=== PATIENT | female | born 1965 | race Hispanic/Latino ===

== ENCOUNTER 2016-11-07 21:37 | Emergency (ER) | payer MEDICARE ==
[2016-11-07 22:12] VITALS: BP 110/85
[2016-11-07 23:28] LABS: Anion Gap 21 mmol/L; Blood Urea Nitrogen 12 mg/dL (7-17); Calcium 9.9 mg/dL (8.4-10.2); Carbon Dioxide 25 mmol/L (22-30); Chloride 97.2 mmol/L (98-107); Glucose 151 mg/dL (65-100); Potassium 3.9 mmol/L (3.6-5.0); Sodium 139 mmol/L (137-145)
[2016-11-08 00:08] LABS: Hematocrit 48.4 % (30.3-42.9); Hemoglobin 16.3 gm/dl (10.1-14.3); Mean Corpuscular HGB Conc 34 % (30-34); Mean Corpuscular Hemoglobin 30 pg (28-32); Mean Corpuscular Volume 89 fl (79-97); Red Blood Count 5.46 M/mm3 (3.65-5.03); Red Cell Distribution Width 14.4 % (13.2-15.2); White Blood Count 13.8 K/mm3 (4.5-11.0)
[2016-11-08 00:10] LABS: Platelet Count 206 K/mm3 (140-440)
[2016-11-08 00:17] LABS: Basophils % (Auto) 0.5 % (0.0-1.8); Diff Status Complete; Eosinophils % (Auto) 1.9 % (0.0-4.3)
--- NOTE | 2016-11-08 00:30 | XRay Report ---
FINAL REPORT PROCEDURE: XR KNEE 3V RT TECHNIQUE: RIGHT knee radiographs, AP, lateral and oblique views. CPT 76783 HISTORY: Right knee pain after trauma. Fall. COMPARISON: No prior studies are available for comparison. FINDINGS: Fracture (s) and/or Dislocation(s): None . Alignment: Normal . Joint space(s): Normal . Soft tissues: Normal . Bone mineralization: Mild degenerative change noted. Foreign bodies: None . IMPRESSION: There is no plain film evidence of fracture or dislocation in the right knee..
[2016-11-08] MEDS ORDERED: NORCO 5/325 PO ONE (01:00)
--- NOTE | 2016-11-08 01:11 | Emergency Department Report ---
HPI - General Chief Complaint: Extremity Injury, Lower Time Seen by Provider: 11/08/16 00:38 - HPI HPI: This is a 50-year-old female who presents to the emergency department , dropped off by her sister, with complaint of right knee and ankle pain. Past 2 days that she had a mechanical fall. Patient says that she tripped on something and fell onto that right lower extremity. She is able to ambulate but has pain with doing so. The patient may have said something during triage that made triage concern for symptoms of shortness of breath as the triage notes say "patient noted to be short of breath" and subsequent labs imaging were placed for this reason. However the patient says that she has a history of COPD and that she is at her normal baseline respiratory status, but she denies any chest pain, and she did not come in for any other reason beside her right lower extremity pain status post fall. She has a primary care doctor but cannot room as her name at this current time. She took some Tylenol for symptoms without much relief. She has a past medical history of asthma, COPD, hypertension, schizophrenia. ED Past Medical Hx - Past Medical History Previous Medical History?: Yes Hx Hypertension: Yes Hx Congestive Heart Failure: No Hx Diabetes: No Hx Psychiatric Treatment: Yes (paranoid schizophrenia) Hx Asthma: Yes Hx COPD: Yes - Surgical History Past Surgical History?: Yes Hx Cholecystectomy: Yes Additional Surgical History: right knee surgery, left carpal tunnel surg, hysterectomy - Social History Smoking Status: Current Every Day Smoker Substance Use Type: None - Medications Home Medications: Home Medications Medication Instructions Recorded Confirmed Last Taken Type Ziprasidone HCl [Geodon] 160 mg PO HS 02/04/14 09/20/15 09/15/15 History clonazePAM [KlonoPIN] 4 mg PO HS 02/04/14 09/20/15 2 Days Ago History ALBUTEROL Inhaler [ProAir HFA 2 puff IH QID PRN #1 inhalation 08/03/14 09/20/15 09/15/15 Rx Inhaler] methylPREDNISolone [Medrol Dose 4 mg PO QAM #1 tab.ds.pk 09/16/15 09/20/15 Unknown Rx Kana] traZODone [Desyrel] 50 mg PO QHS 09/16/15 09/20/15 09/15/15 History Aspirin EC [Aspirin Enteric Coated 325 mg PO QDAY #30 tablet 09/21/15 Unknown Rx TAB] Levofloxacin [Levaquin TAB] 750 mg PO Q24H #2 tablet 09/21/15 Unknown Rx Lisinopril [Zestril TAB] 2.5 mg PO QDAY #30 tab 09/21/15 Unknown Rx Metoprolol [Lopressor TAB] 12.5 mg PO BID #60 tablet 09/21/15 Unknown Rx Prasugrel [Effient] 10 mg PO QDAY #30 tablet 09/21/15 Unknown Rx ED Review of Systems ROS: Stated complaint: DIFFICULTY IN BREATHING/RIGHT KNEE PAIN Other details as noted in HPI Comment: All other systems reviewed and negative Constitutional: denies: chills, fever Eyes: denies: eye pain, eye discharge, vision change ENT: denies: ear pain, throat pain Respiratory: denies: cough, shortness of breath, wheezing Cardiovascular: denies: chest pain, palpitations Gastrointestinal: denies: abdominal pain, nausea, diarrhea Genitourinary: denies: urgency, dysuria, discharge Musculoskeletal: arthralgia. denies: back pain Skin: denies: rash, lesions Neurological: denies: headache, weakness, paresthesias Physical Exam - Physical Exam Vital Signs: Vital Signs 11/07/16 22:09 Temperature 99.3 F Pulse Rate 101 H Respiratory 22 Rate Blood Pressure 110/85 [Right] O2 Sat by Pulse 97 Oximetry Physical Exam: GENERAL: The patient is well-developed well-nourished. HEENT: Normocephalic. Atraumatic. Extraocular motions are intact. Patient has moist mucous membranes. Pupils equal reactive to light bilaterally. NECK: Supple. Trachea is midline. CHEST/LUNGS: Clear to auscultation. There is mild tachypnea but no accessory muscle use. There is no respiratory distress noted. HEART/CARDIOVASCULAR: Regular. There is no tachycardia. There is no gallop rub or murmur. ABDOMEN: Abdomen is soft, nontender. Patient has normal bowel sounds. There is no abdominal distention. Morbidly obese habitus. SKIN: Skin is warm and dry. NEURO: The patient is awake, alert, and oriented. The patient is cooperative. The patient has no focal neurologic deficits. The patient has normal speech. MUSCULOSKELETAL: There is tenderness to palpation to the right circumferential ankle and the right anterior knee no obvious deformities. Negative anterior and posterior drawer test. No laxity with valgus or varus stress of the affected right knee. Pedal pulses +2 over 4 bilaterally. Cap refill less than 2 seconds. ED Course Vital Signs 11/07/16 22:09 Temperature 99.3 F Pulse Rate 101 H Respiratory 22 Rate Blood Pressure 110/85 [Right] O2 Sat by Pulse 97 Oximetry ED Medical Decision Making - Lab Data Result diagrams: 11/07/16 22:53 11/07/16 22:53 - EKG Data -: EKG Interpreted by Me EKG shows normal: sinus rhythm, axis, intervals, QRS complexes (LVH), ST-T waves Rate: normal - EKG Data When compared to previous EKG there are: previous EKG unavailable Interpretation: LVH - Radiology Data Radiology results: image reviewed interpreted by me: Chest x-ray shows some hyperinflation of the lungs and flattening of the diaphragms consistent with COPD. X-ray of the right knee, tib-fib and ankle do not show any fracture, dislocation or any acute process. - Medical Decision Making This is a 50-year-old female presents to the emergency department with complaint of a fall 2 days ago and right knee, saeed and ankle pain. Apparently the patient appeared short of breath through triage so a larger workup was started that included chest x-ray, troponin, as well as other labs. Patient had an x-ray of her right ankle, tib-fib and knee. There was no obvious fracture, dislocation or any acute process. However the patient will be covered with a short posterior splint to the ankle and a right knee immobilizer as well as crutches. Patient had an EKG that shows some LVH but otherwise no signs of ST elevation [place] or cardiac ischemia. Patient had some abnormal labs however with a leukocytosis of 13,000 and her first troponin being elevated just above the normal range at 0.033. Patient about this finding and the patient says that she has no chest pain, does not feel short of breath, or at least is no more short of breath and she is at baseline and did not come in with complaints of chest pain or shortness of breath. I checked a second troponin seeing if it would be trending down but it came back further elevated at 0.045. I spoke with the patient again regarding this abnormal finding and she once again reiterates that she has no chest pain, shortness of breath or any concern. Since I do not know what the etiology of the elevated troponin is , the patient has a normal kidney function, I suggested the patient be admitted to the hospital for further evaluation, serial troponins. However the patient refused this. I discussed with her that elevated troponins could be a marker for coronary artery disease or at least physical stress on the heart and that ignoring these elevated labs could mean heart attack, disability or even . She understands and says that if she starts having any distress she will return to the emergency department immediately but otherwise she refuses to stay. Despite hearing all the risks, the patient has decided to sign out AGAINST MEDICAL ADVICE. - Differential Diagnosis fracture, dislocation, sprain, [place], COPD Critical Care Time: No Critical care attestation.: If time is entered above; I have spent that time in minutes in the direct care of this critically ill patient, excluding procedure time. ED Disposition Clinical Impression: Elevated troponin Fall Qualifiers: Encounter type: initial encounter Qualified Code(s): W19.XXXA - Unspecified fall, initial encounter Ankle pain, right Qualifiers: Chronicity: acute Qualified Code(s): M25.571 - Pain in right ankle and joints of right foot Knee pain Qualifiers: Laterality: right Chronicity: acute Qualified Code(s): M25.561 - Pain in right knee Disposition: LEFT AGAINST MEDICAL ADVICE Is pt being admited?: No Condition: Stable Instructions: Arthralgia (ED) Additional Instructions: Please follow-up with your primary care, pulmonology and cardiology physicians. Return to the emergency department if you change your mind about admission and further evaluation of the elevated troponin levels. I have also given you a referral for local orthopedists, Dr. Costa, to follow up regarding your knee and ankle pain. Referrals: PRIMARY MD CESAR [Primary Care Provider] - 3-5 Days MARIAMA COSTA MD [Staff Physician] - 3-5 Days Forms: AMA Form Time of Disposition: 03:04
[2016-11-08] MEDS ORDERED: ZOFRAN ODT PO ONE (02:29)
--- NOTE | 2016-11-08 02:47 | XRay Report ---
FINAL REPORT PROCEDURE: XR ANKLE 3 RT TECHNIQUE: RIGHT ankle radiographs, AP, lateral, and oblique views. CPT 74957 HISTORY: Right ankle pain COMPARISON: No prior studies are available for comparison. FINDINGS: Fracture (s) and/or Dislocation(s): None. Alignment: Normal. Joint space(s): Normal. Soft tissues: Normal. Bone mineralization: Normal. Foreign bodies: None. Calcaneal spurring: Moderate spurring at the Achilles tendon insertion in the posterior calcaneus. Mild degenerative change elsewhere. IMPRESSION: 1. There is no plain film evidence of fracture or dislocation in the right ankle. 2. Moderate calcaneal spurring. 3. Right tibia and fibula series dictated separately. .
--- NOTE | 2016-11-08 02:47 | XRay Report ---
FINAL REPORT PROCEDURE: XR TIBIA FIBULA 2V RT TECHNIQUE: RIGHT tibia and fibula radiographs, AP and lateral views. CPT 65715 Four films obtained which are 2 AP views and 2 lateral views of the right tibia and fibula HISTORY: Right saeed pain. Pain in tibia and fibula area COMPARISON: No prior studies are available for comparison. FINDINGS: Fracture (s) and/or Dislocation(s): None . Joint space(s): Normal . Soft tissues: Normal . Bone mineralization: Bone mineralization appears normal. There is moderate calcaneal spurring posteriorly. Foreign bodies: None . IMPRESSION: 1. There is no plain film evidence of fracture or dislocation or acute finding. 2. Right ankle series dictated separately.
[2016-11-08] MEDS ORDERED: NACL 0.9% 1000 ML 1,000 ML ONE (05:37)
[2016-11-08 07:51] LABS: Cholesterol 196 mg/dL (50-199); HDL Cholesterol 51 mg/dL (40-59); LDL Cholesterol,Direct 86 mg/dL (50-130); Triglycerides 295 mg/dL (2-149)
--- NOTE | 2016-11-08 09:47 | XRay Report ---
Single view chest: Compared to 02/16/16. History: Shortness of breath. Findings: Marked cardiomegaly. Trachea is midline. No consolidation, pneumothorax or pleural effusion. Impression: Cardiomegaly. No acute lung changes.
== END 2016-11-08 03:29 | disposition left against medical advice (07) ==
LOC: ED 21:37
DX: M25.561 Pain in right knee (principal); M25.571 Pain in right ankle and joints of right foot; J45.909 Unspecified asthma, uncomplicated; I10 Essential (primary) hypertension; F20.0 Paranoid schizophrenia; J44.9 Chronic obstructive pulmonary disease, unspecified; F17.200 Nicotine dependence, unspecified, uncomplicated; Z79.82 Long term (current) use of aspirin; W19.XXXA Unspecified fall, initial encounter; Y93.89 Activity, other specified; Y99.9 Unspecified external cause status; Y92.89 Other specified places as the place of occurrence of the external cause
CPT/HCPCS: 29505; 36415; 71010; 73562; 73590; 73610; 80048; 80061; 82805; 84484; 85025; 93005; 93010; 99284; J7030; Q0162

== ENCOUNTER 2016-11-10 14:39 | Emergency (ER) | payer MEDICARE ==
[2016-11-10 15:31] VITALS: BP 141/78
[2016-11-10 16:22] LABS: Eosinophils % (Auto) 1.7 % (0.0-4.3); Hematocrit 44.8 % (30.3-42.9); Hemoglobin 14.8 gm/dl (10.1-14.3); Mean Corpuscular HGB Conc 33 % (30-34); Mean Corpuscular Hemoglobin 30 pg (28-32); Mean Corpuscular Volume 89 fl (79-97); Platelet Count 248 K/mm3 (140-440); Red Blood Count 5.03 M/mm3 (3.65-5.03); Red Cell Distribution Width 13.9 % (13.2-15.2); White Blood Count 11.9 K/mm3 (4.5-11.0)
--- NOTE | 2016-11-10 16:31 | XRay Report ---
Chest 2 views: Compared to 11/07/16. History: Shortness of breath. Findings: Cardiomegaly. Trachea is midline. Mild pulmonary venous congestion. No consolidation. Left CP angle obscured than left. Right CP angle normal. Impression: Cardiomegaly with mild pulmonary venous congestion.
[2016-11-10 16:40] LABS: Anion Gap 19 mmol/L; BUN/Creatinine Ratio 13.33; Blood Urea Nitrogen 8 mg/dL (7-17); Calcium 9.4 mg/dL (8.4-10.2); Carbon Dioxide 27 mmol/L (22-30); Chloride 95.8 mmol/L (98-107); Glucose 124 mg/dL (65-100); Sodium 138 mmol/L (137-145)
== END 2016-11-11 | disposition left against medical advice (07) ==
LOC: ED 14:39
DX: R07.9 Chest pain, unspecified (principal); Z53.21 Procedure and treatment not carried out due to patient leaving prior to being seen by health care provider
CPT/HCPCS: 36415; 71020; 80048; 84484; 85025; 93005; 93010

== ENCOUNTER 2016-11-29 07:35 | Emergency (ER) | payer MEDICARE ==
--- NOTE | 2016-11-29 12:04 | Emergency Department Report ---
ED General Adult HPI - General Chief complaint: Anxiety Stated complaint: ANXIETY ATTACK Time Seen by Provider: 11/29/16 11:48 Source: patient Mode of arrival: Wheelchair Limitations: No Limitations - History of Present Illness Initial comments: 51 y/o M presents w/ cc of anxiety. Pt states she has a long standing hx of anxiety, and has PCP appt on Thursday. Pt state she has had trouble sleeping. Pt states symptoms are consistent with usual anxiety attack. Denies headache, chset pain, melena, hematochezia, lightheadedness, dizziness. Pt refuses objective tests and simply wants her klonopin and go to sleep at home. - Related Data Home Medications Medication Instructions Recorded Confirmed Last Taken Ziprasidone HCl [Geodon] 160 mg PO HS 02/04/14 11/29/16 1 Day Ago clonazePAM [KlonoPIN] 2 mg PO HS 02/04/14 11/29/16 1 Day Ago traZODone [Desyrel] 50 mg PO QHS 09/16/15 11/29/16 1 Day Ago Previous Rx's Medication Instructions Recorded Last Taken Type ALBUTEROL Inhaler [ProAir HFA 2 puff IH QID PRN #1 inhalation 08/03/14 1 Day Ago Rx Inhaler] Aspirin EC [Aspirin Enteric Coated 325 mg PO QDAY #30 tablet 09/21/15 1 Day Ago Rx TAB] Lisinopril [Zestril TAB] 2.5 mg PO QDAY #30 tab 09/21/15 1 Day Ago Rx Metoprolol [Lopressor TAB] 12.5 mg PO BID #60 tablet 09/21/15 1 Day Ago Rx Prasugrel [Effient] 10 mg PO QDAY #30 tablet 09/21/15 1 Day Ago Rx Allergies Allergy/AdvReac Type Severity Reaction Status Date / Time aspirin Allergy Nausea Verified 11/29/16 08:19 meperidine HCl [From Demerol] Allergy Rash Verified 11/29/16 08:19 NSAIDS (Non-Steroidal Allergy Unknown Verified 11/29/16 08:19 Anti-Inflamma ED Review of Systems ROS: Stated complaint: ANXIETY ATTACK Other details as noted in HPI Comment: All other systems reviewed and negative Constitutional: denies: chills, fever Eyes: denies: eye pain, eye discharge, vision change ENT: denies: ear pain, throat pain Respiratory: denies: cough, shortness of breath, wheezing Cardiovascular: denies: chest pain, palpitations Endocrine: no symptoms reported Gastrointestinal: denies: abdominal pain, nausea, diarrhea Genitourinary: denies: urgency, dysuria, discharge Musculoskeletal: denies: back pain, joint swelling, arthralgia Skin: denies: rash, lesions Neurological: denies: headache, weakness, paresthesias Psychiatric: denies: anxiety, depression Hematological/Lymphatic: denies: easy bleeding, easy bruising ED Past Medical Hx - Past Medical History Hx Hypertension: Yes Hx Heart Attack/AMI: Yes Hx Congestive Heart Failure: No Hx Diabetes: Yes Hx GERD: Yes Hx Kidney Stones: Yes Hx Psychiatric Treatment: Yes (paranoid schizophrenia /ANXIETY) Hx Asthma: Yes Hx COPD: Yes Additional medical history: CAD - Surgical History Hx Coronary Stent: Yes Hx Cholecystectomy: Yes Additional Surgical History: right knee surgery, left carpal tunnel surg, hysterectomy - Social History Smoking Status: Current Every Day Smoker Substance Use Type: Prescribed - Medications Home Medications: Home Medications Medication Instructions Recorded Confirmed Last Taken Type Ziprasidone HCl [Geodon] 160 mg PO HS 02/04/14 11/29/16 1 Day Ago History clonazePAM [KlonoPIN] 2 mg PO HS 02/04/14 11/29/16 1 Day Ago History ALBUTEROL Inhaler [ProAir HFA 2 puff IH QID PRN #1 inhalation 08/03/14 11/29/16 1 Day Ago Rx Inhaler] traZODone [Desyrel] 50 mg PO QHS 09/16/15 11/29/16 1 Day Ago History Aspirin EC [Aspirin Enteric Coated 325 mg PO QDAY #30 tablet 09/21/15 11/29/16 1 Day Ago Rx TAB] Lisinopril [Zestril TAB] 2.5 mg PO QDAY #30 tab 09/21/15 11/29/16 1 Day Ago Rx Metoprolol [Lopressor TAB] 12.5 mg PO BID #60 tablet 09/21/15 11/29/16 1 Day Ago Rx Prasugrel [Effient] 10 mg PO QDAY #30 tablet 09/21/15 11/29/16 1 Day Ago Rx ED Physical Exam - General Limitations: No Limitations General appearance: alert, in no apparent distress - Head Head exam: Present: atraumatic, normocephalic - Eye Eye exam: Present: normal appearance, PERRL, EOMI - ENT ENT exam: Present: normal exam, normal orophraynx, mucous membranes moist - Neck Neck exam: Present: normal inspection - Respiratory Respiratory exam: Present: normal lung sounds bilaterally. Absent: respiratory distress - Cardiovascular Cardiovascular Exam: Present: regular rate, normal rhythm. Absent: systolic murmur, diastolic murmur, rubs, gallop - GI/Abdominal GI/Abdominal exam: Present: soft, normal bowel sounds, other (Non tender) - Extremities Exam Extremities exam: Present: normal inspection - Back Exam Back exam: Present: normal inspection - Neurological Exam Neurological exam: Present: alert, oriented X3, CN II-XII intact, normal gait - Psychiatric Psychiatric exam: Present: normal affect, normal mood - Skin Skin exam: Present: warm, dry, intact, normal color. Absent: rash ED Course Vital Signs 11/29/16 08:10 Temperature 99.0 F Pulse Rate 81 Respiratory 26 H Rate Blood Pressure 136/90 O2 Sat by Pulse 96 Oximetry ED Medical Decision Making - Medical Decision Making I did recommend pt udnergo work up to rule out other possible explanations for anxiety such as anemia, but pt declined. Pt is awake, alert, oriented and understands that an emergency medical condition has not been ruled out. Pt understood, and signed out HOOD Critical care attestation.: If time is entered above; I have spent that time in minutes in the direct care of this critically ill patient, excluding procedure time. ED Disposition Clinical Impression: Anxiety attack, Left against medical advice Disposition: LEFT AGAINST MEDICAL ADVICE Is pt being admited?: No Condition: Good Instructions: Anxiety (ED) Additional Instructions: Please follow up with your primary care doctor on Thursday as scheduled, return if you have any new concerning symptoms Referrals: PRIMARY CARE, [Primary Care Provider] - 3-5 Days Forms: AMA Form Time of Disposition: 12:12
[2016-11-29 12:27] VITALS: BP 141/65
== END 2016-11-29 12:30 | disposition left against medical advice (07) ==
LOC: ED 07:35
DX: F41.9 Anxiety disorder, unspecified (principal)
CPT/HCPCS: 99283

== ENCOUNTER 2016-12-29 21:45 | Emergency (ER) | payer MEDICARE ==
[2016-12-29 22:18] LABS: Hematocrit 48.7 % (30.3-42.9); Hemoglobin 16.5 gm/dl (10.1-14.3); Mean Corpuscular HGB Conc 34 % (30-34); Mean Corpuscular Hemoglobin 30 pg (28-32); Mean Corpuscular Volume 89 fl (79-97); Platelet Count 275 K/mm3 (140-440); Red Blood Count 5.48 M/mm3 (3.65-5.03); Red Cell Distribution Width 14.4 % (13.2-15.2)
[2016-12-29 22:28] LABS: INR 0.9 (0.87-1.13); Partial Thromboplastin Time 27.5 Sec. (24.2-36.6)
[2016-12-29 22:33] LABS: Alanine Aminotransferase 67 units/L (7-56); Albumin 3.9 g/dL (3.9-5); Albumin/Globulin Ratio 1.3 %; Alkaline Phosphatase 104 units/L (35-129); Anion Gap 20 mmol/L; Blood Urea Nitrogen 15 mg/dL (7-17); Calcium 9.8 mg/dL (8.4-10.2); Carbon Dioxide 26 mmol/L (22-30); Chloride 97.9 mmol/L (98-107); Glucose 109 mg/dL (65-100); Sodium 140 mmol/L (137-145); Total Protein 6.8 g/dL (6.3-8.2)
[2016-12-30 00:50] LABS: Basophils % (Manual) 0 % (0.0-1.8); Blastocytes % (Manual) 0 %; Diff Status Complete; Platelet Estimate Consistent w Auto; RBC Morphology Normal
--- NOTE | 2016-12-30 06:31 | Emergency Department Report ---
ED Shortness of Breath HPI - General Chief Complaint: Dyspnea/Respdistress Stated Complaint: CHEST PAIN/SOB Time Seen by Provider: 12/30/16 06:26 Source: patient, family Mode of arrival: Wheelchair Limitations: No Limitations - History of Present Illness Initial Comments: Apparently the patient has a history of COPD and persistent tobacco dependency. She signed out of [facility] being admitted for these symptoms. She returned to smoking. She also has a history of a bipolar disorder/paranoid schizophrenia treated with trazodone and Geodon and Klonopin. She states she has not taken her medicines yet today and that she has been here for 9 hours. She is anxious. She states she has not been given any neb treatments. Apparently she is also complains of some facial swelling. She primarily complains of shortness of breath/wheezing. Said no fever or chills. She's been coughing without sputum production. MD Complaint: "asthma attack", anxiety -: days(s) Known History Of: COPD Context: smoke/fume exposure Associated Symptoms: denies other symptoms (except as above) - Related Data Home Medications Medication Instructions Recorded Confirmed Last Taken Ziprasidone HCl [Geodon] 160 mg PO HS 02/04/14 12/30/16 12/29/16 clonazePAM [KlonoPIN] 2 mg PO HS 02/04/14 12/30/16 12/29/16 traZODone [Desyrel] 50 mg PO QHS 09/16/15 12/30/16 12/29/16 Previous Rx's Medication Instructions Recorded Last Taken Type Aspirin EC [Aspirin Enteric Coated 325 mg PO QDAY #30 tablet 09/21/15 12/29/16 Rx TAB] Lisinopril [Zestril TAB] 2.5 mg PO QDAY #30 tab 09/21/15 12/29/16 Rx Metoprolol [Lopressor TAB] 12.5 mg PO BID #60 tablet 09/21/15 12/29/16 Rx Prasugrel [Effient] 10 mg PO QDAY #30 tablet 09/21/15 12/29/16 Rx ALBUTEROL Inhaler [ProAir HFA 2 puff IH QID PRN #1 inhalation 12/30/16 Unknown Rx Inhaler] Albuterol Sulfate [Albuterol 0.63% 0.63 mg IH TID PRN #60 ml 12/30/16 Unknown Rx NEBS] Azithromycin [Zithromax Z-TIKA] 250 mg PO DAILY #6 tablet 12/30/16 Unknown Rx predniSONE [Deltasone] 40 mg PO QDAY #14 tab 12/30/16 Unknown Rx Allergies Allergy/AdvReac Type Severity Reaction Status Date / Time aspirin Allergy Nausea Verified 11/29/16 08:19 meperidine HCl [From Demerol] Allergy Rash Verified 11/29/16 08:19 NSAIDS (Non-Steroidal Allergy Unknown Verified 11/29/16 08:19 Anti-Inflamma ED Review of Systems ROS: Stated complaint: CHEST PAIN/SOB Other details as noted in HPI Constitutional: denies: chills, fever Eyes: denies: eye pain, eye discharge, vision change ENT: as per HPI. denies: ear pain, throat pain Respiratory: cough, shortness of breath, wheezing Cardiovascular: denies: chest pain, palpitations Endocrine: no symptoms reported Gastrointestinal: denies: abdominal pain, nausea, diarrhea Genitourinary: denies: urgency, dysuria, discharge Musculoskeletal: denies: back pain, joint swelling, arthralgia Skin: denies: rash, lesions Neurological: denies: headache, weakness, paresthesias Psychiatric: anxiety. denies: depression Hematological/Lymphatic: denies: easy bleeding, easy bruising ED Past Medical Hx - Past Medical History Hx Hypertension: Yes Hx Heart Attack/AMI: Yes Hx Congestive Heart Failure: No Hx Diabetes: Yes Hx GERD: Yes Hx Kidney Stones: Yes Hx Psychiatric Treatment: Yes (paranoid schizophrenia /ANXIETY) Hx Asthma: Yes Hx COPD: Yes Additional medical history: CAD - Surgical History Past Surgical History?: Yes Hx Coronary Stent: Yes Hx Cholecystectomy: Yes Additional Surgical History: right knee surgery, left carpal tunnel surg, hysterectomy - Social History Smoking Status: Current Every Day Smoker - Medications Home Medications: Home Medications Medication Instructions Recorded Confirmed Last Taken Type Ziprasidone HCl [Geodon] 160 mg PO HS 02/04/14 12/30/16 12/29/16 History clonazePAM [KlonoPIN] 2 mg PO HS 02/04/14 12/30/16 12/29/16 History traZODone [Desyrel] 50 mg PO QHS 09/16/15 12/30/16 12/29/16 History Aspirin EC [Aspirin Enteric Coated 325 mg PO QDAY #30 tablet 09/21/15 12/30/16 12/29/16 Rx TAB] Lisinopril [Zestril TAB] 2.5 mg PO QDAY #30 tab 09/21/15 12/30/16 12/29/16 Rx Metoprolol [Lopressor TAB] 12.5 mg PO BID #60 tablet 09/21/15 12/30/16 12/29/16 Rx Prasugrel [Effient] 10 mg PO QDAY #30 tablet 09/21/15 12/30/16 12/29/16 Rx ALBUTEROL Inhaler [ProAir HFA 2 puff IH QID PRN #1 inhalation 12/30/16 Unknown Rx Inhaler] Albuterol Sulfate [Albuterol 0.63% 0.63 mg IH TID PRN #60 ml 12/30/16 Unknown Rx NEBS] Azithromycin [Zithromax Z-TIKA] 250 mg PO DAILY #6 tablet 12/30/16 Unknown Rx predniSONE [Deltasone] 40 mg PO QDAY #14 tab 12/30/16 Unknown Rx ED Physical Exam - General Limitations: Other (psychiatric disorder) General appearance: alert, in no apparent distress, anxious, obese - Head Head exam: Present: atraumatic, normocephalic - Eye Eye exam: Present: normal appearance. Absent: scleral icterus - ENT ENT exam: Present: mucous membranes moist - Neck Neck exam: Present: normal inspection. Absent: tenderness, meningismus - Respiratory Respiratory exam: Present: decreased breath sounds. Absent: respiratory distress - Cardiovascular Cardiovascular Exam: Present: regular rate, normal rhythm. Absent: systolic murmur, diastolic murmur, rubs, gallop - GI/Abdominal GI/Abdominal exam: Present: soft, normal bowel sounds. Absent: distended, tenderness, guarding, rebound, rigid - Extremities Exam Extremities exam: Present: normal inspection, normal capillary refill, joint swelling. Absent: tenderness, pedal edema, calf tenderness - Back Exam Back exam: Present: normal inspection - Neurological Exam Neurological exam: Present: alert, oriented X3, CN II-XII intact. Absent: motor sensory deficit - Psychiatric Psychiatric exam: Present: normal affect, normal mood - Skin Skin exam: Present: warm, dry, intact, normal color. Absent: rash ED Course Vital Signs 12/29/16 12/30/16 12/30/16 21:50 05:02 06:02 Temperature 98.3 F Pulse Rate 118 H 98 H 72 Pulse Rate [ Anterior Bilateral Throughout] Respiratory 22 20 27 H Rate Respiratory Rate [Anterior Bilateral Throughout] Blood Pressure 114/88 138/83 Blood Pressure 141/73 [Left] O2 Sat by Pulse 95 97 95 Oximetry 12/30/16 12/30/16 12/30/16 06:03 07:26 07:27 Temperature Pulse Rate 72 Pulse Rate [ 74 74 Anterior Bilateral Throughout] Respiratory Rate Respiratory 17 17 Rate [Anterior Bilateral Throughout] Blood Pressure Blood Pressure [Left] O2 Sat by Pulse Oximetry 12/30/16 07:42 Temperature 98.6 F Pulse Rate 76 Pulse Rate [ Anterior Bilateral Throughout] Respiratory 27 H Rate Respiratory Rate [Anterior Bilateral Throughout] Blood Pressure Blood Pressure 106/53 [Left] O2 Sat by Pulse 94 Oximetry - Reevaluation(s) Reevaluation #1: Patient states symptoms have resolved. She is on prednisone and her white blood cell count is bit elevated. He does not have any fever or chills. She denies chest pain. 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 Smoking cessation was discussed. 12/30/16 09:22 ED Medical Decision Making - Lab Data Result diagrams: 12/29/16 22:06 12/29/16 22:06 Laboratory Results - last 24 hr 12/29/16 12/29/16 12/29/16 22:06 22:06 22:06 WBC 18.0 H RBC 5.48 H Hgb 16.5 H Hct 48.7 H MCV 89 MCH 30 MCHC 34 RDW 14.4 Plt Count 275 Lymph # Navigation Teacher Add Manual Diff Complete Total Counted 100 Seg Neuts % (Manual) 62.0 Band Neutrophils % 0 Lymphocytes % (Manual) 29.0 Reactive Lymphs % (Man) 0 Monocytes % (Manual) 8.0 H Eosinophils % (Manual) 1.0 Basophils % (Manual) 0 Metamyelocytes % 0 Myelocytes % 0 Promyelocytes % 0 Blast Cells % 0 Nucleated RBC % Not Reportable Seg Neutrophils # Man 11.2 H Band Neutrophils # 0.0 Lymphocytes # (Manual) 5.2 Abs React Lymphs (Man) 0.0 Monocytes # (Manual) 1.4 H Eosinophils # (Manual) 0.2 Basophils # (Manual) 0.0 Metamyelocytes # 0.0 Myelocytes # 0.0 Promyelocytes # 0.0 Blast Cells # 0.0 WBC Morphology Not Reportable Hypersegmented Neuts Not Reportable Hyposegmented Neuts Not Reportable Hypogranular Neuts Not Reportable Smudge Cells Not Reportable Toxic Granulation Not Reportable Toxic Vacuolation Not Reportable Dohle Bodies Not Reportable Pelger-Huet Anomaly Not Reportable Jane Rods Not Reportable Platelet Estimate Consistent w auto Clumped Platelets Not Reportable Plt Clumps, EDTA Not Reportable Large Platelets Not Reportable Giant Platelets Not Reportable Platelet Satelliting Not Reportable Plt Morphology Comment Not Reportable RBC Morphology Normal Dimorphic RBCs Not Reportable Polychromasia Not Reportable Hypochromasia Not Reportable Poikilocytosis Not Reportable Anisocytosis Not Reportable Microcytosis Not Reportable Macrocytosis Not Reportable Spherocytes Not Reportable Pappenheimer Bodies Not Reportable Sickle Cells Not Reportable Target Cells Not Reportable Tear Drop Cells Not Reportable Ovalocytes Not Reportable Helmet Cells Not Reportable Patel-Lillie Bodies Not Reportable [place] Rings Not Reportable [place] Cells Not Reportable Bite Cells Not Reportable Crenated Cell Not Reportable Elliptocytes Not Reportable Acanthocytes (Spur) Not Reportable Rouleaux Not Reportable Hemoglobin C Crystals Not Reportable Schistocytes Not Reportable Malaria parasites Not Reportable Emerson Bodies Not Reportable Hem Pathologist Commnt No PT 12.1 L INR 0.90 APTT 27.5 Sodium 140 Potassium 4.0 Chloride 97.9 L Carbon Dioxide 26 Anion Gap 20 BUN 15 Creatinine 0.6 L Estimated GFR > 60 BUN/Creatinine Ratio 25.00 Glucose 109 H Calcium 9.8 Total Bilirubin 0.40 AST 51 H ALT 67 H Alkaline Phosphatase 104 Troponin T 0.012 Total Protein 6.8 Albumin 3.9 Albumin/Globulin Ratio 1.3 Laboratory Results - last 24 hr 12/29/16 12/29/16 12/29/16 22:06 22:06 22:06 WBC 18.0 H RBC 5.48 H Hgb 16.5 H Hct 48.7 H MCV 89 MCH 30 MCHC 34 RDW 14.4 Plt Count 275 Lymph # Navigation Teacher Add Manual Diff Complete Total Counted 100 Seg Neuts % (Manual) 62.0 Band Neutrophils % 0 Lymphocytes % (Manual) 29.0 Reactive Lymphs % (Man) 0 Monocytes % (Manual) 8.0 H Eosinophils % (Manual) 1.0 Basophils % (Manual) 0 Metamyelocytes % 0 Myelocytes % 0 Promyelocytes % 0 Blast Cells % 0 Nucleated RBC % Not Reportable Seg Neutrophils # Man 11.2 H Band Neutrophils # 0.0 Lymphocytes # (Manual) 5.2 Abs React Lymphs (Man) 0.0 Monocytes # (Manual) 1.4 H Eosinophils # (Manual) 0.2 Basophils # (Manual) 0.0 Metamyelocytes # 0.0 Myelocytes # 0.0 Promyelocytes # 0.0 Blast Cells # 0.0 WBC Morphology Not Reportable Hypersegmented Neuts Not Reportable Hyposegmented Neuts Not Reportable Hypogranular Neuts Not Reportable Smudge Cells Not Reportable Toxic Granulation Not Reportable Toxic Vacuolation Not Reportable Dohle Bodies Not Reportable Pelger-Huet Anomaly Not Reportable Jane Rods Not Reportable Platelet Estimate Consistent w auto Clumped Platelets Not Reportable Plt Clumps, EDTA Not Reportable Large Platelets Not Reportable Giant Platelets Not Reportable Platelet Satelliting Not Reportable Plt Morphology Comment Not Reportable RBC Morphology Normal Dimorphic RBCs Not Reportable Polychromasia Not Reportable Hypochromasia Not Reportable Poikilocytosis Not Reportable Anisocytosis Not Reportable Microcytosis Not Reportable Macrocytosis Not Reportable Spherocytes Not Reportable Pappenheimer Bodies Not Reportable Sickle Cells Not Reportable Target Cells Not Reportable Tear Drop Cells Not Reportable Ovalocytes Not Reportable Helmet Cells Not Reportable Patel-Lillie Bodies Not Reportable [place] Rings Not Reportable [place] Cells Not Reportable Bite Cells Not Reportable Crenated Cell Not Reportable Elliptocytes Not Reportable Acanthocytes (Spur) Not Reportable Rouleaux Not Reportable Hemoglobin C Crystals Not Reportable Schistocytes Not Reportable Malaria parasites Not Reportable Emerson Bodies Not Reportable Hem Pathologist Commnt No PT 12.1 L INR 0.90 APTT 27.5 Sodium 140 Potassium 4.0 Chloride 97.9 L Carbon Dioxide 26 Anion Gap 20 BUN 15 Creatinine 0.6 L Estimated GFR > 60 BUN/Creatinine Ratio 25.00 Glucose 109 H Calcium 9.8 Total Bilirubin 0.40 AST 51 H ALT 67 H Alkaline Phosphatase 104 Troponin T 0.012 Total Protein 6.8 Albumin 3.9 Albumin/Globulin Ratio 1.3 - EKG Data -: EKG Interpreted by Me EKG shows normal: sinus rhythm, axis, intervals Rate: normal - EKG Data When compared to previous EKG there are: no significant change Interpretation: LVH (LVH with associated repolarization abnormality essentially equivalent to prior tracing. Somewhat diffuse T-wave and ST abnormality) - Radiology Data interpreted by me: Chest x-ray shows cardiomegaly without decompensation Critical care attestation.: If time is entered above; I have spent that time in minutes in the direct care of this critically ill patient, excluding procedure time. ED Disposition Clinical Impression: COPD exacerbation, Tobacco dependency, Acute anxiety Acute bronchitis Qualifiers: Bronchitis organism: unspecified organism Qualified Code(s): J20.9 - Acute bronchitis, unspecified Leukocytosis Qualifiers: Leukocytosis type: unspecified Qualified Code(s): D72.829 - Elevated white blood cell count, unspecified Disposition: DISCHARGED TO HOME OR SELFCARE Is pt being admited?: No Does the pt Need Aspirin: No Condition: Stable Instructions: Chronic Obstructive Pulmonary Disease (ED), Acute Bronchitis (ED) Additional Instructions: Follow-up with your lung specialist. Smoking will probably cause you to an back in the emergency department. Rx as directed. Return as necessary. Return any acute change or problem. Prescriptions: ALBUTEROL Inhaler [ProAir HFA Inhaler] 2 puff IH QID PRN #1 inhalation PRN Reason: Shortness Of Breath Albuterol Sulfate [Albuterol 0.63% NEBS] 0.63 mg IH TID PRN #60 ml PRN Reason: Wheezing Azithromycin [Zithromax Z-TIKA] 250 mg PO DAILY #6 tablet predniSONE [Deltasone] 40 mg PO QDAY #14 tab Referrals: PRIMARY CARE, [Primary Care Provider] - 3-5 Days REESE MISTRY MD [Staff Physician] - 2-3 Days Time of Disposition: 09:28
[2016-12-30] MEDS ORDERED: MAGNESIUM SULFATE 2GM/50ML 2 GM/50 ML BAG IV ONE (06:52)
[2016-12-30] MEDS ORDERED: DUONEB 0.5 MG-3 MG/3 ML SOLN IH ONE (06:52)
[2016-12-30] MEDS ORDERED: ATIVAN IV ONE (06:52)
[2016-12-30] MEDS ORDERED: DECADRON ONE (07:05)
[2016-12-30] MEDS ORDERED: DECADRON IV ONE (07:07)
[2016-12-30 07:45] VITALS: BP 106/53
--- NOTE | 2016-12-30 07:58 | XRay Report ---
ROUTINE CHEST, TWO VIEWS: HISTORY: Dyspnea . Mild cardiomegaly is stable since 11/10/16. Normal pulmonary vascularity. The lungs are mildly hyperinflated but clear. No evidence for infiltrate, pleural effusion or pneumothorax. The thoracic cage is grossly intact. Mild thoracic spondylosis is noted. IMPRESSION: Mild cardiomegaly. Lungs clear.
== END 2016-12-30 10:00 | disposition home or self-care (01) ==
LOC: ED 21:45
DX: J44.1 Chronic obstructive pulmonary disease with (acute) exacerbation (principal); J20.9 Acute bronchitis, unspecified; F17.200 Nicotine dependence, unspecified, uncomplicated; F41.9 Anxiety disorder, unspecified; D72.829 Elevated white blood cell count, unspecified; I10 Essential (primary) hypertension; I25.2 Old myocardial infarction; E11.9 Type 2 diabetes mellitus without complications; K21.9 Gastro-esophageal reflux disease without esophagitis; F20.0 Paranoid schizophrenia; I25.10 Atherosclerotic heart disease of native coronary artery without angina pectoris; Z90.49 Acquired absence of other specified parts of digestive tract; Z90.710 Acquired absence of both cervix and uterus; Z88.6 Allergy status to analgesic agent
CPT/HCPCS: 36415; 71020; 80053; 84484; 85007; 85025; 85610; 85730; 93005; 93010; 94640; 96374; 96375; 99284; J1100; J2060

== ENCOUNTER 2017-01-21 13:31 | Emergency (ER) | payer MEDICARE ==
[2017-01-21 15:35] LABS: Basophils % (Auto) 0.7 % (0.0-1.8); Eosinophils % (Auto) 0.1 % (0.0-4.3); Hematocrit 52.7 % (30.3-42.9); Hemoglobin 17.7 gm/dl (10.1-14.3); Mean Corpuscular HGB Conc 34 % (30-34); Mean Corpuscular Hemoglobin 29 pg (28-32); Mean Corpuscular Volume 88 fl (79-97); Platelet Count 374 K/mm3 (140-440); Red Blood Count 6.01 M/mm3 (3.65-5.03); Red Cell Distribution Width 14.9 % (13.2-15.2)
[2017-01-21 15:45] LABS: Blood Urea Nitrogen 28 mg/dL (7-17); Calcium 10.7 mg/dL (8.4-10.2); Carbon Dioxide 27 mmol/L (22-30); Glucose 136 mg/dL (65-100)
[2017-01-21 15:51] LABS: Anion Gap 21 mmol/L; Potassium 4.6 mmol/L (3.6-5.0); Sodium 139 mmol/L (137-145)
[2017-01-21] MEDS ORDERED: HALDOL IM ONE (16:02)
--- NOTE | 2017-01-21 16:10 | XRay Report ---
Single view chest: History: Dyspnea. Findings: Cardiomegaly with mild pulmonary venous congestion being more pronounced in the lower lobes. No consolidation. Left CP angle obscured by the large heart. I see appears unremarkable. Impression: Cardiomegaly with mild pulmonary venous congestion.
[2017-01-21] MEDS ORDERED: ZOFRAN IV ONE (16:26)
[2017-01-21] MEDS ORDERED: TYLENOL PO ONE (16:27)
--- NOTE | 2017-01-21 17:52 | Emergency Department Report ---
ED Chest Pain HPI - General Chief Complaint: Dyspnea/Respdistress Stated Complaint: CHEST PAIN Time Seen by Provider: 01/21/17 14:49 Source: patient, family, EMS Mode of arrival: Stretcher Limitations: No Limitations - History of Present Illness MD Complaint: chest pain -: Gradual, hour(s) Onset: during rest Pain Location: substernal Pain Radiation: none Severity: mild Severity scale (0 -10): 2 Quality: aching Consistency: intermittent Improves With: nothing Worsens With: nothing Context: other (feeling anxious similar symptoms with anxiety attack) re: denies: nausea, vomting, diaphoresis, dyspnea, sense of impending doom Other Symptoms: denies: cough, fever, syncope, rash, acid taste in mouth, leg swelling, palpitations, burping - Related Data Home Medications Medication Instructions Recorded Confirmed Last Taken Ziprasidone HCl [Geodon] 120 mg PO HS 02/04/14 01/21/17 12/29/16 clonazePAM [KlonoPIN] 2 mg PO HS 02/04/14 01/21/17 12/29/16 traZODone [Desyrel] 50 mg PO QHS 09/16/15 01/21/17 12/29/16 Aspirin [Adult Low Dose Aspirin EC] 81 mg PO DAILY 01/21/17 01/21/17 Unknown Furosemide [Lasix TAB] 40 mg PO QDAY 01/21/17 01/21/17 Unknown ISOSORBIDE MONOnitrate [Imdur ER] 30 mg PO DAILY 01/21/17 01/21/17 Unknown Lisinopril [Zestril TAB] 5 mg PO QDAY 01/21/17 01/21/17 Unknown Metoprolol [Lopressor TAB] 25 mg PO DAILY 01/21/17 01/21/17 Unknown Rosuvastatin (Nf) [Crestor] 20 mg PO QHS 01/21/17 01/21/17 Unknown metFORMIN [Glucophage] 500 mg PO BID 01/21/17 01/21/17 Unknown Previous Rx's Medication Instructions Recorded Last Taken Type Prasugrel [Effient] 10 mg PO QDAY #30 tablet 09/21/15 12/29/16 Rx ALBUTEROL Inhaler [ProAir HFA 2 puff IH QID PRN #1 inhalation 12/30/16 Unknown Rx Inhaler] Allergies Allergy/AdvReac Type Severity Reaction Status Date / Time aspirin Allergy Nausea Verified 11/29/16 08:19 meperidine HCl [From Demerol] Allergy Rash Verified 11/29/16 08:19 NSAIDS (Non-Steroidal Allergy Unknown Verified 11/29/16 08:19 Anti-Inflamma Heart Score - HEART Score History: Slightly suspicious EKG: Non-specific Age: 45-65 Risk factors: > 3 risk factors or hx of atherosclerotic disease Troponin: < normal limit HEART Score: 4 ED Review of Systems ROS: Stated complaint: CHEST PAIN Other details as noted in HPI Other: GENERAL: No weight change, fatigue, weakness, fever, chills, or night sweats SKIN: No changes in skin or hair, no itching, no rashes, no jaundice HEAD: No trauma, headache, or visual changes EYES: No blurriness, tearing, itching, acute visual loss, conjunctival discoloration, or scleral icterus EARS: No hearing loss, tinnitus, vertigo, or earache NOSE: No rhinorrhea, stuffiness, sneezing, itching, or epistaxis MOUTH: No bleeding gums, hoarseness, sore throat, or swelling CARDIAC: No new murmur, chest pain, palpitations, dyspnea on exertion, orthopnea , PND, or edema RESPIRATORY: No shortness of breath, wheeze, cough, sputum production, hemoptysis, pneumonia, asthma, bronchitis, or emphysema GI: No change in appetite, nausea, vomiting, dysphagia, change in bowel frequency, diarrhea, constipation, bleeding, hematemesis, melena, hematochezia, or abdominal pain URINARY: No frequency, urgency, polyuria, dysuria, hematuria, or incontinence MUSCULOSKELETAL: No muscle weakness, joint stiffness, decrease in range of motion, redness, swelling, tenderness NEUROLOGIC: No loss of sensation, numbness, tingling, tremors, weakness, paralysis, seizures HEMATOLOGIC: No anemia, easy bruising, bleeding, petechiae, or purpura ENDOCRINE: No hot or cold intolerance, sweating, polyuria, polydipsia or, polyphagia no thyroid problems PSYCHIATRIC: Anxious, denies SI/HI, ED Past Medical Hx - Past Medical History Previous Medical History?: Yes Hx Hypertension: Yes Hx Heart Attack/AMI: Yes Hx Congestive Heart Failure: No Hx Diabetes: Yes Hx GERD: Yes Hx Kidney Stones: Yes Hx Psychiatric Treatment: Yes (paranoid schizophrenia /ANXIETY) Hx Asthma: Yes Hx COPD: Yes Additional medical history: CAD - Surgical History Past Surgical History?: Yes Hx Coronary Stent: Yes (1) Hx Cholecystectomy: Yes Additional Surgical History: right knee surgery, left carpal tunnel surg, hysterectomy - Social History Smoking Status: Current Every Day Smoker Substance Use Type: None - Medications Home Medications: Home Medications Medication Instructions Recorded Confirmed Last Taken Type Ziprasidone HCl [Geodon] 120 mg PO HS 02/04/14 01/21/17 12/29/16 History clonazePAM [KlonoPIN] 2 mg PO HS 02/04/14 01/21/17 12/29/16 History traZODone [Desyrel] 50 mg PO QHS 09/16/15 01/21/17 12/29/16 History Prasugrel [Effient] 10 mg PO QDAY #30 tablet 09/21/15 01/21/17 12/29/16 Rx ALBUTEROL Inhaler [ProAir HFA 2 puff IH QID PRN #1 inhalation 12/30/16 01/21/17 Unknown Rx Inhaler] Aspirin [Adult Low Dose Aspirin EC] 81 mg PO DAILY 01/21/17 01/21/17 Unknown History Furosemide [Lasix TAB] 40 mg PO QDAY 01/21/17 01/21/17 Unknown History ISOSORBIDE MONOnitrate [Imdur ER] 30 mg PO DAILY 01/21/17 01/21/17 Unknown History Lisinopril [Zestril TAB] 5 mg PO QDAY 01/21/17 01/21/17 Unknown History Metoprolol [Lopressor TAB] 25 mg PO DAILY 01/21/17 01/21/17 Unknown History Rosuvastatin (Nf) [Crestor] 20 mg PO QHS 01/21/17 01/21/17 Unknown History metFORMIN [Glucophage] 500 mg PO BID 01/21/17 01/21/17 Unknown History ED Physical Exam - General Limitations: No Limitations - Other Other exam information: GENERAL: Patient in no acute distress HEAD: Normocephalic, atraumatic EYES: PERRLA, EOM intact, no scleral icterus, no papilledema, no conjunctival hemorrhage, visual howard and acuity wnl, NOSE: No tenderness, discharge, sinus tenderness MOUTH: No erythema, bleeding, exudate HEART: Regular rate and rhythm, no murmur, S1-S2 are auscultated, pulses are symmetric LUNGS: No wheezing, rales, rhonchi, bilateral breath sounds ABDOMEN: Normal bowel sounds, no tenderness, no rebound, no guarding, no masses , no CVA tenderness MUSCULOSKELETAL: Normal joint range of motion, no redness, no swelling, no tenderness NEUROLOGIC: GCS 15, Alert and Oriented x3, Cranial nerves intact, normal sensation, normal strength, normal gait, no cerebellar deficit PSYCHIATRIC: Anxious, Not homicidal NO SI, no hallucinations, combative demanding Xanax, ativan or klonopin. SKIN: Skin is warm and dry, no wounds, no rashes ED Course Vital Signs 01/21/17 01/21/17 01/21/17 14:18 14:20 14:28 Temperature 98 F Pulse Rate 105 H Respiratory Rate Blood Pressure 102/62 Blood Pressure [Left] O2 Sat by Pulse 97 94 94 Oximetry 01/21/17 01/21/17 01/21/17 14:30 14:40 14:50 Temperature Pulse Rate 101 H 101 H 108 H Respiratory 31 H 32 H 29 H Rate Blood Pressure 102/62 102/62 143/81 Blood Pressure [Left] O2 Sat by Pulse 93 93 91 Oximetry 01/21/17 01/21/17 01/21/17 15:00 15:09 15:10 Temperature 98.1 F Pulse Rate 101 H 108 H 106 H Respiratory 23 32 H 33 H Rate Blood Pressure 143/81 126/101 Blood Pressure 143/81 [Left] O2 Sat by Pulse 91 91 86 Oximetry 01/21/17 01/21/17 01/21/17 15:20 15:30 15:40 Temperature Pulse Rate 105 H 102 H Respiratory Rate Blood Pressure 106/80 106/80 110/81 Blood Pressure [Left] O2 Sat by Pulse 93 91 90 Oximetry 01/21/17 01/21/17 01/21/17 15:50 16:00 16:10 Temperature Pulse Rate Respiratory Rate Blood Pressure 106/80 131/42 131/42 Blood Pressure [Left] O2 Sat by Pulse 84 79 L 86 Oximetry 01/21/17 01/21/17 01/21/17 16:20 16:30 16:40 Temperature Pulse Rate Respiratory Rate Blood Pressure 158/71 120/67 120/67 Blood Pressure [Left] O2 Sat by Pulse 100 77 L 65 L Oximetry 01/21/17 16:50 Temperature Pulse Rate Respiratory 26 H Rate Blood Pressure 130/69 Blood Pressure [Left] O2 Sat by Pulse 67 L Oximetry NATA score - Nata Score Age > 65: (0) No Aspirin use within the Past 7 Days: (1) Yes 3 or more CAD Risk Factors: (1) Yes 2 or more Angina events in past 24 hrs: (0) No Known CAD with more than 50% Stenosis: (1) Yes Elevated Cardiac Markers: (0) No ST Deviation Greater than 0.5mm: (0) No NATA Score: 3 ED Medical Decision Making - Lab Data Result diagrams: 01/21/17 15:13 01/21/17 15:13 - EKG Data When compared to previous EKG there are: no significant change - Radiology Data Radiology results: report reviewed - Medical Decision Making Patient offered admission and advised overnight evaluation of CHest Pain. Patient refuses admission and requests discharge. 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 Patient agrees to return if symptoms worsen. Family at bedside agrees with patient's decision. Critical care attestation.: If time is entered above; I have spent that time in minutes in the direct care of this critically ill patient, excluding procedure time. ED Disposition Clinical Impression: Anxiety Chest pain Qualifiers: Chest pain type: unspecified Qualified Code(s): R07.9 - Chest pain, unspecified Disposition: - TO HOME OR SELFCARE Is pt being admited?: No Condition: Stable Instructions: Chest Pain (ED), Anxiety (ED) Referrals: PRIMARY CAREMD [Primary Care Provider] - 2-3 Days HARRIS FIGUEROA MD [Staff Physician] - 2-3 Days Time of Disposition: 18:25
[2017-01-21 18:43] VITALS: BP 140/93
== END 2017-01-21 18:42 | disposition home or self-care (01) ==
LOC: ED 13:31
DX: F41.9 Anxiety disorder, unspecified (principal); R07.9 Chest pain, unspecified; I10 Essential (primary) hypertension; I50.9 Heart failure, unspecified; K21.9 Gastro-esophageal reflux disease without esophagitis; J45.909 Unspecified asthma, uncomplicated; J44.9 Chronic obstructive pulmonary disease, unspecified; F17.200 Nicotine dependence, unspecified, uncomplicated
CPT/HCPCS: 36415; 71010; 80048; 83735; 84484; 85025; 85379; 93005; 93010; 96374; 99285; J1630; J2405

== ENCOUNTER 2019-03-08 15:22 | Outpatient (CLI) | payer MEDICARE ==
[2019-03-08 15:53] LABS: Bilirubin,Urine NEG (Negative); Blood,Urine SM (Negative); Color,Urine Yellow (Yellow); Mucus,Urine FEW /HPF; Urobilinogen,Urine < 2.0 mg/dL (<2.0)
== END 2019-03-08 15:23 | disposition home or self-care (01) ==
LOC: LAB 15:22
PROVIDERS: ATTEND Internal Medicine
DX: N39.0 Urinary tract infection, site not specified (principal); I10 Essential (primary) hypertension; J44.9 Chronic obstructive pulmonary disease, unspecified; Z90.710 Acquired absence of both cervix and uterus
CPT/HCPCS: 81001; 87086

== ENCOUNTER 2019-08-03 18:27 | Emergency (ER) | payer MEDICARE | END 2019-08-04 01:22 | disposition home or self-care (01) | LOC: ED 18:27 | CPT/HCPCS: 29260 ==

== ENCOUNTER 2019-08-23 14:43 | Emergency (ER) | payer MEDICARE ==
[2019-08-23 16:35] VITALS: BP 152/76
--- NOTE | 2019-08-23 17:19 | Emergency Department Report ---
ED General Adult HPI - General Chief complaint: Chest Pain Stated complaint: ADELE Time Seen by Provider: 08/23/19 17:18 Source: patient Mode of arrival: Stretcher Limitations: No Limitations - History of Present Illness Initial comments: 53 y.o. female with history of coronary disease, schizophrenia, asthma and diabetes presents with complaint of chest pain for several days. Patient was recently admitted and discharged from the emergency department on 2019. Patient is a normal echocardiogram. Patient states that the chest pain is still similar and radiates to her neck. Patient complains of 10 out of 10. - Related Data Home Medications Medication Instructions Recorded Confirmed Last Taken Ziprasidone HCl [Geodon] 40 mg PO PRN PRN 02/04/14 08/20/19 12/29/16 clonazePAM [KlonoPIN] 2 mg PO HS 02/04/14 08/20/19 12/29/16 traZODone [Desyrel] 50 mg PO QHS 09/16/15 08/20/19 12/29/16 Aspirin [Adult Low Dose Aspirin EC] 81 mg PO DAILY 01/21/17 08/20/19 Unknown Furosemide [Lasix TAB] 40 mg PO QDAY 01/21/17 08/20/19 Unknown ISOSORBIDE MONOnitrate [Imdur ER] 30 mg PO DAILY 01/21/17 08/20/19 Unknown Lisinopril [Zestril TAB] 5 mg PO QDAY 01/21/17 08/20/19 Unknown Metoprolol [Lopressor TAB] 25 mg PO DAILY 01/21/17 08/20/19 Unknown Rosuvastatin (Nf) [Crestor] 20 mg PO QHS 01/21/17 08/20/19 Unknown metFORMIN [Glucophage] 500 mg PO BID 01/21/17 08/20/19 Unknown levETIRAcetam [Keppra TAB] 500 mg PO BID 08/11/19 08/20/19 Unknown Previous Rx's Medication Instructions Recorded Last Taken Type Prasugrel [Effient] 10 mg PO QDAY #30 tablet 09/21/15 12/29/16 Rx Albuterol INH(or & Nicu Only) 2 puff IH QID PRN #1 inhalation 12/30/16 Unknown Rx [ProAir HFA Inhaler] Pantoprazole [Protonix] 40 mg PO BID #60 tablet 08/21/19 Unknown Rx Sucralfate [Carafate] 1 gm PO ACHS #350 ml 08/21/19 Unknown Rx Allergies Allergy/AdvReac Type Severity Reaction Status Date / Time aspirin Allergy Nausea Verified 08/23/19 16:35 coconut Allergy Hives Verified 08/23/19 16:35 haloperidol [From Haldol] Allergy Hives Verified 08/23/19 16:35 meperidine HCl [From Demerol] Allergy Rash Verified 08/23/19 16:35 nitroglycerin Allergy Hives Verified 08/23/19 16:35 NSAIDS (Non-Steroidal Allergy Unknown Verified 08/23/19 16:35 Anti-Inflamma tramadol Allergy Hives Verified 08/23/19 16:35 ED Review of Systems ROS: Stated complaint: ADELE Other details as noted in HPI Constitutional: denies: chills, fever Eyes: denies: eye pain, eye discharge, vision change ENT: denies: ear pain, throat pain Respiratory: denies: cough, shortness of breath, wheezing Cardiovascular: chest pain Endocrine: no symptoms reported Gastrointestinal: denies: abdominal pain, nausea, diarrhea Genitourinary: denies: urgency, dysuria, discharge Musculoskeletal: denies: back pain, joint swelling, arthralgia Skin: denies: rash, lesions Neurological: denies: headache, weakness, paresthesias Psychiatric: denies: anxiety, depression Hematological/Lymphatic: denies: easy bleeding, easy bruising ED Past Medical Hx - Past Medical History Previous Medical History?: Yes Hx Hypertension: Yes Hx Heart Attack/AMI: Yes Hx Congestive Heart Failure: No Hx Diabetes: Yes Hx GERD: Yes Hx Kidney Stones: Yes Hx Psychiatric Treatment: Yes (paranoid schizophrenia /ANXIETY) Hx Asthma: Yes Hx COPD: Yes Additional medical history: CAD. AFib - Surgical History Past Surgical History?: Yes Hx Coronary Stent: Yes (1) Hx Cholecystectomy: Yes Additional Surgical History: right knee surgery, left carpal tunnel surg, hysterectomy - Social History Smoking Status: Former Smoker - Medications Home Medications: Home Medications Medication Instructions Recorded Confirmed Last Taken Type Ziprasidone HCl [Geodon] 40 mg PO PRN PRN 02/04/14 08/20/19 12/29/16 History clonazePAM [KlonoPIN] 2 mg PO HS 02/04/14 08/20/19 12/29/16 History traZODone [Desyrel] 50 mg PO QHS 09/16/15 08/20/19 12/29/16 History Prasugrel [Effient] 10 mg PO QDAY #30 tablet 09/21/15 08/20/19 12/29/16 Rx Albuterol INH(or & Nicu Only) 2 puff IH QID PRN #1 inhalation 12/30/16 08/20/19 Unknown Rx [ProAir HFA Inhaler] Aspirin [Adult Low Dose Aspirin EC] 81 mg PO DAILY 01/21/17 08/20/19 Unknown History Furosemide [Lasix TAB] 40 mg PO QDAY 01/21/17 08/20/19 Unknown History ISOSORBIDE MONOnitrate [Imdur ER] 30 mg PO DAILY 01/21/17 08/20/19 Unknown History Lisinopril [Zestril TAB] 5 mg PO QDAY 01/21/17 08/20/19 Unknown History Metoprolol [Lopressor TAB] 25 mg PO DAILY 01/21/17 08/20/19 Unknown History Rosuvastatin (Nf) [Crestor] 20 mg PO QHS 01/21/17 08/20/19 Unknown History metFORMIN [Glucophage] 500 mg PO BID 01/21/17 08/20/19 Unknown History levETIRAcetam [Keppra TAB] 500 mg PO BID 08/11/19 08/20/19 Unknown History Pantoprazole [Protonix] 40 mg PO BID #60 tablet 08/21/19 Unknown Rx Sucralfate [Carafate] 1 gm PO ACHS #350 ml 08/21/19 Unknown Rx ED Physical Exam - General Limitations: No Limitations General appearance: alert, other (mild distress) - Head Head exam: Present: atraumatic, normocephalic - Eye Eye exam: Present: normal appearance - ENT ENT exam: Present: mucous membranes moist - Neck Neck exam: Present: normal inspection - Respiratory Respiratory exam: Present: normal lung sounds bilaterally. Absent: respiratory distress - Cardiovascular Cardiovascular Exam: Present: normal rhythm, tachycardia. Absent: systolic murmur, diastolic murmur, rubs, gallop - GI/Abdominal GI/Abdominal exam: Present: soft, normal bowel sounds - Extremities Exam Extremities exam: Present: normal inspection - Back Exam Back exam: Present: normal inspection - Neurological Exam Neurological exam: Present: alert, oriented X3 - Psychiatric Psychiatric exam: Present: normal affect, normal mood - Skin Skin exam: Present: warm, dry, intact, normal color. Absent: rash ED Course Vital Signs 08/23/19 08/23/19 08/23/19 16:30 17:45 18:40 Temperature 98.0 F Pulse Rate 106 H Respiratory 20 20 20 Rate Blood Pressure 152/76 O2 Sat by Pulse 91 91 Oximetry ED Medical Decision Making - Lab Data Result diagrams: 08/23/19 18:39 08/23/19 18:38 - EKG Data EKG shows normal: sinus rhythm Rate: normal - EKG Data Interpretation: other (T wave flattening in leads V5 and V6) - Medical Decision Making Patient is laying comfortably in the bed. Low suspicion for acute cardiopulmonary pathology with a negative EKG and a negative troponin as well as a normal x-ray. Patient be discharged to follow-up as an outpatient. - Differential Diagnosis CAD; Pneumonia; Dehydration: electrolyte abnormality Critical care attestation.: If time is entered above; I have spent that time in minutes in the direct care of this critically ill patient, excluding procedure time. ED Disposition Clinical Impression: Chest pain Disposition: DC-01 TO HOME OR SELFCARE Is pt being admited?: No Condition: Stable Instructions: Chest Pain (ED) Time of Disposition: 22:24 Print Language: AFGHAN
[2019-08-23] MEDS ORDERED: ONDANSETRON 4 MG/2 ML INJ IV ONE (18:22)
[2019-08-23] MEDS ORDERED: MORPHINE 4 MG/1 ML INJ IV ONE (18:22)
[2019-08-23 18:50] LABS: Basophils % (Auto) 0.2 % (0.0-1.8); Hematocrit 29.8 % (30.3-42.9); Hemoglobin 9.1 gm/dl (10.1-14.3); Lymphocytes # (Auto) 0.7 K/mm3 (1.2-5.4); Lymphocytes % (Auto) 4.7 % (13.4-35.0); Mean Corpuscular HGB Conc 31 % (30-34); Mean Corpuscular Volume 73 fl (79-97); Monocytes # (Auto) 0.9 K/mm3 (0.0-0.8); Monocytes % (Auto) 6.2 % (0.0-7.3); Platelet Count 344 K/mm3 (140-440); Red Blood Count 4.06 M/mm3 (3.65-5.03); Red Cell Distribution Width 18.3 % (13.2-15.2)
--- NOTE | 2019-08-23 19:19 | XRay Report ---
CHEST 1 VIEW 08/23/2019 6:46 PM INDICATION / CLINICAL INFORMATION: Chest Pain. COMPARISON: Chest x-ray on 08/20/2019 FINDINGS: SUPPORT DEVICES: None. HEART / MEDIASTINUM: Stable moderate cardiomegaly. LUNGS / PLEURA: No significant pulmonary or pleural abnormality. No pneumothorax. ADDITIONAL FINDINGS: No significant additional findings. IMPRESSION: 1. No acute findings. Stable cardiomegaly. Signer Name: Colt Richmond MD Signed: 08/23/2019 7:14 PM Workstation Name: [facility]
[2019-08-23 19:38] LABS: Alanine Aminotransferase 25 units/L (7-56); Albumin 3.3 g/dL (3.9-5); BUN/Creatinine Ratio 26; Blood Urea Nitrogen 13 mg/dL (7-17); Calcium 9.7 mg/dL (8.4-10.2); Hemolysis Index 3
[2019-08-23] MEDS ORDERED: LORazepam 1 MG TAB PO ONE (21:14)
[2019-08-23] MEDS ORDERED: ONDANSETRON 4 MG ODT TAB PO ONE (22:47)
[2019-08-23] MEDS ORDERED: ONDANSETRON 4 MG ODT TAB ONE (22:47)
== END 2019-08-24 | disposition home or self-care (01) ==
LOC: ED 14:43
DX: R07.9 Chest pain, unspecified (principal); I10 Essential (primary) hypertension; E11.9 Type 2 diabetes mellitus without complications; K21.9 Gastro-esophageal reflux disease without esophagitis; J44.9 Chronic obstructive pulmonary disease, unspecified; I48.91 Unspecified atrial fibrillation; I25.10 Atherosclerotic heart disease of native coronary artery without angina pectoris; Z90.49 Acquired absence of other specified parts of digestive tract; Z87.442 Personal history of urinary calculi; Z90.710 Acquired absence of both cervix and uterus; Z98.890 Other specified postprocedural states; Z87.891 Personal history of nicotine dependence; Z79.899 Other long term (current) drug therapy; Z88.8 Allergy status to other drugs, medicaments and biological substances; Z91.018 Allergy to other foods; Z88.6 Allergy status to analgesic agent
CPT/HCPCS: 36415; 71045; 80053; 82550; 84484; 85025; 93005; 93010; 96374; 96375; 99284; J2270; J2405; Q0162

== ENCOUNTER 2019-08-29 04:35 | Inpatient (IN) | payer MEDICARE ==
[2019-08-29] MEDS ORDERED: IPRATROPIUM 0.02% NEBU 2.5 ML IH ONE ×2 (04:45→09:24)
[2019-08-29] MEDS ORDERED: ALBUTEROL 2.5 MG/3 ML NEBU IH ONE ×2 (04:45→09:24)
[2019-08-29] MEDS ORDERED: oxyCODONE /ACETAMINOPHEN 5-325MG TAB PO ONE (04:46)
--- NOTE | 2019-08-29 05:16 | XRay Report ---
CHEST 1 VIEW INDICATION: Dyspnea. COMPARISON: 08/23/2019 FINDINGS: Support devices: None. Heart: Normal. Lungs/Pleura: There is persistent pleural-parenchymal opacity in the left lower hemithorax related th is may be due to significant left lower lobe atelectasis given the apparent elevation of the left hem idiaphragm. Right lung is clear. IMPRESSION: 1. Opacity in the left lower hemithorax, see above. This has a similar appearance to multiple prior e xams. Signer Name: Stas Medina MD Signed: 08/29/2019 5:11 AM Workstation Name: [id number]
[2019-08-29 05:39] LABS: Basophils % (Auto) 0.2 % (0.0-1.8); Eosinophils % (Auto) 0.2 % (0.0-4.3); Lymphocytes # (Auto) 1.4 K/mm3 (1.2-5.4); Lymphocytes % (Auto) 16.2 % (13.4-35.0); Mean Corpuscular HGB Conc 30 % (30-34); Mean Corpuscular Volume 73 fl (79-97); Monocytes # (Auto) 0.6 K/mm3 (0.0-0.8); Monocytes % (Auto) 6.3 % (0.0-7.3); Platelet Count 321 K/mm3 (140-440); Red Blood Count 4.74 M/mm3 (3.65-5.03); Red Cell Distribution Width 18.3 % (13.2-15.2)
[2019-08-29 05:40] LABS: Hematocrit 34.6 % (30.3-42.9); Hemoglobin 10.3 gm/dl (10.1-14.3)
[2019-08-29 06:03] LABS: Alanine Aminotransferase 37 units/L (7-56); Albumin 3.7 g/dL (3.9-5); BUN/Creatinine Ratio 28; Blood Urea Nitrogen 14 mg/dL (7-17); Calcium 9.9 mg/dL (8.4-10.2); Hemolysis Index 2
--- NOTE | 2019-08-29 08:45 | Emergency Department Report ---
ED General Adult HPI - General Chief complaint: Dyspnea/Respdistress Stated complaint: DIFFICULTY IN BREATHING Time Seen by Provider: 08/29/19 06:08 Source: patient, RN notes reviewed Mode of arrival: Stretcher Limitations: Physical Limitation - History of Present Illness Initial comments: During the history and physical examination, I stone breaker by ER staff member Radha Rodríguez The patient is a 53-year-old female, with a history of morbid obesity, heart disease, prior and STEMI, status post mid LAD stents 2015, hypertension, high cholesterol, diabetes, COPD, chronic respiratory failure on 3 L of home oxygen, chronic steroid use, sleep apnea, former smoker, obesity, seizure disorder, paranoid schizophrenia Patient had an echo performed [place] 08/12/2019, and 2017, had ejection fraction of greater than 70%, LVH with no LV wall motion abnormalities. She was seen by cardiology earlier on this month for chest pain, as per cardiology documentation "recommended in view of negative troponin and atypical symptomatology may be discharged from a cardiovascular point of view patient be treated for GI as a cause of symptomatology continue home oxygen discussed this in detail with the patient and primary care team." Today, the patient presents to the ER with a complaint of chest pain, shortness of breath and malaise. Chest pain is central and left-sided. It is aching and throbbing and there is no radiation. The patient has difficulty describing how her shortness of breath today is new or different from her prior shortness of breath. The patient was recently admitted to this hospital, please see her recent discharge summary. Patient also complains of anxiety, and has a cough. She is not sure if the cough is old or new. There is no complaint of headache, neck pain, abdominal pain, there is chronic leg swelling, and chronic ecchymosis. The patient had a cardiac catheterization in 2016, which showed a 50% smooth LAD distal lesion. It was felt to not be a culprit lesion, circumflex and RCA were without significant disease. The patient had an uncomplicated drug-eluting stent placed in the mid LAD, as far as we can tell, she has not been catheterized since 2016. -: Gradual Location: chest Radiation: other Severity scale (0 -10): 0 Quality: other Consistency: other Improves with: other Worsens with: other - Related Data Home Medications Medication Instructions Recorded Confirmed Last Taken Ziprasidone HCl [Geodon] 40 mg PO PRN PRN 02/04/14 08/20/19 12/29/16 clonazePAM [KlonoPIN] 2 mg PO HS 02/04/14 08/20/19 12/29/16 traZODone [Desyrel] 50 mg PO QHS 09/16/15 08/20/19 12/29/16 Aspirin [Adult Low Dose Aspirin EC] 81 mg PO DAILY 01/21/17 08/20/19 Unknown Furosemide [Lasix TAB] 40 mg PO QDAY 01/21/17 08/20/19 Unknown ISOSORBIDE MONOnitrate [Imdur ER] 30 mg PO DAILY 01/21/17 08/20/19 Unknown Lisinopril [Zestril TAB] 5 mg PO QDAY 01/21/17 08/20/19 Unknown Metoprolol [Lopressor TAB] 25 mg PO DAILY 01/21/17 08/20/19 Unknown Rosuvastatin (Nf) [Crestor] 20 mg PO QHS 01/21/17 08/20/19 Unknown metFORMIN [Glucophage] 500 mg PO BID 01/21/17 08/20/19 Unknown levETIRAcetam [Keppra TAB] 500 mg PO BID 08/11/19 08/20/19 Unknown Previous Rx's Medication Instructions Recorded Last Taken Type Prasugrel [Effient] 10 mg PO QDAY #30 tablet 09/21/15 12/29/16 Rx Albuterol INH(or & Nicu Only) 2 puff IH QID PRN #1 inhalation 12/30/16 Unknown Rx [ProAir HFA Inhaler] Pantoprazole [Protonix] 40 mg PO BID #60 tablet 08/21/19 Unknown Rx Sucralfate [Carafate] 1 gm PO ACHS #350 ml 08/21/19 Unknown Rx Allergies Allergy/AdvReac Type Severity Reaction Status Date / Time aspirin Allergy Nausea Verified 08/23/19 16:35 coconut Allergy Hives Verified 08/23/19 16:35 haloperidol [From Haldol] Allergy Hives Verified 08/23/19 16:35 meperidine HCl [From Demerol] Allergy Rash Verified 08/23/19 16:35 nitroglycerin Allergy Hives Verified 08/23/19 16:35 NSAIDS (Non-Steroidal Allergy Unknown Verified 08/23/19 16:35 Anti-Inflamma tramadol Allergy Hives Verified 08/23/19 16:35 ED Review of Systems ROS: Stated complaint: DIFFICULTY IN BREATHING Other details as noted in HPI Constitutional: malaise Eyes: denies: eye discharge ENT: congestion Respiratory: cough, shortness of breath, wheezing Cardiovascular: chest pain Gastrointestinal: denies: nausea, vomiting Genitourinary: denies: dysuria Musculoskeletal: arthralgia, myalgia Skin: lesions Neurological: weakness Psychiatric: anxiety Hematological/Lymphatic: denies: easy bleeding ED Past Medical Hx - Past Medical History Previous Medical History?: Yes Hx Hypertension: Yes Hx Heart Attack/AMI: Yes Hx Congestive Heart Failure: No Hx Diabetes: Yes Hx GERD: Yes Hx Kidney Stones: Yes Hx Psychiatric Treatment: Yes (paranoid schizophrenia /ANXIETY) Hx Asthma: Yes Hx COPD: Yes Additional medical history: CAD. AFib - Surgical History Past Surgical History?: Yes Hx Coronary Stent: Yes (1) Hx Cholecystectomy: Yes Additional Surgical History: right knee surgery, left carpal tunnel surg, hysterectomy - Social History Smoking Status: Never Smoker Substance Use Type: None - Medications Home Medications: Home Medications Medication Instructions Recorded Confirmed Last Taken Type Ziprasidone HCl [Geodon] 40 mg PO PRN PRN 02/04/14 08/20/19 12/29/16 History clonazePAM [KlonoPIN] 2 mg PO HS 02/04/14 08/20/19 12/29/16 History traZODone [Desyrel] 50 mg PO QHS 09/16/15 08/20/19 12/29/16 History Prasugrel [Effient] 10 mg PO QDAY #30 tablet 09/21/15 08/20/19 12/29/16 Rx Albuterol INH(or & Nicu Only) 2 puff IH QID PRN #1 inhalation 12/30/16 08/20/19 Unknown Rx [ProAir HFA Inhaler] Aspirin [Adult Low Dose Aspirin EC] 81 mg PO DAILY 01/21/17 08/20/19 Unknown History Furosemide [Lasix TAB] 40 mg PO QDAY 01/21/17 08/20/19 Unknown History ISOSORBIDE MONOnitrate [Imdur ER] 30 mg PO DAILY 01/21/17 08/20/19 Unknown History Lisinopril [Zestril TAB] 5 mg PO QDAY 01/21/17 08/20/19 Unknown History Metoprolol [Lopressor TAB] 25 mg PO DAILY 01/21/17 08/20/19 Unknown History Rosuvastatin (Nf) [Crestor] 20 mg PO QHS 01/21/17 08/20/19 Unknown History metFORMIN [Glucophage] 500 mg PO BID 01/21/17 08/20/19 Unknown History levETIRAcetam [Keppra TAB] 500 mg PO BID 08/11/19 08/20/19 Unknown History Pantoprazole [Protonix] 40 mg PO BID #60 tablet 08/21/19 Unknown Rx Sucralfate [Carafate] 1 gm PO ACHS #350 ml 08/21/19 Unknown Rx ED Physical Exam - General Limitations: Physical Limitation General appearance: alert, anxious, obese - Head Head exam: Present: atraumatic, normocephalic - Eye Eye exam: Present: normal appearance, EOMI. Absent: nystagmus - ENT ENT exam: Present: normal exam, normal orophraynx, mucous membranes moist, normal external ear exam - Neck Neck exam: Present: normal inspection, full ROM. Absent: tenderness, meningismus - Respiratory Respiratory exam: Present: rhonchi (rhonchi noted in the left hemithorax.), chest wall tenderness, decreased breath sounds. Absent: respiratory distress - Cardiovascular Cardiovascular Exam: Present: regular rate, normal rhythm, normal heart sounds. Absent: bradycardia, tachycardia, irregular rhythm, systolic murmur, diastolic murmur, rubs, gallop - GI/Abdominal GI/Abdominal exam: Present: soft. Absent: distended, tenderness, guarding, rebound, rigid, pulsatile mass - Extremities Exam Extremities exam: Present: full ROM, pedal edema, other (2+ pulses noted in the bilateral upper and lower extremities. There is no long bony tenderness. The muscular compartments are soft. The pelvis is stable.). Absent: calf tender ness - Back Exam Back exam: Present: normal inspection. Absent: tenderness, CVA tenderness (R), CVA tenderness (L), paraspinal tenderness, vertebral tenderness - Neurological Exam Neurological exam: Present: alert, oriented X3, other (there is no facial droop. The tongue is midline. The extraocular movements are intact bilaterally. Moving 4 extremities spontaneously. Sensation is intact to light touch in 4 extremities spontaneously. Age-appropriate mental status.). Absent: motor sensory deficit - Psychiatric Psychiatric exam: Present: anxious - Skin Skin exam: Present: warm, ecchymosis ED Course Vital Signs 08/29/19 08/29/19 08/29/19 04:49 05:10 06:37 Temperature 98.8 F Pulse Rate 84 66 Pulse Rate [ 92 H Anterior Bilateral Throughout] Respiratory 16 16 Rate Respiratory 17 Rate [Anterior Bilateral Throughout] Blood Pressure 132/80 Blood Pressure 125/66 [Left] O2 Sat by Pulse 100 96 Oximetry 08/29/19 10:04 Temperature Pulse Rate Pulse Rate [ 86 Anterior Bilateral Throughout] Respiratory Rate Respiratory 20 Rate [Anterior Bilateral Throughout] Blood Pressure Blood Pressure [Left] O2 Sat by Pulse Oximetry - Reevaluation(s) Reevaluation #1: 08/29/19 10:56 Differential diagnosis, including but not limited to: GERD, gastritis, hiatal hernia, costochondritis, pneumonia, acute coronary syndrome, COPD, pulmonary embolism, anxiety Assessment and plan: 53-year-old female with multiple vascular risk factors, known history of CAD, obesity, poor mobility, coming in with recurrent chest pain, shortness of breath, left-sided chest wall reproducible tenderness, chronic respiratory failure. X-ray of the chest is reviewed and appreciated, appears to be unchanged from prior, does have some focal pulmonary findings her left hemithorax. Given recent hospitalizations admissions, poor baseline mobility, patient does have risk for pulmonary embolism, d-dimer elevated, therefore, CT scan of the chest was ordered. This will also help to delineate the patient's pulmonary anatomy, indeterminate alternative causes of pain, such as empyema, effusion, pneumothorax, or infiltrative process. EKG today is unchanged 2, however, it is somewhat abnormal at baseline. She does have an elevated troponin today which she has had intermittently in the past. I suspect that this is a type II troponin leak, likely secondary to her chronic medical issues. We will treat her pain, obtain CT scan of the chest, and have cardiology evaluate the patient, as they advised earlier on this month but given negative cardiac markers, unlikely to be cardiac in nature. Reevaluation #2: 08/29/19 11:01 Elevated pro BMP is reviewed and appreciated. This is most likely secondary to chronic COPD. Reevaluation #3: 08/29/19 12:02 Seen in consultation with cardiology, Dr. Abrams, who performed the patient's cardiac catheterization in 2016. He recommends admission for diagnostic and therapeutic catheterization, to be performed tomorrow morning. Does not recommend heparin drip at this time. CT scan chest is pending. Hospital physician, Dr. Hebert is paged to arrange admission Reevaluation #4: 08/29/19 12:[address] Abrams, who recommends no heparin, admittion, npo after midnight plan to catheterize in the morning Dr Hebert to admit he will follow up on cta of chest moderate risk for mace by heart score (4) Reevaluation #5: 08/29/19 12:54 The patient is now refusing CAT scan. She is alert and oriented and anxious decision-making capacity. Explained the need for CAT scan to exclude pneumonia/pulmonary embolism, which could be potentially life-threatening. The patient keeps vacillating back and forth about whether or not she'll accept the ct scan Discussed this with Hospital physician, Dr. Roxane Hebert, who indicates he will follow-up on this, and determine if he would like to initiate systemic anticoag ulation. At the moment, I suspect the patient is experiencing COPD, mild CHF, costochondritis, possible anxiety. ED Medical Decision Making - Lab Data Result diagrams: 08/29/19 05:05 08/29/19 05:05 Vital Signs 08/29/19 08/29/19 08/29/19 04:49 05:10 06:37 Temperature 98.8 F Pulse Rate 84 66 Pulse Rate [ 92 H Anterior Bilateral Throughout] Respiratory 16 16 Rate Respiratory 17 Rate [Anterior Bilateral Throughout] Blood Pressure 132/80 Blood Pressure 125/66 [Left] O2 Sat by Pulse 100 96 Oximetry Lab Results 08/29/19 08/29/19 Range/Units 05:05 05:05 WBC 8.9 (4.5-11.0) K/mm3 RBC 4.74 (3.65-5.03) M/mm3 Hgb 10.3 (10.1-14.3) gm/dl Hct 34.6 (30.3-42.9) % MCV 73 L (79-97) fl MCH 22 L (28-32) pg MCHC 30 (30-34) % RDW 18.3 H (13.2-15.2) % Plt Count 321 (140-440) K/mm3 Lymph % (Auto) 16.2 (13.4-35.0) % [place] % (Auto) 6.3 (0.0-7.3) % Eos % (Auto) 0.2 (0.0-4.3) % Baso % (Auto) 0.2 (0.0-1.8) % Lymph # 1.4 (1.2-5.4) K/mm3 [place] # 0.6 (0.0-0.8) K/mm3 Eos # 0.0 (0.0-0.4) K/mm3 Baso # 0.0 (0.0-0.1) K/mm3 Seg Neutrophils % 77.1 H (40.0-70.0) % Seg Neutrophils # 6.9 (1.8-7.7) K/mm3 Sodium 139 (137-145) mmol/L Potassium 3.5 L (3.6-5.0) mmol/L Chloride 86.5 L (98-107) mmol/L Carbon Dioxide 40 H (22-30) mmol/L Anion Gap 16 mmol/L BUN 14 (7-17) mg/dL Creatinine 0.5 L (0.7-1.2) mg/dL Estimated GFR > 60 ml/min BUN/Creatinine Ratio 28 % Glucose 226 H (65-100) mg/dL Calcium 9.9 (8.4-10.2) mg/dL Total Bilirubin 0.60 (0.1-1.2) mg/dL AST 36 (5-40) units/L ALT 37 (7-56) units/L Alkaline Phosphatase 92 (35-129) units/L Troponin T 0.025 (0.00-0.029) ng/mL NT-Pro-B Natriuret Pep 4587 H (0-900) pg/mL Total Protein 6.8 (6.3-8.2) g/dL Albumin 3.7 L (3.9-5) g/dL Albumin/Globulin Ratio 1.2 % - EKG Data -: EKG Interpreted by Ri EKG shows normal: sinus rhythm Rate: normal - EKG Data 08/29/19 10:59 Both EKGs today have motion artifact. The first EKG shows a sinus tachycardia, with a normal axis, there is low voltage, atrial enlargement, sinus arrhythmia, it is an abnormal EKG, the QTC is prolonged, it is not a STEMI EKG #2 shows a sinus rhythm, 94 bpm, normal axis, QTC prolonged, sinus arrhythmia, PVCs, QTC prolonged, atrial enlargement. not A STEMI. Both EKGs appear to be unchanged from prior EKG from 08/21/2019. - Radiology Data Radiology results: report reviewed, image reviewed Print Report Referring Physician: ALONSO NIX Patient Name: LICHA MARAVILLA Date of : 1965 Sex: Female Report Date: 2019-08-29 Report Status: Finalized Findings [facility] [address] [place] [address] XRay Report Signed Patient: LICHA MARAVILLA MR#: [id number] 76 : 1965 Acct:[id number] Age/Sex: 53 / F ADM Date: 08/29/19 Loc: ED Attending Dr: Ordering Physician: Alonso Acuna MD Date of Service: 08/29/19 Procedure(s): XR chest 1V ap Accession Number(s): [id number] cc: Alonso Acuna MD Fluoro Time In Minutes: CHEST 1 VIEW INDICATION: Dyspnea. COMPARISON: 08/23/2019 FINDINGS: Support devices: None. Heart: Normal. Lungs/Pleura: There is persistent pleural-parenchymal opacity in the left lower hemithorax related this may be due to significant left lower lobe atelectasis given the apparent elevation of the left hemidiaphragm. Right lung is clear. IMPRESSION: 1. Opacity in the left lower hemithorax, see above. This has a similar appearance to multiple prior exams. Signer Name: Stas Medina MD Signed: 08/29/2019 5:11 AM Workstation Name: [id number] Transcribed By: FEDE Dictated By: Stas Medina MD Electronically Authenticated By: Stas Medina MD Signed Date/Time: 08/29/19510 DD/ 9 Critical Care Time: Yes Critical care time in (mins) excluding proc time.: 35 Critical care attestation.: If time is entered above; I have spent that time in minutes in the direct care of this critically ill patient, excluding procedure time. ED Disposition Clinical Impression: Elevated troponin, COPD (chronic obstructive pulmonary disease), Hx of non-ST elevation myocardial infarction (NSTEMI), Chronic steroid use Disposition: DC-09 OP ADMIT IP TO THIS HOSP Is pt being admited?: Yes Does the pt Need Aspirin: Yes Condition: Stable Instructions: Chronic Obstructive Pulmonary Disease (ED) Referrals: PRIMARY CARE, [Primary Care Provider] - 3-5 Days
[2019-08-29] MEDS ORDERED: ONDANSETRON 4 MG/2 ML INJ IV ONE (09:24)
[2019-08-29] MEDS ORDERED: methylPREDNISolone Sod Succinate 125 MG/2 ML INJ IV ONE (09:24)
[2019-08-29] MEDS ORDERED: FAMOTIDINE 20 MG/2 ML INJ IV ONE (09:24)
[2019-08-29] MEDS ORDERED: SODIUM CHLORIDE 0.9% 250ML 250 ML IV ONE (09:24)
[2019-08-29] MEDS ORDERED: ACETAMINOPHEN 325 MG TAB PO ONE (09:25)
[2019-08-29 10:46] LABS: Chol/HDL Ratio 2.91 %
[2019-08-29] MEDS ORDERED: FUROSEMIDE 40 MG/4 ML INJ IV ONE (12:03)
[2019-08-29] MEDS ORDERED: CLOPIDOGREL 75 MG TAB PO ONE (12:04)
[2019-08-29] MEDS ORDERED: MIDAZOLAM 5 MG/5 ML INJ MDV IV ONE (12:35)
[2019-08-29] MEDS ORDERED: MIDAZOLAM 5 MG/5 ML INJ MDV IV NR (12:59)
[2019-08-29] MEDS ORDERED: oxyCODONE /ACETAMINOPHEN 5-325MG TAB PO PRN (14:42)
[2019-08-29] MEDS ORDERED: ACETAMINOPHEN 325 MG TAB PO PRN (14:42)
[2019-08-29] MEDS ORDERED: METOCLOPRAMIDE 10 MG/2 ML INJ IV PRN (14:42)
[2019-08-29] MEDS ORDERED: ZIPRASIDONE HCL 40 MG PO PRN (14:54)
[2019-08-29] MEDS ORDERED: ALBUTEROL 8.5 GM INHALATION IH PRN (14:54)
--- NOTE | 2019-08-29 14:55 | Consultation ---
History of Present Illness Consult date: 08/29/19 Consult reason: abnormal cardiac enzymes, chest pain, shortness of breath History of present illness: Patient presented to ER with left sided chest pain,sob ,more or less constant for last few days,not getting better,SOB most of time,activities are limited.Cardiac troponin levels are elevated when compared to last visit 10 days ago.EKG showed S.R,atrial arrhythmia with no acute changes. Past History Past Medical History: CAD, COPD, hypertension Medications and Allergies Allergies Allergy/AdvReac Type Severity Reaction Status Date / Time aspirin Allergy Nausea Verified 08/23/19 16:35 coconut Allergy Hives Verified 08/23/19 16:35 haloperidol [From Haldol] Allergy Hives Verified 08/23/19 16:35 meperidine HCl [From Demerol] Allergy Rash Verified 08/23/19 16:35 nitroglycerin Allergy Hives Verified 08/23/19 16:35 NSAIDS (Non-Steroidal Allergy Unknown Verified 08/23/19 16:35 Anti-Inflamma tramadol Allergy Hives Verified 08/23/19 16:35 Home Medications Medication Instructions Recorded Confirmed Last Taken Type Ziprasidone HCl [Geodon] 40 mg PO PRN PRN 02/04/14 08/29/19 08/27/19 History clonazePAM [KlonoPIN] 2 mg PO HS 02/04/14 08/29/19 08/28/19 History traZODone [Desyrel] 50 mg PO QHS 09/16/15 08/29/19 12/29/16 History Prasugrel [Effient] 10 mg PO QDAY #30 tablet 09/21/15 08/29/19 12/29/16 Rx Albuterol INH(or & Nicu Only) 2 puff IH QID PRN #1 inhalation 12/30/16 08/29/19 08/28/19 Rx [ProAir HFA Inhaler] Aspirin [Adult Low Dose Aspirin EC] 81 mg PO DAILY 01/21/17 08/29/19 08/28/19 History Furosemide [Lasix TAB] 40 mg PO QDAY 01/21/17 08/29/19 08/28/19 History ISOSORBIDE MONOnitrate [Imdur ER] 30 mg PO DAILY 01/21/17 08/29/19 08/28/19 History Lisinopril [Zestril TAB] 5 mg PO QDAY 01/21/17 08/29/19 Unknown History Metoprolol [Lopressor TAB] 25 mg PO DAILY 01/21/17 08/29/19 08/28/19 History Rosuvastatin (Nf) [Crestor] 20 mg PO QHS 01/21/17 08/29/19 08/28/19 History metFORMIN [Glucophage] 500 mg PO BID 01/21/17 08/29/19 08/28/19 History levETIRAcetam [Keppra TAB] 500 mg PO BID 08/11/19 08/29/19 08/28/19 History Pantoprazole [Protonix] 40 mg PO BID #60 tablet 08/21/19 08/29/19 Unknown Rx Sucralfate [Carafate] 1 gm PO ACHS #350 ml 08/21/19 08/29/19 08/28/19 Rx Active Meds: Active Medications Midazolam HCl (Versed) 1 mg IV ONCE NR Stop: 08/29/19 23:00 Last Admin: 08/29/19 12:37 Dose: 1 mg Documented by: Review of Systems Constitutional: no weight loss Ears, nose, mouth and throat: no ear discharge Breasts: deferred Cardiovascular: chest pain, orthopnea, palpitations, shortness of breath, dyspnea on exertion Respiratory: cough, shortness of breath, dyspnea on exertion Gastrointestinal: no abdominal pain Genitourinary Female: no hematuria Rectal: no bleeding Integumentary: no rash Neurological: no head injury Psychiatric: anxiety Allergic/Immunologic: urticaria, wheezing Physical Examination Vital Signs Temp Pulse Resp BP Pulse Ox 98.8 F 84 16 132/80 100 08/29/19 04:49 08/29/19 04:49 08/29/19 04:49 08/29/19 04:49 08/29/19 04:49 General appearance: mild distress HEENT: Positive: PERRL Neck: Positive: neck supple, trachea midline Cardiac: Positive: Reg Rate and Rhythm, S4. Negative: Audible Murmur Lungs: Positive: Decreased Breath Sounds, Wheezes Neuro: Positive: Grossly Intact Abdomen: Positive: Unremarkable, Soft Female genitourinary: deferred Skin: Negative: Rash Extremities: Absent: edema Results 08/29/19 05:05 08/29/19 05:05 Cardiac Enzymes 08/29/19 Range/Units 05:05 AST 36 (5-40) units/L Lipids 08/29/19 Range/Units 09:44 Triglycerides 267 H (2-149) mg/dL Cholesterol 134 (50-199) mg/dL HDL Cholesterol 46 (40-59) mg/dL Cholesterol/HDL Ratio 2.91 % CBC 08/29/19 Range/Units 05:05 WBC 8.9 (4.5-11.0) K/mm3 RBC 4.74 (3.65-5.03) M/mm3 Hgb 10.3 (10.1-14.3) gm/dl Hct 34.6 (30.3-42.9) % Plt Count 321 (140-440) K/mm3 Lymph # 1.4 (1.2-5.4) K/mm3 [place] # 0.6 (0.0-0.8) K/mm3 Eos # 0.0 (0.0-0.4) K/mm3 Baso # 0.0 (0.0-0.1) K/mm3 Comprehensive Metabolic Panel 08/29/19 Range/Units 05:05 Sodium 139 (137-145) mmol/L Potassium 3.5 L (3.6-5.0) mmol/L Chloride 86.5 L (98-107) mmol/L Carbon Dioxide 40 H (22-30) mmol/L BUN 14 (7-17) mg/dL Creatinine 0.5 L (0.7-1.2) mg/dL Glucose 226 H (65-100) mg/dL Calcium 9.9 (8.4-10.2) mg/dL AST 36 (5-40) units/L ALT 37 (7-56) units/L Alkaline Phosphatase 92 (35-129) units/L Total Protein 6.8 (6.3-8.2) g/dL Albumin 3.7 L (3.9-5) g/dL EKG interpretations - EKG Sinus rhythms and dysrhythmias: sinus rhythm Supraventricular dysrhythmia: atrial escape complexes (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 Cardiac catheterization done on 09/20/2015 showed LVEF 70%,RCA was normal,circumflex and its branches are normal.mid LAD showed 70% lesion along 50% distal LAD lesion,ZHENG was inserted in mid LAD with good result,50% distal LAD lesion was left alone. Echo done 08/12/2019 showed EF>70% ,RV difficult to visualise. The pt is a 53-year-old female with a past medical history of CAD, prior NSTEMI s/p mid LAD stent 02/2016, HF, HTN, HLP, DM, COPD, chronic respiratory failure requiring home O2 @ 3L, chronic steroid use, ANURAG, former smoker, obesity, seizure disorder (last seizure many years ago per pt report), paranoid schizophrenia. Was admitted to [facility] and [facility],3rd time with chest pain,left sided ,more or less constant with elevated troponins during this admission,were normal during last admission. Considering her multiple on going risk factors with documented previous CAD disease,s/p PCI of LAD,with multiple underlying medical illnesses noted, discussed with patient about further diagnostic testing.She is willing to proceed with coronary angiography for definitive diagnosis and rx. She is aware of alternative of medical therapy.Wll proceed with cardiac catheterization and coronary angiography.She is aware of procedure ,potential complications and alternatives of therapy available.
--- NOTE | 2019-08-29 14:59 | History and Physical Report ---
History of Present Illness Date of examination: 08/29/19 Date of admission: 08/29/19 12:32 Chief complaint: Chest pain 1 day History of present illness: 53 y/o patient presents to the ER with a complaint of chest pain, shortness of breath and malaise. Chest pain is central and left-sided. It is aching and throbbing and there is no radiation. The patient has difficulty describing how her shortness of breath today is new or different from her prior shortness of breath. The patient was recently admitted to this hospital, please see her recent discharge summary. Patient also complains of anxiety, and has a cough. She is not sure if the cough is old or new. There is no complaint of headache, neck pain, abdominal pain, there is chronic leg swelling, and chronic ecchymosis. The patient had a cardiac catheterization in 2015, which showed a 50% smooth LAD distal lesion. It was felt to not be a culprit lesion, circumflex and RCA were without significant disease. The patient had an uncomplicated drug-eluting stent placed in the mid LAD, as far as we can tell, she has not been catheterized since 2015. Patient had an echo performed [place] 08/12/2019, and 2017, had ejection fraction of greater than 70%, LVH with no LV wall motion abnormalities. She was s" een by cardiology earlier on this month for chest pain, as per cardiology documentation "recommended in view of negative troponin and atypical symptomatology may be discharged from a cardiovascular point of view patient be treated for GI as a cause of symptomatology continue home oxygen discussed this in detail with the patient and primary care team Past Medical History Previous Medical History?: Yes HHypertension: Yes Hx Heart Attack/AMI: Yes GERD: Yes Kidney Stones: Yes Psychiatric Treatment: Yes (paranoid schizophrenia /ANXIETY) Asthma: Yes COPD: Yes Additional medical history: CAD. AFib - Surgical History Past Surgical History?: Yes Hx Coronary Stent: Yes (1) Hx Cholecystectomy: Yes Additional Surgical History: right knee surgery, left carpal tunnel surg, hysterectomy - Social History Smoking Status: Never Smoker Substance Use Type: None - Medications Home Medications: Home Medications Medication Instructions Recorded Confirmed Last Taken Type Ziprasidone HCl [Geodon] 40 mg PO PRN PRN 02/04/14 08/20/19 12/29/16 History clonazePAM [KlonoPIN] 2 mg PO HS 02/04/14 08/20/19 12/29/16 History traZODone [Desyrel] 50 mg PO QHS 09/16/15 08/20/19 12/29/16 History Prasugrel [Effient] 10 mg PO QDAY #30 tablet 09/21/15 08/20/19 12/29/16 Rx Albuterol INH(or & Nicu Only) 2 puff IH QID PRN #1 inhalation 12/30/16 08/20/19 Unknown Rx [ProAir HFA Inhaler] Aspirin [Adult Low Dose Aspirin EC] 81 mg PO DAILY 01/21/17 08/20/19 Unknown History Furosemide [Lasix TAB] 40 mg PO QDAY 01/21/17 08/20/19 Unknown History ISOSORBIDE MONOnitrate [Imdur ER] 30 mg PO DAILY 01/21/17 08/20/19 Unknown History Lisinopril [Zestril TAB] 5 mg PO QDAY 01/21/17 08/20/19 Unknown History Metoprolol [Lopressor TAB] 25 mg PO DAILY 01/21/17 08/20/19 Unknown History Rosuvastatin (Nf) [Crestor] 20 mg PO QHS 01/21/17 08/20/19 Unknown History metFORMIN [Glucophage] 500 mg PO BID 01/21/17 08/20/19 Unknown History levETIRAcetam [Keppra TAB] 500 mg PO BID 08/11/19 08/20/19 Unknown History Pantoprazole [Protonix] 40 mg PO BID #60 tablet 08/21/19 Unknown Rx Sucralfate [Carafate] 1 gm PO ACHS #350 ml 08/21/19 Unknown Rx Review of Systems ROS: Stated complaint: DIFFICULTY IN BREATHING Other details as noted in HPI Constitutional: malaise Eyes: denies: eye discharge ENT: congestion Respiratory: cough, shortness of breath, wheezing Cardiovascular: chest pain Gastrointestinal: denies: nausea, vomiting Genitourinary: denies: dysuria Musculoskeletal: arthralgia, myalgia Skin: lesions Neurological: weakness Psychiatric: anxiety Hematological/Lymphatic: denies: easy bleeding Medications and Allergies Allergies Allergy/AdvReac Type Severity Reaction Status Date / Time aspirin Allergy Nausea Verified 08/23/19 16:35 coconut Allergy Hives Verified 08/23/19 16:35 haloperidol [From Haldol] Allergy Hives Verified 08/23/19 16:35 meperidine HCl [From Demerol] Allergy Rash Verified 08/23/19 16:35 nitroglycerin Allergy Hives Verified 08/23/19 16:35 NSAIDS (Non-Steroidal Allergy Unknown Verified 08/23/19 16:35 Anti-Inflamma tramadol Allergy Hives Verified 08/23/19 16:35 Home Medications Medication Instructions Recorded Confirmed Last Taken Type Ziprasidone HCl [Geodon] 40 mg PO PRN PRN 02/04/14 08/29/19 08/27/19 History clonazePAM [KlonoPIN] 2 mg PO HS 02/04/14 08/29/19 08/28/19 History traZODone [Desyrel] 50 mg PO QHS 09/16/15 08/29/19 12/29/16 History Prasugrel [Effient] 10 mg PO QDAY #30 tablet 09/21/15 08/29/19 12/29/16 Rx Albuterol INH(or & Nicu Only) 2 puff IH QID PRN #1 inhalation 12/30/16 08/29/19 08/28/19 Rx [ProAir HFA Inhaler] Aspirin [Adult Low Dose Aspirin EC] 81 mg PO DAILY 01/21/17 08/29/19 08/28/19 History Furosemide [Lasix TAB] 40 mg PO QDAY 01/21/17 08/29/19 08/28/19 History ISOSORBIDE MONOnitrate [Imdur ER] 30 mg PO DAILY 01/21/17 08/29/19 08/28/19 History Lisinopril [Zestril TAB] 5 mg PO QDAY 01/21/17 08/29/19 Unknown History Metoprolol [Lopressor TAB] 25 mg PO DAILY 01/21/17 08/29/19 08/28/19 History Rosuvastatin (Nf) [Crestor] 20 mg PO QHS 01/21/17 08/29/19 08/28/19 History metFORMIN [Glucophage] 500 mg PO BID 01/21/17 08/29/19 08/28/19 History levETIRAcetam [Keppra TAB] 500 mg PO BID 08/11/19 08/29/19 08/28/19 History Pantoprazole [Protonix] 40 mg PO BID #60 tablet 08/21/19 08/29/19 Unknown Rx Sucralfate [Carafate] 1 gm PO ACHS #350 ml 08/21/19 08/29/19 08/28/19 Rx Active Meds: Active Medications Midazolam HCl (Versed) 1 mg IV ONCE NR Stop: 08/29/19 23:00 Last Admin: 08/29/19 12:37 Dose: 1 mg Documented by: Exam - Constitutional Vitals: Temp Pulse Resp BP Pulse Ox 98.8 F 86 20 115/56 96 08/29/19 04:49 08/29/19 10:04 08/29/19 10:04 08/29/19 09:00 08/29/19 09:00 General appearance: Present: no acute distress, well-nourished - EENT Eyes: Present: PERRL ENT: hearing intact, clear oral mucosa - Neck Neck: Present: supple, normal ROM - Respiratory Respiratory effort: normal Respiratory: bilateral: CTA - Cardiovascular Heart rate: 66 Rhythm: regular Heart Sounds: Present: S1 & S2. Absent: rub, click - Extremities Extremities: no ischemia, pulses intact, pulses symmetrical, No edema Peripheral Pulses: within normal limits - Abdominal General gastrointestinal: Present: soft, non-tender, non-distended, normal bowel sounds Female genitourinary: Present: normal - Integumentary Integumentary: Present: clear, warm, dry - Musculoskeletal Musculoskeletal: gait normal, strength equal bilaterally - Psychiatric Psychiatric: appropriate mood/affect, intact judgment & insight - Neurologic Neurologic: CNII-XII intact, moves all extremities - Allied Health Allied health notes reviewed: nursing, case management NATA score - Nata Score Age > 65: (0) No Aspirin use within the Past 7 Days: (1) Yes 3 or more CAD Risk Factors: (1) Yes 2 or more Angina events in past 24 hrs: (0) No Known CAD with more than 50% Stenosis: (1) Yes Elevated Cardiac Markers: (0) No ST Deviation Greater than 0.5mm: (0) No NATA Score: 3 Results - Labs CBC & Chem 7: 08/31/19 06:27 08/31/19 06:27 Labs: Laboratory Last Values WBC 8.9 K/mm3 (4.5-11.0) 08/29/19 05:05 RBC 4.74 M/mm3 (3.65-5.03) 08/29/19 05:05 Hgb 10.3 gm/dl (10.1-14.3) 08/29/19 05:05 Hct 34.6 % (30.3-42.9) 08/29/19 05:05 MCV 73 fl (79-97) L 08/29/19 05:05 MCH 22 pg (28-32) L 08/29/19 05:05 MCHC 30 % (30-34) 08/29/19 05:05 RDW 18.3 % (13.2-15.2) H 08/29/19 05:05 Plt Count 321 K/mm3 (140-440) 08/29/19 05:05 Lymph % (Auto) 16.2 % (13.4-35.0) 08/29/19 05:05 [place] % (Auto) 6.3 % (0.0-7.3) 08/29/19 05:05 Eos % (Auto) 0.2 % (0.0-4.3) 08/29/19 05:05 Baso % (Auto) 0.2 % (0.0-1.8) 08/29/19 05:05 Lymph # 1.4 K/mm3 (1.2-5.4) 08/29/19 05:05 [place] # 0.6 K/mm3 (0.0-0.8) 08/29/19 05:05 Eos # 0.0 K/mm3 (0.0-0.4) 08/29/19 05:05 Baso # 0.0 K/mm3 (0.0-0.1) 08/29/19 05:05 Seg Neutrophils % 77.1 % (40.0-70.0) H 08/29/19 05:05 Seg Neutrophils # 6.9 K/mm3 (1.8-7.7) 08/29/19 05:05 D-Dimer 560.24 ng/mlDDU (0-234) H 08/29/19 09:44 Sodium 139 mmol/L (137-145) 08/29/19 05:05 Potassium 3.5 mmol/L (3.6-5.0) L 08/29/19 05:05 Chloride 86.5 mmol/L (98-107) L 08/29/19 05:05 Carbon Dioxide 40 mmol/L (22-30) H 08/29/19 05:05 Anion Gap 16 mmol/L 08/29/19 05:05 BUN 14 mg/dL (7-17) 08/29/19 05:05 Creatinine 0.5 mg/dL (0.7-1.2) L 08/29/19 05:05 Estimated GFR > 60 ml/min 08/29/19 05:05 BUN/Creatinine Ratio 28 % 08/29/19 05:05 Glucose 226 mg/dL (65-100) H 08/29/19 05:05 Calcium 9.9 mg/dL (8.4-10.2) 08/29/19 05:05 Magnesium 1.80 mg/dL (1.7-2.3) 08/29/19 09:44 Total Bilirubin 0.60 mg/dL (0.1-1.2) 08/29/19 05:05 AST 36 units/L (5-40) 08/29/19 05:05 ALT 37 units/L (7-56) 08/29/19 05:05 Alkaline Phosphatase 92 units/L (35-129) 08/29/19 05:05 Total Creatine Kinase 52 units/L (30-135) 08/29/19 09:44 Troponin T 0.040 ng/mL (0.00-0.029) H D 08/29/19 09:44 NT-Pro-B Natriuret Pep 4587 pg/mL (0-900) H 08/29/19 05:05 Total Protein 6.8 g/dL (6.3-8.2) 08/29/19 05:05 Albumin 3.7 g/dL (3.9-5) L 08/29/19 05:05 Albumin/Globulin Ratio 1.2 % 08/29/19 05:05 Triglycerides 267 mg/dL (2-149) H 08/29/19 09:44 Cholesterol 134 mg/dL (50-199) 08/29/19 09:44 LDL Cholesterol Direct 58 mg/dL (50-130) 08/29/19 09:44 HDL Cholesterol 46 mg/dL (40-59) 08/29/19 09:44 Cholesterol/HDL Ratio 2.91 % 08/29/19 09:44 Assessment and Plan Advance Directives: Yes (Full code) VTE prophylaxis?: Chemical Plan of care discussed with patient/family: Yes - Patient Problems (1) Unstable angina Current Visit: Yes Status: Acute Plan to address problem: For cath in AM (2) COPD exacerbation Current Visit: No Status: Acute Plan to address problem: Cont Neb tx and Solumedrol and Abx (3) CAD (coronary artery disease) Current Visit: Yes Status: Chronic Qualifiers: Coronary Disease-Associated Artery/Lesion type: [place] artery [place] vs. transplanted heart: [place] heart Plan to address problem: Cont palavix and Ismo (4) HLD (hyperlipidemia) Current Visit: Yes Status: Chronic Qualifiers: Hyperlipidemia type: unspecified Qualified Code(s): E78.5 - Hyperlipidemia, unspecified Plan to address problem: Cont sattins (5) Depression Current Visit: Yes Status: Chronic Qualifiers: Depression Type: unspecified Qualified Code(s): F32.9 - Major depressive disorder, single episode, unspecified Plan to address problem: Cont trazodone and Geodon (6) GERD (gastroesophageal reflux disease) Current Visit: Yes Status: Chronic Qualifiers: Esophagitis presence: without esophagitis Qualified Code(s): K21.9 - Gastro-esophageal reflux disease without esophagitis Plan to address problem: Cont protonix aned sucralfate (7) DVT prophylaxis Current Visit: No Status: Acute Plan to address problem: on SCD's Effiemt and Plavix
[2019-08-29] MEDS ORDERED: ASPIRIN 325 MG TAB PO SCH (15:00)
[2019-08-29] MEDS ORDERED: NON-FORMULARY EACH (Lisinopril [Zestril Tab] 5 MG) PO SCH (15:00)
[2019-08-29] MEDS ORDERED: METOPROLOL TARTRATE 25 MG TAB PO SCH (15:00)
[2019-08-29] MEDS ORDERED: ALBUTEROL 2.5 MG/3 ML NEBU IH PRN (15:18)
[2019-08-29] MEDS: SUCRALFATE 1 GM/10 ML ORAL LIQD PO SCH ×2 (15:34→22:00)
[2019-08-29] MEDS: HYDROmorphone 1 MG/1 ML INJ IV PRN ×2 (15:34→19:22)
[2019-08-29] MEDS: PRASUGREL 10 MG TAB PO SCH (15:35)
[2019-08-29] MEDS: FUROSEMIDE 40 MG TAB PO SCH (15:36)
[2019-08-29] MEDS: PANTOPRAZOLE 40 MG TAB PO SCH ×2 (15:36→22:00)
[2019-08-29] MEDS: SODIUM CHLORIDE 0.9% 1000 ML 1,000 ML IV SCH ×2 (15:38→15:55)
[2019-08-29] MEDS: FAMOTIDINE 20 MG/2 ML INJ IV SCH ×2 (15:56→22:00)
[2019-08-29] MEDS: LISINOPRIL 5 MG TAB PO SCH (15:56)
[2019-08-29] MEDS ORDERED: SODIUM CHLORIDE 0.9% 500 ML 500 ML IV SCH (16:00)
[2019-08-29] MEDS: metFORMIN 500 MG TAB PO SCH (17:48)
[2019-08-29] MEDS: levETIRAcetam 500 MG TAB PO SCH (22:00)
[2019-08-29] MEDS ORDERED: CLONAZEPAM 2 MG PO SCH (22:00)
[2019-08-29] MEDS ORDERED: NON-FORMULARY EACH (Rosuvastatin (Nf) 20 MG) PO SCH (22:00)
[2019-08-29] MEDS: traZODone 50 MG TAB PO SCH (22:00)
[2019-08-30] MEDS: INSULIN LISPRO 100 UNIT/ML SUB-Q SCH ×4 (00:01→18:56)
[2019-08-30] MEDS: FUROSEMIDE 40 MG TAB PO SCH (06:50)
[2019-08-30 06:54] LABS: Alanine Aminotransferase 34 units/L (7-56); Albumin 3.4 g/dL (3.9-5); BUN/Creatinine Ratio 34; Blood Urea Nitrogen 17 mg/dL (7-17); Calcium 9.6 mg/dL (8.4-10.2); Hemolysis Index 16
[2019-08-30 06:54] LABS: Basophils % (Auto) 0.3 % (0.0-1.8); Eosinophils % (Auto) 0.1 % (0.0-4.3); Hematocrit 32.3 % (30.3-42.9); Hemoglobin 10.1 gm/dl (10.1-14.3); Lymphocytes # (Auto) 0.9 K/mm3 (1.2-5.4); Lymphocytes % (Auto) 10.8 % (13.4-35.0); Mean Corpuscular HGB Conc 31 % (30-34); Mean Corpuscular Volume 72 fl (79-97); Monocytes # (Auto) 0.4 K/mm3 (0.0-0.8); Monocytes % (Auto) 4.9 % (0.0-7.3); Red Blood Count 4.49 M/mm3 (3.65-5.03)
[2019-08-30 06:54] LABS: INR 1.04 (0.87-1.13); Partial Thromboplastin Time 23.9 Sec. (24.2-36.6)
[2019-08-30 07:18] LABS: Platelet Count 292 K/mm3 (140-440)
[2019-08-30] MEDS ORDERED: ZIPRASIDONE 40 MG CAP PO PRN ×2 (08:30→14:00)
[2019-08-30] MEDS: ONDANSETRON 4 MG/2 ML INJ IV PRN ×2 (08:33→19:11)
[2019-08-30] MEDS ORDERED: LORazepam 2 MG/ML VIAL IV PRN (08:42)
[2019-08-30] MEDS: ASPIRIN EC 81 MG TAB PO SCH (09:29)
[2019-08-30] MEDS ORDERED: ASPIRIN EC 81 MG TAB PO ONE (09:30)
[2019-08-30] MEDS ORDERED: fentaNYL 100 MCG/2 ML INJ ONE (09:36)
[2019-08-30] MEDS ORDERED: HEPARIN/NS 5000 UNIT/500ML 1,000 ML IR ONE (09:36)
[2019-08-30] MEDS ORDERED: HEPARIN 10,000 UNITS/10 ML VIAL ONE (09:36)
[2019-08-30] MEDS ORDERED: MIDAZOLAM 2 MG/2 ML INJ ONE (09:36)
[2019-08-30] MEDS ORDERED: VERAPAMIL 5 MG/2 ML INJ ONE (09:37)
[2019-08-30] MEDS: SUCRALFATE 1 GM/10 ML ORAL LIQD PO SCH ×4 (09:40→21:51)
[2019-08-30] MEDS: metFORMIN 500 MG TAB PO SCH ×2 (09:45→18:49)
[2019-08-30] MEDS ORDERED: SODIUM CHLORIDE 0.9% 500 ML 500 ML ONE (09:52)
[2019-08-30] MEDS: LIDOCAINE (2%) 20 MG/1 ML VIAL 20 ML MDV INFILTRATI ONE ×2 (10:08→10:13)
[2019-08-30] MEDS ORDERED: dilTIAZem 25 MG/5 ML INJ ONE (10:11)
--- NOTE | 2019-08-30 10:35 | Progress Note ---
Assessment and Plan Patient cardiac cath revealed left main patent LAD mid stent patent circumflex. RCA. Patient had coronary cath for suspected coronary disease given recurrent chest pain patient also has acute on chronic respiratory failure recently quit smoking patient is tachycardic hyperdynamic LV will add Cardizem and hold beta emily for better rate control in view of COPD exacerbation and continue to monitor heart rate possible discharge in - Patient Problems (1) NSTEMI (non-ST elevated myocardial infarction) Current Visit: Yes Status: Acute Plan to address problem: type 2 (2) Acute hypoxemic respiratory failure Current Visit: No Status: Acute (3) Acute on chronic diastolic (congestive) heart failure Current Visit: No Status: Acute (4) Hypokalemia Current Visit: No Status: Acute (5) CAD (coronary artery disease) Current Visit: No Status: Chronic Qualifiers: Coronary Disease-Associated Artery/Lesion type: [place] artery [place] vs. transplanted heart: [place] heart Associated angina: without angina Qualified Code(s): I25.10 - Atherosclerotic heart disease of [place] coronary artery without angina pectoris (6) Chest pain Current Visit: No Status: Chronic Qualifiers: Chest pain type: unspecified Qualified Code(s): R07.9 - Chest pain, unspecified (7) HLD (hyperlipidemia) Current Visit: No Status: Chronic Qualifiers: Hyperlipidemia type: mixed hyperlipidemia Qualified Code(s): E78.2 - Mixed hyperlipidemia (8) Hypertension Current Visit: No Status: Chronic Qualifiers: Hypertension type: essential hypertension Qualified Code(s): I10 - Essential (primary) hypertension (9) ANURAG (obstructive sleep apnea) Current Visit: No Status: Chronic Subjective Date of service: 08/30/19 Principal diagnosis: cp and respiratory failure Interval history: cp is better but having sob Objective Vital Signs Temp Pulse Pulse Pulse Pulse Resp BP 08/30/19 08:10 98.0 F 86 18 132/75 08/30/19 03:12 98.4 F 80 18 139/81 08/29/19 23:25 98.6 F 91 H 18 137/78 08/29/19 22:00 91 H 92 H 92 H 92 H 20 08/29/19 19:36 98.5 F 92 H 19 135/78 08/29/19 17:08 99.1 F 85 22 168/88 08/29/19 15:56 76 115/76 08/29/19 15:36 76 115/86 08/29/19 13:58 98.1 F 102 H 22 174/107 08/29/19 13:30 44/27 08/29/19 13:25 106 H 16 44/08/29/19 13:15 104 H 14 Pulse Ox 08/30/19 08:10 94 08/30/19 03:12 95 08/29/19 23:25 95 08/29/19 22:00 97 08/29/19 19:36 91 08/29/19 17:08 96 08/29/19 15:56 08/29/19 15:36 08/29/19 13:58 94 08/29/19 13:30 08/29/19 13:25 08/29/19 13:15 - Physical Examination General: Other HEENT: Positive: PERRL Neck: Positive: neck supple, trachea midline Cardiac: Positive: Tachycardia Lungs: Positive: Decreased Breath Sounds Neuro: Positive: Grossly Intact Abdomen: Positive: Unremarkable, Soft Skin: Negative: Rash Extremities: Absent: edema - Labs and Meds Cardiac Enzymes 08/30/19 Range/Units 04:00 AST 29 (5-40) units/L Coagulation 08/30/19 Range/Units 07:32 PT 13.7 (12.2-14.9) Sec. INR 1.04 (0.87-1.13) APTT 23.9 L (24.2-36.6) Sec. Lipids 08/29/19 Range/Units 09:44 Triglycerides 267 H (2-149) mg/dL Cholesterol 134 (50-199) mg/dL HDL Cholesterol 46 (40-59) mg/dL Cholesterol/HDL Ratio 2.91 % CBC 08/30/19 Range/Units Unknown WBC 8.1 (4.5-11.0) K/mm3 RBC 4.49 (3.65-5.03) M/mm3 Hgb 10.1 (10.1-14.3) gm/dl Hct 32.3 (30.3-42.9) % Plt Count 292 (140-440) K/mm3 Lymph # 0.9 L (1.2-5.4) K/mm3 [place] # 0.4 (0.0-0.8) K/mm3 Eos # 0.0 (0.0-0.4) K/mm3 Baso # 0.0 (0.0-0.1) K/mm3 Comprehensive Metabolic Panel 08/30/19 Range/Units 04:00 Sodium 142 (137-145) mmol/L Potassium 3.4 L (3.6-5.0) mmol/L Chloride 92.1 L (98-107) mmol/L Carbon Dioxide 40 H (22-30) mmol/L BUN 17 (7-17) mg/dL Creatinine 0.5 L (0.7-1.2) mg/dL Glucose 199 H (65-100) mg/dL Calcium 9.6 (8.4-10.2) mg/dL AST 29 (5-40) units/L ALT 34 (7-56) units/L Alkaline Phosphatase 85 (35-129) units/L Total Protein 6.3 (6.3-8.2) g/dL Albumin 3.4 L (3.9-5) g/dL - Imaging and Cardiology Cardiac cath: report reviewed (lt main patent, lad mid stent patent, diagonal 1 and 2 patent, lcx patent om1 and om2 patent and rca patent normal lv function lvedp 25 mm hg) - Telemetry EKG Rhythm: Sinus Tachycardia (with apc) - EKG Sinus rhythms and dysrhythmias: sinus rhythm
--- NOTE | 2019-08-30 10:52 | Cardiac Catherization Report ---
LEFT HEART CATHETERIZATION CLINICAL INFORMATION: This is a 53-year-old female with morbid obesity, tobacco abuse, chronic respiratory failure, known coronary artery disease in 2016, had PCI of the LAD. She is here for recurrent chest pain, multiple admissions with abnormal troponin suggestive of non-STEMI type 2. She is here for cardiac catheterization for suspected coronary artery disease. Procedure was done with moderate sedation. Total sedation time was 15 minutes, started at 10:06 a.m., finished at 10:21 a.m. Procedure was done via the right radial artery, sterile technique, local anesthesia, 6-[place] radial sheath inserted. Left system engaged with JL3.5 catheter. Left main is large and patent, bifurcates into large LAD, mid stent is widely patent. Diagonal 1 and diagonal 2 are patent. Circumflex is a large caliber vessel, patent. OM1 and OM2 is medium caliber vessel, patent. RCA is a large caliber vessel that is patent. RV branch is patent. There is a high RV branch that is also patent. LV gram done in ADRI and LEIGH shows hyperdynamic LV. LVEDP at 25-30 mmHg, LV is 145, aortic is 148/73, no gradient across the aortic valve on pullback. A 5-[place] catheters all taken over guidewire, a 6-[place] radial sheath was discontinued. Radial band applied. No hematoma, no bleeding. SUMMARY: 1. Left main patent, LAD mid stent patent. Diagonal 1 and diagonal 2 patent. Circumflex patent. OM1, OM2 patent. RCA patent, hyperdynamic LV. 2. Continue risk factor modification. Continue aspirin. May stop Effient has been 3 years since her angioplasty and stat medication, Cardizem and low dose diuretics. JOB# [id number] LOBITO/NOEMI
[2019-08-30] MEDS: FAMOTIDINE 20 MG/2 ML INJ IV SCH (12:54)
[2019-08-30] MEDS: PRASUGREL 10 MG TAB PO SCH (12:58)
[2019-08-30] MEDS: levETIRAcetam 500 MG TAB PO SCH ×2 (12:58→21:50)
[2019-08-30] MEDS: NICOTINE 21 MG/24 HR PATCH TD SCH (12:59)
[2019-08-30] MEDS: dilTIAZem 60 MG TAB PO SCH ×2 (13:00→18:49)
[2019-08-30] MEDS: LISINOPRIL 5 MG TAB PO SCH (13:00)
[2019-08-30] MEDS: PANTOPRAZOLE 40 MG TAB PO SCH ×2 (13:25→21:50)
[2019-08-30] MEDS: SODIUM CHLORIDE 0.9% 1000 ML 1,000 ML IV SCH ×2 (13:25→18:50)
[2019-08-30] MEDS ORDERED: FAMOTIDINE 20 MG TAB PO SCH (14:00)
[2019-08-30] MEDS ORDERED: IPRATROPIUM/ALBUTEROL SULFATE 3 ML AMPUL.NEB IH PRN (16:28)
[2019-08-30] MEDS: methylPREDNISolone Sod Succinate 125 MG/2 ML INJ IV SCH ×2 (18:50→21:54)
[2019-08-30] MEDS: IPRATROPIUM/ALBUTEROL SULFATE 3 ML AMPUL.NEB IH SCH (20:19)
[2019-08-30] MEDS: traZODone 50 MG TAB PO SCH (21:50)
[2019-08-31] MEDS: dilTIAZem 60 MG TAB PO SCH ×4 (01:06→21:26)
[2019-08-31] MEDS: INSULIN LISPRO 100 UNIT/ML SUB-Q SCH ×4 (01:06→17:42)
[2019-08-31] MEDS: ONDANSETRON 4 MG/2 ML INJ IV PRN ×2 (01:08→21:27)
[2019-08-31 06:43] LABS: Hematocrit 30.1 % (30.3-42.9); Hemoglobin 9.6 gm/dl (10.1-14.3); Mean Corpuscular HGB Conc 32 % (30-34); Mean Corpuscular Volume 71 fl (79-97); Platelet Count 283 K/mm3 (140-440); Red Blood Count 4.21 M/mm3 (3.65-5.03); Red Cell Distribution Width 17.7 % (13.2-15.2)
[2019-08-31 06:58] LABS: BUN/Creatinine Ratio 33; Blood Urea Nitrogen 30 mg/dL (7-17); Hemolysis Index 9
[2019-08-31 07:53] LABS: Basophils % (Manual) 0 % (0.0-1.8); Eosinophils % (Manual) 0 % (0.0-4.3); Hypochromasia 1+; Large Platelets Rare; Ovalocytes Few; Platelet Estimate Consistent w Auto; Total Cells Counted 100
[2019-08-31] MEDS: FUROSEMIDE 40 MG TAB PO SCH (07:53)
[2019-08-31] MEDS: methylPREDNISolone Sod Succinate 125 MG/2 ML INJ IV SCH ×3 (08:03→21:27)
[2019-08-31] MEDS: IPRATROPIUM/ALBUTEROL SULFATE 3 ML AMPUL.NEB IH SCH ×3 (08:06→22:39)
[2019-08-31] MEDS ORDERED: ALBUTEROL 2.5 MG/3 ML NEBU IH PRN (08:12)
--- NOTE | 2019-08-31 09:19 | Progress Note ---
Assessment and Plan (1) Unstable angina Current Visit: Yes Status: Acute Plan to address problem: For cath today (2) COPD exacerbation Current Visit: No Status: Acute Plan to address problem: Cont Neb tx and Solumedrol and Abx (3) CAD (coronary artery disease) Current Visit: Yes Status: Chronic Qualifiers: Coronary Disease-Associated Artery/Lesion type: [place] artery [place] vs. transplanted heart: [place] heart Plan to address problem: Cont palavix and Ismo (4) HLD (hyperlipidemia) Current Visit: Yes Status: Chronic Qualifiers: Hyperlipidemia type: unspecified Qualified Code(s): E78.5 - Hyperlipidemia, unspecified Plan to address problem: Cont sattins (5) Depression Current Visit: Yes Status: Chronic Qualifiers: Depression Type: unspecified Qualified Code(s): F32.9 - Major depressive disorder, single episode, unspecified Plan to address problem: Cont trazodone and Geodon (6) GERD (gastroesophageal reflux disease) Current Visit: Yes Status: Chronic Qualifiers: Esophagitis presence: without esophagitis Qualified Code(s): K21.9 - Gastro-esophageal reflux disease without esophagitis Plan to address problem: Cont protonix aned sucralfate (7) DVT prophylaxis Current Visit: No Status: Acute Plan to address problem: on SCD's Effiemt and Plavix Subjective Date of service: 08/31/19 Principal diagnosis: cp and respiratory failure Interval history: Chest pain better Objective - Constitutional Vitals: Vital Signs - 12hr 08/30/19 08/30/19 08/31/19 22:00 23:26 00:00 Temperature 97.7 F Pulse Rate 128 H 88 Pulse Rate [ Apical] Pulse Rate [ Posterior Bilateral Throughout] Respiratory 18 Rate Respiratory Rate [Posterior Bilateral Throughout] Blood Pressure 86/46 Blood Pressure [Left] O2 Sat by Pulse 96 Oximetry 08/31/19 08/31/19 08/31/19 01:00 01:01 01:06 Temperature 98.6 F Pulse Rate 89 90 89 Pulse Rate [ Apical] Pulse Rate [ Posterior Bilateral Throughout] Respiratory 20 Rate Respiratory Rate [Posterior Bilateral Throughout] Blood Pressure 96/58 96/58 Blood Pressure [Left] O2 Sat by Pulse 92 93 Oximetry 08/31/19 08/31/19 08/31/19 01:19 03:45 06:00 Temperature 98.0 F Pulse Rate 91 H 80 Pulse Rate [ 96 H Apical] Pulse Rate [ Posterior Bilateral Throughout] Respiratory 20 19 Rate Respiratory Rate [Posterior Bilateral Throughout] Blood Pressure 78/49 Blood Pressure [Left] O2 Sat by Pulse 97 95 Oximetry 08/31/19 08/31/19 08/31/19 06:27 06:52 07:17 Temperature Pulse Rate 80 80 76 Pulse Rate [ Apical] Pulse Rate [ Posterior Bilateral Throughout] Respiratory Rate Respiratory Rate [Posterior Bilateral Throughout] Blood Pressure 117/64 Blood Pressure 117/64 [Left] O2 Sat by Pulse 94 Oximetry 08/31/19 08/31/19 08/31/19 08:05 08:06 08:10 Temperature Pulse Rate Pulse Rate [ Apical] Pulse Rate [ 75 Posterior Bilateral Throughout] Respiratory Rate Respiratory 20 Rate [Posterior Bilateral Throughout] Blood Pressure Blood Pressure [Left] O2 Sat by Pulse 94 94 Oximetry 08/31/19 08:32 Temperature 97.3 F L Pulse Rate Pulse Rate [ Apical] Pulse Rate [ Posterior Bilateral Throughout] Respiratory 18 Rate Respiratory Rate [Posterior Bilateral Throughout] Blood Pressure 115/65 Blood Pressure [Left] O2 Sat by Pulse Oximetry General appearance: Present: no acute distress, well-nourished - EENT Eyes: PERRL, EOM intact ENT: hearing intact, clear oral mucosa Ears: bilateral: normal - Neck Neck: supple, normal ROM - Respiratory Respiratory effort: normal Respiratory: bilateral: CTA - Breasts Breasts: normal - Cardiovascular Heart rate: 76 Rhythm: regular Heart Sounds: Present: S1 & S2. Absent: gallop, rub Extremities: pulses intact, No edema, normal color, Full ROM - Gastrointestinal General gastrointestinal: Present: soft, non-tender, non-distended, normal bowel sounds - Genitourinary Female genitourinary: normal - Integumentary Integumentary: clear, warm, dry - Musculoskeletal Musculoskeletal: 1, strength equal bilaterally - Neurologic Neurologic: moves all extremities - Psychiatric Psychiatric: memory intact, appropriate mood/affect, intact judgment & insight - Allied health notes Allied health notes reviewed: nursing, case management - Labs CBC & Chem 7: 08/31/19 06:27 08/31/19 06:27 Labs: Abnormal lab results 08/30/19 08/30/19 08/30/19 Range/Units 12:26 16:28 21:23 Hgb (10.1-14.3) gm/dl Hct (30.3-42.9) % MCV (79-97) fl MCH (28-32) pg RDW (13.2-15.2) % Seg Neuts % (Manual) (40.0-70.0) % Lymphocytes % (Manual) (13.4-35.0) % Seg Neutrophils # Man (1.8-7.7) K/mm3 Lymphocytes # (Manual) (1.2-5.4) K/mm3 Potassium (3.6-5.0) mmol/L Chloride (98-107) mmol/L Carbon Dioxide (22-30) mmol/L BUN (7-17) mg/dL Glucose (65-100) mg/dL POC Glucose 191 H 160 H 122 H (70-105) 08/31/19 08/31/19 08/31/19 Range/Units 06:27 06:27 08:14 Hgb 9.6 L (10.1-14.3) gm/dl Hct 30.1 L (30.3-42.9) % MCV 71 L (79-97) fl MCH 23 L (28-32) pg RDW 17.7 H (13.2-15.2) % Seg Neuts % (Manual) 92.0 H (40.0-70.0) % Lymphocytes % (Manual) 6.0 L (13.4-35.0) % Seg Neutrophils # Man 10.1 H (1.8-7.7) K/mm3 Lymphocytes # (Manual) 0.7 L (1.2-5.4) K/mm3 Potassium 3.4 L (3.6-5.0) mmol/L Chloride 86.6 L (98-107) mmol/L Carbon Dioxide 40 H (22-30) mmol/L BUN 30 H (7-17) mg/dL Glucose 254 H (65-100) mg/dL POC Glucose 216 H (70-105)
[2019-08-31] MEDS: SUCRALFATE 1 GM/10 ML ORAL LIQD PO SCH ×4 (09:44→21:27)
[2019-08-31] MEDS: ASPIRIN EC 81 MG TAB PO SCH (09:44)
[2019-08-31] MEDS: levETIRAcetam 500 MG TAB PO SCH ×2 (09:44→21:27)
[2019-08-31] MEDS: LISINOPRIL 5 MG TAB PO SCH (09:45)
[2019-08-31] MEDS: NICOTINE 21 MG/24 HR PATCH TD SCH (09:46)
[2019-08-31] MEDS: PANTOPRAZOLE 40 MG TAB PO SCH ×2 (09:46→21:27)
--- NOTE | 2019-08-31 09:50 | Progress Note ---
Assessment and Plan Cardiac cath revealed left main patent LAD mid stent patent circumflex patent RCA patent with normal LV function patient will decrease Lasix to 20 mg continue Cardizem make long-acting Cardizem CD 240. Stop dual antiplatelets been more than 3 years since stenting, continue with aspirin and statin medication not on beta emily secondary to COPD. Patient's echocardiograms prior from respiratory failure and chronic hypoxemia. Patient will ambulate and possible discharge this p.m. - Patient Problems (1) NSTEMI (non-ST elevated myocardial infarction) Current Visit: Yes Status: Acute (2) Acute hypoxemic respiratory failure Current Visit: No Status: Acute (3) Acute on chronic diastolic (congestive) heart failure Current Visit: No Status: Acute (4) Hypokalemia Current Visit: No Status: Acute (5) CAD (coronary artery disease) Current Visit: No Status: Chronic Qualifiers: Coronary Disease-Associated Artery/Lesion type: [place] artery [place] vs. transplanted heart: [place] heart Associated angina: without angina Qualified Code(s): I25.10 - Atherosclerotic heart disease of [place] coronary artery without angina pectoris (6) Chest pain Current Visit: No Status: Chronic Qualifiers: Chest pain type: unspecified Qualified Code(s): R07.9 - Chest pain, unspecified (7) HLD (hyperlipidemia) Current Visit: No Status: Chronic Qualifiers: Hyperlipidemia type: mixed hyperlipidemia Qualified Code(s): E78.2 - Mixed hyperlipidemia (8) Hypertension Current Visit: No Status: Chronic Qualifiers: Hypertension type: essential hypertension Qualified Code(s): I10 - Essential (primary) hypertension (9) ANURAG (obstructive sleep apnea) Current Visit: No Status: Chronic Subjective Date of service: 08/31/19 Principal diagnosis: cp and respiratory failure Interval history: sob is better and cp is better Objective Vital Signs Temp Pulse Pulse Pulse Resp Resp BP 08/31/19 09:45 122 H 115/65 08/31/19 09:44 122 H 115/65 08/31/19 08:32 97.3 F L 18 115/65 08/31/19 08:10 08/31/19 08:06 75 20 08/31/19 08:05 08/31/19 07:17 76 08/31/19 06:52 80 117/64 08/31/19 06:27 80 08/31/19 06:00 80 08/31/19 03:45 98.0 F 91 H 19 78/49 08/31/19 01:19 96 H 20 08/31/19 01:06 89 96/58 08/31/19 01:01 90 08/31/19 01:00 98.6 F 89 20 96/58 08/31/19 00:00 88 08/30/19 23:26 97.7 F 18 86/46 08/30/19 22:00 128 H 08/30/19 20:25 08/30/19 20:21 88 18 08/30/19 20:00 08/30/19 19:45 98.2 F 75 18 93/51 08/30/19 18:49 69 08/30/19 16:21 98.1 F 18 115/66 08/30/19 14:00 97.3 F L 127 H 98 H 18 08/30/19 13:00 130 H 08/30/19 12:58 78 08/30/19 12:36 98.1 F 18 155/87 08/30/19 11:15 115 H 18 122/60 08/30/19 11:00 109 H 20 133/88 08/30/19 10:40 123 H 18 115/82 BP Pulse Ox 08/31/19 09:45 08/31/19 09:44 08/31/19 08:32 08/31/19 08:10 94 08/31/19 08:06 08/31/19 08:05 94 08/31/19 07:17 94 08/31/19 06:52 08/31/19 06:27 117/64 08/31/19 06:00 08/31/19 03:45 95 08/31/19 01:19 97 08/31/19 01:06 08/31/19 01:01 93 08/31/19 01:00 92 08/31/19 00:00 96 08/30/19 23:26 08/30/19 22:00 08/30/19 20:25 97 08/30/19 20:21 08/30/19 20:00 112/46 08/30/19 19:45 91 08/30/19 18:49 08/30/19 16:21 08/30/19 14:00 127/67 97 08/30/19 13:00 08/30/19 12:58 08/30/19 12:36 08/30/19 11:15 93 08/30/19 11:00 95 08/30/19 10:40 93 - Physical Examination General: Other HEENT: Positive: PERRL Neck: Positive: neck supple, trachea midline Cardiac: Positive: Tachycardia Lungs: Positive: Decreased Breath Sounds Neuro: Positive: Grossly Intact Abdomen: Positive: Unremarkable, Soft Skin: Negative: Rash Extremities: Absent: edema - Labs and Meds CBC 08/31/19 Range/Units 06:27 WBC 11.0 (4.5-11.0) K/mm3 RBC 4.21 (3.65-5.03) M/mm3 Hgb 9.6 L (10.1-14.3) gm/dl Hct 30.1 L (30.3-42.9) % Plt Count 283 (140-440) K/mm3 Comprehensive Metabolic Panel 08/31/19 Range/Units 06:27 Sodium 140 (137-145) mmol/L Potassium 3.4 L (3.6-5.0) mmol/L Chloride 86.6 L (98-107) mmol/L Carbon Dioxide 40 H (22-30) mmol/L BUN 30 H (7-17) mg/dL Creatinine 0.9 D (0.7-1.2) mg/dL Glucose 254 H (65-100) mg/dL Calcium 9.0 (8.4-10.2) mg/dL - Imaging and Cardiology Cardiac cath: report reviewed (lt main patent, lad mid stent patent, diagonal 1 and 2 patent, lcx patent om1 and om2 patent and rca patent normal lv function lvedp 25 mm hg) - Telemetry EKG Rhythm: Sinus Tachycardia (110) - EKG Sinus rhythms and dysrhythmias: sinus rhythm
[2019-08-31] MEDS: ARFORMOTEROL 15 MCG/2 ML NEBU IH SCH ×2 (10:14→19:38)
[2019-08-31] MEDS: BUDESONIDE 0.5 MG/2 ML NEBU IH SCH ×2 (10:15→19:38)
[2019-08-31] MEDS ORDERED: dilTIAZem CD 240 MG CAP PO SCH (11:00)
[2019-08-31] MEDS: traZODone 50 MG TAB PO SCH ×2 (21:27→22:05)
[2019-09-01] MEDS: INSULIN LISPRO 100 UNIT/ML SUB-Q SCH ×3 (00:33→12:00)
[2019-09-01] MEDS: methylPREDNISolone Sod Succinate 125 MG/2 ML INJ IV SCH ×2 (06:11→13:48)
[2019-09-01] MEDS: ONDANSETRON 4 MG/2 ML INJ IV PRN (06:12)
[2019-09-01] MEDS: IPRATROPIUM/ALBUTEROL SULFATE 3 ML AMPUL.NEB IH SCH ×2 (07:23→13:56)
[2019-09-01] MEDS: ARFORMOTEROL 15 MCG/2 ML NEBU IH SCH (07:23)
[2019-09-01] MEDS: BUDESONIDE 0.5 MG/2 ML NEBU IH SCH (07:23)
[2019-09-01] MEDS: SUCRALFATE 1 GM/10 ML ORAL LIQD PO SCH ×2 (07:30→11:13)
[2019-09-01] MEDS: dilTIAZem 60 MG TAB PO SCH ×2 (08:38→13:48)
[2019-09-01] MEDS: PANTOPRAZOLE 40 MG TAB PO SCH (09:42)
[2019-09-01] MEDS: LISINOPRIL 5 MG TAB PO SCH (09:42)
[2019-09-01] MEDS: levETIRAcetam 500 MG TAB PO SCH (09:42)
[2019-09-01] MEDS: NICOTINE 21 MG/24 HR PATCH TD SCH (09:43)
[2019-09-01] MEDS: ASPIRIN EC 81 MG TAB PO SCH (09:43)
[2019-09-01] MEDS ORDERED: traZODone 50 MG TAB PO ONE (12:00)
--- NOTE | 2019-09-01 12:05 | Progress Note ---
Assessment and Plan Cardiac cath revealed left main patent LAD mid stent patent circumflex patent RCA patent with normal LV function patient will decrease Lasix to 20 mg continue Cardizem. Stop dual antiplatelets been more than 3 years since stenting, continue with aspirin and statin medication not on beta emily secondary to COPD. currently stable cardiac status. pt may discharge from cardiology standpoint. recommend follow up in our office with Dr. Abrams within 1-2 weeks of discharge ([phone]). The patient has been seen in conjunction with Dr. Ramey who agrees with the assessment and plan of care. - Patient Problems (1) NSTEMI (non-ST elevated myocardial infarction) Current Visit: Yes Status: Acute (2) Acute hypoxemic respiratory failure Current Visit: No Status: Acute (3) Acute on chronic diastolic (congestive) heart failure Current Visit: No Status: Acute (4) Hypokalemia Current Visit: No Status: Acute (5) CAD (coronary artery disease) Current Visit: No Status: Chronic Qualifiers: Coronary Disease-Associated Artery/Lesion type: [place] artery [place] vs. transplanted heart: [place] heart Associated angina: without angina Qualified Code(s): I25.10 - Atherosclerotic heart disease of [place] coronary artery without angina pectoris (6) Chest pain Current Visit: No Status: Chronic Qualifiers: Chest pain type: unspecified Qualified Code(s): R07.9 - Chest pain, unspecified (7) HLD (hyperlipidemia) Current Visit: No Status: Chronic Qualifiers: Hyperlipidemia type: mixed hyperlipidemia Qualified Code(s): E78.2 - Mixed hyperlipidemia (8) Hypertension Current Visit: No Status: Chronic Qualifiers: Hypertension type: essential hypertension Qualified Code(s): I10 - Essential (primary) hypertension (9) ANURAG (obstructive sleep apnea) Current Visit: No Status: Chronic Subjective Date of service: 09/01/19 Principal diagnosis: cp and respiratory failure Interval history: pt resting in bed, no current cardiac complaints. in SR/ST with freq PACs on tele with HR 100s, infrequent bouts of HR to 120s noted overnight. Objective Last Vital Signs Temp 98.2 F 09/01/19 08:59 Pulse 87 09/01/19 09:43 Resp 20 09/01/19 08:59 BP 115/63 09/01/19 09:43 Pulse Ox 96 09/01/19 08:59 - Physical Examination General: No Apparent Distress HEENT: Positive: PERRL Neck: Positive: neck supple, trachea midline Cardiac: Positive: Regular Rhythm, S1/S2 Lungs: Positive: Decreased Breath Sounds Neuro: Positive: Grossly Intact Abdomen: Positive: Unremarkable, Soft Skin: Negative: Rash Extremities: Absent: edema - Imaging and Cardiology Cardiac cath: report reviewed (lt main patent, lad mid stent patent, diagonal 1 and 2 patent, lcx patent om1 and om2 patent and rca patent normal lv function lvedp 25 mm hg) - EKG Sinus rhythms and dysrhythmias: sinus rhythm
[2019-09-01 13:47] VITALS: BP 122/62
--- NOTE | 2019-09-01 15:07 | Progress Note ---
Assessment and Plan (7) DVT prophylaxis Current Visit: No Status: Acute Plan to address problem: on SCD's Effiemt and Plavix Subjective Date of service: 08/31/19 Principal diagnosis: cp and respiratory failure Interval history: Chest pain better Objective - Constitutional Vitals: Vital Signs - 12hr 09/01/19 09/01/19 09/01/19 04:00 06:00 07:23 Temperature 97.5 F L Pulse Rate 67 117 H Pulse Rate [ 64 Anterior Bilateral Throughout] Pulse Rate [ Apical] Pulse Rate [ Left Radial] Pulse Rate [ 82 Posterior Bilateral Throughout] Pulse Rate [ Right Radial] Respiratory 16 Rate Respiratory 20 Rate [Anterior Bilateral Throughout] Respiratory 20 Rate [Posterior Bilateral Throughout] Blood Pressure 122/69 O2 Sat by Pulse 95 97 Oximetry 09/01/19 09/01/19 09/01/19 08:15 08:38 08:59 Temperature 98.2 F Pulse Rate 111 H 79 Pulse Rate [ Anterior Bilateral Throughout] Pulse Rate [ 67 Apical] Pulse Rate [ 67 Left Radial] Pulse Rate [ Posterior Bilateral Throughout] Pulse Rate [ 67 Right Radial] Respiratory 23 20 Rate Respiratory Rate [Anterior Bilateral Throughout] Respiratory Rate [Posterior Bilateral Throughout] Blood Pressure 129/69 108/70 O2 Sat by Pulse 98 96 Oximetry 09/01/19 09/01/19 09/01/19 09:00 09:42 09:43 Temperature Pulse Rate 87 87 87 Pulse Rate [ Anterior Bilateral Throughout] Pulse Rate [ Apical] Pulse Rate [ Left Radial] Pulse Rate [ Posterior Bilateral Throughout] Pulse Rate [ Right Radial] Respiratory Rate Respiratory Rate [Anterior Bilateral Throughout] Respiratory Rate [Posterior Bilateral Throughout] Blood Pressure 115/63 115/63 O2 Sat by Pulse Oximetry 09/01/19 09/01/19 09/01/19 10:38 13:47 13:48 Temperature 98.2 F Pulse Rate 63 87 Pulse Rate [ Anterior Bilateral Throughout] Pulse Rate [ Apical] Pulse Rate [ Left Radial] Pulse Rate [ Posterior Bilateral Throughout] Pulse Rate [ Right Radial] Respiratory 20 Rate Respiratory Rate [Anterior Bilateral Throughout] Respiratory Rate [Posterior Bilateral Throughout] Blood Pressure 115/63 122/62 122/62 O2 Sat by Pulse 96 Oximetry General appearance: Present: no acute distress, well-nourished - EENT Eyes: PERRL, EOM intact ENT: hearing intact, clear oral mucosa Ears: bilateral: normal - Neck Neck: supple, normal ROM - Respiratory Respiratory effort: normal Respiratory: bilateral: CTA - Breasts Breasts: normal - Cardiovascular Heart rate: 78 Rhythm: regular Heart Sounds: Present: S1 & S2. Absent: gallop, rub Extremities: pulses intact, No edema, normal color, Full ROM - Gastrointestinal General gastrointestinal: Present: soft, non-tender, non-distended, normal bowel sounds - Genitourinary Female genitourinary: normal - Integumentary Integumentary: clear, warm, dry - Musculoskeletal Musculoskeletal: 1, strength equal bilaterally - Neurologic Neurologic: moves all extremities - Psychiatric Psychiatric: memory intact, appropriate mood/affect, intact judgment & insight - Allied health notes Allied health notes reviewed: nursing, case management - Labs CBC & Chem 7: 08/31/19 06:27 08/31/19 06:27 Labs: Abnormal lab results 08/31/19 09/01/19 09/01/19 Range/Units 15:35 00:08 05:32 POC Glucose 219 H 273 H 247 H (70-105) 09/01/19 Range/Units 11:46 POC Glucose 257 H (70-105)
--- NOTE | 2019-09-01 15:10 | Discharge Summary ---
Providers - Providers Date of Admission: 08/30/19 10:57 Date of discharge: 09/01/19 Attending physician: LALO MACARIO 08/29/19 10:58 Consult to Physician [CONS] Urgent Comment: Consulting Provider: TORREY BUENROSTRO Physician Instructions: Reason For Exam: cp + cad+ trop, known to your service 08/30/19 10:27 Consult to Cardiac Rehabilitation [CONS] Routine Reason For Exam: Cardiac Rehab Evaluation Primary care physician: REQUIREMENTS ENGINEER Hospitalization Condition: Stable Hospital course: (1) Unstable angina Current Visit: Yes Status: Acute Plan to address problem: Cath negative (2) COPD exacerbation Current Visit: No Status: Acute Plan to address problem: Improved (3) CAD (coronary artery disease) Current Visit: Yes Status: Chronic Qualifiers: Coronary Disease-Associated Artery/Lesion type: [place] artery [place] vs. t ransplanted heart: [place] heart Plan to address problem: Cont palavix and Ismo (4) HLD (hyperlipidemia) Current Visit: Yes Status: Chronic Qualifiers: Hyperlipidemia type: unspecified Qualified Code(s): E78.5 - Hyperlipidemia, unspecified Plan to address problem: Cont sattins (5) Depression Current Visit: Yes Status: Chronic Qualifiers: Depression Type: unspecified Qualified Code(s): F32.9 - Major depressive disorder, single episode, unspecified Plan to address problem: Cont trazodone and Geodon (6) GERD (gastroesophageal reflux disease) Current Visit: Yes Status: Chronic Qualifiers: Esophagitis presence: without esophagitis Qualified Code(s): K21.9 - Gastro-esophageal reflux disease without esophagitis Plan to address problem: Cont protonix aned sucralfate Disposition: - TO HOME OR SELFCARE Core Measure Documentation - Palliative Care Palliative Care/ Comfort Measures: Not Applicable - Core Measures Any of the following diagnoses?: none Exam - Constitutional Vitals: Temp Pulse Resp BP Pulse Ox 98.2 F 87 20 122/62 96 09/01/19 13:47 09/01/19 13:48 09/01/19 13:47 09/01/19 13:48 09/01/19 13:47 General appearance: Present: no acute distress, well-nourished, other (Cushingoid faccies) - EENT Eyes: Present: PERRL ENT: hearing intact, clear oral mucosa - Neck Neck: Present: supple, normal ROM - Respiratory Respiratory effort: normal Respiratory: bilateral: CTA - Cardiovascular Heart rate: 78 Rhythm: regular Heart Sounds: Present: S1 & S2. Absent: rub, click - Extremities Extremities: pulses symmetrical, No edema Peripheral Pulses: within normal limits - Abdominal General gastrointestinal: Present: soft, non-tender, non-distended, normal bowel sounds Female genitourinary: Present: normal - Integumentary Integumentary: Present: clear, warm, dry - Musculoskeletal Musculoskeletal: gait normal, strength equal bilaterally - Psychiatric Psychiatric: appropriate mood/affect, intact judgment & insight - Neurologic Neurologic: CNII-XII intact, moves all extremities Plan Activity: no restrictions Diet: low fat, low cholesterol, low salt Follow up with: PRIMARY CAREMD [Primary Care Provider] - 3-5 Days RAVI VALDEZ MD [Staff Physician] - 7 Days
[2019-09-01] MEDS ORDERED: LORazepam 2 MG/ML VIAL IV ONE (15:19)
[2019-09-02] MEDS ORDERED: traZODone 50 MG TAB PO SCH (22:00)
== END 2019-09-01 16:08 | disposition home or self-care (01) | DRG 280 ==
LOC: ED 04:35 → 4A 12:32 → OBSVTOIN 08-30 10:57
PROVIDERS: ADMIT Internal Medicine; ATTEND Internal Medicine
PROC: 4A023N7 Measurement of Cardiac Sampling and Pressure, Left Heart, Percutaneous Approach (ICD-10-PCS; principal; 2019-08-30)
PROC: B2111ZZ Fluoroscopy of Multiple Coronary Arteries using Low Osmolar Contrast (ICD-10-PCS; 2019-08-30)
PROC: B2151ZZ Fluoroscopy of Left Heart using Low Osmolar Contrast (ICD-10-PCS; 2019-08-30)
DX: I25.110 Atherosclerotic heart disease of native coronary artery with unstable angina pectoris (principal); I21.A1 Myocardial infarction type 2; I50.33 Acute on chronic diastolic (congestive) heart failure; J96.21 Acute and chronic respiratory failure with hypoxia; Z68.42 Body mass index [BMI] 45.0-49.9, adult; J44.1 Chronic obstructive pulmonary disease with (acute) exacerbation; E87.6 Hypokalemia; E78.5 Hyperlipidemia, unspecified; F32.9 Major depressive disorder, single episode, unspecified; I11.0 Hypertensive heart disease with heart failure; E66.01 Morbid (severe) obesity due to excess calories; G47.33 Obstructive sleep apnea (adult) (pediatric); F41.9 Anxiety disorder, unspecified; E11.9 Type 2 diabetes mellitus without complications; K21.9 Gastro-esophageal reflux disease without esophagitis; Z87.442 Personal history of urinary calculi; I25.2 Old myocardial infarction; Z88.6 Allergy status to analgesic agent; Z88.5 Allergy status to narcotic agent; Z95.5 Presence of coronary angioplasty implant and graft; Z88.8 Allergy status to other drugs, medicaments and biological substances; Z91.018 Allergy to other foods; Z90.710 Acquired absence of both cervix and uterus; Z90.49 Acquired absence of other specified parts of digestive tract
CPT/HCPCS: 36415; 71045; 80048; 80053; 80061; 82550; 82962; 83036; 83735; 83880; 84484; 85007; 85025; 85379; 85610; 85730; 87040; 93005; 93010; 93458; 94640; 94644; 94760; G0378; A9270-GY; C1894; J1170; J1644; J1815; J1940; J1956; J2060; J2250; J2405; J2930; J3010; J7030; J7040; J7050; Q9967

== ENCOUNTER 2020-04-04 16:51 | Emergency (ER) | payer MEDICARE ==
[2020-04-04] MEDS ORDERED: MORPHINE 4 MG/1 ML INJ IV ONE ×2 (17:14→20:10)
[2020-04-04] MEDS ORDERED: ONDANSETRON 4 MG/2 ML INJ IV ONE (17:14)
--- NOTE | 2020-04-04 17:14 | Emergency Department Report ---
ED Abdominal Pain HPI - General Stated Complaint: DIARRHEA PUI?: No Time Seen by Provider: 04/04/20 17:07 Source: patient, old records reviewed Mode of arrival: Stretcher Limitations: No Limitations - History of Present Illness Initial Comments: Chief complaint:"My stomach is hurting because I am [defecating] too much. HPI: This is a 54-year-old female with history of asthma, CHF, COPD, paranoid schizophrenia, diabetes mellitus, hyperlipidemia, coronary artery disease, obstructive sleep apnea, obesity, depression, GERD, pulmonary embolism who prese nts with diffuse abdominal pain for the past 3 weeks. At outside hospital she was diagnosed with C. difficile colitis. She finished all medications for C. difficile colitis. She continues to have diarrhea. Moderate diffuse crampy abdominal pain which is been present for several weeks. MD Complaint: abdominal pain -: Gradual, week(s) (3 weeks) Location: diffuse Radiation: none Migration to: no migration Severity: moderate Quality: cramping, aching, dull Consistency: constant Improves With: nothing Worsens With: other (Defecation) Context: recent antibiotic use, other (Recently diagnosed with C. difficile colitis) Associated Symptoms: denies other symptoms - Related Data Home Medications Medication Instructions Recorded Confirmed Last Taken clonazePAM [KlonoPIN] 0.5 mg PO BID PRN 02/04/14 09/16/19 08/28/19 traZODone [Desyrel] 50 mg PO QHS 09/16/15 09/16/19 12/29/16 Rosuvastatin (Nf) [Crestor] 20 mg PO QHS 01/21/17 09/16/19 08/28/19 levETIRAcetam [Keppra TAB] 500 mg PO BID 08/11/19 09/16/19 08/28/19 Furosemide 20 mg PO DAILY 09/17/19 09/17/19 Unknown Gabapentin 300 mg PO TID 09/17/19 09/17/19 Unknown Insulin Detemir [Levemir VIAL] 10 unit SQ QHS 09/17/19 09/17/19 Unknown LORazepam [Lorazepam] 0.5 mg PO BID PRN 09/17/19 09/17/19 Unknown Pantoprazole 40 mg PO DAILY 09/17/19 09/17/19 Unknown Previous Rx's Medication Instructions Recorded Last Taken Type Albuterol Mdi (or & Nicu Only) 2 puff IH QID PRN #1 inhalation 12/30/16 08/28/19 Rx [ProAir HFA Inhaler] Aspirin EC [Halfprin EC] 81 mg PO DAILY tablet 09/01/19 Unknown Rx ISOSORBIDE MONOnitrate [Imdur ER] 30 mg PO DAILY tablet 09/01/19 Unknown Rx metroNIDAZOLE [Flagyl] 500 mg PO TID 14 Days #42 tablet 04/04/20 Unknown Rx Allergies Allergy/AdvReac Type Severity Reaction Status Date / Time aspirin Allergy Nausea Verified 08/23/19 16:35 coconut Allergy Hives Verified 08/23/19 16:35 haloperidol [From Haldol] Allergy Hives Verified 08/23/19 16:35 meperidine HCl [From Demerol] Allergy Rash Verified 08/23/19 16:35 nitroglycerin Allergy Hives Verified 08/23/19 16:35 NSAIDS (Non-Steroidal Allergy Unknown Verified 08/23/19 16:35 Anti-Inflamma tramadol Allergy Hives Verified 08/23/19 16:35 ED Review of Systems ROS: Stated complaint: DIARRHEA Other details as noted in HPI Comment: All other systems reviewed and negative Constitutional: malaise. denies: fever Respiratory: denies: cough, shortness of breath Cardiovascular: denies: chest pain Gastrointestinal: abdominal pain. denies: nausea, vomiting Psychiatric: anxiety. denies: auditory hallucinations, visual hallucinations, homicidal thoughts, suicidal thoughts ED Past Medical Hx - Past Medical History Previous Medical History?: Yes Hx Hypertension: Yes Hx CVA: No Hx Heart Attack/AMI: Yes Hx Congestive Heart Failure: No Hx Diabetes: Yes Hx Deep Vein Thrombosis: No Hx Pulmonary Embolism: No Hx GERD: Yes Hx Liver Disease: No Hx Renal Disease: No Hx Sickle Cell Disease: No Hx Arthritis: No Hx Headaches / Migraines: No Hx Seizures: Yes Hx Kidney Stones: Yes Hx Psychiatric Treatment: Yes (paranoid schizophrenia /ANXIETY) Hx Asthma: Yes Hx COPD: Yes Hx Tuberculosis: No Hx Dementia: No Hx HIV: No Additional medical history: CAD. AFib - Surgical History Past Surgical History?: Yes Hx Coronary Stent: Yes (1) Hx Open Heart Surgery: No Hx Pacemaker: No Hx Internal Defibrillator: No Hx Cholecystectomy: Yes Hx Appendectomy: No Hx Breast Surgery: No Additional Surgical History: right knee surgery, left carpal tunnel surg, hysterectomy - Social History Smoking Status: Heavy Tobacco Smoker - Medications Home Medications: Home Medications Medication Instructions Recorded Confirmed Last Taken Type clonazePAM [KlonoPIN] 0.5 mg PO BID PRN 02/04/14 09/16/19 08/28/19 History traZODone [Desyrel] 50 mg PO QHS 09/16/15 09/16/19 12/29/16 History Albuterol Mdi (or & Nicu Only) 2 puff IH QID PRN #1 inhalation 12/30/16 09/16/19 08/28/19 Rx [ProAir HFA Inhaler] Rosuvastatin (Nf) [Crestor] 20 mg PO QHS 01/21/17 09/16/19 08/28/19 History levETIRAcetam [Keppra TAB] 500 mg PO BID 08/11/19 09/16/19 08/28/19 History Aspirin EC [Halfprin EC] 81 mg PO DAILY tablet 09/01/19 09/16/19 Unknown Rx ISOSORBIDE MONOnitrate [Imdur ER] 30 mg PO DAILY tablet 09/01/19 09/16/19 Unknown Rx Furosemide 20 mg PO DAILY 09/17/19 09/17/19 Unknown History Gabapentin 300 mg PO TID 09/17/19 09/17/19 Unknown History Insulin Detemir [Levemir VIAL] 10 unit SQ QHS 09/17/19 09/17/19 Unknown History LORazepam [Lorazepam] 0.5 mg PO BID PRN 09/17/19 09/17/19 Unknown History Pantoprazole 40 mg PO DAILY 09/17/19 09/17/19 Unknown History metroNIDAZOLE [Flagyl] 500 mg PO TID 14 Days #42 tablet 04/04/20 Unknown Rx ED Physical Exam - General General appearance: alert, in no apparent distress, anxious - Head Head exam: Present: atraumatic, normocephalic - Eye Eye exam: Present: normal appearance - ENT ENT exam: Present: mucous membranes moist - Neck Neck exam: Present: normal inspection, full ROM - Respiratory Respiratory exam: Present: normal lung sounds bilaterally. Absent: respiratory distress, wheezes, rales, rhonchi - Cardiovascular Cardiovascular Exam: Present: regular rate, normal rhythm, normal heart sounds. Absent: systolic murmur, diastolic murmur, rubs, gallop - GI/Abdominal GI/Abdominal exam: Present: soft, normal bowel sounds. Absent: distended, tenderness, guarding, rebound - Extremities Exam Extremities exam: Present: normal inspection - Neurological Exam Neurological exam: Present: alert, oriented X3 - Psychiatric Psychiatric exam: Present: normal affect, anxious - Skin Skin exam: Present: warm, dry, intact, normal color. Absent: rash ED Course Vital Signs 04/04/20 04/04/20 04/04/20 17:59 19:30 20:49 Temperature 98.3 F 98.4 F Pulse Rate 99 H 75 Respiratory 20 16 18 Rate Blood Pressure 124/71 154/80 [Left] O2 Sat by Pulse 99 99 Oximetry 04/04/20 21:19 Temperature Pulse Rate Respiratory 18 Rate Blood Pressure [Left] O2 Sat by Pulse Oximetry ED Medical Decision Making - Lab Data Result diagrams: 04/04/20 17:54 04/04/20 17:54 - Radiology Data Radiology results: report reviewed CT abdomen pelvis wo con INDICATION / CLINICAL INFORMATION: Abdominal Pain history of C. difficile colitis. TECHNIQUE: Axial CT imaging of abdomen and pelvis was obtained without contrast. Coronal and sagittal reformatted imaging obtained and reviewed. All CT scans at this location are performed using CT dose reduction for ALARA by means of automated exposure control. COMPARISON: None available. FINDINGS: CT abdomen without contrast demonstrates normal appearance of the spleen, pancreas, kidneys, and adrenal glands. Prior cholecystectomy. The left lobe of the liver is mildly enlarged. The overall configuration could indicate early cirrhosis and clinical correlation is recommended. CT pelvis without contrast demonstrates significant inflammatory process involving the descending colon and proximal sigmoid colon. This appears to represent a long segment of acute diverticulitis. I do not see evidence of abscess at this time. No free fluid or free air. Diverticulosis is seen throughout the remainder of the sigmoid colon. The remainder of the GI tract is unremarkable. No pelvic mass is noted. No acute process is seen within either lung base. No significant acute osseous abnormality noted. IMPRESSION: 1. Significant inflammatory process throughout the majority of the descending colon and proximal sigmoid colon consistent with long segment of acute diverticulitis. There is severe diverticulosis throughout the colon in this location. 2. Enlarged left lobe of the liver. Please correlate with liver enzymes as cysts can sometimes indicate developing cirrhosis. 3. Tiny bilateral intrarenal calcifications are felt to be vascular in etiology rather than calculi. - Medical Decision Making Clinical impression: C. difficile colitis, I do not suspect diverticulitis without fever, abdominal tenderness. I offered hospital admission. She politely declined. Prescribed flagyl. dc'd home Critical care attestation.: If time is entered above; I have spent that time in minutes in the direct care of this critically ill patient, excluding procedure time. ED Disposition Clinical Impression: C. difficile colitis Disposition: DC-01 TO HOME OR SELFCARE Is pt being admited?: No Does the pt Need Aspirin: No Condition: Stable Instructions: Clostridium Difficile Infection (ED) Prescriptions: metroNIDAZOLE [Flagyl] 500 mg PO TID 14 Days #42 tablet Referrals: PRIMARY CARE, [Primary Care Provider] - 3-5 Days
[2020-04-04] MEDS ORDERED: SODIUM CHLORIDE 0.9% 500 ML 500 ML IV ONE (17:15)
[2020-04-04] MEDS ORDERED: LORazepam 2 MG/ML VIAL IV ONE (18:00)
[2020-04-04] MEDS ORDERED: LORazepam 2 MG/ML VIAL ONE (18:02)
[2020-04-04 18:26] LABS: Basophils # (Auto) 0.1 K/mm3 (0.0-0.1); Basophils % (Auto) 1.3 % (0.0-1.8); Eosinophils # (Auto) 0.3 K/mm3 (0.0-0.4); Eosinophils % (Auto) 3.8 % (0.0-4.3); Hematocrit 31.2 % (30.3-42.9); Hemoglobin 10.2 gm/dl (10.1-14.3); Lymphocytes # (Auto) 2.6 K/mm3 (1.2-5.4); Lymphocytes % (Auto) 30.5 % (13.4-35.0); Mean Corpuscular HGB Conc 33 % (30-34); Mean Corpuscular Volume 81 fl (79-97); Monocytes # (Auto) 0.6 K/mm3 (0.0-0.8); Monocytes % (Auto) 6.8 % (0.0-7.3); Platelet Count 449 K/mm3 (140-440); Red Blood Count 3.87 M/mm3 (3.65-5.03); Red Cell Distribution Width 15.6 % (13.2-15.2)
[2020-04-04 18:46] LABS: Alanine Aminotransferase 8 units/L (7-56); Albumin 2.9 g/dL (3.9-5); Blood Urea Nitrogen 7 mg/dL (7-17); Calcium 9.9 mg/dL (8.4-10.2); Hemolysis Index 41
[2020-04-04 18:50] LABS: BUN/Creatinine Ratio 14; Bilirubin,Direct < 0.2 mg/dL (0-0.2)
--- NOTE | 2020-04-04 18:59 | Cat Scan Report ---
CT abdomen pelvis wo con INDICATION / CLINICAL INFORMATION: Abdominal Pain history of C. difficile colitis. TECHNIQUE: Axial CT imaging of abdomen and pelvis was obtained without contrast. Coronal and sagittal reformatte d imaging obtained and reviewed. All CT scans at this location are performed using CT dose reductio n for ALARA by means of automated exposure control. COMPARISON: None available. FINDINGS: CT abdomen without contrast demonstrates normal appearance of the spleen, pancreas, kidneys, and adre nal glands. Prior cholecystectomy. The left lobe of the liver is mildly enlarged. The overall configu ration could indicate early cirrhosis and clinical correlation is recommended. CT pelvis without contrast demonstrates significant inflammatory process involving the descending col on and proximal sigmoid colon. This appears to represent a long segment of acute diverticulitis. I do not see evidence of abscess at this time. No free fluid or free air. Diverticulosis is seen througho ut the remainder of the sigmoid colon. The remainder of the GI tract is unremarkable. No pelvic mass is noted. No acute process is seen within either lung base. No significant acute osseous abnormality noted. IMPRESSION: 1. Significant inflammatory process throughout the majority of the descending colon and proximal sigm oid colon consistent with long segment of acute diverticulitis. There is severe diverticulosis throug hout the colon in this location. 2. Enlarged left lobe of the liver. Please correlate with liver enzymes as cysts can sometimes indica te developing cirrhosis. 3. Tiny bilateral intrarenal calcifications are felt to be vascular in etiology rather than calculi. Signer Name: Patsy Dunbar MD Signed: 04/04/2020 6:55 PM Workstation Name: [id number]
[2020-04-05 02:34] VITALS: BP 135/76
== END 2020-04-05 02:15 | disposition home or self-care (01) ==
LOC: ED 16:51
DX: K52.89 Other specified noninfective gastroenteritis and colitis (principal); I10 Essential (primary) hypertension; E11.9 Type 2 diabetes mellitus without complications; Z86.69 Personal history of other diseases of the nervous system and sense organs; J44.9 Chronic obstructive pulmonary disease, unspecified; F17.200 Nicotine dependence, unspecified, uncomplicated; Z98.890 Other specified postprocedural states; Z79.82 Long term (current) use of aspirin; Z79.4 Long term (current) use of insulin; Z79.899 Other long term (current) drug therapy; Z88.6 Allergy status to analgesic agent; Z88.8 Allergy status to other drugs, medicaments and biological substances
CPT/HCPCS: 36415; 74176; 80048; 80076; 83690; 85025; 96361; 96374; 96375; 96376; 99284; J2060; J2270; J2405; J7040

== ENCOUNTER 2020-04-16 19:32 | Emergency (ER) | payer MEDICARE ==
[2020-04-16] MEDS ORDERED: ONDANSETRON 4 MG/2 ML INJ IV ONE (19:58)
[2020-04-16] MEDS ORDERED: HYDROmorphone 1 MG/1 ML INJ IV ONE (19:58)
[2020-04-16 20:34] LABS: Basophils # (Auto) 0.1 K/mm3 (0.0-0.1); Eosinophils # (Auto) 0.3 K/mm3 (0.0-0.4); Eosinophils % (Auto) 3.1 % (0.0-4.3); Hemoglobin 10.8 gm/dl (10.1-14.3); Mean Corpuscular HGB Conc 34 % (30-34); Mean Corpuscular Volume 82 fl (79-97); Monocytes # (Auto) 0.6 K/mm3 (0.0-0.8); Monocytes % (Auto) 5.6 % (0.0-7.3); Platelet Count 270 K/mm3 (140-440); Red Blood Count 3.91 M/mm3 (3.65-5.03); Red Cell Distribution Width 16.8 % (13.2-15.2)
--- NOTE | 2020-04-16 20:51 | Emergency Department Report ---
ED Chest Pain HPI - General Chief Complaint: Chest Pain Stated Complaint: CHEST PAIN PUI?: No Time Seen by Provider: 04/16/20 19:57 Source: patient Mode of arrival: Wheelchair Limitations: Physical Limitation - History of Present Illness Initial Comments: This is a 54-year-old female with history of hypertension, asthma, CHF, de pression, pneumonia, COPD, schizophrenia, seizure disorder, coronary artery disease, obstructive sleep apnea, C. difficile colitis, atrial fibrillation, pulmonary embolism who presents with chest pain. Chest pain is sharp. Chest pain started 2 to 3 hours prior to arrival. She denies shortness of breath. She denies fever. She denies headache. She denies abdominal pain. She is recently started physical therapy. She has been bedbound after prolonged hospitalization earlier this year. She has pain in both legs due to increased Physical activity and exercise. I obtained additional history from patient's daughter Joann phone #[phone]. Patient has been compliant with Eliquis since discharge from [facility] on after almost 4 months long total hospitalization. MD Complaint: chest pain -: Sudden, hour(s) (2 to 3 hours) Onset: during rest Pain Location: substernal Pain Radiation: none Severity scale (0 -10): 10 Quality: sharp Consistency: constant Improves With: nothing Worsens With: nothing - Related Data Home Medications Medication Instructions Recorded Confirmed Last Taken clonazePAM [KlonoPIN] 0.5 mg PO BID PRN 02/04/14 09/16/19 08/28/19 traZODone [Desyrel] 50 mg PO QHS 09/16/15 09/16/19 12/29/16 Rosuvastatin (Nf) [Crestor] 20 mg PO QHS 01/21/17 09/16/19 08/28/19 levETIRAcetam [Keppra TAB] 500 mg PO BID 08/11/19 09/16/19 08/28/19 Furosemide 20 mg PO DAILY 09/17/19 09/17/19 Unknown Gabapentin 300 mg PO TID 09/17/19 09/17/19 Unknown Insulin Detemir [Levemir VIAL] 10 unit SQ QHS 09/17/19 09/17/19 Unknown LORazepam [Lorazepam] 0.5 mg PO BID PRN 09/17/19 09/17/19 Unknown Pantoprazole 40 mg PO DAILY 09/17/19 09/17/19 Unknown Previous Rx's Medication Instructions Recorded Last Taken Type Albuterol Mdi (or & Nicu Only) 2 puff IH QID PRN #1 inhalation 12/30/16 08/28/19 Rx [ProAir HFA Inhaler] Aspirin EC [Halfprin EC] 81 mg PO DAILY tablet 09/01/19 Unknown Rx ISOSORBIDE MONOnitrate [Imdur ER] 30 mg PO DAILY tablet 09/01/19 Unknown Rx metroNIDAZOLE [Flagyl] 500 mg PO TID 14 Days #42 tablet 04/04/20 Unknown Rx oxyCODONE /ACETAMINOPHEN [Percocet 1 tab PO Q6HR PRN #10 tablet 04/17/20 Unknown Rx 5/325] Allergies Allergy/AdvReac Type Severity Reaction Status Date / Time aspirin Allergy Nausea Verified 08/23/19 16:35 coconut Allergy Hives Verified 08/23/19 16:35 haloperidol [From Haldol] Allergy Hives Verified 08/23/19 16:35 meperidine HCl [From Demerol] Allergy Rash Verified 08/23/19 16:35 nitroglycerin Allergy Hives Verified 08/23/19 16:35 NSAIDS (Non-Steroidal Allergy Unknown Verified 08/23/19 16:35 Anti-Inflamma tramadol Allergy Hives Verified 08/23/19 16:35 Heart Score - HEART Score History: Slightly suspicious EKG: Non-specific Age: 45-65 Risk factors: > 3 risk factors or hx of atherosclerotic disease Troponin: < normal limit HEART Score: 4 ED Review of Systems ROS: Stated complaint: CHEST PAIN Other details as noted in HPI Comment: All other systems reviewed and negative Constitutional: denies: fever, malaise Respiratory: denies: orthopnea, shortness of breath Cardiovascular: chest pain Gastrointestinal: denies: abdominal pain, nausea, vomiting ED Past Medical Hx - Past Medical History Previous Medical History?: Yes Hx Hypertension: Yes Hx CVA: No Hx Heart Attack/AMI: Yes Hx Congestive Heart Failure: No Hx Diabetes: Yes Hx Deep Vein Thrombosis: No Hx Pulmonary Embolism: No Hx GERD: Yes Hx Liver Disease: No Hx Renal Disease: No Hx Sickle Cell Disease: No Hx Arthritis: No Hx Headaches / Migraines: No Hx Seizures: Yes Hx Kidney Stones: Yes Hx Psychiatric Treatment: Yes (paranoid schizophrenia /ANXIETY) Hx Asthma: Yes Hx COPD: Yes Hx Tuberculosis: No Hx Dementia: No Hx HIV: No Additional medical history: CAD. AFib - Surgical History Hx Coronary Stent: Yes (1) Hx Open Heart Surgery: No Hx Pacemaker: No Hx Internal Defibrillator: No Hx Cholecystectomy: Yes Hx Appendectomy: No Hx Breast Surgery: No Additional Surgical History: right knee surgery, left carpal tunnel surg, hysterectomy - Social History Smoking Status: Former Smoker Substance Use Type: None - Medications Home Medications: Home Medications Medication Instructions Recorded Confirmed Last Taken Type clonazePAM [KlonoPIN] 0.5 mg PO BID PRN 02/04/14 09/16/19 08/28/19 History traZODone [Desyrel] 50 mg PO QHS 09/16/15 09/16/19 12/29/16 History Albuterol Mdi (or & Nicu Only) 2 puff IH QID PRN #1 inhalation 12/30/16 09/16/19 08/28/19 Rx [ProAir HFA Inhaler] Rosuvastatin (Nf) [Crestor] 20 mg PO QHS 01/21/17 09/16/19 08/28/19 History levETIRAcetam [Keppra TAB] 500 mg PO BID 08/11/19 09/16/19 08/28/19 History Aspirin EC [Halfprin EC] 81 mg PO DAILY tablet 09/01/19 09/16/19 Unknown Rx ISOSORBIDE MONOnitrate [Imdur ER] 30 mg PO DAILY tablet 09/01/19 09/16/19 Unknown Rx Furosemide 20 mg PO DAILY 09/17/19 09/17/19 Unknown History Gabapentin 300 mg PO TID 09/17/19 09/17/19 Unknown History Insulin Detemir [Levemir VIAL] 10 unit SQ QHS 09/17/19 09/17/19 Unknown History LORazepam [Lorazepam] 0.5 mg PO BID PRN 09/17/19 09/17/19 Unknown History Pantoprazole 40 mg PO DAILY 09/17/19 09/17/19 Unknown History metroNIDAZOLE [Flagyl] 500 mg PO TID 14 Days #42 tablet 04/04/20 Unknown Rx oxyCODONE /ACETAMINOPHEN [Percocet 1 tab PO Q6HR PRN #10 tablet 04/17/20 Unknown Rx 5/325] ED Physical Exam - General Limitations: Physical Limitation General appearance: alert, in no apparent distress - Head Head exam: Present: atraumatic, normocephalic - Eye Eye exam: Present: normal appearance. Absent: scleral icterus, conjunctival injection - ENT ENT exam: Present: mucous membranes moist - Neck Neck exam: Present: normal inspection, full ROM - Respiratory Respiratory exam: Present: normal lung sounds bilaterally. Absent: respiratory distress, wheezes, rales, rhonchi, stridor - Cardiovascular Cardiovascular Exam: Present: regular rate, normal rhythm, normal heart sounds. Absent: systolic murmur, diastolic murmur, rubs, gallop - GI/Abdominal GI/Abdominal exam: Present: soft, normal bowel sounds. Absent: distended, ten derness, guarding, rebound - Extremities Exam Extremities exam: Present: normal inspection - Back Exam Back exam: Present: normal inspection - Neurological Exam Neurological exam: Present: alert, oriented X3 - Psychiatric Psychiatric exam: Present: normal affect, normal mood - Skin Skin exam: Present: warm, dry, intact, normal color. Absent: rash ED Course Vital Signs 04/16/20 04/16/20 04/16/20 19:54 19:58 20:01 Temperature 99.6 F 99.6 F Pulse Rate 97 H 87 Respiratory 19 18 Rate Blood Pressure 137/54 Blood Pressure 137/54 [Right] O2 Sat by Pulse 100 100 100 Oximetry 04/16/20 23:05 Temperature Pulse Rate 83 Respiratory 18 Rate Blood Pressure Blood Pressure 118/56 [Right] O2 Sat by Pulse 99 Oximetry NIKO score - Niko Score Age > 65: (0) No Aspirin use within the Past 7 Days: (1) Yes 3 or more CAD Risk Factors: (1) Yes 2 or more Angina events in past 24 hrs: (0) No Known CAD with more than 50% Stenosis: (1) Yes Elevated Cardiac Markers: (0) No ST Deviation Greater than 0.5mm: (0) No NIKO Score: 3 ED Medical Decision Making - Lab Data Result diagrams: 04/16/20 20:19 04/16/20 20:19 - EKG Data -: EKG Interpreted by Me EKG shows normal: sinus rhythm, axis Rate: normal - EKG Data Interpretation: unchanged when compared t, nonspecific ST-T wave tara 04/16/20 21:05 EKG obtained 2057 EKG interpreted by me Normal sinus rhythm rate 80 bpm normal axis prolonged QTC no ST elevation diffuse T wave flattening EKG is unchanged from EKG obtained on September 14, 2019 - Radiology Data Radiology results: report reviewed Chest radiograph: Small left pleural effusion versus pleural thickening, right lung clear, no pneumothorax - Medical Decision Making Mrs. Khan is a 54-year-old female with history of pulmonary embolism, coronary disease, SC, multiple cardiac stents, pneumonia, COPD, respiratory failure who presents with chest pain at rest. Pain is sharp. Pain is not associated with inspiration exertion. Chest pain is atypical for unstable angina. After 1 dose of IV hydromorphone her pain was completely relieved. She has been talking with family members on cellular phone throughout her ED observation. She appeared comfortable without distress. I spoke with daughter Joann by phone who confirmed that she has been compliant with Eliquis. According to previous cardiology consultation September 2019, patient had left heart catheterization on August 30, 2019 revealed patent coronary arteries normal LV function. Patient has history of CAD status post PCI with multiple stents prior SC Patient has history of elevated troponin as trended throughout this year since August. I do not suspect acute coronary syndrome or NSTEMI. It appears that her medical regimen has been optimized. A she has been compliant with her medications regimen with assistance of her family members. I personally reviewed chest radiograph images. I do not see signs of infection. I suspect that pleural findings postoperative changes Prior to discharge, patient states that she has left leg pain not associated with chest pain. She is currently chest pain-free. I do not detect signs of cellulitis, DVT or fracture. Patient politely requested prescription for pain medicine to address her leg pain. I have prescribed 10 tablets of Percocet. Patient will be discharged home. Troponin x2 obtained. Troponin value downtrending. Critical care attestation.: If time is entered above; I have spent that time in minutes in the direct care of this critically ill patient, excluding procedure time. ED Disposition Clinical Impression: Chest pain, Leg pain, History of coronary artery disease, History of pulmonary embolism Disposition: -01 TO HOME OR SELFCARE Is pt being admited?: No Does the pt Need Aspirin: No Condition: Stable Instructions: Chest Pain (ED) Prescriptions: oxyCODONE /ACETAMINOPHEN [Percocet 5/325] 1 tab PO Q6HR PRN #10 tablet PRN Reason: Pain Referrals: LENCHO RIZO MD [Primary Care Provider] - 3-5 Days
[2020-04-16 20:54] LABS: Blood Urea Nitrogen 11 mg/dL (7-17); Calcium 9.4 mg/dL (8.4-10.2); Hemolysis Index 290
[2020-04-16 20:57] LABS: BUN/Creatinine Ratio 18
[2020-04-16 21:10] LABS: INR 0.91 (0.87-1.13)
[2020-04-16 21:11] LABS: Chol/HDL Ratio 7.73 %; HDL Cholesterol 30 mg/dL (40-59); LDL Cholesterol,Direct TNR mg/dL (50-130)
[2020-04-16 21:44] LABS: Basophils % (Manual) 0 % (0.0-1.8); Total Cells Counted 100
[2020-04-16 21:45] LABS: RBC Morphology Normal
[2020-04-16 21:46] LABS: Platelet Estimate Consistent w Auto
--- NOTE | 2020-04-16 22:10 | XRay Report ---
CHEST 1 VIEW 04/16/2020 8:54 PM INDICATION / CLINICAL INFORMATION: chest pain. COMPARISON: 09/18/19 FINDINGS: SUPPORT DEVICES: None. HEART / MEDIASTINUM: Heart is enlarged but stable. LUNGS / PLEURA: Small left pleural effusion versus pleural thickening. Right lung is clear. No pneumo thorax. ADDITIONAL FINDINGS: No significant additional findings. IMPRESSION: 1. Small left pleural effusion versus pleural thickening. Signer Name: Vincent Nichole MD Signed: 04/16/2020 10:06 PM Workstation Name: [id number]
[2020-04-16] MEDS ORDERED: oxyCODONE /ACETAMINOPHEN 5-325MG TAB PO ONE (23:52)
[2020-04-17 02:07] VITALS: BP 125/51
== END 2020-04-17 02:09 | disposition home or self-care (01) ==
LOC: ED 19:32
DX: R07.89 Other chest pain (principal); M79.605 Pain in left leg; I10 Essential (primary) hypertension; I25.2 Old myocardial infarction; E11.9 Type 2 diabetes mellitus without complications; K21.9 Gastro-esophageal reflux disease without esophagitis; J44.9 Chronic obstructive pulmonary disease, unspecified; F20.0 Paranoid schizophrenia; F41.9 Anxiety disorder, unspecified; Z90.49 Acquired absence of other specified parts of digestive tract; Z95.818 Presence of other cardiac implants and grafts; Z90.710 Acquired absence of both cervix and uterus; Z87.891 Personal history of nicotine dependence; Z79.899 Other long term (current) drug therapy; Z88.6 Allergy status to analgesic agent; Z88.1 Allergy status to other antibiotic agents; Z91.018 Allergy to other foods
CPT/HCPCS: 36415; 71045; 80048; 80061; 84484; 85007; 85025; 85610; 93005; 96374; 96375; 99285; J1170; J2405

== ENCOUNTER 2020-04-21 17:54 | Observation (INO) | payer MEDICARE ==
[2020-04-21] MEDS ORDERED: MORPHINE 4 MG/1 ML INJ IV ONE (18:58)
--- NOTE | 2020-04-21 19:01 | Emergency Department Report ---
ED Chest Pain HPI - General Chief Complaint: Chest Pain Stated Complaint: CHEST PAIN, ABD PAIN Time Seen by Provider: 04/21/20 18:35 Source: patient, EMS Mode of arrival: Stretcher Limitations: No Limitations, Physical Limitation - History of Present Illness Initial Comments: This is a 54-year-old female presents to the emergency department via EMS from home with complaint of midsternal chest pain and middle to lower abdominal pain that started about 30 minutes prior to arrival. She has a past medical history that includes asthma, COPD, diabetes, GERD, coronary artery disease with previous CO and cardiac stents, hypertension, kidney stones, paranoid schizophrenia, atrial fibrillation on Eliquis. The patient had a heart catheterization done in August of this year, here, that showed normal/patent coronary arteries. She has not taken anything for symptoms prior to presentation today. No recent travel or sick contacts at home. Her primary care physician is a Dr. 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 Severity scale (0 -10): 10 - Related Data Home Medications Medication Instructions Recorded Confirmed Last Taken clonazePAM [KlonoPIN] 0.5 mg PO BID PRN 02/04/14 09/16/19 08/28/19 traZODone [Desyrel] 50 mg PO QHS 09/16/15 09/16/19 12/29/16 Rosuvastatin (Nf) [Crestor] 20 mg PO QHS 01/21/17 09/16/19 08/28/19 levETIRAcetam [Keppra TAB] 500 mg PO BID 08/11/19 09/16/19 08/28/19 Furosemide 20 mg PO DAILY 09/17/19 09/17/19 Unknown Gabapentin 300 mg PO TID 09/17/19 09/17/19 Unknown Insulin Detemir [Levemir VIAL] 10 unit SQ QHS 09/17/19 09/17/19 Unknown LORazepam [Lorazepam] 0.5 mg PO BID PRN 09/17/19 09/17/19 Unknown Pantoprazole 40 mg PO DAILY 09/17/19 09/17/19 Unknown Previous Rx's Medication Instructions Recorded Last Taken Type Albuterol Mdi (or & Nicu Only) 2 puff IH QID PRN #1 inhalation 12/30/16 08/28/19 Rx [ProAir HFA Inhaler] Aspirin EC [Halfprin EC] 81 mg PO DAILY tablet 09/01/19 Unknown Rx ISOSORBIDE MONOnitrate [Imdur ER] 30 mg PO DAILY tablet 09/01/19 Unknown Rx metroNIDAZOLE [Flagyl] 500 mg PO TID 14 Days #42 tablet 04/04/20 Unknown Rx oxyCODONE /ACETAMINOPHEN [Percocet 1 tab PO Q6HR PRN #10 tablet 04/17/20 Unknown Rx 5/325] Allergies Allergy/AdvReac Type Severity Reaction Status Date / Time aspirin Allergy Nausea Verified 08/23/19 16:35 coconut Allergy Hives Verified 08/23/19 16:35 haloperidol [From Haldol] Allergy Hives Verified 08/23/19 16:35 meperidine HCl [From Demerol] Allergy Rash Verified 08/23/19 16:35 nitroglycerin Allergy Hives Verified 08/23/19 16:35 NSAIDS (Non-Steroidal Allergy Unknown Verified 08/23/19 16:35 Anti-Inflamma tramadol Allergy Hives Verified 08/23/19 16:35 Heart Score - HEART Score History: Slightly suspicious EKG: Non-specific Age: 45-65 Risk factors: > 3 risk factors or hx of atherosclerotic disease Troponin: 1-3x normal limit HEART Score: 5 - Critical Actions Critical Actions: 4-6 pts:12-16.6% risk of adverse cardiac event. Should be admitted ED Review of Systems ROS: Stated complaint: CHEST PAIN, ABD PAIN Other details as noted in HPI Comment: All other systems reviewed and negative Constitutional: denies: chills, fever Eyes: denies: eye pain, vision change ENT: denies: ear pain, throat pain Respiratory: denies: cough, shortness of breath Cardiovascular: chest pain. denies: palpitations Gastrointestinal: abdominal pain. denies: vomiting Genitourinary: denies: dysuria, discharge Musculoskeletal: denies: back pain, arthralgia Skin: denies: rash, lesions Neurological: denies: headache, weakness ED Past Medical Hx - Past Medical History Hx Hypertension: Yes Hx CVA: No Hx Heart Attack/AMI: Yes Hx Congestive Heart Failure: No Hx Diabetes: Yes Hx Deep Vein Thrombosis: No Hx Pulmonary Embolism: No Hx GERD: Yes Hx Liver Disease: No Hx Renal Disease: No Hx Sickle Cell Disease: No Hx Arthritis: No Hx Headaches / Migraines: No Hx Seizures: Yes Hx Kidney Stones: Yes Hx Psychiatric Treatment: Yes (paranoid schizophrenia /ANXIETY) Hx Asthma: Yes Hx COPD: Yes Hx Tuberculosis: No Hx Dementia: No Hx HIV: No Additional medical history: CAD. AFib - Surgical History Hx Coronary Stent: Yes (1) Hx Open Heart Surgery: No Hx Pacemaker: No Hx Internal Defibrillator: No Hx Cholecystectomy: Yes Hx Appendectomy: No Hx Breast Surgery: No Additional Surgical History: right knee surgery, left carpal tunnel surg, hysterectomy - Social History Smoking Status: Former Smoker Substance Use Type: None - Medications Home Medications: Home Medications Medication Instructions Recorded Confirmed Last Taken Type clonazePAM [KlonoPIN] 0.5 mg PO BID PRN 02/04/14 09/16/19 08/28/19 History traZODone [Desyrel] 50 mg PO QHS 09/16/15 09/16/19 12/29/16 History Albuterol Mdi (or & Nicu Only) 2 puff IH QID PRN #1 inhalation 12/30/16 09/16/19 08/28/19 Rx [ProAir HFA Inhaler] Rosuvastatin (Nf) [Crestor] 20 mg PO QHS 01/21/17 09/16/19 08/28/19 History levETIRAcetam [Keppra TAB] 500 mg PO BID 08/11/19 09/16/19 08/28/19 History Aspirin EC [Halfprin EC] 81 mg PO DAILY tablet 09/01/19 09/16/19 Unknown Rx ISOSORBIDE MONOnitrate [Imdur ER] 30 mg PO DAILY tablet 09/01/19 09/16/19 Unknown Rx Furosemide 20 mg PO DAILY 09/17/19 09/17/19 Unknown History Gabapentin 300 mg PO TID 09/17/19 09/17/19 Unknown History Insulin Detemir [Levemir VIAL] 10 unit SQ QHS 09/17/19 09/17/19 Unknown History LORazepam [Lorazepam] 0.5 mg PO BID PRN 09/17/19 09/17/19 Unknown History Pantoprazole 40 mg PO DAILY 09/17/19 09/17/19 Unknown History metroNIDAZOLE [Flagyl] 500 mg PO TID 14 Days #42 tablet 04/04/20 Unknown Rx oxyCODONE /ACETAMINOPHEN [Percocet 1 tab PO Q6HR PRN #10 tablet 04/17/20 Unknown Rx 5/325] ED Physical Exam - General Limitations: No Limitations, Physical Limitation - Other Other exam information: GENERAL: The patient is well-developed well-nourished. HENT: Normocephalic. Atraumatic. Patient has moist mucous membranes. EYES: Extraocular motions are intact. NECK: Supple. Trachea is midline. CHEST/LUNGS: Clear to auscultation. There is no respiratory distress noted. HEART/CARDIOVASCULAR: Regular. There is no tachycardia. There is no murmur. ABDOMEN: Abdomen is soft, nontender. Patient has normal bowel sounds. SKIN: Skin is warm and dry. NEURO: The patient is awake, alert, and cooperative. Normal speech. MUSCULOSKELETAL: There is no tenderness or deformity. There is no evidence of acute injury. ED Course Vital Signs 04/21/20 04/21/20 04/21/20 18:30 18:39 18:46 Temperature 98.4 F Pulse Rate 93 H 87 88 Respiratory 17 19 16 Rate Blood Pressure 118/77 Blood Pressure 118/77 [Right] O2 Sat by Pulse 100 100 Oximetry 04/21/20 04/21/20 04/21/20 19:00 19:16 19:30 Temperature Pulse Rate 90 94 H 85 Respiratory 15 22 21 Rate Blood Pressure 129/74 129/74 129/74 Blood Pressure [Right] O2 Sat by Pulse 99 99 100 Oximetry 04/21/20 04/21/20 04/21/20 19:46 19:56 20:00 Temperature Pulse Rate 87 80 Respiratory 24 16 23 Rate Blood Pressure 129/74 129/74 Blood Pressure [Right] O2 Sat by Pulse 100 100 Oximetry 04/21/20 04/21/20 04/21/20 20:16 20:30 20:46 Temperature Pulse Rate 79 80 80 Respiratory 17 14 21 Rate Blood Pressure 116/45 117/63 117/63 Blood Pressure [Right] O2 Sat by Pulse 100 100 100 Oximetry 04/21/20 04/21/20 04/21/20 21:00 21:16 21:30 Temperature Pulse Rate 79 77 76 Respiratory 21 16 16 Rate Blood Pressure 120/73 120/73 115/60 Blood Pressure [Right] O2 Sat by Pulse 100 100 100 Oximetry 04/21/20 04/21/20 04/21/20 21:46 22:00 22:16 Temperature Pulse Rate 79 77 80 Respiratory 17 16 11 L Rate Blood Pressure 115/60 107/67 107/67 Blood Pressure [Right] O2 Sat by Pulse 100 100 100 Oximetry 04/21/20 04/21/20 04/21/20 22:30 22:46 23:00 Temperature Pulse Rate 83 80 83 Respiratory 17 16 18 Rate Blood Pressure 121/79 121/79 121/79 Blood Pressure [Right] O2 Sat by Pulse 98 99 97 Oximetry 04/21/20 04/21/20 04/21/20 23:10 23:20 23:30 Temperature Pulse Rate 80 80 80 Respiratory 18 19 15 Rate Blood Pressure 106/73 106/73 120/66 Blood Pressure [Right] O2 Sat by Pulse 100 94 90 Oximetry 04/21/20 04/22/20 23:51 00:01 Temperature 98.6 F Pulse Rate 79 92 H Respiratory 22 16 Rate Blood Pressure 141/76 Blood Pressure 141/76 [Right] O2 Sat by Pulse 97 98 Oximetry NATA score - Nata Score Age > 65: (0) No Aspirin use within the Past 7 Days: (1) Yes 3 or more CAD Risk Factors: (1) Yes 2 or more Angina events in past 24 hrs: (0) No Known CAD with more than 50% Stenosis: (1) Yes Elevated Cardiac Markers: (1) Yes ST Deviation Greater than 0.5mm: (0) No NATA Score: 4 ED Medical Decision Making - Lab Data Result diagrams: 04/21/20 19:06 04/21/20 19:06 - EKG Data -: EKG Interpreted by Me EKG shows normal: sinus rhythm, axis, intervals, QRS complexes, ST-T waves (Nonspecific T waves) Rate: normal - EKG Data When compared to previous EKG there are: no significant change Interpretation: unchanged when compared t (04/16/20) - Radiology Data Radiology results: image reviewed interpreted by me: Chest x-ray does not show any acute process. There are no pleural effusions, obvious pneumonia and there is no pneumothorax. No significant cardiomegaly. - Medical Decision Making This patient presents to the emergency department with some acute midsternal chest pain and mid to lower abdominal pain. EKG did not have any morphology consistent with ST elevation CO and was unchanged from previous. Chest and abdominal x-rays were done that does not show any acute processes. Patient has 2 elevated troponin levels, although mildly elevated and trending downwards. However, the patient does have a history of coronary artery disease with cardiac stents in place. She will be admitted to the hospital for further evaluation and treatment and was accepted for admission by the hospitalist, Dr. Shoemaker. Critical Care Time: Yes Critical care time in (mins) excluding proc time.: 35 Critical care attestation.: If time is entered above; I have spent that time in minutes in the direct care of this critically ill patient, excluding procedure time. Critical care time is spent on this patient in doing her initial evaluation, multiple re-evaluations, ordering interpretation of labs and imaging, IV analgesia for her chest pain, admission for elevated troponins, multiple discussions with the patient. Critical Care Time: 35 minutes ED Disposition Clinical Impression: Acute chest pain, Hypokalemia, Elevated troponin Disposition: OP ADMIT IP TO THIS HOSP Is pt being admited?: Yes Condition: Stable Time of Disposition: 22:44
--- NOTE | 2020-04-21 19:40 | XRay Report ---
ACUTE ABDOMINAL SERIES INDICATION / CLINICAL INFORMATION: Chest and abdominal pain. COMPARISON: 09/17/19. FINDINGS: Upright and supine views of the abdomen demonstrate a normal bowel gas pattern without evidence of ob struction or free air. No mass effect is seen. There is mild spondylosis. The accompanying chest radiograph reveals scarring in the left lower lateral hemithorax and no acute abnormality. IMPRESSION: No acute intra-abdominal disease. Signer Name: Phi Lerma MD Signed: 04/21/2020 7:35 PM Workstation Name: [id number]
[2020-04-21 19:46] LABS: Basophils # (Auto) 0.1 K/mm3 (0.0-0.1); Basophils % (Auto) 0.6 % (0.0-1.8); Eosinophils # (Auto) 0.2 K/mm3 (0.0-0.4); Eosinophils % (Auto) 1.3 % (0.0-4.3); Hemoglobin 10.6 gm/dl (10.1-14.3); Lymphocytes # (Auto) 2.5 K/mm3 (1.2-5.4); Mean Corpuscular HGB Conc 32 % (30-34); Mean Corpuscular Volume 83 fl (79-97); Monocytes # (Auto) 0.5 K/mm3 (0.0-0.8); Monocytes % (Auto) 4.6 % (0.0-7.3); Platelet Count 263 K/mm3 (140-440); Red Blood Count 3.99 M/mm3 (3.65-5.03); Red Cell Distribution Width 17.1 % (13.2-15.2)
[2020-04-21 19:53] LABS: Alanine Aminotransferase 15 units/L (7-56); Albumin 3.9 g/dL (3.9-5); Blood Urea Nitrogen 8 mg/dL (7-17); Calcium 9.8 mg/dL (8.4-10.2); Hemolysis Index 4
[2020-04-21 19:58] LABS: BUN/Creatinine Ratio 11
[2020-04-21] MEDS ORDERED: POTASSIUM CHLORIDE ER 20 MEQ TAB PO ONE (22:30)
[2020-04-21 23:40] LABS: Bacteria,Urine 1+ /HPF (Negative); Bilirubin,Urine NEG (Negative); Blood,Urine LG (Negative); Color,Urine Yellow (Yellow); Mucus,Urine FEW /HPF
[2020-04-21] MEDS ORDERED: HEPARIN 5,000 UNIT/1 ML VIAL SUB-Q SCH (23:45)
[2020-04-21 23:52] LABS: RBC,Urine > 182.0 /HPF (0.0-6.0)
[2020-04-21] MEDS ORDERED: ACETAMINOPHEN 325 MG TAB PO PRN (23:52)
[2020-04-22] MEDS: MORPHINE 2 MG/1 ML INJ IV PRN ×2 (01:16→23:20)
[2020-04-22] MEDS: POTASSIUM CHLORIDE 10 MEQ 10 MEQ/100 ML BAG IV SCH ×2 (01:17→02:19)
[2020-04-22 01:49] LABS: Creatine Kinase MB 2.6 ng/mL (0.0-4.0)
[2020-04-22] MEDS ORDERED: ALBUTEROL 8.5 GM MDI INHALATION IH PRN (02:01)
[2020-04-22] MEDS ORDERED: CLONAZEPAM 0.5 MG PO PRN (02:01)
[2020-04-22] MEDS ORDERED: clonazePAM 0.5 MG TAB PO PRN (02:20)
[2020-04-22] MEDS ORDERED: ALBUTEROL 2.5 MG/3 ML NEBU IH PRN (02:22)
[2020-04-22] MEDS ORDERED: HEPARIN/ 0.45% NACL DRIP 25,000 UNIT/500 ML BAG IV SCH (03:00)
--- NOTE | 2020-04-22 03:21 | History and Physical Report ---
History of Present Illness Date of examination: 04/21/20 Date of admission: 04/21/20 22:44 Chief complaint: Chest Pain History of present illness: 54 year old female presenting with non radiating sharp precordial chest pain that is associated with nausea and shortness of breath. pain started about 30 minutes prior to presentation and there is no history of fever, chills, cough, bodyache or vomiting. Patient had negative heart catheterization as part of chest pain work up in August of 2019 here in this hospital Past History Past Medical History: atrial fib, CAD, COPD, diabetes, seizures, other (ASTHMA, SCHIZOPHRE) Past Surgical History: Other (CARDIAC CATHETERIZATION) Social history: no significant social history Family history: no significant family history Medications and Allergies Allergies Allergy/AdvReac Type Severity Reaction Status Date / Time aspirin Allergy Nausea Verified 08/23/19 16:35 coconut Allergy Hives Verified 08/23/19 16:35 haloperidol [From Haldol] Allergy Hives Verified 08/23/19 16:35 meperidine HCl [From Demerol] Allergy Rash Verified 08/23/19 16:35 nitroglycerin Allergy Hives Verified 08/23/19 16:35 NSAIDS (Non-Steroidal Allergy Unknown Verified 08/23/19 16:35 Anti-Inflamma tramadol Allergy Hives Verified 08/23/19 16:35 Home Medications Medication Instructions Recorded Confirmed Last Taken Type clonazePAM [KlonoPIN] 0.5 mg PO BID PRN 02/04/14 04/22/20 2 Days Ago History ~04/20/20 traZODone [Desyrel] 50 mg PO QHS 09/16/15 04/22/20 2 Days Ago History ~04/20/20 Albuterol Mdi (or & Nicu Only) 2 puff IH QID PRN #1 inhalation 12/30/16 04/22/20 2 Days Ago Rx [ProAir HFA Inhaler] ~04/20/20 Rosuvastatin (Nf) [Crestor] 20 mg PO QHS 01/21/17 04/22/20 2 Days Ago History ~04/20/20 levETIRAcetam [Keppra TAB] 500 mg PO BID 08/11/19 04/22/20 2 Days Ago History ~04/20/20 Aspirin EC [Halfprin EC] 81 mg PO DAILY tablet 09/01/19 04/22/20 2 Days Ago Rx ~04/20/20 ISOSORBIDE MONOnitrate [Imdur ER] 30 mg PO DAILY tablet 09/01/19 04/22/20 2 Days Ago Rx ~04/20/20 Furosemide 20 mg PO DAILY 09/17/19 04/22/20 2 Days Ago History ~04/20/20 Gabapentin 300 mg PO TID 09/17/19 04/22/20 2 Days Ago History ~04/20/20 Insulin Detemir [Levemir VIAL] 10 unit SQ QHS 09/17/19 04/22/20 2 Days Ago History ~04/20/20 LORazepam [Lorazepam] 0.5 mg PO BID PRN 09/17/19 04/22/20 2 Days Ago History ~04/20/20 Pantoprazole 40 mg PO DAILY 09/17/19 04/22/20 2 Days Ago History ~04/20/20 metroNIDAZOLE [Flagyl] 500 mg PO TID 14 Days #42 tablet 04/04/20 04/22/20 2 Days Ago Rx ~04/20/20 oxyCODONE /ACETAMINOPHEN [Percocet 1 tab PO Q6HR PRN #10 tablet 04/17/20 04/22/20 2 Days Ago Rx 5/325] ~04/20/20 Active Meds: Active Medications Acetaminophen (Tylenol) 650 mg PO Q4H PRN PRN Reason: Headache Albuterol (Proventil) 2.5 mg IH Q4HRT PRN PRN Reason: Shortness Of Breath Aspirin (Halfprin Ec) 81 mg PO DAILY MARTHA Atorvastatin Calcium (Lipitor) 40 mg PO QHS MARTHA Clonazepam (Klonopin) 0.5 mg PO BID PRN PRN Reason: Anxiety Furosemide (Lasix) 20 mg PO DAILY MARTHA Gabapentin (Gabapentin) 300 mg PO TID MARTHA Heparin Sodium/Sodium Chloride (Heparin/ 0.45% Nacl-25,000 Unit/500 Ml) 25,000 unit in 500 mls @ 20 mls/hr IV TITRATE MARTHA; Protocol Last Admin: 04/22/20 03:00 Dose: 1,000 units/hr, 20 mls/hr Documented by: Isosorbide Mononitrate (Imdur) 30 mg PO DAILY MARTHA Levetiracetam (Keppra) 500 mg PO BID MARTHA Lorazepam (Ativan) 0.5 mg PO BID PRN PRN Reason: Anxiety Morphine Sulfate (Morphine) 2 mg IV Q3H PRN PRN Reason: Pain, Moderate (4-6) Last Admin: 04/22/20 01:16 Dose: 2 mg Documented by: Ondansetron HCl (Zofran) 4 mg IV Q8H PRN PRN Reason: Nausea And Vomiting Pantoprazole Sodium (Protonix) 40 mg PO DAILY MARTHA Trazodone HCl (Desyrel) 50 mg PO QHS [facility] Review of Systems Constitutional: weakness, no fever, no chills, no sweats, no night sweats, no lethargy Eyes: bilateral: other (NO BILATERAL EYE SYMPTOM) Ears, nose, mouth and throat: no ear pain, no ear discharge, no nasal congestion, no mouth pain, no sore throat Breasts: deferred Cardiovascular: chest pain, shortness of breath, no orthopnea, no palpitations, no rapid/irregular heart beat, no edema, no syncope Respiratory: shortness of breath, no cough, no cough with sputum, no congestion, no wheezing Gastrointestinal: nausea, no abdominal pain, no vomiting, no diarrhea, no constipation, no change in bowel habits, no hematemesis Rectal: no pain Musculoskeletal: no neck stiffness, no neck pain, no low back pain, no muscle weakness Integumentary: no rash, no pruritis, no redness, no sores, no wounds, no jaundice, no bullae, no acne Neurological: weakness, no paralysis, no numbness, no seizures, no syncope, no t remors, no vertigo, no headaches Psychiatric: anxiety, no confusion Endocrine: no cold intolerance, no heat intolerance, no polydipsia, no polyuria, no nocturia Hematologic/Lymphatic: no easy bruising Exam - Constitutional Vitals: Temp Pulse Resp BP Pulse Ox 98.6 F 92 H 16 141/76 98 04/21/20 23:51 04/22/20 00:01 04/22/20 00:01 04/22/20 00:01 04/22/20 00:01 General appearance: Present: no acute distress - EENT Eyes: Present: PERRL, EOM intact ENT: hearing intact, clear oral mucosa, dentition normal - Neck Neck: Present: supple, normal ROM - Respiratory Respiratory effort: normal - Cardiovascular Rhythm: regular Heart Sounds: Present: S1 & S2. Absent: systolic murmur, diastolic murmur, click - Extremities Extremities: no ischemia, No edema Peripheral Pulses: within normal limits - Abdominal General gastrointestinal: Present: soft, non-tender, non-distended. Absent: tender, distended, rigid Female genitourinary: Present: deferred - Rectal Rectal Exam: deferred - Integumentary Integumentary: Present: clear, warm, dry. Absent: jaundice - Musculoskeletal Musculoskeletal: strength equal bilaterally - Psychiatric Psychiatric: appropriate mood/affect HEART Score - HEART Score EKG: Non-specific Age: 45-65 Risk factors: > 3 risk factors or hx of atherosclerotic disease Troponin: Troponin T 0.067 ng/mL (0.00-0.029) H D 04/22/20 01:17 Troponin: 1-3x normal limit - Critical Actions Critical Actions: 4-6 pts:12-16.6% risk of adverse cardiac event. Should be admitted Results - Labs CBC & Chem 7: 04/21/20 19:06 04/21/20 19:06 Labs: Laboratory Last Values WBC 11.8 K/mm3 (4.5-11.0) H 04/21/20 19:06 RBC 3.99 M/mm3 (3.65-5.03) 04/21/20 19:06 Hgb 10.6 gm/dl (10.1-14.3) 04/21/20 19:06 Hct 33.0 % (30.3-42.9) 04/21/20 19:06 MCV 83 fl (79-97) 04/21/20 19:06 MCH 27 pg (28-32) L 04/21/20 19:06 MCHC 32 % (30-34) 04/21/20 19:06 RDW 17.1 % (13.2-15.2) H 04/21/20 19:06 Plt Count 263 K/mm3 (140-440) 04/21/20 19:06 Lymph % (Auto) 21.0 % (13.4-35.0) 04/21/20 19:06 [place] % (Auto) 4.6 % (0.0-7.3) 04/21/20 19:06 Eos % (Auto) 1.3 % (0.0-4.3) 04/21/20 19:06 Baso % (Auto) 0.6 % (0.0-1.8) 04/21/20 19:06 Lymph # 2.5 K/mm3 (1.2-5.4) 04/21/20 19:06 [place] # 0.5 K/mm3 (0.0-0.8) 04/21/20 19:06 Eos # 0.2 K/mm3 (0.0-0.4) 04/21/20 19:06 Baso # 0.1 K/mm3 (0.0-0.1) 04/21/20 19:06 Seg Neutrophils % 72.5 % (40.0-70.0) H 04/21/20 19:06 Seg Neutrophils # 8.6 K/mm3 (1.8-7.7) H 04/21/20 19:06 Sodium 141 mmol/L (137-145) 04/21/20 19:06 Potassium 3.0 mmol/L (3.6-5.0) L D 04/21/20 19:06 Chloride 98.0 mmol/L (98-107) 04/21/20 19:06 Carbon Dioxide 28 mmol/L (22-30) 04/21/20 19:06 Anion Gap 18 mmol/L 04/21/20 19:06 BUN 8 mg/dL (7-17) 04/21/20 19:06 Creatinine 0.7 mg/dL (0.6-1.2) 04/21/20 19:06 Estimated GFR > 60 ml/min 04/21/20 19:06 BUN/Creatinine Ratio 11 % 04/21/20 19:06 Glucose 143 mg/dL (65-100) H 04/21/20 19:06 Calcium 9.8 mg/dL (8.4-10.2) 04/21/20 19:06 Total Bilirubin 0.40 mg/dL (0.1-1.2) 04/21/20 19:06 AST 18 units/L (5-40) 04/21/20 19:06 ALT 15 units/L (7-56) 04/21/20 19:06 Alkaline Phosphatase 170 units/L (35-129) H 04/21/20 19:06 Total Creatine Kinase 30 units/L (30-135) 04/22/20 01:17 CK-MB (CK-2) 2.6 ng/mL (0.0-4.0) 04/22/20 01:17 CK-MB (CK-2) Rel Index 8.6 (0-4) H 04/22/20 01:17 Troponin T 0.067 ng/mL (0.00-0.029) H D 04/22/20 01:17 Total Protein 7.3 g/dL (6.3-8.2) 04/21/20 19:06 Albumin 3.9 g/dL (3.9-5) 04/21/20 19:06 Albumin/Globulin Ratio 1.1 % 04/21/20 19:06 Lipase 14 units/L (13-60) 04/21/20 19:06 Urine Color Yellow (Yellow) 04/21/20 Unknown Urine Turbidity Clear (Clear) 04/21/20 Unknown Urine pH 6.0 (5.0-7.0) 04/21/20 Unknown Ur Specific [place] 1.015 (1.003-1.030) 04/21/20 Unknown Urine Protein 100 mg/dl mg/dL (Negative) 04/21/20 Unknown Urine Glucose (UA) Neg mg/dL (Negative) 04/21/20 Unknown Urine Ketones Neg mg/dL (Negative) 04/21/20 Unknown Urine Blood Lg (Negative) 04/21/20 Unknown Urine Nitrite Neg (Negative) 04/21/20 Unknown Urine Bilirubin Neg (Negative) 04/21/20 Unknown Urine Urobilinogen 2.0 mg/dL (<2.0) 04/21/20 Unknown Ur Leukocyte Esterase Tr (Negative) 04/21/20 Unknown Urine WBC (Auto) 21.0 /HPF (0.0-6.0) H 04/21/20 Unknown Urine RBC (Auto) > 182.0 /HPF (0.0-6.0) 04/21/20 Unknown U Epithel Cells (Auto) < 1.0 /HPF (0-13.0) 04/21/20 Unknown Urine Bacteria (Auto) 1+ /HPF (Negative) 04/21/20 Unknown Urine Mucus Few /HPF 04/21/20 Unknown Conner/IV: Voiding Method Incontinent IV Catheter Type [Right INT / Saline Lock Forearm] Assessment and Plan - Patient Problems (1) Elevated troponin Current Visit: Yes Status: Acute Plan to address problem: 1. SERIAL TROPONIN LEVEL 2. CARDIOLOGY CONSULT 3. I.V HEPARIN (2) Hypokalemia Current Visit: Yes Status: Acute Plan to address problem: KCL REPLACEMENT. PO AND I.V ROUTES (3) Chest pain Current Visit: No Status: Chronic Qualifiers: Plan to address problem: 1. TELEMETRY OBSERVATION 2. SERIAL CARDIAC ENZYMES 3. CARDIOLOGY CONSULT 4. I.V HEPARIN DRIP 5. I.V MORPHINE FOR PAIN 6. I.V ZOFRAN FOR NAUSEA AND VOMITING 7. OXYGEN BY NASAL CANNULA
[2020-04-22] MEDS: ONDANSETRON 4 MG/2 ML INJ IV PRN ×2 (03:26→23:20)
[2020-04-22 03:28] LABS: Hematocrit 31.4 % (30.3-42.9); Hemoglobin 10.4 gm/dl (10.1-14.3)
[2020-04-22 03:42] LABS: INR 1.37 (0.87-1.13)
[2020-04-22 03:43] LABS: Partial Thromboplastin Time 31.6 Sec. (24.2-36.6)
[2020-04-22] MEDS ORDERED: NON-FORMULARY EACH (Gabapentin 300 MG) PO SCH (08:00)
[2020-04-22 09:59] LABS: Blood Urea Nitrogen 8 mg/dL (7-17); Calcium 10.2 mg/dL (8.4-10.2); Hemolysis Index 25
[2020-04-22] MEDS ORDERED: NON-FORMULARY EACH (Pantoprazole 40 MG) PO SCH (10:00)
[2020-04-22] MEDS ORDERED: NON-FORMULARY EACH (Furosemide 20 MG) PO SCH (10:00)
[2020-04-22 10:01] LABS: BUN/Creatinine Ratio 13
[2020-04-22] MEDS: PANTOPRAZOLE 40 MG TAB PO SCH (10:44)
[2020-04-22] MEDS: ASPIRIN EC 81 MG TAB PO SCH (10:44)
[2020-04-22] MEDS: GABAPENTIN 300 MG CAP PO SCH ×3 (10:44→20:55)
[2020-04-22] MEDS: levETIRAcetam 500 MG TAB PO SCH ×2 (10:44→21:25)
[2020-04-22] MEDS: FUROSEMIDE 20 MG TAB PO SCH (10:44)
--- NOTE | 2020-04-22 10:47 | Consultation ---
Past History Past Medical History: atrial fib, CAD, COPD, diabetes, seizures, other (ASTHMA, SCHIZOPHRE) Past Surgical History: Other (CARDIAC CATHETERIZATION) Social history: no significant social history Family history: no significant family history Medications and Allergies Allergies Allergy/AdvReac Type Severity Reaction Status Date / Time aspirin Allergy Nausea Verified 08/23/19 16:35 coconut Allergy Hives Verified 08/23/19 16:35 haloperidol [From Haldol] Allergy Hives Verified 08/23/19 16:35 meperidine HCl [From Demerol] Allergy Rash Verified 08/23/19 16:35 nitroglycerin Allergy Hives Verified 08/23/19 16:35 NSAIDS (Non-Steroidal Allergy Unknown Verified 08/23/19 16:35 Anti-Inflamma tramadol Allergy Hives Verified 08/23/19 16:35 Home Medications Medication Instructions Recorded Confirmed Last Taken Type clonazePAM [KlonoPIN] 0.5 mg PO BID PRN 02/04/14 04/22/20 2 Days Ago History ~04/20/20 traZODone [Desyrel] 50 mg PO QHS 09/16/15 04/22/20 2 Days Ago History ~04/20/20 Albuterol Mdi (or & Nicu Only) 2 puff IH QID PRN #1 inhalation 12/30/16 04/22/20 2 Days Ago Rx [ProAir HFA Inhaler] ~04/20/20 Rosuvastatin (Nf) [Crestor] 20 mg PO QHS 01/21/17 04/22/20 2 Days Ago History ~04/20/20 levETIRAcetam [Keppra TAB] 500 mg PO BID 08/11/19 04/22/20 2 Days Ago History ~04/20/20 Aspirin EC [Halfprin EC] 81 mg PO DAILY tablet 09/01/19 04/22/20 2 Days Ago Rx ~04/20/20 ISOSORBIDE MONOnitrate [Imdur ER] 30 mg PO DAILY tablet 09/01/19 04/22/20 2 Days Ago Rx ~04/20/20 Furosemide 20 mg PO DAILY 09/17/19 04/22/20 2 Days Ago History ~04/20/20 Gabapentin 300 mg PO TID 09/17/19 04/22/20 2 Days Ago History ~04/20/20 Insulin Detemir [Levemir VIAL] 10 unit SQ QHS 09/17/19 04/22/20 2 Days Ago History ~04/20/20 LORazepam [Lorazepam] 0.5 mg PO BID PRN 09/17/19 04/22/20 2 Days Ago History ~04/20/20 Pantoprazole 40 mg PO DAILY 09/17/19 04/22/20 2 Days Ago History ~04/20/20 metroNIDAZOLE [Flagyl] 500 mg PO TID 14 Days #42 tablet 04/04/20 04/22/20 2 Days Ago Rx ~04/20/20 oxyCODONE /ACETAMINOPHEN [Percocet 1 tab PO Q6HR PRN #10 tablet 04/17/20 04/22/20 2 Days Ago Rx 5/325] ~04/20/20 Active Meds: Active Medications Acetaminophen (Tylenol) 650 mg PO Q4H PRN PRN Reason: Headache Albuterol (Proventil) 2.5 mg IH Q4HRT PRN PRN Reason: Shortness Of Breath Aspirin (Halfprin Ec) 81 mg PO DAILY [facility] Last Admin: 04/22/20 10:44 Dose: 81 mg Documented by: Atorvastatin Calcium (Lipitor) 40 mg PO QHS [facility] Clonazepam (Klonopin) 0.5 mg PO BID PRN PRN Reason: Anxiety Last Admin: 04/22/20 06:50 Dose: 0.5 mg Documented by: Furosemide (Lasix) 20 mg PO DAILY [facility] Last Admin: 04/22/20 10:44 Dose: 20 mg Documented by: Gabapentin (Gabapentin) 300 mg PO TID [facility] Last Admin: 04/22/20 10:44 Dose: 300 mg Documented by: Heparin Sodium/Sodium Chloride (Heparin/ 0.45% Nacl-25,000 Unit/500 Ml) 25,000 unit in 500 mls @ 20 mls/hr IV TITRATE [facility]; Protocol Last Admin: 04/22/20 03:00 Dose: 1,000 units/hr, 20 mls/hr Documented by: Isosorbide Mononitrate (Imdur) 30 mg PO DAILY [facility] Last Admin: 04/22/20 10:44 Dose: 30 mg Documented by: Levetiracetam (Keppra) 500 mg PO BID [facility] Last Admin: 04/22/20 10:44 Dose: 500 mg Documented by: Lorazepam (Ativan) 0.5 mg PO BID PRN PRN Reason: Anxiety Morphine Sulfate (Morphine) 2 mg IV Q3H PRN PRN Reason: Pain, Moderate (4-6) Last Admin: 04/22/20 01:16 Dose: 2 mg Documented by: Ondansetron HCl (Zofran) 4 mg IV Q8H PRN PRN Reason: Nausea And Vomiting Last Admin: 04/22/20 03:26 Dose: 4 mg Documented by: Pantoprazole Sodium (Protonix) 40 mg PO DAILY [facility] Last Admin: 04/22/20 10:44 Dose: 40 mg Documented by: Trazodone HCl (Desyrel) 50 mg PO QHS [facility] Physical Examination Vital Signs Pulse Resp 93 H 17 04/21/20 18:30 04/21/20 18:30 Results 04/22/20 02:46 04/22/20 08:44 Cardiac Enzymes 04/21/20 04/22/20 04/22/20 Range/Units 19:06 01:17 08:44 AST 18 (5-40) units/L CK-MB (CK-2) 2.6 3.0 (0.0-4.0) ng/mL Coagulation 04/22/20 Range/Units 02:46 PT 17.0 H (12.2-14.9) Sec. INR 1.37 H (0.87-1.13) APTT 31.6 (24.2-36.6) Sec. CBC 04/21/20 04/22/20 Range/Units 19:06 02:46 WBC 11.8 H (4.5-11.0) K/mm3 RBC 3.99 (3.65-5.03) M/mm3 Hgb 10.6 10.4 (10.1-14.3) gm/dl Hct 33.0 31.4 (30.3-42.9) % Plt Count 263 256 (140-440) K/mm3 Lymph # 2.5 (1.2-5.4) K/mm3 Larue # 0.5 (0.0-0.8) K/mm3 Eos # 0.2 (0.0-0.4) K/mm3 Baso # 0.1 (0.0-0.1) K/mm3 Comprehensive Metabolic Panel 09/12/20 09/13/20 Range/Units 19:06 08:44 Sodium 141 139 (137-145) mmol/L Potassium 3.0 L D 3.5 L (3.6-5.0) mmol/L Chloride 98.0 97.4 L (98-107) mmol/L Carbon Dioxide 28 27 (22-30) mmol/L BUN 8 8 (7-17) mg/dL Creatinine 0.7 0.6 (0.6-1.2) mg/dL Glucose 143 H 131 H (65-100) mg/dL Calcium 9.8 10.2 (8.4-10.2) mg/dL AST 18 (5-40) units/L ALT 15 (7-56) units/L Alkaline Phosphatase 170 H (35-129) units/L Total Protein 7.3 (6.3-8.2) g/dL Albumin 3.9 (3.9-5) g/dL Assessment and Plan full consult dictated thanks
--- NOTE | 2020-04-22 11:20 | Consultation ---
ROOM: 462. REFERRING PHYSICIAN: Hospitalist service. REASON FOR CONSULTATION: Advice and opinion regarding elevated troponin. HISTORY OF PRESENT ILLNESS: The patient is a pleasant 54-year-old female who presents to the hospital with abdominal pain, nausea, vomiting, sharp chest pain. She has a history of AFib, coronary artery disease, COPD, diabetes, seizures, asthma, schizophrenia. Apparently, nonsmoker, nondrinker. She has multiple allergies listed. Of note, she states that she does not have an allergy to aspirin, but she has allergy listed and she has been taking aspirin while in the hospital without issue. Home medications reviewed. Inpatient medications reviewed. She states that she has been having some sharp chest pain, fleeting, more nausea, vomiting, occasional shortness of breath. MEDICAL HISTORY: As aforementioned. She is feeling much better now, seen on telemetry. No fevers or chills, no bleeding diathesis. No rashes, blurred vision, headache. PHYSICAL EXAMINATION: VITAL SIGNS: Blood pressure is 120/70. She is afebrile. Tele reveals sinus rhythm in the 70s, O2 sat is 99% on room air. HEENT: Sclerae are anicteric. PERRLA. NECK: Supple. No mass or JVD. CHEST: Clear to auscultation bilaterally. Good air movement. CARDIOVASCULAR: Regular S1, S2. ABDOMEN: Soft, nontender, nondistended. Normoactive bowel sounds in 4 quadrants. No mass or bruits. EXTREMITIES: No cyanosis, clubbing, edema. Good peripheral pulses. SKIN: Intact. No rashes. DATA: She had an abdominal series x-ray, which was unremarkable. Chest x-ray from 04/16/2020, small left pleural effusion versus pleural thickening. EKG reveals normal sinus rhythm, nonspecific repolarization abnormalities laterally. LABORATORY DATA: Troponin 0.07, 0.05, 0.1, although total CK is only 38, triglycerides 633, total cholesterol 232, LDL unable to calculate due to high triglycerides. Lipase is normal. Potassium is 3.5. CBC was unremarkable on 04/21/2020. At this point, the patient is chest pain free, clinically stable, feels better. ASSESSMENT AND PLAN: In summary, the patient is a 54-year-old female with chest pain with mostly atypical features. Cardiac catheterization from August was unremarkable. The patient does have a history of prior percutaneous coronary intervention with mid left anterior descending stent being patent in August. Echocardiogram at that time revealed normal LV function, diastolic dysfunction. At this point, we would recommend cycling cardiac enzymes. She is on IV heparin. Her chest pain is mostly atypical. EKG nonacute. Blood pressure in good control. Continue aspirin. Stress test in a.m. We will continue to follow along. Thank you for this consultation. JOB# [id number] SBIza/NTS
[2020-04-22] MEDS: LORazepam 0.5 MG TAB PO PRN (12:04)
--- NOTE | 2020-04-22 12:10 | Event Note ---
Date: 04/22/[address] Shoemaker. 54-year-old female admitted with chest pain. Cardiology has been consulted for evaluation Plan for stress test in a.m. Continue trending cardiac enzymes
[2020-04-22] MEDS ORDERED: NON-FORMULARY EACH (Rosuvastatin (Nf) 20 MG) PO SCH (22:00)
[2020-04-22] MEDS ORDERED: traZODone 50 MG TAB PO SCH (22:00)
[2020-04-23] MEDS: LORazepam 0.5 MG TAB PO PRN (07:54)
[2020-04-23] MEDS ORDERED: REGADENOSON 0.4 MG/5 ML INJ IV ONE ×2 (08:38→08:41)
--- NOTE | 2020-04-23 11:21 | Progress Note ---
Assessment and Plan S/p lexiscan MPI stress test today which was TDS due to pt's inability to lie still, no significant ischemia noted, normal LVEF. Chest pain currently resolved. Currently stable cardiac status. Continue with medical management. Pt may discharge from cardiology standpoint. Recommend pt follow up in our office with Dr. Abrams within 2 weeks of discharge ([phone]). The patient has been seen in conjunction with Dr. Abrams who agrees with the assessment and plan of care. - Patient Problems (1) Chest pain Current Visit: Yes Status: Resolved Qualifiers: (2) NSTEMI (non-ST elevated myocardial infarction) Current Visit: Yes Status: Acute Plan to address problem: suspect type II (3) CAD (coronary artery disease) Current Visit: Yes Status: Chronic Qualifiers: Coronary Disease-Associated Artery/Lesion type: [place] artery [place] vs. transplanted heart: [place] heart (4) Stented coronary artery Current Visit: Yes Status: Chronic (5) Abdominal pain Current Visit: Yes Status: Acute (6) Nausea and vomiting Current Visit: Yes Status: Acute (7) History of atrial fibrillation Current Visit: Yes Status: Chronic (8) COPD (chronic obstructive pulmonary disease) Current Visit: Yes Status: Chronic Qualifiers: (9) Chronic respiratory failure Current Visit: Yes Status: Chronic Qualifiers: (10) History of pulmonary embolism Current Visit: Yes Status: Chronic (11) Hypertension Current Visit: Yes Status: Chronic Qualifiers: Hypertension type: essential hypertension Qualified Code(s): I10 - Essential (primary) hypertension (12) Diabetes Current Visit: Yes Status: Chronic (13) Paranoid schizophrenia Current Visit: Yes Status: Chronic Subjective Date of service: 04/23/20 Principal diagnosis: cp; elevated trop Interval history: pt for stress test today, no current complaints. in SR on tele. Objective Last Vital Signs Temp 98.0 F 04/23/20 07:57 Pulse 67 04/23/20 07:57 Resp 20 04/23/20 07:57 BP 143/61 04/23/20 07:57 Pulse Ox 100 04/23/20 07:57 - Physical Examination General: No Apparent Distress HEENT: Positive: PERRL, Normocephaly, Mucus Membranes Moist Neck: Positive: neck supple, trachea midline Cardiac: Positive: Reg Rate and Rhythm, S1/S2 Lungs: Positive: Decreased Breath Sounds Neuro: Positive: Grossly Intact Abdomen: Negative: Tender Skin: Negative: Rash Musculoskeletal: No Pain Extremities: Absent: edema - Imaging and Cardiology EKG: report reviewed, image reviewed Echo: report reviewed (EF 65-70%, mod LVH, impaired relaxation, echodensity present at LV apex unlikely thrombus) - Telemetry EKG Rhythm: Sinus Rhythm
[2020-04-23] MEDS: levETIRAcetam 500 MG TAB PO SCH (11:33)
[2020-04-23] MEDS: ASPIRIN EC 81 MG TAB PO SCH (11:33)
[2020-04-23] MEDS: GABAPENTIN 300 MG CAP PO SCH ×2 (11:33→13:16)
[2020-04-23] MEDS: FUROSEMIDE 20 MG TAB PO SCH (11:33)
[2020-04-23] MEDS: PANTOPRAZOLE 40 MG TAB PO SCH (11:33)
--- NOTE | 2020-04-23 12:43 | Discharge Summary ---
Providers - Providers Date of Admission: 04/21/20 22:44 Date of discharge: 04/23/20 Attending physician: TONNY NUNEZ 04/22/20 06:00 Consult to Physician [CONS] Routine Comment: Consulting Provider: TORREY ABRAMS Physician Instructions: Reason For Exam: CHEST PAIN WITH ELEVATED TROPONIN LEVEL Primary care physician: AUDIT ASSOCIATE Hospitalization Condition: Stable Hospital course: 54 year old female presented with non radiating sharp precordial chest pain that is associated with nausea and shortness of breath. pain started about 30 minutes prior to presentation and there is no history of fever, chills, cough, bodyache or vomiting. Patient had negative heart catheterization as part of chest pain work up in August of 2019 here in this hospital. She was scheduled for a stress test which came out negative. She will follow up in our office with Dr. Abrams within 2 weeks of discharge ([phone]). Etiology of chest pain likely from costochondritis as she had tenderness on palpation. She will continue pain medications Disposition: TO HOME OR SELFCARE - Discharge Diagnoses (1) Chest pain Status: Resolved Qualifiers: Core Measure Documentation - Palliative Care Palliative Care/ Comfort Measures: Not Applicable - Core Measures Any of the following diagnoses?: none Exam - Constitutional Vitals: Temp Pulse Resp BP Pulse Ox 98.0 F 82 20 125/60 99 04/23/20 07:57 04/23/20 11:33 04/23/20 07:57 04/23/20 11:33 04/23/20 11:31 General appearance: Present: no acute distress, well-nourished - EENT Eyes: Present: PERRL ENT: hearing intact, clear oral mucosa - Neck Neck: Present: supple, normal ROM - Respiratory Respiratory effort: normal Respiratory: bilateral: CTA - Cardiovascular Heart Sounds: Present: S1 & S2. Absent: rub, click - Extremities Extremities: pulses symmetrical, No edema Peripheral Pulses: within normal limits - Abdominal General gastrointestinal: Present: soft, non-tender, non-distended, normal bowel sounds Female genitourinary: Present: normal - Integumentary Integumentary: Present: clear, warm, dry - Musculoskeletal Musculoskeletal: gait normal, strength equal bilaterally - Psychiatric Psychiatric: appropriate mood/affect, intact judgment & insight - Neurologic Neurologic: CNII-XII intact, moves all extremities Plan Additional Instructions: Follow up in [place]- Dr. Abrams within 2 weeks of discharge ([phone]). Continue rest of home medications Follow up with: PRIMARY CARE, [Primary Care Provider] - 7 Days TORREY ABRAMS MD [Staff Physician] - 7 Days
[2020-04-23] MEDS: MORPHINE 2 MG/1 ML INJ IV PRN (13:10)
[2020-04-23] MEDS: ONDANSETRON 4 MG/2 ML INJ IV PRN (14:06)
--- NOTE | 2020-04-23 14:43 | Treadmill Report ---
PHARMACOLOGICAL MYOCARDIAL PERFUSION IMAGING REPORT The patient is a 54-year-old female with atypical chest pains and underlying psychiatric issues including schizophrenia. The patient was not able to stay still on the table. Underwent pharmacological stress testing using IV regadenoson as the vasodilator. EKG showed sinus rhythm with minor nonspecific ST-T changes. No significant EKG changes were noted during the IV infusion. The patient did not have any chest pain. Myocardial perfusion imaging was performed using technetium-99m sestamibi at rest, followed by using the same agent post-vasodilation. Perfusion images were obtained during rest and post-infusion. Gating was performed on the post-stress images. However, there is significant motion artifacts noted. Only short axis views were interpretable. Horizontal and vertical axis images showed a lot of motion artifact making them uninterpretable. No significant reversible defects were noted in this short axis images. Gated images showed ejection fraction to be 64%. Normal wall motion noted. Normal left ventricular volumes noted. Transient ischemic dilation was found to be 1.19. FINAL IMPRESSION: 1. The patient tolerated IV regadenoson well. 2. No ischemic changes noted on the EKG. 3. No chest pain during the procedure. 4. Myocardial perfusion imagings are difficult to interpret because of motion artifact. However, no significant reversible defects noted in the short axis views. 5. Normal left ventricular systolic function with calculated ejection fraction of 64% noted. 6. Correlate clinically. JOB# [id number] LEE ANN/NOEMI
[2020-04-23 19:47] VITALS: BP 114/53
== END 2020-04-23 21:12 | disposition home or self-care (01) ==
LOC: ED 17:54 → 4A 22:44
PROVIDERS: ADMIT Internal Medicine; ATTEND Internal Medicine
DX: R07.89 Other chest pain (principal); E87.6 Hypokalemia; R11.2 Nausea with vomiting, unspecified; R79.89 Other specified abnormal findings of blood chemistry; I21.4 Non-ST elevation (NSTEMI) myocardial infarction; I48.91 Unspecified atrial fibrillation; F20.0 Paranoid schizophrenia; J96.10 Chronic respiratory failure, unspecified whether with hypoxia or hypercapnia; I25.10 Atherosclerotic heart disease of native coronary artery without angina pectoris; J44.9 Chronic obstructive pulmonary disease, unspecified; E11.9 Type 2 diabetes mellitus without complications; K21.9 Gastro-esophageal reflux disease without esophagitis; R10.9 Unspecified abdominal pain; Z90.49 Acquired absence of other specified parts of digestive tract; Z87.891 Personal history of nicotine dependence; Z86.711 Personal history of pulmonary embolism; Z79.4 Long term (current) use of insulin; Z79.82 Long term (current) use of aspirin; Z79.899 Other long term (current) drug therapy; Z95.5 Presence of coronary angioplasty implant and graft; Z88.6 Allergy status to analgesic agent; Z88.8 Allergy status to other drugs, medicaments and biological substances; Z91.018 Allergy to other foods
CPT/HCPCS: 36415; 74022; 78452; 80048; 80053; 81001; 82550; 82553; 83690; 84484; 85014; 85018; 85025; 85049; 85520; 85610; 85730; 87086; 93005; 93017; 94760; 96365; 96366; 96367; 96372; 96375; 96376; 99291; A9270; A9502; G0378; J1644; J2270; J2405; J2785; J3480

== ENCOUNTER 2020-04-25 01:39 | Emergency (ER) | payer MEDICARE ==
[2020-04-25] MEDS ORDERED: MORPHINE 4 MG/1 ML INJ IM ONE (02:21)
--- NOTE | 2020-04-25 02:28 | Emergency Department Report ---
<NAVNEET BUTTERFIELD - Last Filed: 04/25/20 11:28> ED Chest Pain HPI - General Chief Complaint: Chest Pain Stated Complaint: ABDOMINAL PAIN Time Seen by Provider: 04/25/20 02:09 - Related Data Home Medications Medication Instructions Recorded Confirmed Last Taken clonazePAM [KlonoPIN] 0.5 mg PO BID PRN 02/04/14 04/22/20 2 Days Ago ~04/20/20 traZODone [Desyrel] 50 mg PO QHS 09/16/15 04/22/20 2 Days Ago ~04/20/20 Rosuvastatin (Nf) [Crestor] 20 mg PO QHS 01/21/17 04/22/20 2 Days Ago ~04/20/20 levETIRAcetam [Keppra TAB] 500 mg PO BID 08/11/19 04/22/20 2 Days Ago ~04/20/20 Furosemide 20 mg PO DAILY 09/17/19 04/22/20 2 Days Ago ~04/20/20 Gabapentin 300 mg PO TID 09/17/19 04/22/20 2 Days Ago ~04/20/20 Insulin Detemir [Levemir VIAL] 10 unit SQ QHS 09/17/19 04/22/20 2 Days Ago ~04/20/20 LORazepam [Lorazepam] 0.5 mg PO BID PRN 09/17/19 04/22/20 2 Days Ago ~04/20/20 Pantoprazole 40 mg PO DAILY 09/17/19 04/22/20 2 Days Ago ~04/20/20 Previous Rx's Medication Instructions Recorded Last Taken Type Albuterol Mdi (or & Nicu Only) 2 puff IH QID PRN #1 inhalation 12/30/16 2 Days Ago Rx [ProAir HFA Inhaler] ~04/20/20 Aspirin EC [Halfprin EC] 81 mg PO DAILY tablet 09/01/19 2 Days Ago Rx ~04/20/20 ISOSORBIDE MONOnitrate [Imdur ER] 30 mg PO DAILY tablet 09/01/19 2 Days Ago Rx ~04/20/20 metroNIDAZOLE [Flagyl] 500 mg PO TID 14 Days #42 tablet 04/04/20 2 Days Ago Rx ~04/20/20 oxyCODONE /ACETAMINOPHEN [Percocet 1 tab PO Q6HR PRN #10 tablet 04/17/20 2 Days Ago Rx 5/325] ~04/20/20 Potassium Chloride 20 meq PO BID #60 packet 04/25/20 Unknown Rx Allergies Allergy/AdvReac Type Severity Reaction Status Date / Time coconut Allergy Hives Verified 08/23/19 16:35 haloperidol [From Haldol] Allergy Hives Verified 08/23/19 16:35 meperidine HCl [From Demerol] Allergy Rash Verified 08/23/19 16:35 nitroglycerin Allergy Hives Verified 08/23/19 16:35 NSAIDS (Non-Steroidal Allergy Unknown Verified 08/23/19 16:35 Anti-Inflamma tramadol Allergy Hives Verified 08/23/19 16:35 ED Past Medical Hx - Medications Home Medications: Home Medications Medication Instructions Recorded Confirmed Last Taken Type clonazePAM [KlonoPIN] 0.5 mg PO BID PRN 02/04/14 04/22/20 2 Days Ago History ~04/20/20 traZODone [Desyrel] 50 mg PO QHS 09/16/15 04/22/20 2 Days Ago History ~04/20/20 Albuterol Mdi (or & Nicu Only) 2 puff IH QID PRN #1 inhalation 12/30/16 04/22/20 2 Days Ago Rx [ProAir HFA Inhaler] ~04/20/20 Rosuvastatin (Nf) [Crestor] 20 mg PO QHS 01/21/17 04/22/20 2 Days Ago History ~04/20/20 levETIRAcetam [Keppra TAB] 500 mg PO BID 08/11/19 04/22/20 2 Days Ago History ~04/20/20 Aspirin EC [Halfprin EC] 81 mg PO DAILY tablet 09/01/19 04/22/20 2 Days Ago Rx ~04/20/20 ISOSORBIDE MONOnitrate [Imdur ER] 30 mg PO DAILY tablet 09/01/19 04/22/20 2 Days Ago Rx ~04/20/20 Furosemide 20 mg PO DAILY 09/17/19 04/22/20 2 Days Ago History ~04/20/20 Gabapentin 300 mg PO TID 09/17/19 04/22/20 2 Days Ago History ~04/20/20 Insulin Detemir [Levemir VIAL] 10 unit SQ QHS 09/17/19 04/22/20 2 Days Ago Hi story ~04/20/20 LORazepam [Lorazepam] 0.5 mg PO BID PRN 09/17/19 04/22/20 2 Days Ago History ~04/20/20 Pantoprazole 40 mg PO DAILY 09/17/19 04/22/20 2 Days Ago History ~04/20/20 metroNIDAZOLE [Flagyl] 500 mg PO TID 14 Days #42 tablet 04/04/20 04/22/20 2 Days Ago Rx ~04/20/20 oxyCODONE /ACETAMINOPHEN [Percocet 1 tab PO Q6HR PRN #10 tablet 04/17/20 04/22/20 2 Days Ago Rx 5/325] ~04/20/20 Potassium Chloride 20 meq PO BID #60 packet 04/25/20 Unknown Rx ED Course - Reevaluation(s) Reevaluation #1: 04/25/20 11:28 Patient is reassessed multiple times by myself. She had 40 of K CL x2, and she got about 1-1/2 prior dose of potassium chloride. She is refusing/declining additional K riders. Patient observed in this department for hours without clinical decompensation. She will be discharged with potassium supplementation, and she can follow-up with her outpatient primary care doctor for potassium recheck. The patient does exhibit decision-making capacity at this time. She does not meet criteria for 1013, and she does not meet criteria for hospitalization. 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 She is also systemically anticoagulated. ED Medical Decision Making - Lab Data Result diagrams: 04/25/20 02:05 04/25/20 07:24 ED Disposition Clinical Impression: Hypokalemia, Atypical chest pain Abdominal pain Qualifiers: Abdominal location: unspecified location Qualified Code(s): R10.9 - Unspecified abdominal pain Obesity Qualifiers: Obesity type: unspecified obesity type Chest pain Qualifiers: Chest pain type: unspecified Qualified Code(s): R07.9 - Chest pain, unspecified Disposition: DC-01 TO HOME OR SELFCARE Is pt being admited?: No Does the pt Need Aspirin: No Condition: Good Instructions: Chest Pain (ED), Hypokalemia (ED), Abdominal Pain (ED) Additional Instructions: Please follow-up with your primary care physician in the next few days. I am giving you a referral for [facility] cardiology to follow-up regarding your chest pains. This is the cardiology group who did your stress test and recent cardiology consultation. I am also giving you a referral for [facility] to follow-up regarding your abdominal pains. Return to the emergency department with any worsening of your symptoms or with any acute distress. Take the potassium supplementation as directed, and follow-up with an outpatient primary care doctor within the next 3 to 5 days for potassium level rechecked Prescriptions: Potassium Chloride 20 meq PO BID #60 packet Referrals: PRIMARY CARE, [Primary Care Provider] - 2-3 Days [facility] [Provider Group] - 2-3 Days [facility] [Provider Group] - 2-3 Days <WILIAM BECERRIL S - Last Filed: 04/26/20 10:35> ED Chest Pain HPI - General Source: patient, EMS Mode of arrival: Stretcher Limitations: Physical Limitation - History of Present Illness Initial Comments: This is a 54-year-old female presents to the emergency department via EMS with a complaint of midsternal chest pain and mid abdominal burning pain that woke her up from sleep tonight. The patient has a past medical history of asthma, COPD, diabetes, coronary artery disease with previous PR and cardiac stents, hypertension, schizophrenia, and atrial fibrillation on anticoagulation with Eliquis. I saw this patient here 4 days ago for similar symptoms and the patie nt was admitted at that time. She had a negative Lexiscan stress test. She has not taken anything for symptoms prior to presentation this evening. No recent travel. She denies any fever, nausea, vomiting, dysuria, vaginal bleeding or discharge, shortness of breath, edema. Heart Score - HEART Score History: Slightly suspicious EKG: Normal Age: 45-65 Risk factors: > 3 risk factors or hx of atherosclerotic disease Troponin: 1-3x normal limit HEART Score: 4 - Critical Actions Critical Actions: 4-6 pts:12-16.6% risk of adverse cardiac event. Should be admitted ED Review of Systems ROS: Stated complaint: ABDOMINAL PAIN Other details as noted in HPI Comment: All other systems reviewed and negative Constitutional: denies: chills, fever Eyes: denies: eye pain, vision change ENT: denies: ear pain, throat pain Respiratory: denies: cough, shortness of breath Cardiovascular: chest pain. denies: palpitations Gastrointestinal: abdominal pain. denies: vomiting Genitourinary: denies: dysuria, discharge Musculoskeletal: denies: back pain, arthralgia Skin: denies: rash, lesions Neurological: denies: headache, weakness ED Past Medical Hx - Past Medical History Hx Hypertension: Yes Hx CVA: No Hx Heart Attack/AMI: Yes Hx Congestive Heart Failure: No Hx Diabetes: Yes Hx Deep Vein Thrombosis: No Hx Pulmonary Embolism: No Hx GERD: Yes Hx Liver Disease: No Hx Renal Disease: No Hx Sickle Cell Disease: No Hx Arthritis: No Hx Headaches / Migraines: No Hx Seizures: Yes Hx Kidney Stones: Yes Hx Psychiatric Treatment: Yes (paranoid schizophrenia /ANXIETY) Hx Asthma: Yes Hx COPD: Yes Hx Tuberculosis: No Hx Dementia: No Hx HIV: No Additional medical history: CAD. AFib - Surgical History Hx Coronary Stent: Yes (1) Hx Open Heart Surgery: No Hx Pacemaker: No Hx Internal Defibrillator: No Hx Cholecystectomy: Yes Hx Appendectomy: No Hx Breast Surgery: No Additional Surgical History: right knee surgery, left carpal tunnel surg, hysterectomy - Social History Smoking Status: Former Smoker Substance Use Type: None ED Physical Exam - General Limitations: Physical Limitation - Other Other exam information: GENERAL: The patient is well-developed well-nourished. HENT: Normocephalic. Atraumatic. Patient has moist mucous membranes. EYES: Extraocular motions are intact. NECK: Supple. Trachea is midline. CHEST/LUNGS: Clear to auscultation. There is no respiratory distress noted. There is some reproducible chest pain to palpation of the midsternal chest wall. No crepitus or deformity. HEART/CARDIOVASCULAR: Regular. There is no tachycardia. There is no murmur. ABDOMEN: Abdomen is soft. Mild middle abdominal tenderness to palpation. No guarding. Patient has normal bowel sounds. There is no abdominal distention. SKIN: Skin is warm and dry. NEURO: The patient is awake, alert, and cooperative. The patient has no focal neurologic deficits. Normal speech. MUSCULOSKELETAL: There is no tenderness or deformity. ED Course Vital Signs 04/25/20 04/25/20 04/25/20 01:48 01:56 02:02 Temperature Pulse Rate 80 80 Respiratory 18 14 Rate Blood Pressure Blood Pressure [Right] O2 Sat by Pulse 100 99 Oximetry 04/25/20 04/25/20 04/25/20 02:06 02:20 03:00 Temperature 99.6 F Pulse Rate 79 81 Respiratory 14 22 Rate Blood Pressure 128/61 Blood Pressure 130/55 [Right] O2 Sat by Pulse 98 97 Oximetry 04/25/20 04/25/20 04/25/20 04:00 05:00 06:00 Temperature Pulse Rate 79 75 75 Respiratory 23 11 L 16 Rate Blood Pressure 128/69 146/78 146/78 Blood Pressure [Right] O2 Sat by Pulse 97 96 98 Oximetry 04/25/20 10:30 Temperature Pulse Rate 86 Respiratory Rate Blood Pressure 142/82 Blood Pressure [Right] O2 Sat by Pulse Oximetry - Consultations Consultation #1: 04/25/20 06:12 I spoke with the foundry laborer coreroom on-call for [facility], Dr. Katie Weinberg. I made Dr. Weinberg aware of the patient's presentation, her recent admission, her recent negative stress test, and her lab results. She agrees that the patient appears safe for discharge home with outpatient follow-up as the patient just had the negative stress test and has decreased troponins from her past admission. NIKO score - Niko Score Age > 65: (0) No Aspirin use within the Past 7 Days: (1) Yes 3 or more CAD Risk Factors: (1) Yes 2 or more Angina events in past 24 hrs: (0) No Known CAD with more than 50% Stenosis: (1) Yes Elevated Cardiac Markers: (1) Yes ST Deviation Greater than 0.5mm: (0) No NIKO Score: 4 ED Medical Decision Making - Lab Data Result diagrams: 04/25/20 02:05 04/25/20 07:24 - EKG Data -: EKG Interpreted by Tn EKG shows normal: sinus rhythm, axis, intervals (Prolonged QTC), QRS complexes, ST-T waves Rate: normal - EKG Data When compared to previous EKG there are: no significant change Interpretation: unchanged when compared t (04/16/20) - Medical Decision Making This patient presents to the emergency department with complaint of some midsternal chest pain and some mid abdominal burning sensation. EKG does not show any morphology consistent with ST elevation PR. Chest and abdominal x-rays do not show any acute processes. Patient's labs show hypokalemia with a potassium of 2.7. The patient is receiving both oral and IV potassium supplementation. We will repeat the potassium level at about 730. Patient has slightly elevated troponins at 0.048 and 0.052. This is decreased from the patient's troponin level 3 days ago. Patient had a negative stress test 4 days ago. She had a cardiology consultation at that time and the patient appears to have a type II troponin leak chronically. I spoke with cardiology and they agree that the patient appears safe for discharge home at this time from a cardiology standpoint and she can follow-up outpatient. Patient has been signed out to my colleague, Dr. Butterfield, to check the repeat potassium level and discharge home if it has appropriately increased with the potassium supplementation. 04/26/20: It appears the potassium did not increase on the recheck. However, the patient had refused to complete the IV K+ as it was burning, despite very slow infusion. The oral potassium given would not have metabolized yet. She was given a prescription for oral potassium supplementation and has been instructed to follow up with her PCP for recheck. Critical Care Time: No Critical care attestation.: If time is entered above; I have spent that time in minutes in the direct care of this critically ill patient, excluding procedure time. ED Disposition Is pt being admited?: No Time of Disposition: 06:18
[2020-04-25 02:34] LABS: Basophils # (Auto) 0.1 K/mm3 (0.0-0.1); Basophils % (Auto) 0.5 % (0.0-1.8); Eosinophils # (Auto) 0.2 K/mm3 (0.0-0.4); Hemoglobin 10.2 gm/dl (10.1-14.3); Lymphocytes # (Auto) 2.1 K/mm3 (1.2-5.4); Lymphocytes % (Auto) 22.5 % (13.4-35.0); Mean Corpuscular HGB Conc 33 % (30-34); Mean Corpuscular Volume 83 fl (79-97); Monocytes # (Auto) 0.6 K/mm3 (0.0-0.8); Monocytes % (Auto) 6.3 % (0.0-7.3); Platelet Count 278 K/mm3 (140-440); Red Blood Count 3.72 M/mm3 (3.65-5.03); Red Cell Distribution Width 16.9 % (13.2-15.2)
[2020-04-25 02:43] LABS: INR 1.07 (0.87-1.13)
[2020-04-25] MEDS ORDERED: ONDANSETRON 4 MG/2 ML INJ ONE (02:56)
[2020-04-25] MEDS ORDERED: ONDANSETRON 4 MG/2 ML INJ IM ONE (02:57)
--- NOTE | 2020-04-25 03:20 | XRay Report ---
Chest and abdominal series. HISTORY: Abdominal pain. COMPARISON: Chest x-ray 04/16/2020. Chest one view: Persistent cardiomegaly. No new mass or infiltrate. Two-view abdomen: Negative for bowel distention, significant constipation or free air. Signer Name: Xavier Lawler MD Signed: 04/25/2020 3:15 AM Workstation Name: [id number]
[2020-04-25 03:23] LABS: Blood Urea Nitrogen 10 mg/dL (7-17); Calcium 9.2 mg/dL (8.4-10.2); Hemolysis Index 7
[2020-04-25 03:39] LABS: BUN/Creatinine Ratio 14
[2020-04-25] MEDS ORDERED: POTASSIUM CHLORIDE ER 20 MEQ TAB PO ONE ×2 (03:57→08:06)
[2020-04-25] MEDS ORDERED: POTASSIUM CHLORIDE 10 MEQ 10 MEQ/100 ML BAG IV SCH (04:00)
[2020-04-25 04:27] LABS: Chol/HDL Ratio 5.83 %; HDL Cholesterol 36 mg/dL (40-59); LDL Cholesterol,Direct 138 mg/dL (50-130)
[2020-04-25] MEDS ORDERED: FAMOTIDINE 20 MG/2 ML INJ IV ONE (05:01)
[2020-04-25] MEDS ORDERED: SODIUM CHLORIDE 0.9% 100 ML ONE (05:08)
[2020-04-25] MEDS ORDERED: LIDOCAINE VISCOUS 2% 15 ML ORAL LIQD PO ONE (06:12)
[2020-04-25] MEDS ORDERED: ALUM-MAG HYDROXIDE-SIMETHICONE 200-200-20MG/5ML ORAL LIQD 30 ML PO ONE (06:12)
[2020-04-25] MEDS ORDERED: DICYCLOMINE 20 MG TAB PO ONE (06:18)
[2020-04-25] MEDS ORDERED: CLONAZEPAM 0.5 MG PO PRN (08:16)
[2020-04-25] MEDS ORDERED: LORazepam 0.5 MG TAB PO PRN (08:16)
[2020-04-25] MEDS ORDERED: ALBUTEROL 8.5 GM MDI INHALATION IH PRN (08:16)
[2020-04-25] MEDS ORDERED: clonazePAM 0.5 MG TAB PO PRN (08:23)
[2020-04-25] MEDS ORDERED: GABAPENTIN 300 MG CAP PO SCH (08:30)
[2020-04-25] MEDS ORDERED: POTASSIUM CHLORIDE 10 MEQ/100 ML IV ONE (09:00)
[2020-04-25] MEDS ORDERED: FAMOTIDINE 20 MG TAB PO ONE (09:24)
[2020-04-25] MEDS ORDERED: SUCRALFATE 1 GM/10 ML ORAL LIQD PO ONE (09:24)
[2020-04-25] MEDS ORDERED: SODIUM CHLORIDE 0.9% 1000 ML 1,000 ML IV ONE (09:24)
[2020-04-25] MEDS: POTASSIUM CHLORIDE 10 MEQ 10 MEQ/100 ML BAG IV SCH ×2 (09:45→11:03)
[2020-04-25] MEDS ORDERED: DICYCLOMINE 10 MG CAP ONE (09:50)
[2020-04-25] MEDS ORDERED: ASPIRIN EC 81 MG TAB PO SCH (10:00)
[2020-04-25] MEDS ORDERED: NON-FORMULARY EACH (Pantoprazole 40 MG) PO SCH (10:00)
[2020-04-25] MEDS ORDERED: levETIRAcetam 500 MG TAB PO SCH (10:00)
[2020-04-25] MEDS ORDERED: PANTOPRAZOLE 40 MG TAB PO SCH (10:00)
[2020-04-25 10:30] VITALS: BP 142/82
[2020-04-25] MEDS ORDERED: NON-FORMULARY EACH (Gabapentin 300 MG) PO SCH (14:00)
[2020-04-25] MEDS ORDERED: INSULIN GLARGINE 100 UNITS/ML SUB-Q SCH (22:00)
[2020-04-25] MEDS ORDERED: traZODone 50 MG TAB PO SCH (22:00)
[2020-04-25] MEDS ORDERED: NON-FORMULARY EACH (Rosuvastatin (Nf) 20 MG) PO SCH (22:00)
[2020-04-25] MEDS ORDERED: INSULIN DETEMIR 10 UNIT SQ SCH (22:00)
== END 2020-04-25 17:27 | disposition home or self-care (01) ==
LOC: ED 01:39
DX: R07.89 Other chest pain (principal); R10.9 Unspecified abdominal pain; E87.6 Hypokalemia; E66.9 Obesity, unspecified; I25.2 Old myocardial infarction; I10 Essential (primary) hypertension; E11.9 Type 2 diabetes mellitus without complications; K21.9 Gastro-esophageal reflux disease without esophagitis; R56.9 Unspecified convulsions; J44.9 Chronic obstructive pulmonary disease, unspecified; F41.9 Anxiety disorder, unspecified; Z68.31 Body mass index [BMI] 31.0-31.9, adult; Z90.49 Acquired absence of other specified parts of digestive tract; Z90.710 Acquired absence of both cervix and uterus; Z87.891 Personal history of nicotine dependence; Z79.4 Long term (current) use of insulin; Z79.899 Other long term (current) drug therapy; Z88.6 Allergy status to analgesic agent; Z88.8 Allergy status to other drugs, medicaments and biological substances; Z91.018 Allergy to other foods
CPT/HCPCS: 36415; 74022; 80048; 80061; 83735; 84132; 84484; 85025; 85610; 93005; 96361; 96365; 96366; 96372; 96375; 99285; J2270; J2405; J3246; J3480; J7030

== ENCOUNTER 2020-05-09 15:31 | Observation (INO) | payer MEDICARE ==
[2020-05-09] MEDS ORDERED: NITROGLYCERIN 0.4 MG TAB SUBL SL ONE (16:56)
[2020-05-09] MEDS ORDERED: ASPIRIN 81 MG TAB CHEW PO ONE (16:56)
[2020-05-09] MEDS ORDERED: ONDANSETRON 4 MG/2 ML INJ IV ONE (16:58)
[2020-05-09] MEDS ORDERED: MORPHINE 4 MG/1 ML INJ IV ONE (16:58)
--- NOTE | 2020-05-09 17:01 | Emergency Department Report ---
ED General Adult HPI - General Chief complaint: Chest Pain Stated complaint: CHEST PAIN Time Seen by Provider: 05/09/20 16:20 Source: EMS Mode of arrival: Stretcher Limitations: Physical Limitation - History of Present Illness Initial comments: Patient presents to the emergency department with a chief complaint of chest pain that started yesterday. Patient states the chest pain is located throughout her left chest without radiation. Patient denies any nausea vomiting. Patient also complains of left hip pain that started this morning. Patient denies falling. Patient states she is bedridden because she can no longer walk. Her inability to walk is chronic and not due to the left hip pain that occurred today. Patient states the chest pain has been continuous in nature. -: Sudden Location: chest Radiation: non-radiation Severity scale (0 -10): 9 Quality: aching Consistency: constant Improves with: none Worsens with: none Associated Symptoms: denies other symptoms Treatments Prior to Arrival: none - Related Data Home Medications Medication Instructions Recorded Confirmed Last Taken clonazePAM [KlonoPIN] 0.5 mg PO BID PRN 02/04/14 04/22/20 2 Days Ago ~04/20/20 traZODone [Desyrel] 50 mg PO QHS 09/16/15 04/22/20 2 Days Ago ~04/20/20 Rosuvastatin (Nf) [Crestor] 20 mg PO QHS 01/21/17 04/22/20 2 Days Ago ~04/20/20 levETIRAcetam [Keppra TAB] 500 mg PO BID 08/11/19 04/22/20 2 Days Ago ~04/20/20 Furosemide 20 mg PO DAILY 09/17/19 04/22/20 2 Days Ago ~04/20/20 Gabapentin 300 mg PO TID 09/17/19 04/22/20 2 Days Ago ~04/20/20 Insulin Detemir [Levemir VIAL] 10 unit SQ QHS 09/17/19 04/22/20 2 Days Ago ~04/20/20 LORazepam [Lorazepam] 0.5 mg PO BID PRN 09/17/19 04/22/20 2 Days Ago ~04/20/20 Pantoprazole 40 mg PO DAILY 09/17/19 04/22/20 2 Days Ago ~04/20/20 Previous Rx's Medication Instructions Recorded Last Taken Type Albuterol Mdi (or & Nicu Only) 2 puff IH QID PRN #1 inhalation 12/30/16 2 Days Ago Rx [ProAir HFA Inhaler] ~04/20/20 Aspirin EC [Halfprin EC] 81 mg PO DAILY tablet 09/01/19 2 Days Ago Rx ~04/20/20 ISOSORBIDE MONOnitrate [Imdur ER] 30 mg PO DAILY tablet 09/01/19 2 Days Ago Rx ~04/20/20 metroNIDAZOLE [Flagyl] 500 mg PO TID 14 Days #42 tablet 04/04/20 2 Days Ago Rx ~04/20/20 oxyCODONE /ACETAMINOPHEN [Percocet 1 tab PO Q6HR PRN #10 tablet 04/17/20 2 Days Ago Rx 5/325] ~04/20/20 Potassium Chloride 20 meq PO BID #60 packet 04/25/20 Unknown Rx Allergies Allergy/AdvReac Type Severity Reaction Status Date / Time coconut Allergy Hives Verified 08/23/19 16:35 haloperidol [From Haldol] Allergy Hives Verified 08/23/19 16:35 meperidine HCl [From Demerol] Allergy Rash Verified 08/23/19 16:35 nitroglycerin Allergy Hives Verified 08/23/19 16:35 NSAIDS (Non-Steroidal Allergy Unknown Verified 08/23/19 16:35 Anti-Inflamma tramadol Allergy Hives Verified 08/23/19 16:35 ED Review of Systems ROS: Stated complaint: CHEST PAIN Other details as noted in HPI Constitutional: denies: chills, fever Eyes: denies: eye pain, eye discharge, vision change ENT: denies: ear pain, throat pain Respiratory: denies: cough, shortness of breath, wheezing Cardiovascular: chest pain. denies: palpitations Endocrine: no symptoms reported Gastrointestinal: denies: abdominal pain, nausea, diarrhea Genitourinary: denies: urgency, dysuria, discharge Musculoskeletal: other (left hip pain). denies: back pain, joint swelling, arthralgia Skin: denies: rash, lesions Neurological: denies: headache, weakness, paresthesias Psychiatric: denies: anxiety, depression Hematological/Lymphatic: denies: easy bleeding, easy bruising ED Past Medical Hx - Past Medical History Hx Hypertension: Yes Hx CVA: No Hx Heart Attack/AMI: Yes Hx Congestive Heart Failure: No Hx Diabetes: Yes Hx Deep Vein Thrombosis: No Hx Pulmonary Embolism: No Hx GERD: Yes Hx Liver Disease: No Hx Renal Disease: No Hx Sickle Cell Disease: No Hx Arthritis: No Hx Headaches / Migraines: No Hx Seizures: Yes Hx Kidney Stones: Yes Hx Psychiatric Treatment: Yes (paranoid schizophrenia /ANXIETY) Hx Asthma: Yes Hx COPD: Yes Hx Tuberculosis: No Hx Dementia: No Hx HIV: No Additional medical history: CAD. AFib - Surgical History Hx Coronary Stent: Yes (1) Hx Open Heart Surgery: No Hx Pacemaker: No Hx Internal Defibrillator: No Hx Cholecystectomy: Yes Hx Appendectomy: No Hx Breast Surgery: No Additional Surgical History: right knee surgery, left carpal tunnel surg, hysterectomy - Social History Smoking Status: Never Smoker Substance Use Type: None - Medications Home Medications: Home Medications Medication Instructions Recorded Confirmed Last Taken Type clonazePAM [KlonoPIN] 0.5 mg PO BID PRN 02/04/14 04/22/20 2 Days Ago History ~04/20/20 traZODone [Desyrel] 50 mg PO QHS 09/16/15 04/22/20 2 Days Ago History ~04/20/20 Albuterol Mdi (or & Nicu Only) 2 puff IH QID PRN #1 inhalation 12/30/16 04/22/20 2 Days Ago Rx [ProAir HFA Inhaler] ~04/20/20 Rosuvastatin (Nf) [Crestor] 20 mg PO QHS 01/21/17 04/22/20 2 Days Ago History ~04/20/20 levETIRAcetam [Keppra TAB] 500 mg PO BID 08/11/19 04/22/20 2 Days Ago History ~04/20/20 Aspirin EC [Halfprin EC] 81 mg PO DAILY tablet 09/01/19 04/22/20 2 Days Ago Rx ~04/20/20 ISOSORBIDE MONOnitrate [Imdur ER] 30 mg PO DAILY tablet 09/01/19 04/22/20 2 Days Ago Rx ~04/20/20 Furosemide 20 mg PO DAILY 09/17/19 04/22/20 2 Days Ago History ~04/20/20 Gabapentin 300 mg PO TID 09/17/19 04/22/20 2 Days Ago History ~04/20/20 Insulin Detemir [Levemir VIAL] 10 unit SQ QHS 09/17/19 04/22/20 2 Days Ago History ~04/20/20 LORazepam [Lorazepam] 0.5 mg PO BID PRN 09/17/19 04/22/20 2 Days Ago History ~04/20/20 Pantoprazole 40 mg PO DAILY 09/17/19 04/22/20 2 Days Ago History ~04/20/20 metroNIDAZOLE [Flagyl] 500 mg PO TID 14 Days #42 tablet 04/04/20 04/22/20 2 Days Ago Rx ~04/20/20 oxyCODONE /ACETAMINOPHEN [Percocet 1 tab PO Q6HR PRN #10 tablet 04/17/20 04/22/20 2 Days Ago Rx 5/325] ~04/20/20 Potassium Chloride 20 meq PO BID #60 packet 04/25/20 Unknown Rx ED Physical Exam - General Limitations: Physical Limitation General appearance: alert, in no apparent distress - Head Head exam: Present: atraumatic, normocephalic - Eye Eye exam: Present: normal appearance, PERRL, EOMI - ENT ENT exam: Present: mucous membranes moist - Neck Neck exam: Present: normal inspection - Respiratory Respiratory exam: Present: normal lung sounds bilaterally. Absent: respiratory distress - Cardiovascular Cardiovascular Exam: Present: regular rate, normal rhythm. Absent: systolic murmur, diastolic murmur, rubs, gallop - GI/Abdominal GI/Abdominal exam: Present: soft, normal bowel sounds. Absent: distended, tenderness - Extremities Exam Extremities exam: Present: other (ttp left hip) - Back Exam Back exam: Present: normal inspection - Neurological Exam Neurological exam: Present: alert, oriented X3, CN II-XII intact. Absent: motor sensory deficit - Psychiatric Psychiatric exam: Present: normal affect, normal mood - Skin Skin exam: Present: warm, dry, intact, normal color. Absent: rash ED Course Vital Signs 05/09/20 05/09/20 05/09/20 16:02 17:40 19:20 Temperature 98.6 F 98.4 F Pulse Rate 86 82 Respiratory 20 17 Rate Blood Pressure 127/74 Blood Pressure 129/79 111/73 [Left] O2 Sat by Pulse 99 99 Oximetry 05/09/20 05/09/20 05/09/20 19:30 20:30 21:12 Temperature Pulse Rate 79 88 Respiratory 18 22 18 Rate Blood Pressure 123/70 129/77 Blood Pressure [Left] O2 Sat by Pulse 99 97 Oximetry 05/09/20 05/09/20 05/09/20 21:30 22:00 22:30 Temperature Pulse Rate 82 81 82 Respiratory 22 14 14 Rate Blood Pressure 128/66 128/69 138/66 Blood Pressure [Left] O2 Sat by Pulse 97 97 98 Oximetry 05/09/20 05/09/20 05/10/20 22:47 23:30 00:00 Temperature Pulse Rate 84 83 81 Respiratory 16 24 20 Rate Blood Pressure 138/66 120/71 119/69 Blood Pressure [Left] O2 Sat by Pulse 98 97 98 Oximetry ED Medical Decision Making - Lab Data Result diagrams: 05/09/20 21:06 05/09/20 21:06 Lab Results 05/09/20 05/09/20 05/09/20 Range/Units 21:06 21:06 21:06 WBC 12.0 H (4.5-11.0) K/mm3 RBC 4.00 (3.65-5.03) M/mm3 Hgb 10.7 (10.1-14.3) gm/dl Hct 32.3 (30.3-42.9) % MCV 81 (79-97) fl MCH 27 L (28-32) pg MCHC 33 (30-34) % RDW 15.6 H (13.2-15.2) % Plt Count 476 H (140-440) K/mm3 Lymph % (Auto) 22.6 (13.4-35.0) % [place] % (Auto) 5.0 (0.0-7.3) % Eos % (Auto) 1.0 (0.0-4.3) % Baso % (Auto) 0.6 (0.0-1.8) % Lymph # (Auto) 2.7 (1.2-5.4) K/mm3 [place] # (Auto) 0.6 (0.0-0.8) K/mm3 Eos # (Auto) 0.1 (0.0-0.4) K/mm3 Baso # (Auto) 0.1 (0.0-0.1) K/mm3 Add Manual Diff Complete Seg Neutrophils % 70.8 H (40.0-70.0) % Seg Neutrophils # 8.5 H (1.8-7.7) K/mm3 PT 18.8 H (12.2-14.9) Sec. INR 1.55 H (0.87-1.13) APTT 43.0 H (24.2-36.6) Sec. Sodium 135 L (137-145) mmol/L Potassium 2.5 L* (3.6-5.0) mmol/L Chloride 90.6 L (98-107) mmol/L Carbon Dioxide 28 (22-30) mmol/L Anion Gap 19 mmol/L BUN 9 (7-17) mg/dL Creatinine 0.6 (0.6-1.2) mg/dL Estimated GFR > 60 ml/min BUN/Creatinine Ratio 15 % Glucose 95 (65-100) mg/dL Calcium 10.4 H (8.4-10.2) mg/dL Magnesium (1.7-2.3) mg/dL Total Bilirubin 0.50 (0.1-1.2) mg/dL AST 19 (5-40) units/L ALT 8 (7-56) units/L Alkaline Phosphatase 178 H (35-129) units/L Troponin T 0.070 H (0.00-0.029) ng/mL NT-Pro-B Natriuret Pep (0-900) pg/mL Total Protein 8.7 H (6.3-8.2) g/dL Albumin 3.3 L (3.9-5) g/dL Albumin/Globulin Ratio 0.6 % Triglycerides 195 H (2-149) mg/dL Cholesterol 167 (50-199) mg/dL LDL Cholesterol Direct 112 (50-130) mg/dL HDL Cholesterol 30 L (40-59) mg/dL Cholesterol/HDL Ratio 5.56 % 05/09/20 05/09/20 Range/Units 22:43 22:43 WBC (4.5-11.0) K/mm3 RBC (3.65-5.03) M/mm3 Hgb (10.1-14.3) gm/dl Hct (30.3-42.9) % MCV (79-97) fl MCH (28-32) pg MCHC (30-34) % RDW (13.2-15.2) % Plt Count (140-440) K/mm3 Lymph % (Auto) (13.4-35.0) % [place] % (Auto) (0.0-7.3) % Eos % (Auto) (0.0-4.3) % Baso % (Auto) (0.0-1.8) % Lymph # (Auto) (1.2-5.4) K/mm3 [place] # (Auto) (0.0-0.8) K/mm3 Eos # (Auto) (0.0-0.4) K/mm3 Baso # (Auto) (0.0-0.1) K/mm3 Add Manual Diff Seg Neutrophils % (40.0-70.0) % Seg Neutrophils # (1.8-7.7) K/mm3 PT (12.2-14.9) Sec. INR (0.87-1.13) APTT (24.2-36.6) Sec. Sodium (137-145) mmol/L Potassium (3.6-5.0) mmol/L Chloride (98-107) mmol/L Carbon Dioxide (22-30) mmol/L Anion Gap mmol/L BUN (7-17) mg/dL Creatinine (0.6-1.2) mg/dL Estimated GFR ml/min BUN/Creatinine Ratio % Glucose (65-100) mg/dL Calcium (8.4-10.2) mg/dL Magnesium 2.10 (1.7-2.3) mg/dL Total Bilirubin (0.1-1.2) mg/dL AST (5-40) units/L ALT (7-56) units/L Alkaline Phosphatase (35-129) units/L Troponin T 0.083 H (0.00-0.029) ng/mL NT-Pro-B Natriuret Pep 3237 H (0-900) pg/mL Total Protein (6.3-8.2) g/dL Albumin (3.9-5) g/dL Albumin/Globulin Ratio % Triglycerides (2-149) mg/dL Cholesterol (50-199) mg/dL LDL Cholesterol Direct (50-130) mg/dL HDL Cholesterol (40-59) mg/dL Cholesterol/HDL Ratio % - EKG Data -: EKG Interpreted by Md EKG shows normal: sinus rhythm Rate: normal - Radiology Data Radiology results: report reviewed - Medical Decision Making Patient's troponin was paired to previous troponins and this with in the range of the ones that were reviewed Patient given 40 mg IV Lasix Patient given IV potassium and p.o. potassium Critical Care Time: Yes Critical care time in (mins) excluding proc time.: 35 Critical care attestation.: If time is entered above; I have spent that time in minutes in the direct care of this critically ill patient, excluding procedure time. ED Disposition Clinical Impression: CHF (congestive heart failure), Hypokalemia, Elevated troponin Disposition: 09 OP ADMIT IP TO THIS HOSP Is pt being admited?: Yes Condition: Fair
--- NOTE | 2020-05-09 17:38 | XRay Report ---
. LEFT HIP 2 VIEW(S) INDICATION / CLINICAL INFORMATION: pain COMPARISON: None available. FINDINGS: BONES / JOINT(S): No acute fracture or subluxation. Moderate degenerative arthrosis both hips. SOFT TISSUES: No significant abnormality. ADDITIONAL FINDINGS: None. Signer Name: Bashir Crowell MD Signed: 05/09/2020 5:34 PM Workstation Name: [id number]
--- NOTE | 2020-05-09 17:39 | XRay Report ---
CHEST 1 VIEW 05/09/2020 4:28 PM INDICATION / CLINICAL INFORMATION: Chest Pain. COMPARISON: 04/16/2020 FINDINGS: SUPPORT DEVICES: None. HEART / MEDIASTINUM: Markedly enlarged LUNGS / PLEURA: Moderate pleural parenchymal disease left lower lung field again noted. Right lung re ceasar clear. No pneumothorax. ADDITIONAL FINDINGS: No significant additional findings. IMPRESSION: 1. Stable chest Signer Name: Bashir Crowell MD Signed: 05/09/2020 5:35 PM Workstation Name: [id number]
[2020-05-09] MEDS ORDERED: HYDROcodone/ACETAMINOPHEN 5-325 MG TAB PO ONE (21:06)
[2020-05-09 21:35] LABS: Alanine Aminotransferase 8 units/L (7-56); Albumin 3.3 g/dL (3.9-5); Blood Urea Nitrogen 9 mg/dL (7-17); Calcium 10.4 mg/dL (8.4-10.2); Hemolysis Index 4
[2020-05-09 21:36] LABS: BUN/Creatinine Ratio 15
[2020-05-09] MEDS ORDERED: POTASSIUM CHLORIDE ER 20 MEQ TAB PO ONE (21:57)
[2020-05-09 22:12] LABS: Chol/HDL Ratio 5.56 %; HDL Cholesterol 30 mg/dL (40-59); LDL Cholesterol,Direct 112 mg/dL (50-130)
[2020-05-09 23:43] LABS: Hematocrit 32.3 % (30.3-42.9); Hemoglobin 10.7 gm/dl (10.1-14.3); INR 1.55 (0.87-1.13); Mean Corpuscular HGB Conc 33 % (30-34); Mean Corpuscular Volume 81 fl (79-97); Red Cell Distribution Width 15.6 % (13.2-15.2)
[2020-05-09 23:44] LABS: Basophils # (Auto) 0.1 K/mm3 (0.0-0.1); Basophils % (Auto) 0.6 % (0.0-1.8); Eosinophils # (Auto) 0.1 K/mm3 (0.0-0.4); Lymphocytes # (Auto) 2.7 K/mm3 (1.2-5.4); Lymphocytes % (Auto) 22.6 % (13.4-35.0); Monocytes # (Auto) 0.6 K/mm3 (0.0-0.8); Platelet Count 476 K/mm3 (140-440)
[2020-05-10] MEDS ORDERED: POTASSIUM CHLORIDE 10 MEQ 10 MEQ/100 ML BAG IV ONE (00:33)
[2020-05-10] MEDS ORDERED: FUROSEMIDE 20 MG/2 ML INJ IV ONE (00:34)
[2020-05-10] MEDS ORDERED: HEPARIN 10,000 UNITS/10 ML VIAL IV ONE (01:02)
[2020-05-10] MEDS ORDERED: HEPARIN/ 0.45% NACL DRIP 25,000 UNIT/500 ML BAG ONE (01:40)
[2020-05-10] MEDS ORDERED: ACETAMINOPHEN 325 MG TAB PO PRN ×2 (02:00)
[2020-05-10] MEDS ORDERED: MAGNESIUM HYDROXIDE (MOM) ORAL LIQD UDC PO PRN (02:00)
[2020-05-10] MEDS ORDERED: ONDANSETRON 4 MG/2 ML INJ IV PRN (02:00)
[2020-05-10] MEDS ORDERED: DEXTROSE 50% IN WATER (25GM) 50 ML SYRINGE IV PRN (02:00)
[2020-05-10] MEDS ORDERED: HEPARIN/ 0.45% NACL DRIP 25,000 UNIT/500 ML BAG IV SCH (02:00)
--- NOTE | 2020-05-10 02:31 | History and Physical Report ---
History of Present Illness Date of examination: 05/10/20 Date of admission: 05/10/20 00:54 Chief complaint: Chest Pain History of present illness: Patient is a 54-year-old female with known history of hypertension, diabetes mellitus, coronary artery disease, atrial fibrillation, history of paranoid schizophrenia presenting to the emergency room today complaining of left-sided chest pain. Pain is said to be continuous with no radiation. There is no no relieving or exacerbating factor. She denies any fever or chills, no nausea vomiting, no headache or dizziness. She has had some shortness of breath. Patient is also complaining of for left hip pain started earlier today. She denies any fall. Patient has been bedridden for some time prior to current illness. Work-up in the emergency room today reveals elevated BNP, hypokalemia, slightly elevated troponin levels. Review of patient's record includes indicates that patient has been having elevated troponin. However troponin level seems to be trending up today. She was started on heparin drip in the emergency room. Past History Past Medical History: CAD, diabetes, GERD, hypertension, other (Asthma,Schizophrenia,kidney stones) Past Surgical History: hysterectomy, PTCA, Other (Carpal tunnel surgery,right knee surgery,) Social history: no significant social history Family history: no significant family history Medications and Allergies Allergies Allergy/AdvReac Type Severity Reaction Status Date / Time coconut Allergy Hives Verified 08/23/19 16:35 haloperidol [From Haldol] Allergy Hives Verified 08/23/19 16:35 meperidine HCl [From Demerol] Allergy Rash Verified 08/23/19 16:35 nitroglycerin Allergy Hives Verified 08/23/19 16:35 NSAIDS (Non-Steroidal Allergy Unknown Verified 08/23/19 16:35 Anti-Inflamma tramadol Allergy Hives Verified 08/23/19 16:35 Home Medications Medication Instructions Recorded Confirmed Last Taken Type clonazePAM [KlonoPIN] 0.5 mg PO BID PRN 02/04/14 04/22/20 2 Days Ago History ~04/20/20 traZODone [Desyrel] 50 mg PO QHS 09/16/15 04/22/20 2 Days Ago History ~04/20/20 Albuterol Mdi (or & Nicu Only) 2 puff IH QID PRN #1 inhalation 12/30/16 04/22/20 2 Days Ago Rx [ProAir HFA Inhaler] ~04/20/20 Rosuvastatin (Nf) [Crestor] 20 mg PO QHS 01/21/17 04/22/20 2 Days Ago History ~04/20/20 levETIRAcetam [Keppra TAB] 500 mg PO BID 08/11/19 04/22/20 2 Days Ago History ~04/20/20 Aspirin EC [Halfprin EC] 81 mg PO DAILY tablet 09/01/19 04/22/20 2 Days Ago Rx ~04/20/20 ISOSORBIDE MONOnitrate [Imdur ER] 30 mg PO DAILY tablet 09/01/19 04/22/20 2 Days Ago Rx ~04/20/20 Furosemide 20 mg PO DAILY 09/17/19 04/22/20 2 Days Ago History ~04/20/20 Gabapentin 300 mg PO TID 09/17/19 04/22/20 2 Days Ago History ~04/20/20 Insulin Detemir [Levemir VIAL] 10 unit SQ QHS 09/17/19 04/22/20 2 Days Ago History ~04/20/20 LORazepam [Lorazepam] 0.5 mg PO BID PRN 09/17/19 04/22/20 2 Days Ago History ~04/20/20 Pantoprazole 40 mg PO DAILY 09/17/19 04/22/20 2 Days Ago History ~04/20/20 metroNIDAZOLE [Flagyl] 500 mg PO TID 14 Days #42 tablet 04/04/20 04/22/20 2 Days Ago Rx ~04/20/20 oxyCODONE /ACETAMINOPHEN [Percocet 1 tab PO Q6HR PRN #10 tablet 04/17/20 2 Days Ago Rx 5/325] ~04/20/20 Potassium Chloride 20 meq PO BID #60 packet 04/25/20 Unknown Rx Active Meds: Active Medications Acetaminophen (Tylenol) 650 mg PO Q4H PRN PRN Reason: Pain MILD(1-3)/Fever >100.5/[place]SON Aspirin (Ecotrin) 325 mg PO QDAY MARTHA Dextrose (D50w (25gm) Syringe) 50 ml IV Q30MIN PRN; Protocol PRN Reason: Hypoglycemia Furosemide (Lasix) 40 mg IV BID@0600,1800 MARTHA Heparin Sodium/Sodium Chloride (Heparin/ 0.45% Nacl-25,000 Unit/500 Ml) 25,000 unit in 500 mls @ 20 mls/hr IV TITRATE PENDING SALE TO [facility]; Protocol Last Admin: 05/10/20 01:46 Dose: 1,000 units/hr, 20 mls/hr Documented by: Insulin Human Lispro (Humalog) 0 unit SUB-Q ACHS PENDING SALE TO [facility]; Protocol Magnesium Hydroxide (Milk Of Magnesia) 30 ml PO Q4H PRN PRN Reason: Constipation Ondansetron HCl (Zofran) 4 mg IV Q8H PRN PRN Reason: Nausea And Vomiting Sodium Chloride (Sodium Chloride Flush Syringe 10 Ml) 10 ml IV BID MARTHA Sodium Chloride (Sodium Chloride Flush Syringe 10 Ml) 10 ml IV PRN PRN PRN Reason: LINE FLUSH Review of Systems Constitutional: no fever, no chills Ears, nose, mouth and throat: no nasal congestion, no sore throat Cardiovascular: chest pain, no palpitations Respiratory: no cough, no shortness of breath Gastrointestinal: no abdominal pain, no nausea, no vomiting Genitourinary Female: no pelvic pain, no dysuria, no hematuria Musculoskeletal: no neck pain, no low back pain Integumentary: no rash, no pruritis Neurological: no headaches, no confusion Psychiatric: no anxiety, no depression Exam - Constitutional Vitals: Temp Pulse Resp BP Pulse Ox 98.4 F 81 17 128/76 100 05/09/20 19:20 05/10/20 01:30 05/10/20 01:30 05/10/20 01:30 05/10/20 01:30 General appearance: Present: no acute distress, well-nourished - EENT Eyes: Present: PERRL, EOM intact. Absent: scleral icterus ENT: hearing intact, clear oral mucosa, dentition normal - Neck Neck: Present: supple, normal ROM - Respiratory Respiratory effort: normal Respiratory: bilateral: CTA - Cardiovascular Rhythm: regular Heart Sounds: Present: S1 & S2, systolic murmur. Absent: diastolic murmur, rub - Extremities Extremities: no ischemia, No edema, Full ROM Peripheral Pulses: within normal limits - Abdominal General gastrointestinal: Present: soft, non-tender, non-distended, normal bowel sounds. Absent: mass - Integumentary Integumentary: Present: warm, dry. Absent: rash - Musculoskeletal Musculoskeletal: strength equal bilaterally - Psychiatric Psychiatric: appropriate mood/affect, intact judgment & insight, memory intact, cooperative - Neurologic Neurologic: CNII-XII intact, no focal deficits, moves all extremities HEART Score - HEART Score Troponin: Troponin T 0.083 ng/mL (0.00-0.029) H 05/09/20 22:43 Results - Labs CBC & Chem 7: 05/10/20 02:55 05/10/20 02:55 Labs: Abnormal lab results 05/09/20 05/09/20 05/09/20 Range/Units 21:06 21:06 21:06 WBC 12.0 H (4.5-11.0) K/mm3 MCH 27 L (28-32) pg RDW 15.6 H (13.2-15.2) % Plt Count 476 H (140-440) K/mm3 Seg Neutrophils % 70.8 H (40.0-70.0) % Seg Neutrophils # 8.5 H (1.8-7.7) K/mm3 PT 18.8 H (12.2-14.9) Sec. INR 1.55 H (0.87-1.13) APTT 43.0 H (24.2-36.6) Sec. Sodium 135 L (137-145) mmol/L Potassium 2.5 L* (3.6-5.0) mmol/L Chloride 90.6 L (98-107) mmol/L Calcium 10.4 H (8.4-10.2) mg/dL Alkaline Phosphatase 178 H (35-129) units/L Troponin T 0.070 H (0.00-0.029) ng/mL NT-Pro-B Natriuret Pep (0-900) pg/mL Total Protein 8.7 H (6.3-8.2) g/dL Albumin 3.3 L (3.9-5) g/dL Triglycerides 195 H (2-149) mg/dL HDL Cholesterol 30 L (40-59) mg/dL 05/09/20 05/09/20 Range/Units 22:43 22:43 WBC (4.5-11.0) K/mm3 MCH (28-32) pg RDW (13.2-15.2) % Plt Count (140-440) K/mm3 Seg Neutrophils % (40.0-70.0) % Seg Neutrophils # (1.8-7.7) K/mm3 PT (12.2-14.9) Sec. INR (0.87-1.13) APTT (24.2-36.6) Sec. Sodium (137-145) mmol/L Potassium (3.6-5.0) mmol/L Chloride (98-107) mmol/L Calcium (8.4-10.2) mg/dL Alkaline Phosphatase (35-129) units/L Troponin T 0.083 H (0.00-0.029) ng/mL NT-Pro-B Natriuret Pep 3237 H (0-900) pg/mL Total Protein (6.3-8.2) g/dL Albumin (3.9-5) g/dL Triglycerides (2-149) mg/dL HDL Cholesterol (40-59) mg/dL Assessment and Plan - Patient Problems (1) NSTEMI (non-ST elevated myocardial infarction) Current Visit: No Status: Acute Plan to address problem: Patient admitted and placed on telemetry. Will check serial cardiac enzymes. We will continue on daily aspirin. Patient had stress test sometime in April 2020 which was within normal limit. She also had a cardiac cath in August 2019 with patent LAD mid stent. We will request cardiology evaluation and recommendation. (2) CHF (congestive heart failure) Current Visit: Yes Status: Acute Plan to address problem: Patient will be placed on diuretics and will monitor inputs and outputs. We will schedule patient for echocardiogram. (3) Hypokalemia Current Visit: Yes Status: Acute Plan to address problem: Potassium will be repleted and will monitor chemistry. (4) HLD (hyperlipidemia) Current Visit: No Status: Chronic Qualifiers: Hyperlipidemia type: mixed hyperlipidemia Qualified Code(s): E78.2 - Mixed hyperlipidemia Plan to address problem: We will continue routine home medications and monitor lipid profile. (5) Paranoid schizophrenia Current Visit: No Status: Chronic Plan to address problem: We will continue routine medications. (6) DVT prophylaxis Current Visit: No Status: Acute Plan to address problem: Patient on anticoagulation. (7) Full code status Current Visit: No Status: Acute
[2020-05-10 03:24] LABS: Basophils # (Auto) 0.1 K/mm3 (0.0-0.1); Basophils % (Auto) 0.6 % (0.0-1.8); Eosinophils # (Auto) 0.2 K/mm3 (0.0-0.4); Eosinophils % (Auto) 1.8 % (0.0-4.3); Hemoglobin 10.3 gm/dl (10.1-14.3); Lymphocytes # (Auto) 2.4 K/mm3 (1.2-5.4); Lymphocytes % (Auto) 18.5 % (13.4-35.0); Mean Corpuscular HGB Conc 37 % (30-34); Mean Corpuscular Volume 78 fl (79-97); Monocytes # (Auto) 0.7 K/mm3 (0.0-0.8); Monocytes % (Auto) 5.7 % (0.0-7.3); Platelet Count 522 K/mm3 (140-440); Red Blood Count 3.58 M/mm3 (3.65-5.03); Red Cell Distribution Width 15.9 % (13.2-15.2)
[2020-05-10 03:29] LABS: BUN/Creatinine Ratio 13; Blood Urea Nitrogen 10 mg/dL (7-17); Calcium 10.5 mg/dL (8.4-10.2); Hemolysis Index 51
[2020-05-10 03:37] LABS: INR 1.81 (0.87-1.13)
[2020-05-10 04:41] VITALS: BP 116/68
[2020-05-10] MEDS ORDERED: FUROSEMIDE 40 MG/4 ML INJ IV SCH (06:00)
[2020-05-10] MEDS ORDERED: ALBUTEROL 2.5 MG/3 ML NEBU IH PRN (07:54)
[2020-05-10] MEDS ORDERED: MORPHINE 4 MG/1 ML INJ IV PRN (08:49)
[2020-05-10] MEDS ORDERED: MORPHINE 2 MG/1 ML INJ IV PRN (09:00)
[2020-05-10] MEDS: INSULIN LISPRO 100 UNIT/ML VIAL 3 mL SUB-Q SCH ×3 (09:48→16:58)
[2020-05-10] MEDS ORDERED: PANTOPRAZOLE 40 MG TAB PO SCH (10:00)
[2020-05-10] MEDS ORDERED: levETIRAcetam 500 MG TAB PO SCH (10:00)
[2020-05-10] MEDS ORDERED: clonazePAM 0.5 MG TAB PO PRN (10:00)
[2020-05-10] MEDS ORDERED: oxyCODONE /ACETAMINOPHEN 5-325MG TAB PO PRN (10:17)
--- NOTE | 2020-05-10 10:33 | Consultation ---
History of Present Illness Consult date: 05/10/20 Requesting physician: RANJITH REYNOLDS Consult reason: chest pain, congestive heart failure History of present illness: The pt is a 53-year-old female with a past medical history of CAD s/p multiple PCIs, HFpEF, HTN, HLP, DM, COPD, chronic respiratory failure requiring home O2, chronic steroid use, ANURAG, former smoker, obesity, seizure disorder (last seizure many years ago per pt report), paranoid schizophrenia. She has been seen by our practice on multiple prior admissions and was last seen in our office by Dr. Lowery in October 2018. She presented with c/o chest pain for several hours prior to arrival. She describes her chest pain as a continuous left-sided dull pain, no radiation, no relieving or exacerbating factors. She has chronic SOB, denies palpitations, n/v, diaphoresis, dizziness or syncope. Patient is also c/o left hip pain started earlier yesterday. She denies any fall. Patient has been bedridden for some time prior to current illness. LHC done 08/30/2019 showed L main patent, LAD mid patent, circumflex patent, RCA patent, normal LV function. Lexiscan MPI stress test done 04/23/2020 was TDS due to pt's inability to lie still, no significant ischemia noted, normal LVEF. tte done 08/11/2019 showed EF 65-70%; mod concentric LVH; impaired relaxation. Past History Past Medical History: CAD, diabetes, GERD, hypertension, other (Asthma, Schizophrenia,kidney stones) Past Surgical History: hysterectomy, PTCA, Other (Carpal tunnel surgery,right knee surgery,) Social history: no significant social history Family history: no significant family history Medications and Allergies Allergies Allergy/AdvReac Type Severity Reaction Status Date / Time coconut Allergy Hives Verified 08/23/19 16:35 haloperidol [From Haldol] Allergy Hives Verified 08/23/19 16:35 meperidine HCl [From Demerol] Allergy Rash Verified 08/23/19 16:35 nitroglycerin Allergy Hives Verified 08/23/19 16:35 NSAIDS (Non-Steroidal Allergy Unknown Verified 08/23/19 16:35 Anti-Inflamma tramadol Allergy Hives Verified 08/23/19 16:35 Home Medications Medication Instructions Recorded Confirmed Last Taken Type clonazePAM [KlonoPIN] 0.5 mg PO BID PRN 02/04/14 04/22/20 2 Days Ago History ~04/20/20 traZODone [Desyrel] 50 mg PO QHS 09/16/15 04/22/20 2 Days Ago History ~04/20/20 Albuterol Mdi (or & Nicu Only) 2 puff IH QID PRN #1 inhalation 12/30/16 04/22/20 2 Days Ago Rx [ProAir HFA Inhaler] ~04/20/20 Rosuvastatin (Nf) [Crestor] 20 mg PO QHS 01/21/17 04/22/20 2 Days Ago History ~04/20/20 levETIRAcetam [Keppra TAB] 500 mg PO BID 08/11/19 04/22/20 2 Days Ago History ~04/20/20 Aspirin EC [Halfprin EC] 81 mg PO DAILY tablet 09/01/19 04/22/20 2 Days Ago Rx ~04/20/20 ISOSORBIDE MONOnitrate [Imdur ER] 30 mg PO DAILY tablet 09/01/19 04/22/20 2 Days Ago Rx ~04/20/20 Furosemide 20 mg PO DAILY 09/17/19 04/22/20 2 Days Ago History ~04/20/20 Gabapentin 300 mg PO TID 09/17/19 04/22/20 2 Days Ago History ~04/20/20 Insulin Detemir [Levemir VIAL] 10 unit SQ QHS 09/17/19 04/22/20 2 Days Ago History ~04/20/20 LORazepam [Lorazepam] 0.5 mg PO BID PRN 09/17/19 04/22/20 2 Days Ago History ~04/20/20 Pantoprazole 40 mg PO DAILY 09/17/19 04/22/20 2 Days Ago History ~04/20/20 metroNIDAZOLE [Flagyl] 500 mg PO TID 14 Days #42 tablet 04/04/20 04/22/20 2 Days Ago Rx ~04/20/20 oxyCODONE /ACETAMINOPHEN [Percocet 1 tab PO Q6HR PRN #10 tablet 04/17/20 04/22/20 2 Days Ago Rx 5/325] ~04/20/20 Potassium Chloride 20 meq PO BID #60 packet 04/25/20 Unknown Rx Active Meds: Active Medications Acetaminophen (Tylenol) 650 mg PO Q4H PRN PRN Reason: Pain MILD(1-3)/Fever >100.5/DENSON Last Admin: 05/10/20 05:07 Dose: 650 mg Documented by: Albuterol (Proventil) 2.5 mg IH Q4HRT PRN PRN Reason: Shortness Of Breath Aspirin (Ecotrin) 325 mg PO QDAY [facility] Atorvastatin Calcium (Lipitor) 40 mg PO QHS [facility] Clonazepam (Klonopin) 0.5 mg PO BID PRN PRN Reason: Anxiety Last Admin: 05/10/20 10:00 Dose: 0.5 mg Documented by: Dextrose (D50w (25gm) Syringe) 50 ml IV Q30MIN PRN; Protocol PRN Reason: Hypoglycemia Furosemide (Lasix) 40 mg IV BID@0600,1800 [facility] Last Admin: 05/10/20 05:07 Dose: 40 mg Documented by: Insulin Human Lispro (Humalog) 0 unit SUB-Q ACHS [facility]; Protocol Last Admin: 05/10/20 09:48 Dose: Not Given Documented by: Levetiracetam (Keppra) 500 mg PO BID [facility] Last Admin: 05/10/20 09:57 Dose: 500 mg Documented by: Magnesium Hydroxide (Milk Of Magnesia) 30 ml PO Q4H PRN PRN Reason: Constipation Morphine Sulfate (Morphine) 2 mg IV Q6H PRN PRN Reason: Pain, Moderate (4-6) Ondansetron HCl (Zofran) 4 mg IV Q8H PRN PRN Reason: Nausea And Vomiting Oxycodone/Acetaminophen (Percocet 5/325) 1 tab PO Q6H PRN PRN Reason: Pain, Moderate (4-6) Pantoprazole Sodium (Protonix) 40 mg PO DAILY [facility] Last Admin: 05/10/20 09:57 Dose: 40 mg Documented by: Sodium Chloride (Sodium Chloride Flush Syringe 10 Ml) 10 ml IV BID [facility] Sodium Chloride (Sodium Chloride Flush Syringe 10 Ml) 10 ml IV PRN PRN PRN Reason: LINE FLUSH Trazodone HCl (Desyrel) 50 mg PO QHS [facility] Review of Systems Constitutional: no weight loss, no weight gain, no fever, no chills, no sweats Ears, nose, mouth and throat: no ear pain, no nose pain, no sinus pressure, no sinus pain Cardiovascular: chest pain, shortness of breath (chronic), dyspnea on exertion (chronic), no orthopnea, no palpitations, no rapid/irregular heart beat, no edema, no syncope, no lightheadedness, no leg edema Respiratory: shortness of breath (chronic), dyspnea on exertion (chronic), no cough, no congestion, no wheezing, no pain on inspiration Gastrointestinal: no abdominal pain, no nausea, no vomiting, no diarrhea, no constipation, no change in bowel habits Genitourinary Female: no pelvic pain, no flank pain, no dysuria, no urinary frequency, no urgency Musculoskeletal: no neck stiffness, no neck pain, no shooting arm pain, no arm numbness/tingling, no low back pain, no shooting leg pain Integumentary: no rash, no pruritis, no redness, no sores, no wounds Neurological: no head injury, no paralysis, no weakness, no parathesias, no numbness, no tingling, no seizures, no syncope Psychiatric: paranoia (schizophrenia) Endocrine: no cold intolerance, no heat intolerance Hematologic/Lymphatic: no easy bruising, no easy bleeding Allergic/Immunologic: no urticaria Physical Examination Vital Signs Temp Pulse Resp BP Pulse Ox 98.6 F 86 20 129/79 99 05/09/20 16:02 05/09/20 16:02 05/09/20 16:02 05/09/20 16:02 05/09/20 16:02 General appearance: no acute distress HEENT: Positive: PERRL, Normocephaly, Mucus Membranes Moist Neck: Positive: neck supple, trachea midline Cardiac: Positive: Reg Rate and Rhythm, S1/S2 Lungs: Positive: Decreased Breath Sounds Neuro: Positive: Grossly Intact Abdomen: Negative: Tender Skin: Negative: Rash Musculoskeletal: No Pain Extremities: Absent: edema Results 05/10/20 02:55 05/10/20 02:55 Cardiac Enzymes 05/09/20 Range/Units 21:06 AST 19 (5-40) units/L Coagulation 05/09/20 05/10/20 Range/Units 21:06 02:55 PT 18.8 H 21.2 H (12.2-14.9) Sec. INR 1.55 H 1.81 H (0.87-1.13) APTT 43.0 H 118.0 H* (24.2-36.6) Sec. Lipids 05/09/20 Range/Units 21:06 Triglycerides 195 H (2-149) mg/dL Cholesterol 167 (50-199) mg/dL HDL Cholesterol 30 L (40-59) mg/dL Cholesterol/HDL Ratio 5.56 % CBC 05/09/20 05/10/20 Range/Units 21:06 02:55 WBC 12.0 H 12.9 H (4.5-11.0) K/mm3 RBC 4.00 3.58 L (3.65-5.03) M/mm3 Hgb 10.7 10.3 (10.1-14.3) gm/dl Hct 32.3 28.0 L (30.3-42.9) % Plt Count 476 H 522 H (140-440) K/mm3 Lymph # (Auto) 2.7 2.4 (1.2-5.4) K/mm3 Giles # (Auto) 0.6 0.7 (0.0-0.8) K/mm3 Eos # (Auto) 0.1 0.2 (0.0-0.4) K/mm3 Baso # (Auto) 0.1 0.1 (0.0-0.1) K/mm3 Comprehensive Metabolic Panel 05/09/20 05/10/20 Range/Units 21:06 02:55 Sodium 135 L 137 (137-145) mmol/L Potassium 2.5 L* 3.0 L (3.6-5.0) mmol/L Chloride 90.6 L 91.2 L (98-107) mmol/L Carbon Dioxide 28 27 (22-30) mmol/L BUN 9 10 (7-17) mg/dL Creatinine 0.6 0.8 (0.6-1.2) mg/dL Glucose 95 128 H (65-100) mg/dL Calcium 10.4 H 10.5 H (8.4-10.2) mg/dL AST 19 (5-40) units/L ALT 8 (7-56) units/L Alkaline Phosphatase 178 H (35-129) units/L Total Protein 8.7 H (6.3-8.2) g/dL Albumin 3.3 L (3.9-5) g/dL - Imaging and Cardiology Echo: report reviewed (08/11/2019 showed EF 65-70%; mod concentric LVH; impaired relaxation.) Cardiac cath: report reviewed ( 08/30/2019 showed L main patent, LAD mid patent, circumflex patent, RCA patent, normal LV function.) EKG: report reviewed, image reviewed EKG interpretations - Telemetry EKG Rhythm: Sinus Rhythm - EKG Sinus rhythms and dysrhythmias: sinus rhythm Assessment and Plan LHC done 08/30/2019 showed L main patent, LAD mid patent, circumflex patent, RCA patent, normal LV function. Lexiscan MPI stress test done 04/23/2020 was TDS due to pt's inability to lie still, no significant ischemia noted, normal LVEF. tte done 08/11/2019 showed EF 65-70%; mod concentric LVH; impaired relaxation. Currently stable cardiac status. ECG with NSR, NAF. Chest pain appears atypical. Minimal CE elevation appears chronic and currently nonspecific. Resume home cardiac regimen. No plans for additional cardiac w/u at this time. The patient has been seen in conjunction with Dr. Ramey who agrees with the assessment and plan of care. - Patient Problems (1) Chest pain Current Visit: Yes Status: Acute (2) Elevated troponin Current Visit: Yes Status: Chronic (3) CAD (coronary artery disease) Current Visit: Yes Status: Chronic Qualifiers: Coronary Disease-Associated Artery/Lesion type: [place] artery [place] vs. transplanted heart: [place] heart (4) Stented coronary artery Current Visit: Yes Status: Chronic (5) Hypokalemia Current Visit: Yes Status: Acute (6) COPD (chronic obstructive pulmonary disease) Current Visit: Yes Status: Chronic Qualifiers: (7) Chronic respiratory failure Current Visit: Yes Status: Chronic Qualifiers: (8) History of pulmonary embolism Current Visit: Yes Status: Chronic (9) Hypertension Current Visit: Yes Status: Chronic Qualifiers: Hypertension type: essential hypertension Qualified Code(s): I10 - Essential (primary) hypertension (10) Diabetes Current Visit: Yes Status: Chronic (11) Paranoid schizophrenia Current Visit: Yes Status: Chronic
[2020-05-10] MEDS ORDERED: POTASSIUM CHLORIDE ER 20 MEQ TAB PO ONE ×2 (13:00→16:00)
--- NOTE | 2020-05-10 13:34 | Discharge Summary ---
<BIALUPIS RyanHemanth - Last Filed: 05/10/20 15:15> Providers - Providers Date of Admission: 05/10/20 00:54 Date of discharge: 05/10/20 Attending physician: JOYCE WEBER 05/10/20 02:02 Consult to Cardiology [CONS] Routine Consulting Provider: PAM RIOJAS Reason For Exam: CHF EXACERBATION, CHEST PAIN Consult to Dietitian/Nutrition [CONS] Routine Physician Instructions: Reason For Exam: Reason for Consult: Diet education Primary care physician: CHEF Hospitalization Condition: Stable Hospital course: Patient is a 54-year-old female hypertension, diabetes mellitus, coronary artery disease s/p multiple PCI's, heart failure with a preserved EF, hyperlipidemia, chronic obstructive pulmonary disease with chronic respiratory failure requiring home O2, obstructive sleep apnea, former smoker, obesity, seizure disorder, atrial fibrillation, paranoid schizophrenia presenting to the emergency room on 05/09 complaining of left-sided continuous chest pain with no radiation and no relieving or exacerbating factors. Pain is said to be continuous with no radiation. She has chronic shortness of breath, denies palpitations, nausea/vomiting, diaphoresis or syncope. She also complained of left hip pain which started earlier on 05/09 however she denies any falls and states that she has been bedridden for some time prior to current illness. Work-up in the emergency room today revealed elevated BNP, hypokalemia, and slightly elevated troponin levels. Her potassium has been repleted and her potassium on 05/10 was 3. This was also repleted with 80 mEq of potassium. Review of patient's record includes indicates that patient has been having elevated troponin. However her troponin level seemed to be trending up and she was started on heparin drip in the emergency room. Cardiology has seen the patient and said no further work-up is necessary at this time. She had a LHC done 08/30/2019 showed L main patent, LAD mid patent, circumflex patent, RCA patent, normal LV function, Lexiscan MPI stress test done 04/23/2020 was TDS due to pt's inability to lie still, no significant ischemia noted, normal LVEF and TTE done 08/11/2019 showed EF 65-70%; mod concentric LVH with impaired relaxation. Per the recommendations continue aspirin, statin therapy, Imdur, Lopressor and anti-inflammatories for pain m anagement. Patient is to follow-up with her primary care physician, cardiology and pulmonology within 1 to 2 weeks of discharge. She will be discharged home to continue using her equipment to aid her in her daily ADLs. (1) Atypical chest pain Current Visit: No Status: chronic Plan to address problem: Continue aspirin, statin, Imdur, Lopressor therapy LHC done 08/30/2019 showed L main patent, LAD mid patent, circumflex patent, RCA patent, normal LV function, Lexiscan MPI stress test done 04/23/2020 was TDS due to pt's inability to lie still, no significant ischemia noted, normal LVEF TTE done 08/11/2019 showed EF 65-70%; mod concentric LVH with impaired relaxation. Follow-up with primary care physician and cardiology after discharge (2) CHF (congestive heart failure) Current Visit: Yes Status: Acute Plan to address problem: TTE done 08/11/2019 showed EF 65-70%; mod concentric LVH with impaired relaxation Follow-up with cardiology in 1 to 2 weeks of discharge (3) Hypokalemia Current Visit: Yes Status: Acute Plan to address problem: Admit potassium 2.5 which was repleted and potassium was 3 on 05/10 05/10 repleted with 80 mEq of potassium p.o. Continue your home daily potassium (4) HLD (hyperlipidemia) Current Visit: No Status: Chronic Qualifiers: Hyperlipidemia type: mixed hyperlipidemia Qualified Code(s): E78.2 - Mixed hyperlipidemia Plan to address problem: Continue statin therapy (5) Paranoid schizophrenia Current Visit: No Status: Chronic Plan to address problem: Continue antipsychotic therapy (6) Debility Current Visit: No Status: Chronic Plan to address problem: Continue using current home aids to aid with ADLs Follow up with your primary care physician after discharge Disposition: DC-01 TO HOME OR SELFCARE Time spent for discharge: 45 Core Measure Documentation - Palliative Care Palliative Care/ Comfort Measures: Not Applicable - Core Measures Any of the following diagnoses?: history only Exam - Constitutional Vitals: Temp Pulse Resp BP Pulse Ox 99.3 F 79 16 116/68 97 05/10/20 04:29 05/10/20 12:30 05/10/20 12:58 05/10/20 04:29 05/10/20 12:30 General appearance: Present: no acute distress - EENT Eyes: Present: PERRL, EOM intact ENT: hearing intact, poor dentition - Neck Neck: Present: normal ROM - Respiratory Respiratory effort: normal Respiratory: bilateral: diminished (2/2 girth) - Cardiovascular Rhythm: regular Heart Sounds: Present: S1 & S2. Absent: systolic murmur, diastolic murmur - Extremities Extremities: no ischemia, pulses intact, pulses symmetrical, No edema, normal temperature, normal color Peripheral Pulses: within normal limits - Abdominal General gastrointestinal: Present: soft, non-tender, normal bowel sounds - Integumentary Integumentary: Present: clear, warm, dry - Musculoskeletal Musculoskeletal: generalized weakness - Psychiatric Psychiatric: appropriate mood/affect, cooperative - Neurologic Neurologic: CNII-XII intact, moves all extremities - Allied Health Allied health notes reviewed: nursing, case management Plan Activity: advance as tolerated Diet: low fat, low cholesterol, low salt, diabetic Special Instructions: record daily weights, record daily BP diary, record blood sugar diary Additional Instructions: Contact your primary care physician or present to nearest emergency department if experience worsening symptoms. You will be discharged with home health equipment that you have at home to aid you with ADLs. Follow-up with a primary care physician and cardiology and pulmonology within 1 to 2 weeks of discharge. Follow up with: PRIMARY CARE, [Primary Care Provider] - 3-5 Days Prescriptions: traZODone [Desyrel] 50 mg PO QHS #30 tab carvediloL [Coreg] 3.125 mg PO BID #60 tablet Gabapentin 300 mg PO TID #90 tab Aspirin EC [Halfprin EC] 81 mg PO DAILY #30 tablet ISOSORBIDE MONOnitrate [Imdur ER] 30 mg PO DAILY #30 tablet levETIRAcetam [Keppra TAB] 500 mg PO BID #60 tab clonazePAM [KlonoPIN] 0.5 mg PO BID PRN #60 tablet PRN Reason: Anxiety Potassium Chloride 20 meq PO BID #14 packet <JOYCE WEBER - Last Filed: 05/10/20 18:46> Providers - Providers Date of Admission: 05/10/20 00:54 Attending physician: JOYCE WEBER 05/10/20 02:02 Consult to Cardiology [CONS] Routine Consulting Provider: PAM RIOJAS Reason For Exam: CHF EXACERBATION, CHEST PAIN Consult to Dietitian/Nutrition [CONS] Routine Physician Instructions: Reason For Exam: Reason for Consult: Diet education Primary care physician: CHEF Exam - Constitutional Vitals: Temp Pulse Resp BP Pulse Ox 99.3 F 79 16 116/68 97 05/10/20 04:29 05/10/20 12:30 05/10/20 12:58 05/10/20 04:29 05/10/20 12:30
[2020-05-10] MEDS ORDERED: traZODone 50 MG TAB PO SCH (22:00)
[2020-05-11] MEDS ORDERED: ASPIRIN EC 325 MG TAB PO SCH (10:00)
== END 2020-05-10 18:56 | disposition home or self-care (01) ==
LOC: ED 15:31 → INTOOBSV 05-10 00:54 → 4A 05-10 00:54
PROVIDERS: ADMIT Internal Medicine Geriatric Medicine; ATTEND Internal Medicine
DX: J96.10 Chronic respiratory failure, unspecified whether with hypoxia or hypercapnia (principal); I21.4 Non-ST elevation (NSTEMI) myocardial infarction; I11.0 Hypertensive heart disease with heart failure; I50.9 Heart failure, unspecified; E87.6 Hypokalemia; F20.0 Paranoid schizophrenia; E78.5 Hyperlipidemia, unspecified; E11.9 Type 2 diabetes mellitus without complications; J44.9 Chronic obstructive pulmonary disease, unspecified; K21.9 Gastro-esophageal reflux disease without esophagitis; F20.9 Schizophrenia, unspecified; R74.8 Abnormal levels of other serum enzymes; R53.81 Other malaise; Z90.710 Acquired absence of both cervix and uterus; Z79.82 Long term (current) use of aspirin; Z79.4 Long term (current) use of insulin; Z87.442 Personal history of urinary calculi; Z95.1 Presence of aortocoronary bypass graft; Z86.711 Personal history of pulmonary embolism
CPT/HCPCS: 36415; 71045; 73502; 80048; 80053; 80061; 82962; 83735; 83880; 84484; 85014; 85018; 85025; 85520; 85610; 85730; 93005; 94760; 96365; 96366; 96375; 96376; 99291; G0378; J1644; J1940; J2270; J2405; J3480

== ENCOUNTER 2020-06-26 19:20 | Observation (INO) | payer MEDICARE ==
[2020-06-26] MEDS ORDERED: ASPIRIN 325 MG TAB PO ONE (20:52)
--- NOTE | 2020-06-26 21:04 | Emergency Department Report ---
ED Chest Pain HPI - General Chief Complaint: Chest Pain Stated Complaint: CHEST PAIN Time Seen by Provider: 06/26/20 20:51 Source: EMS Mode of arrival: Stretcher Limitations: No Limitations - History of Present Illness Initial Comments: This is a 54-year-old female who presents to the ED with chest pain, mid chest. Symptoms started today, about 3 hours prior to arrival, she took a baby aspirin and presented to the ED. She describes her pain as dull, no radiation, no relieving or exacerbating factors. She has chronic shortness of breath, is bedbound. Rates the pain as 9 out of 10, unaccompanied by diaphoresis, dizziness or syncope. Patient was admitted at [facility] the last week, had a diverticular abscess drained per daughter. Has complicated medical history, had an admission for chest pain on 09/11/2019 in this hospital, did not have any advanced procedures medical history include CAD status post multiple PCI's, hypertension, hyperlipidemia, diabetes, COPD, chronic respiratory failure with home O2, chronic steroid use, ANURAG, former smoker, obesity, seizure disorder, paranoid schizophrenia. 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 Appears comfortable laying in bed upon evaluation, answers question appropriately, for her medical history she does states to refer to her daughter. MD Complaint: chest pain -: Gradual, hour(s) (3) Onset: during rest Pain Location: left chest, right chest Severity scale (0 -10): 9 Quality: dull Consistency: constant Improves With: nothing Worsens With: nothing Context: recent illness re: denies: nausea, vomting, dyspnea, sense of impending doom Other Symptoms: denies: cough, fever - Related Data On Oral Contraceptives: No Home Medications Medication Instructions Recorded Confirmed Last Taken clonazePAM [KlonoPIN] 0.5 mg PO BID PRN 02/04/14 04/22/20 2 Days Ago ~04/20/20 Rosuvastatin (Nf) [Crestor] 20 mg PO QHS 01/21/17 04/22/20 2 Days Ago ~04/20/20 Furosemide 20 mg PO DAILY 09/17/19 04/22/20 2 Days Ago ~04/20/20 Insulin Detemir [Levemir VIAL] 10 unit SQ QHS 09/17/19 04/22/20 2 Days Ago ~04/20/20 LORazepam [Lorazepam] 0.5 mg PO BID PRN 09/17/19 04/22/20 2 Days Ago ~04/20/20 Pantoprazole 40 mg PO DAILY 09/17/19 04/22/20 2 Days Ago ~04/20/20 Previous Rx's Medication Instructions Recorded Last Taken Type Albuterol Mdi (or & Nicu Only) 2 puff IH QID PRN #1 inhalation 12/30/16 2 Days Ago Rx [ProAir HFA Inhaler] ~04/20/20 oxyCODONE /ACETAMINOPHEN [Percocet 1 tab PO Q6HR PRN #10 tablet 04/17/20 2 Days Ago Rx 5/325 mg] ~04/20/20 Acetaminophen [Acetaminophen TAB] 650 mg PO Q4H PRN tablet 05/10/20 Unknown Rx Aspirin EC [Halfprin EC] 81 mg PO DAILY #30 tablet 05/10/20 Unknown Rx Gabapentin 300 mg PO TID #90 tab 05/10/20 Unknown Rx ISOSORBIDE MONOnitrate [Imdur ER] 30 mg PO DAILY #30 tablet 05/10/20 Unknown Rx Potassium Chloride 20 meq PO BID #14 packet 05/10/20 Unknown Rx carvediloL [Coreg] 3.125 mg PO BID #60 tablet 05/10/20 Unknown Rx clonazePAM [KlonoPIN] 0.5 mg PO BID PRN #60 tablet 05/10/20 Unknown Rx levETIRAcetam [Keppra TAB] 500 mg PO BID #60 tab 05/10/20 Unknown Rx oxyCODONE /ACETAMINOPHEN [Percocet 1 tab PO Q6H PRN tablet 05/10/20 Unknown Rx 5/325 mg] traZODone [Desyrel] 50 mg PO QHS #30 tab 05/10/20 Unknown Rx Allergies Allergy/AdvReac Type Severity Reaction Status Date / Time coconut Allergy Hives Verified 08/23/19 16:35 haloperidol [From Haldol] Allergy Hives Verified 08/23/19 16:35 meperidine HCl [From Demerol] Allergy Rash Verified 08/23/19 16:35 nitroglycerin Allergy Hives Verified 08/23/19 16:35 NSAIDS (Non-Steroidal Allergy Unknown Verified 08/23/19 16:35 Anti-Inflamma tramadol Allergy Hives Verified 08/23/19 16:35 Heart Score - HEART Score History: Moderately suspicious EKG: Non-specific Age: 45-65 Risk factors: > 3 risk factors or hx of atherosclerotic disease ED Review of Systems ROS: Stated complaint: CHEST PAIN Other details as noted in HPI Constitutional: denies: chills, fever Eyes: denies: eye pain, eye discharge, vision change ENT: denies: ear pain, throat pain Respiratory: denies: cough, shortness of breath, wheezing Cardiovascular: chest pain. denies: palpitations Endocrine: no symptoms reported Gastrointestinal: denies: abdominal pain, nausea, diarrhea Genitourinary: denies: urgency, dysuria, discharge Musculoskeletal: denies: back pain, joint swelling, arthralgia Skin: denies: rash, lesions Neurological: denies: headache, weakness, paresthesias Psychiatric: denies: anxiety, depression Hematological/Lymphatic: denies: easy bleeding, easy bruising ED Past Medical Hx - Past Medical History Previous Medical History?: Yes Hx Hypertension: Yes Hx CVA: No Hx Heart Attack/AMI: Yes Hx Congestive Heart Failure: Yes Hx Diabetes: Yes Hx Deep Vein Thrombosis: No Hx Pulmonary Embolism: No Hx GERD: Yes Hx Liver Disease: No Hx Renal Disease: No Hx Sickle Cell Disease: No Hx Arthritis: Yes Hx Headaches / Migraines: No Hx Seizures: Yes Hx Kidney Stones: Yes Hx Psychiatric Treatment: Yes (paranoid schizophrenia /ANXIETY) Hx Asthma: Yes Hx COPD: Yes Hx Tuberculosis: No Hx Dementia: No Hx HIV: No Additional medical history: CAD. AFib - Surgical History Past Surgical History?: Yes Hx Coronary Stent: Yes (1) Hx Open Heart Surgery: No Hx Pacemaker: No Hx Internal Defibrillator: No Hx Cholecystectomy: Yes Hx Appendectomy: No Hx Breast Surgery: No Additional Surgical History: right knee surgery, left carpal tunnel surg, hysterectomy - Social History Smoking Status: Former Smoker Substance Use Type: None - Medications Home Medications: Home Medications Medication Instructions Recorded Confirmed Last Taken Type clonazePAM [KlonoPIN] 0.5 mg PO BID PRN 02/04/14 04/22/20 2 Days Ago History ~04/20/20 Albuterol Mdi (or & Nicu Only) 2 puff IH QID PRN #1 inhalation 12/30/16 04/22/20 2 Days Ago Rx [ProAir HFA Inhaler] ~04/20/20 Rosuvastatin (Nf) [Crestor] 20 mg PO QHS 01/21/17 04/22/20 2 Days Ago History ~04/20/20 Furosemide 20 mg PO DAILY 09/17/19 04/22/20 2 Days Ago History ~04/20/20 Insulin Detemir [Levemir VIAL] 10 unit SQ QHS 09/17/19 04/22/20 2 Days Ago History ~04/20/20 LORazepam [Lorazepam] 0.5 mg PO BID PRN 09/17/19 04/22/20 2 Days Ago History ~04/20/20 Pantoprazole 40 mg PO DAILY 09/17/19 04/22/20 2 Days Ago History ~04/20/20 oxyCODONE /ACETAMINOPHEN [Percocet 1 tab PO Q6HR PRN #10 tablet 04/17/20 04/22/20 2 Days Ago Rx 5/325 mg] ~04/20/20 Acetaminophen [Acetaminophen TAB] 650 mg PO Q4H PRN tablet 05/10/20 Unknown Rx Aspirin EC [Halfprin EC] 81 mg PO DAILY #30 tablet 05/10/20 Unknown Rx Gabapentin 300 mg PO TID #90 tab 05/10/20 Unknown Rx ISOSORBIDE MONOnitrate [Imdur ER] 30 mg PO DAILY #30 tablet 05/10/20 Unknown Rx Potassium Chloride 20 meq PO BID #14 packet 05/10/20 Unknown Rx carvediloL [Coreg] 3.125 mg PO BID #60 tablet 05/10/20 Unknown Rx clonazePAM [KlonoPIN] 0.5 mg PO BID PRN #60 tablet 05/10/20 Unknown Rx levETIRAcetam [Keppra TAB] 500 mg PO BID #60 tab 05/10/20 Unknown Rx oxyCODONE /ACETAMINOPHEN [Percocet 1 tab PO Q6H PRN tablet 05/10/20 Unknown Rx 5/325 mg] traZODone [Desyrel] 50 mg PO QHS #30 tab 05/10/20 Unknown Rx ED Physical Exam - General Limitations: No Limitations General appearance: alert, in no apparent distress - Head Head exam: Present: atraumatic, normocephalic - Eye Eye exam: Present: normal appearance - ENT ENT exam: Present: mucous membranes moist - Neck Neck exam: Present: normal inspection - Respiratory Respiratory exam: Present: normal lung sounds bilaterally. Absent: respiratory distress - Cardiovascular Cardiovascular Exam: Present: regular rate, normal rhythm. Absent: systolic murmur, diastolic murmur, rubs, gallop - GI/Abdominal GI/Abdominal exam: Present: soft, normal bowel sounds - Extremities Exam Extremities exam: Present: normal inspection - Back Exam Back exam: Present: normal inspection - Neurological Exam Neurological exam: Present: alert, oriented X3 - Psychiatric Psychiatric exam: Present: normal affect, normal mood - Skin Skin exam: Present: warm, dry, intact, normal color. Absent: rash ED Course Vital Signs 06/26/20 06/26/20 06/26/20 21:00 21:30 22:00 Temperature 98.4 F Pulse Rate 90 98 H Respiratory 20 25 H Rate Blood Pressure 105/58 118/76 O2 Sat by Pulse 99 99 99 Oximetry 06/26/20 06/26/20 06/27/20 22:09 23:00 00:00 Temperature Pulse Rate 97 H 89 92 H Respiratory 20 13 19 Rate Blood Pressure 118/76 111/69 111/69 O2 Sat by Pulse 100 99 100 Oximetry 06/27/20 06/27/20 06/27/20 01:00 02:00 03:00 Temperature Pulse Rate 90 79 81 Respiratory 16 10 L 9 L Rate Blood Pressure 107/65 106/53 102/62 O2 Sat by Pulse 100 100 100 Oximetry 06/27/20 04:00 Temperature Pulse Rate 90 Respiratory 11 L Rate Blood Pressure 109/62 O2 Sat by Pulse 100 Oximetry NATA score - Nata Score Age > 65: (0) No Aspirin use within the Past 7 Days: (1) Yes 3 or more CAD Risk Factors: (1) Yes 2 or more Angina events in past 24 hrs: (0) No Known CAD with more than 50% Stenosis: (1) Yes Elevated Cardiac Markers: (1) Yes ST Deviation Greater than 0.5mm: (0) No NATA Score: 4 ED Medical Decision Making - Lab Data Result diagrams: 06/26/20 21:48 06/26/20 21:48 - EKG Data -: EKG Interpreted by Nd EKG shows normal: sinus rhythm - EKG Data When compared to previous EKG there are: no significant change Interpretation: no acute changes, other 06/26/20 21:04 Ectopic atrial rhythm, rate 98. Prolonged QT interval, - Radiology Data Radiology results: report reviewed, image reviewed - Medical Decision Making 54-year-old female with multiple comorbidities, presented to ED with chest pain, Chest pain work-up including CBC, CMP, troponin, BNP, chest x-ray, Critical care attestation.: If time is entered above; I have spent that time in minutes in the direct care of this critically ill patient, excluding procedure time. ED Disposition Clinical Impression: Acute exacerbation of congestive heart failure Qualifiers: Heart failure type: systolic Qualified Code(s): I50.23 - Acute on chronic systolic (congestive) heart failure Disposition: OP ADMIT IP TO THIS HOSP Is pt being admited?: Yes Does the pt Need Aspirin: No Condition: Stable
--- NOTE | 2020-06-26 21:55 | XRay Report ---
CHEST 1 VIEW 06/26/2020 8:47 PM INDICATION / CLINICAL INFORMATION: Chest Pain. COMPARISON: 05/09/2020. FINDINGS: SUPPORT DEVICES: None. HEART / MEDIASTINUM: Stable cardiomegaly. LUNGS / PLEURA: There is increased retrocardiac density which is stable from prior examinations. No p neumothorax. ADDITIONAL FINDINGS: No significant additional findings. IMPRESSION: 1. Stable left lower lung density could reflect small pleural effusion or pleural thickening. Signer Name: Oliverio Seymour MD Signed: 06/26/2020 9:54 PM Workstation Name: [id number]
[2020-06-26] MEDS ORDERED: ONDANSETRON 4 MG/2 ML INJ IM ONE (22:12)
[2020-06-26] MEDS ORDERED: HYDROmorphone 1 MG/1 ML INJ IM ONE (22:12)
[2020-06-26 22:26] LABS: Basophils # (Auto) 0.1 K/mm3 (0.0-0.1); Eosinophils # (Auto) 0.1 K/mm3 (0.0-0.4); Eosinophils % (Auto) 0.9 % (0.0-4.3); Hematocrit 34.1 % (30.3-42.9); Hemoglobin 11.2 gm/dl (10.1-14.3); Lymphocytes # (Auto) 3.3 K/mm3 (1.2-5.4); Lymphocytes % (Auto) 24.4 % (13.4-35.0); Mean Corpuscular HGB Conc 33 % (30-34); Mean Corpuscular Volume 81 fl (79-97); Monocytes # (Auto) 0.7 K/mm3 (0.0-0.8); Monocytes % (Auto) 5.4 % (0.0-7.3); Platelet Count 448 K/mm3 (140-440); Red Blood Count 4.21 M/mm3 (3.65-5.03); Red Cell Distribution Width 15.4 % (13.2-15.2)
[2020-06-26 22:34] LABS: INR 1.71 (0.87-1.13)
[2020-06-26 22:35] LABS: Partial Thromboplastin Time 50.6 Sec. (24.2-36.6)
[2020-06-26 22:38] LABS: Alanine Aminotransferase 8 units/L (7-56); Albumin 3.3 g/dL (3.9-5); Blood Urea Nitrogen 6 mg/dL (7-17); Calcium 9.4 mg/dL (8.4-10.2); Hemolysis Index 1
[2020-06-26 22:43] LABS: BUN/Creatinine Ratio 9
[2020-06-26] MEDS ORDERED: POTASSIUM CHLORIDE 10 MEQ 10 MEQ/100 ML BAG IV SCH (23:00)
[2020-06-26 23:02] LABS: Chol/HDL Ratio 4.76 %; HDL Cholesterol 34 mg/dL (40-59); LDL Cholesterol,Direct 98 mg/dL (50-130)
[2020-06-26] MEDS ORDERED: POTASSIUM CHLORIDE 10 MEQ 10 MEQ/100 ML BAG IV ONE (23:39)
[2020-06-26] MEDS ORDERED: SODIUM CHLORIDE 0.9% 250ML 250 ML ONE (23:39)
[2020-06-27] MEDS ORDERED: SODIUM CHLORIDE 0.9% 250ML 250 ML ONE (01:03)
[2020-06-27] MEDS ORDERED: POTASSIUM CHLORIDE ER 20 MEQ TAB PO ONE (01:04)
[2020-06-27] MEDS ORDERED: ONDANSETRON 4 MG/2 ML INJ ONE (01:38)
[2020-06-27] MEDS ORDERED: HYDROmorphone 1 MG/1 ML INJ ONE (01:38)
[2020-06-27] MEDS ORDERED: HEPARIN 10,000 UNITS/10 ML VIAL IV ONE ×2 (04:30→07:30)
[2020-06-27] MEDS ORDERED: HYDROmorphone 1 MG/1 ML INJ IV PRN (04:35)
[2020-06-27] MEDS ORDERED: ONDANSETRON 4 MG/2 ML INJ IV PRN (04:39)
[2020-06-27] MEDS ORDERED: HEPARIN/ 0.45% NACL DRIP 25,000 UNIT/500 ML BAG IV SCH (05:00)
[2020-06-27 06:31] LABS: Hematocrit 31.3 % (30.3-42.9); Hemoglobin 10.6 gm/dl (10.1-14.3)
[2020-06-27 06:43] LABS: INR 1.72 (0.87-1.13)
[2020-06-27 06:44] LABS: Creatine Kinase MB 2.1 ng/mL (0.0-4.0); Partial Thromboplastin Time 47.7 Sec. (24.2-36.6)
[2020-06-27] MEDS: MORPHINE 2 MG/1 ML INJ IV PRN ×2 (07:00→11:54)
--- NOTE | 2020-06-27 07:17 | History and Physical Report ---
History of Present Illness Date of examination: 06/26/20 Date of admission: 06/26/20 23:03 Chief complaint: CHEST PAIN History of present illness: History of presenting illness, patient is a 54-year-old female who presented with retrosternal and precordial dull pain that started few hours prior to presentation, pain is nonradiating and is associated with shortness of breath but no diaphoresis and no nausea or vomiting. Patient took aspirin prior to coming to the hospital without relief of the pain patient states she was recently admitted at [facility] for a condition different from chest pain. Past History Past Medical History: arthritis, CAD, COPD, diabetes, GERD, heart failure, hypertension, other (ASTHMA, SCHIZOPHRENIA) Past Surgical History: cholecystectomy, Other (RIGHT KNEE PAIN , CARDIAC STENT, LEFT CARPAL ) Social history: no significant social history Family history: no significant family history Medications and Allergies Allergies Allergy/AdvReac Type Severity Reaction Status Date / Time coconut Allergy Hives Verified 08/23/19 16:35 haloperidol [From Haldol] Allergy Hives Verified 08/23/19 16:35 meperidine HCl [From Demerol] Allergy Rash Verified 08/23/19 16:35 nitroglycerin Allergy Hives Verified 08/23/19 16:35 NSAIDS (Non-Steroidal Allergy Unknown Verified 08/23/19 16:35 Anti-Inflamma tramadol Allergy Hives Verified 08/23/19 16:35 Home Medications Medication Instructions Recorded Confirmed Last Taken Type clonazePAM [KlonoPIN] 0.5 mg PO BID PRN 02/04/14 04/22/20 2 Days Ago History ~04/20/20 Albuterol Mdi (or & Nicu Only) 2 puff IH QID PRN #1 inhalation 12/30/16 04/22/20 2 Days Ago Rx [ProAir HFA Inhaler] ~04/20/20 Rosuvastatin (Nf) [Crestor] 20 mg PO QHS 01/21/17 04/22/20 2 Days Ago History ~04/20/20 Furosemide 20 mg PO DAILY 09/17/19 04/22/20 2 Days Ago History ~04/20/20 Insulin Detemir [Levemir VIAL] 10 unit SQ QHS 09/17/19 04/22/20 2 Days Ago History ~04/20/20 LORazepam [Lorazepam] 0.5 mg PO BID PRN 09/17/19 04/22/20 2 Days Ago History ~04/20/20 Pantoprazole 40 mg PO DAILY 09/17/19 04/22/20 2 Days Ago History ~04/20/20 oxyCODONE /ACETAMINOPHEN [Percocet 1 tab PO Q6HR PRN #10 tablet 04/17/20 04/22/20 2 Days Ago Rx 5/325 mg] ~04/20/20 Acetaminophen [Acetaminophen TAB] 650 mg PO Q4H PRN tablet 05/10/20 Unknown Rx Aspirin EC [Halfprin EC] 81 mg PO DAILY #30 tablet 05/10/20 Unknown Rx Gabapentin 300 mg PO TID #90 tab 05/10/20 Unknown Rx ISOSORBIDE MONOnitrate [Imdur ER] 30 mg PO DAILY #30 tablet 05/10/20 Unknown Rx Potassium Chloride 20 meq PO BID #14 packet 05/10/20 Unknown Rx carvediloL [Coreg] 3.125 mg PO BID #60 tablet 05/10/20 Unknown Rx clonazePAM [KlonoPIN] 0.5 mg PO BID PRN #60 tablet 05/10/20 Unknown Rx levETIRAcetam [Keppra TAB] 500 mg PO BID #60 tab 05/10/20 Unknown Rx oxyCODONE /ACETAMINOPHEN [Percocet 1 tab PO Q6H PRN tablet 05/10/20 Unknown Rx 5/325 mg] traZODone [Desyrel] 50 mg PO QHS #30 tab 05/10/20 Unknown Rx Active Meds: Active Medications Aspirin (Aspirin) 325 mg PO QDAY [facility] Heparin Sodium (Porcine) (Heparin 10,000 Units/10 Ml) 4,000 unit IV ONCE ONE Stop: 06/27/20 07:31 Last Admin: 06/27/20 06:50 Dose: 4,000 unit Documented by: Hydromorphone HCl (Dilaudid) 0.5 mg IV Q3H PRN PRN Reason: Pain , Severe (7-10) Heparin Sodium/Sodium Chloride (Heparin/ 0.45% Nacl-25,000 Unit/500 Ml) 25,000 unit in 500 mls @ 20 mls/hr IV TITRATE MARTHA; Protocol Last Admin: 06/27/20 06:50 Dose: 1,000 units/hr, 20 mls/hr Documented by: Morphine Sulfate (Morphine) 2 mg IV Q3H PRN PRN Reason: Pain, Moderate (4-6) Last Admin: 06/27/20 07:00 Dose: 2 mg Documented by: Ondansetron HCl (Zofran) 4 mg IV Q8H PRN PRN Reason: Nausea And Vomiting Review of Systems Constitutional: weakness, no fever, no chills, no sweats, no night sweats, no fatigue Eyes: bilateral: other (NO BILATERAL EYE SYMPTOMS) Ears, nose, mouth and throat: no ear pain Breasts: deferred Cardiovascular: chest pain, shortness of breath, no orthopnea, no palpitations, no rapid/irregular heart beat, no edema, no syncope, no lightheadedness Respiratory: shortness of breath, dyspnea on exertion, no cough, no cough with sputum, no excessive sputum, no congestion, no wheezing Gastrointestinal: no abdominal pain, no nausea, no vomiting, no diarrhea, no constipation, no change in bowel habits, no hematemesis, no melena, no hematochezia, no loss of appetite Integumentary: no rash, no pruritis, no redness, no sores, no wounds, no jaundice Neurological: no paralysis, no weakness, no parathesias, no numbness, no vertigo, no headaches, no migraines, no convulsions, no change in speech, no confusion Endocrine: no polydipsia, no polyuria, no nocturia, no excessive sweating, no palpatations Hematologic/Lymphatic: no easy bruising, no easy bleeding Exam - Constitutional Vitals: Temp Pulse Resp BP Pulse Ox 98.4 F 90 11 L 109/62 100 06/26/20 21:00 06/27/20 04:00 06/27/20 04:00 06/27/20 04:00 06/27/20 04:00 General appearance: Present: no acute distress - EENT Eyes: Present: PERRL, EOM intact ENT: hearing intact, clear oral mucosa - Neck Neck: Present: supple, normal ROM - Cardiovascular Rhythm: regular Heart Sounds: Present: S1 & S2. Absent: gallop, systolic murmur, diastolic murmur, click - Extremities Extremities: no ischemia, No edema Peripheral Pulses: within normal limits - Abdominal General gastrointestinal: Present: soft, non-tender, non-distended. Absent: tender, distended, rigid, hepatomegaly, splenomegaly Female genitourinary: Present: deferred - Rectal Rectal Exam: deferred - Integumentary Integumentary: Present: clear, warm, dry. Absent: erythema - Musculoskeletal Musculoskeletal: strength equal bilaterally - Psychiatric Psychiatric: appropriate mood/affect HEART Score - HEART Score EKG: Non-specific Age: 45-65 Risk factors: > 3 risk factors or hx of atherosclerotic disease Troponin: Troponin T 0.063 ng/mL (0.00-0.029) H 06/27/20 05:33 - Critical Actions Critical Actions: 4-6 pts:12-16.6% risk of adverse cardiac event. Should be admitted (PATIENT UNDERGOING WORK UP FOR CHEST PAIN) Results - Labs CBC & Chem 7: 06/27/20 05:33 06/26/20 21:48 Labs: Laboratory Last Values WBC 13.7 K/mm3 (4.5-11.0) H 06/26/20 21:48 RBC 4.21 M/mm3 (3.65-5.03) 06/26/20 21:48 Hgb 10.6 gm/dl (10.1-14.3) 06/27/20 05:33 Hct 31.3 % (30.3-42.9) 06/27/20 05:33 MCV 81 fl (79-97) 06/26/20 21:48 MCH 27 pg (28-32) L 06/26/20 21:48 MCHC 33 % (30-34) 06/26/20 21:48 RDW 15.4 % (13.2-15.2) H 06/26/20 21:48 Plt Count 428 K/mm3 (140-440) 06/27/20 05:33 Lymph % (Auto) 24.4 % (13.4-35.0) 06/26/20 21:48 [place] % (Auto) 5.4 % (0.0-7.3) 06/26/20 21:48 Eos % (Auto) 0.9 % (0.0-4.3) 06/26/20 21:48 Baso % (Auto) 1.0 % (0.0-1.8) 06/26/20 21:48 Lymph # (Auto) 3.3 K/mm3 (1.2-5.4) 06/26/20 21:48 [place] # (Auto) 0.7 K/mm3 (0.0-0.8) 06/26/20 21:48 Eos # (Auto) 0.1 K/mm3 (0.0-0.4) 06/26/20 21:48 Baso # (Auto) 0.1 K/mm3 (0.0-0.1) 06/26/20 21:48 Seg Neutrophils % 68.3 % (40.0-70.0) 06/26/20 21:48 Seg Neutrophils # 9.4 K/mm3 (1.8-7.7) H 06/26/20 21:48 PT 20.4 Sec. (12.2-14.9) H 06/27/20 05:33 INR 1.72 (0.87-1.13) H 06/27/20 05:33 APTT 47.7 Sec. (24.2-36.6) H 06/27/20 05:33 Sodium 133 mmol/L (137-145) L 06/26/20 21:48 Potassium 2.5 mmol/L (3.6-5.0) L* 06/26/20 21:48 Chloride 93.0 mmol/L (98-107) L 06/26/20 21:48 Carbon Dioxide 26 mmol/L (22-30) 06/26/20 21:48 Anion Gap 17 mmol/L 06/26/20 21:48 BUN 6 mg/dL (7-17) L 06/26/20 21:48 Creatinine 0.7 mg/dL (0.6-1.2) 06/26/20 21:48 Estimated GFR > 60 ml/min 06/26/20 21:48 BUN/Creatinine Ratio 9 % 06/26/20 21:48 Glucose 105 mg/dL (65-100) H 06/26/20 21:48 Calcium 9.4 mg/dL (8.4-10.2) 06/26/20 21:48 Total Bilirubin 0.30 mg/dL (0.1-1.2) 06/26/20 21:48 AST 16 units/L (5-40) 06/26/20 21:48 ALT 8 units/L (7-56) 06/26/20 21:48 Alkaline Phosphatase 167 units/L (35-129) H 06/26/20 21:48 Total Creatine Kinase 23 units/L (30-135) L 06/27/20 05:33 CK-MB (CK-2) 2.1 ng/mL (0.0-4.0) 06/27/20 05:33 CK-MB (CK-2) Rel Index 9.1 (0-4) H 06/27/20 05:33 Troponin T 0.063 ng/mL (0.00-0.029) H 06/27/20 05:33 NT-Pro-B Natriuret Pep 2058 pg/mL (0-900) H 06/26/20 22:58 Total Protein 7.8 g/dL (6.3-8.2) 06/26/20 21:48 Albumin 3.3 g/dL (3.9-5) L 06/26/20 21:48 Albumin/Globulin Ratio 0.7 % 06/26/20 21:48 Triglycerides 245 mg/dL (2-149) H 06/26/20 21:48 Cholesterol 162 mg/dL (50-199) 06/26/20 21:48 LDL Cholesterol Direct 98 mg/dL (50-130) 06/26/20 21:48 HDL Cholesterol 34 mg/dL (40-59) L 06/26/20 21:48 Cholesterol/HDL Ratio 4.76 % 06/26/20 21:48 Lipase 9 units/L (13-60) L 06/26/20 21:48 Assessment and Plan - Patient Problems (1) NSTEMI (non-ST elevated myocardial infarction) Current Visit: Yes Status: Acute Plan to address problem: 1. I.V HEPARIN DRIP 2. ASPIRIN PO 3. CARDIOLOGY CONSULT 4. TYLENOL PO FOR HEADACHE 5. I.V MORPHINE FOR PAIN 6. I.V ZOFRAN FOR NAUSEA AND VOMITING 7. SERIAL CARDIAC ENZYMES 8. PATIENT ALLERGIC TO NITROGLYCERIN (2) Hypokalemia Current Visit: Yes Status: Acute Plan to address problem: 1. 1.V KCL REPLACEMENT 2. STAT MAGNESIUM LEVEL
[2020-06-27 08:15] VITALS: BP 102/60
[2020-06-27] MEDS ORDERED: ASPIRIN 325 MG TAB PO SCH (10:00)
--- NOTE | 2020-06-27 11:24 | Consultation ---
History of Present Illness Consult date: 06/27/20 Requesting physician: OSMIN HOANG Consult reason: elevated troponin History of present illness: The pt is a 53-year-old female with a past medical history of CAD, prior NSTEMI s/p mid LAD stent 02/2016, PE and DVT (discharged on Eliquis per [place] discharge summary 10/2019), HFpEF, hypokalemia, HTN, HLP, DM, COPD, chronic respiratory failure requiring home O2, chronic steroid use, ANURAG, former smoker, obesity, seizure disorder (last seizure many years ago per pt report), paranoid schizophrenia. She has been seen by our practice on multiple prior hospitalizations and was last seen in our office by Dr. Lowery in October 2018. She presented with c/o chest pain for several hours prior to presentation. She describes her chest pain as an intermittent, nonradiating, nonexertional dull substernal pain which is associated with some SOB. She denies any palpitations, n/v, diaphoresis, dizziness or syncope. She states she was recently admitted at [facility] for a condition different from chest pain. LHC done 08/30/2019 showed L main patent, LAD mid patent, circumflex patent, RCA patent, normal LV function. Lexiscan MPI stress test done 04/23/2020 was TDS due to pt's inability to lie still, no significant ischemia noted, normal LVEF. tte done 08/11/2019 showed EF 65-70%; mod concentric LVH; impaired relaxation. Past History Past Medical History: arthritis, CAD, COPD, diabetes, GERD, heart failure, hypertension, other (ASTHMA, SCHIZOPHRENIA) Past Surgical History: cholecystectomy, Other (RIGHT KNEE PAIN , CARDIAC STENT, LEFT CARPAL ) Social history: no significant social history Family history: no significant family history Medications and Allergies Allergies Allergy/AdvReac Type Severity Reaction Status Date / Time coconut Allergy Hives Verified 08/23/19 16:35 haloperidol [From Haldol] Allergy Hives Verified 08/23/19 16:35 meperidine HCl [From Demerol] Allergy Rash Verified 08/23/19 16:35 nitroglycerin Allergy Hives Verified 08/23/19 16:35 NSAIDS (Non-Steroidal Allergy Unknown Verified 08/23/19 16:35 Anti-Inflamma tramadol Allergy Hives Verified 08/23/19 16:35 Home Medications Medication Instructions Recorded Confirmed Last Taken Type clonazePAM [KlonoPIN] 0.5 mg PO BID PRN 02/04/14 04/22/20 2 Days Ago History ~04/20/20 Albuterol Mdi (or & Nicu Only) 2 puff IH QID PRN #1 inhalation 12/30/16 04/22/20 2 Days Ago Rx [ProAir HFA Inhaler] ~04/20/20 Rosuvastatin (Nf) [Crestor] 20 mg PO QHS 01/21/17 04/22/20 2 Days Ago History ~04/20/20 Furosemide 20 mg PO DAILY 09/17/19 04/22/20 2 Days Ago History ~04/20/20 Insulin Detemir [Levemir VIAL] 10 unit SQ QHS 09/17/19 04/22/20 2 Days Ago History ~04/20/20 LORazepam [Lorazepam] 0.5 mg PO BID PRN 09/17/19 04/22/20 2 Days Ago History ~04/20/20 Pantoprazole 40 mg PO DAILY 09/17/19 04/22/20 2 Days Ago History ~04/20/20 oxyCODONE /ACETAMINOPHEN [Percocet 1 tab PO Q6HR PRN #10 tablet 04/17/20 04/22/20 2 Days Ago Rx 5/325 mg] ~04/20/20 Acetaminophen [Acetaminophen TAB] 650 mg PO Q4H PRN tablet 05/10/20 Unknown Rx Aspirin EC [Halfprin EC] 81 mg PO DAILY #30 tablet 05/10/20 Unknown Rx Gabapentin 300 mg PO TID #90 tab 05/10/20 Unknown Rx ISOSORBIDE MONOnitrate [Imdur ER] 30 mg PO DAILY #30 tablet 05/10/20 Unknown Rx Potassium Chloride 20 meq PO BID #14 packet 05/10/20 Unknown Rx carvediloL [Coreg] 3.125 mg PO BID #60 tablet 05/10/20 Unknown Rx clonazePAM [KlonoPIN] 0.5 mg PO BID PRN #60 tablet 05/10/20 Unknown Rx levETIRAcetam [Keppra TAB] 500 mg PO BID #60 tab 05/10/20 Unknown Rx oxyCODONE /ACETAMINOPHEN [Percocet 1 tab PO Q6H PRN tablet 05/10/20 Unknown Rx 5/325 mg] traZODone [Desyrel] 50 mg PO QHS #30 tab 05/10/20 Unknown Rx Active Meds: Active Medications Aspirin (Aspirin) 325 mg PO QDAY [facility] Last Admin: 06/27/20 10:44 Dose: 325 mg Documented by: Hydromorphone HCl (Dilaudid) 0.5 mg IV Q3H PRN PRN Reason: Pain , Severe (7-10) Heparin Sodium/Sodium Chloride (Heparin/ 0.45% Nacl-25,000 Unit/500 Ml) 25,000 unit in 500 mls @ 20 mls/hr IV TITRATE [facility]; Protocol Last Admin: 06/27/20 06:50 Dose: 1,000 units/hr, 20 mls/hr Documented by: Potassium Chloride (Kcl 10meq/100ml) 10 meq in 100 mls @ 100 mls/hr IV Q1H [facility] Stop: 06/27/20 11:59 Morphine Sulfate (Morphine) 2 mg IV Q3H PRN PRN Reason: Pain, Moderate (4-6) Last Admin: 06/27/20 07:00 Dose: 2 mg Documented by: Ondansetron HCl (Zofran) 4 mg IV Q8H PRN PRN Reason: Nausea And Vomiting Review of Systems Constitutional: no weight loss, no weight gain, no fever, no chills, no sweats Ears, nose, mouth and throat: no ear pain, no nose pain, no sinus pressure, no sinus pain Cardiovascular: chest pain, shortness of breath, no orthopnea, no palpitations, no rapid/irregular heart beat, no edema, no syncope, no lightheadedness, no leg edema Respiratory: shortness of breath, no cough, no congestion, no wheezing, no pain on inspiration Gastrointestinal: no abdominal pain, no nausea, no vomiting, no diarrhea, no constipation Genitourinary Female: no pelvic pain, no flank pain, no dysuria, no urinary frequency, no urgency Musculoskeletal: no neck stiffness, no neck pain, no shooting arm pain, no arm numbness/tingling, no low back pain, no shooting leg pain Integumentary: no rash, no pruritis, no redness, no sores, no wounds Neurological: no head injury, no paralysis, no weakness, no parathesias, no numbness, no tingling, no seizures, no syncope Psychiatric: no anxiety Endocrine: no cold intolerance, no heat intolerance Hematologic/Lymphatic: no easy bruising, no easy bleeding Allergic/Immunologic: no urticaria Physical Examination Vital Signs Temp Pulse Resp BP Pulse Ox 98.4 F 90 20 105/58 98 06/26/20 21:00 06/26/20 21:00 06/26/20 21:00 06/26/20 21:00 06/26/20 21:00 General appearance: no acute distress HEENT: Positive: PERRL, Normocephaly, Mucus Membranes Moist Neck: Positive: neck supple, trachea midline Cardiac: Positive: Reg Rate and Rhythm, S1/S2 Lungs: Positive: Decreased Breath Sounds, Oxygen Neuro: Positive: Grossly Intact Abdomen: Negative: Tender Skin: Negative: Rash Musculoskeletal: No Pain Extremities: Absent: edema Results 06/27/20 05:33 06/26/20 21:48 Cardiac Enzymes 06/26/20 06/27/20 Range/Units 21:48 05:33 AST 16 (5-40) units/L CK-MB (CK-2) 2.1 (0.0-4.0) ng/mL Coagulation 06/26/20 06/27/20 Range/Units 21:48 05:33 PT 20.3 H 20.4 H (12.2-14.9) Sec. INR 1.71 H 1.72 H (0.87-1.13) APTT 50.6 H 47.7 H (24.2-36.6) Sec. Lipids 06/26/20 Range/Units 21:48 Triglycerides 245 H (2-149) mg/dL Cholesterol 162 (50-199) mg/dL HDL Cholesterol 34 L (40-59) mg/dL Cholesterol/HDL Ratio 4.76 % CBC 06/26/20 06/27/20 Range/Units 21:48 05:33 WBC 13.7 H (4.5-11.0) K/mm3 RBC 4.21 (3.65-5.03) M/mm3 Hgb 11.2 10.6 (10.1-14.3) gm/dl Hct 34.1 31.3 (30.3-42.9) % Plt Count 448 H 428 (140-440) K/mm3 Lymph # (Auto) 3.3 (1.2-5.4) K/mm3 [place] # (Auto) 0.7 (0.0-0.8) K/mm3 Eos # (Auto) 0.1 (0.0-0.4) K/mm3 Baso # (Auto) 0.1 (0.0-0.1) K/mm3 Comprehensive Metabolic Panel 06/26/20 Range/Units 21:48 Sodium 133 L (137-145) mmol/L Potassium 2.5 L* (3.6-5.0) mmol/L Chloride 93.0 L (98-107) mmol/L Carbon Dioxide 26 (22-30) mmol/L BUN 6 L (7-17) mg/dL Creatinine 0.7 (0.6-1.2) mg/dL Glucose 105 H (65-100) mg/dL Calcium 9.4 (8.4-10.2) mg/dL AST 16 (5-40) units/L ALT 8 (7-56) units/L Alkaline Phosphatase 167 H (35-129) units/L Total Protein 7.8 (6.3-8.2) g/dL Albumin 3.3 L (3.9-5) g/dL - Imaging and Cardiology Echo: report reviewed ( 08/11/2019 showed EF 65-70%; mod concentric LVH; impaired relaxation.) Cardiac cath: report reviewed (08/30/2019 showed L main patent, LAD mid patent, circumflex patent, RCA patent, normal LV function.) EKG: report reviewed, image reviewed EKG interpretations - Telemetry EKG Rhythm: Sinus Rhythm - EKG Sinus rhythms and dysrhythmias: sinus rhythm Assessment and Plan LHC done 08/30/2019 showed L main patent, LAD mid patent, circumflex patent, RCA patent, normal LV function. Lexiscan MPI stress test done 04/23/2020 was TDS due to pt's inability to lie still, no significant ischemia noted, normal LVEF. tte done 08/11/2019 showed EF 65-70%; mod concentric LVH; impaired relaxation. Currently stable cardiac status. ECG with NSR, NAF. Chest pain appears atypical. Minimal CE elevation appears chronic and currently nonspecific. Resume home cardiac regimen - consider addition of BB if BPs permit, pt has h/o hypotension requiring midodrine. Replete potassium. No plans for additional cardiac w/u at this time. Recommend resumption of home Eliquis per primary team. The patient has been seen in conjunction with Dr. Abrams who agrees with the assessment and plan of care. - Patient Problems (1) Chest pain Current Visit: Yes Status: Acute (2) Elevated troponin Current Visit: Yes Status: Chronic (3) CAD (coronary artery disease) Current Visit: Yes Status: Chronic Qualifiers: Coronary Disease-Associated Artery/Lesion type: [place] artery [place] vs. transplanted heart: [place] heart (4) Stented coronary artery Current Visit: Yes Status: Chronic (5) Hypokalemia Current Visit: Yes Status: Acute (6) COPD (chronic obstructive pulmonary disease) Current Visit: Yes Status: Chronic Qualifiers: (7) Chronic respiratory failure Current Visit: Yes Status: Chronic Qualifiers: (8) History of pulmonary embolism Current Visit: Yes Status: Chronic (9) Hypertension Current Visit: Yes Status: Chronic Qualifiers: Hypertension type: essential hypertension Qualified Code(s): I10 - Essential (primary) hypertension (10) Diabetes Current Visit: Yes Status: Chronic (11) Paranoid schizophrenia Current Visit: Yes Status: Chronic
[2020-06-27] MEDS: POTASSIUM CHLORIDE 10 MEQ 10 MEQ/100 ML BAG IV SCH ×2 (11:54→12:02)
[2020-06-27] MEDS ORDERED: MAGNESIUM SULFATE 2 GM/50 ML BAG IV ONE (12:00)
[2020-06-27] MEDS ORDERED: APIXABAN 5 MG TAB PO SCH (12:00)
[2020-06-27] MEDS ORDERED: POTASSIUM CHLORIDE ER 20 MEQ TAB PO SCH ×2 (12:33→13:00)
--- NOTE | 2020-06-27 12:36 | Discharge Summary ---
Providers - Providers Date of Admission: 06/26/20 23:03 Date of discharge: 06/27/20 Attending physician: BOSSMAN LINTON 06/27/20 06:00 Consult to Physician [CONS] Routine Comment: Consulting Provider: TORREY BUENROSTRO Physician Instructions: Reason For Exam: NSTEMI Primary care physician: [employer] Hospitalization Condition: Stable Hospital course: Discharge diagnosis: (1) Chest pain, likley GERD Current Visit: Yes Status: Acute (2) Elevated troponin Current Visit: Yes Status: Chronic (3) CAD (coronary artery disease) Current Visit: Yes Status: Chronic Qualifiers: Coronary Disease-Associated Artery/Lesion type: [place] artery [place] vs. transplanted heart: robinson heart (4) Stented coronary artery Current Visit: Yes Status: Chronic (5) Hypokalemia Current Visit: Yes Status: Acute (6) COPD (chronic obstructive pulmonary disease) Current Visit: Yes Status: Chronic Qualifiers: (7) Chronic respiratory failure Current Visit: Yes Status: Chronic Qualifiers: (8) History of pulmonary embolism Current Visit: Yes Status: Chronic (9) Hypertension Current Visit: Yes Status: Chronic Qualifiers: Hypertension type: essential hypertension Qualified Code(s): I10 - Essential (primary) hypertension (10) Diabetes Current Visit: Yes Status: Chronic (11) Paranoid schizophrenia Current Visit: Yes Status: Chronic Disposition: DC-01 TO HOME OR SELFCARE Time spent for discharge: 34 minutes Core Measure Documentation - Palliative Care Palliative Care/ Comfort Measures: Not Applicable - Core Measures Any of the following diagnoses?: history only Exam - Constitutional Vitals: Temp Pulse Resp BP Pulse Ox 98.7 F 89 18 102/60 99 06/27/20 07:39 06/27/20 07:52 06/27/20 07:39 06/27/20 07:39 06/27/20 07:52 Plan Activity: advance as tolerated Weight Bearing Status: Non-Weight Bearing Diet: low fat, low salt Special Instructions: restrict fluid intake to (1.5L per day), record daily weights, record blood sugar diary Follow up with: PRIMARY CARE, [Primary Care Provider] - 7 Days Prescriptions: Apixaban [Eliquis] 5 mg PO Q12HR #60 tablet
[2020-06-27 15:35] LABS: Blood Urea Nitrogen 8 mg/dL (7-17); Hemolysis Index 39
[2020-06-27 15:40] LABS: BUN/Creatinine Ratio 13
[2020-06-27] MEDS ORDERED: METOPROLOL TARTRATE 25 MG TAB PO SCH (22:00)
[2020-06-28] MEDS ORDERED: ASPIRIN EC 81 MG TAB PO SCH (10:00)
== END 2020-06-27 18:30 | disposition home or self-care (01) ==
LOC: ED 19:20 → 3A 23:03 → 4A 06-27 04:45
PROVIDERS: ADMIT Internal Medicine; ATTEND Internal Medicine
DX: E87.6 Hypokalemia (principal); I21.4 Non-ST elevation (NSTEMI) myocardial infarction; I25.10 Atherosclerotic heart disease of native coronary artery without angina pectoris; J44.9 Chronic obstructive pulmonary disease, unspecified; M19.90 Unspecified osteoarthritis, unspecified site; I11.0 Hypertensive heart disease with heart failure; I50.23 Acute on chronic systolic (congestive) heart failure; E11.9 Type 2 diabetes mellitus without complications; K21.9 Gastro-esophageal reflux disease without esophagitis; R56.9 Unspecified convulsions; I48.91 Unspecified atrial fibrillation; F20.0 Paranoid schizophrenia; J96.10 Chronic respiratory failure, unspecified whether with hypoxia or hypercapnia; R74.8 Abnormal levels of other serum enzymes; Z90.49 Acquired absence of other specified parts of digestive tract; Z95.1 Presence of aortocoronary bypass graft; Z98.890 Other specified postprocedural states; Z79.4 Long term (current) use of insulin; Z79.82 Long term (current) use of aspirin; Z87.442 Personal history of urinary calculi; Z87.891 Personal history of nicotine dependence; Z90.710 Acquired absence of both cervix and uterus; Z86.711 Personal history of pulmonary embolism
CPT/HCPCS: 36415; 71045; 80048; 80053; 80061; 82550; 82553; 83690; 83735; 83880; 84484; 85014; 85018; 85025; 85049; 85520; 85610; 85730; 93005; 94760; 96365; 96366; 96367; 96368; 96372; 96375; 96376; 99285; G0378; J1170; J1644; J2270; J2405; J3475; J3480; J7050; 85007; 96361

== ENCOUNTER 2020-08-05 16:37 | Observation (INO) | payer MEDICARE ==
[2020-08-05] MEDS ORDERED: ONDANSETRON 4 MG/2 ML INJ IV ONE (23:09)
[2020-08-05] MEDS ORDERED: MORPHINE 4 MG/1 ML INJ IV ONE (23:09)
--- NOTE | 2020-08-05 23:14 | Emergency Department Report ---
HPI - General Time Seen by Provider: 08/05/20 22:55 - HPI HPI: Room 8 The patient is a 54-year-old female present with a chief complaint of chest pain. The patient states her symptoms began this morning with intermittent substernal chest pain described as burning aching and sharp in nature. Patient admits to shortness of breath with her chest pain. Patient states she has had a cough has been occasionally productive for the past 2 to 3 days. Patient denies history of fever at home but she was found to be febrile in the ED. The patient states approximate 1 week ago she was in contact with family members who eventually were diagnosed with COVID-19. Patient has a history of coronary artery disease and previous stents ED Past Medical Hx - Past Medical History Hx Hypertension: Yes Hx Heart Attack/AMI: Yes Hx Congestive Heart Failure: Yes Hx Diabetes: Yes Hx GERD: Yes Hx Arthritis: Yes Hx Seizures: Yes Hx Kidney Stones: Yes Hx Psychiatric Treatment: Yes (paranoid schizophrenia /ANXIETY) Hx Asthma: Yes Hx COPD: Yes (3 L nasal cannula home O2) Additional medical history: CAD. AFib - Surgical History Hx Coronary Stent: Yes (1) Hx Cholecystectomy: Yes Additional Surgical History: right knee surgery, left carpal tunnel surg, hysterectomy - Family History Family history: no significant - Social History Smoking Status: Former Smoker (None x1 year) Substance Use Type: None (Denies illicit drug use) - Medications Home Medications: Home Medications Medication Instructions Recorded Confirmed Last Taken Type Albuterol Mdi (or & Nicu Only) 2 puff IH QID PRN #1 inhalation 12/30/16 06/27/20 06/26/20 19:00 Rx [ProAir HFA Inhaler] Rosuvastatin (Nf) [Crestor] 20 mg PO QHS 01/21/17 06/27/20 2 Days Ago History ~04/20/20 Furosemide 20 mg PO DAILY 09/17/19 06/27/20 06/26/20 10:00 History Insulin Detemir [Levemir VIAL] 10 unit SQ QHS 09/17/19 06/27/20 2 Days Ago His tory ~04/20/20 Pantoprazole 40 mg PO DAILY 09/17/19 06/27/20 06/26/20 10:00 History Acetaminophen [Acetaminophen TAB] 650 mg PO Q4H PRN tablet 05/10/20 06/27/2020 10:00 Rx Aspirin EC [Halfprin EC] 81 mg PO DAILY #30 tablet 05/10/20 06/27/20 06/26/20 10:00 Rx Gabapentin 300 mg PO TID #90 tab 05/10/20 06/27/20 06/26/20 19:00 Rx ISOSORBIDE MONOnitrate [Imdur ER] 30 mg PO DAILY #30 tablet 05/10/20 06/27/20 06/26/20 10:00 Rx Potassium Chloride 20 meq PO BID #14 packet 05/10/20 06/27/20 06/26/20 19:00 Rx carvediloL [Coreg] 3.125 mg PO BID #60 tablet 05/10/20 06/27/20 Unknown Rx levETIRAcetam [Keppra TAB] 500 mg PO BID #60 tab 05/10/20 06/27/20 Unknown Rx traZODone [Desyrel] 50 mg PO QHS #30 tab 05/10/20 06/27/20 06/26/20 17:00 Rx Apixaban [Eliquis] 5 mg PO Q12HR #60 tablet 06/27/20 Unknown Rx ED Review of Systems ROS: Stated complaint: CHEST PAIN Other details as noted in HPI Constitutional: denies: fever Eyes: denies: eye pain ENT: denies: throat pain Respiratory: cough, shortness of breath Cardiovascular: chest pain Endocrine: no symptoms reported Gastrointestinal: denies: abdominal pain Genitourinary: denies: dysuria Musculoskeletal: denies: back pain Neurological: denies: headache Physical Exam - Physical Exam Physical Exam: GENERAL: The patient is well-developed well-nourished female lying on stretcher not appearing to be in acute distress. [] HEENT: Normocephalic. Atraumatic. Extraocular motions are intact. Patient has moist mucous membranes. NECK: Supple. Trachea midline CHEST/LUNGS: Clear to auscultation. There is no respiratory distress noted. HEART/CARDIOVASCULAR: Regular. There is no tachycardia. There is no gallop rub or murmur. ABDOMEN: Abdomen is soft, nontender. Patient has normal bowel sounds. There is no abdominal distention. SKIN: There is no rash. There is no diaphoresis. NEURO: The patient is awake, alert, and oriented. The patient is cooperative. The patient has normal speech MUSCULOSKELETAL: There is no evidence of acute injury. ED Medical Decision Making - Lab Data Result diagrams: 08/06/20 00:00 08/06/20 00:00 Laboratory Tests 08/06/20 08/06/20 08/06/20 00:00 00:00 00:00 WBC 15.4 H RBC 4.02 Hgb 11.3 Hct 32.3 MCV 81 MCH 28 MCHC 35 H RDW 15.0 Plt Count 314 Lymph % (Auto) 13.2 L [place] % (Auto) 3.8 Eos % (Auto) 0.3 Baso % (Auto) 0.3 Lymph # (Auto) 2.0 [place] # (Auto) 0.6 Eos # (Auto) 0.0 Baso # (Auto) 0.1 Seg Neutrophils % 82.4 H Seg Neutrophils # 12.7 H PT 16.0 H INR 1.28 H Sodium 139 Potassium 2.6 L* Chloride 100.4 Carbon Dioxide 23 Anion Gap 18 BUN 18 H Creatinine 0.5 L Estimated GFR > 60 BUN/Creatinine Ratio 36 Glucose 143 H Lactic Acid Calcium 10.6 H Total Creatine Kinase 33 CK-MB (CK-2) 3.1 CK-MB (CK-2) Rel Index 9.3 H Troponin T 0.026 NT-Pro-B Natriuret Pep 1517 H 08/06/20 00:00 WBC RBC Hgb Hct MCV MCH MCHC RDW Plt Count Lymph % (Auto) [place] % (Auto) Eos % (Auto) Baso % (Auto) Lymph # (Auto) [place] # (Auto) Eos # (Auto) Baso # (Auto) Seg Neutrophils % Seg Neutrophils # PT INR Sodium Potassium Chloride Carbon Dioxide Anion Gap BUN Creatinine Estimated GFR BUN/Creatinine Ratio Glucose Lactic Acid 3.00 H* Calcium Total Creatine Kinase CK-MB (CK-2) CK-MB (CK-2) Rel Index Troponin T NT-Pro-B Natriuret Pep - EKG Data -: EKG Interpreted by Me EKG shows normal: sinus rhythm Rate: normal - EKG Data When compared to previous EKG there are: previous EKG unavailable Interpretation: nonspecific ST-T wave tara - Radiology Data Radiology results: report reviewed (Chest x-ray), image reviewed (Chest x-ray) interpreted by me: Chest [id number]. Cardiomegaly. Chest x-ray (read by radiologist)-patient is moderately rotated. Density in the left base is unchanged. Left pleural effusion versus scarring is unchanged. Right lung field is clear. No pneumothorax. - Differential Diagnosis ACS, pericarditis, GERD, pneumonia, COVID-19 Critical care attestation.: If time is entered above; I have spent that time in minutes in the direct care of this critically ill patient, excluding procedure time. ED Disposition Clinical Impression: Chest pain, Hypokalemia Disposition: OP ADMIT IP TO THIS HOSP Is pt being admited?: Yes Does the pt Need Aspirin: No Condition: Stable Instructions: Chest Pain (ED) Referrals: PRIMARY CARE,MD [Primary Care Provider] - 3-5 Days Time of Disposition: 01:19 (Hospitalist paged (Dr Raymond))
[2020-08-06 00:21] LABS: Basophils # (Auto) 0.1 K/mm3 (0.0-0.1); Basophils % (Auto) 0.3 % (0.0-1.8); Eosinophils % (Auto) 0.3 % (0.0-4.3); Hematocrit 32.3 % (30.3-42.9); Hemoglobin 11.3 gm/dl (10.1-14.3); Lymphocytes % (Auto) 13.2 % (13.4-35.0); Mean Corpuscular HGB Conc 35 % (30-34); Mean Corpuscular Volume 81 fl (79-97); Monocytes # (Auto) 0.6 K/mm3 (0.0-0.8); Monocytes % (Auto) 3.8 % (0.0-7.3); Platelet Count 314 K/mm3 (140-440); Red Blood Count 4.02 M/mm3 (3.65-5.03)
[2020-08-06 00:31] LABS: INR 1.28 (0.87-1.13)
[2020-08-06 00:45] LABS: Creatine Kinase MB 3.1 ng/mL (0.0-4.0)
[2020-08-06 00:46] LABS: Blood Urea Nitrogen 18 mg/dL (7-17); Calcium 10.6 mg/dL (8.4-10.2); Hemolysis Index 0
[2020-08-06 00:49] LABS: BUN/Creatinine Ratio 36
--- NOTE | 2020-08-06 00:51 | XRay Report ---
CHEST 1 VIEW 0016 INDICATION / CLINICAL INFORMATION: chest pain COMPARISON: 06/26/2020 FINDINGS: SUPPORT DEVICES: None HEART / MEDIASTINUM: Stable LUNGS / PLEURA: Patient is moderately rotated. Density in the left base is unchanged. Left pleural ef fusion versus scarring is unchanged. Right lung field is clear. No pneumothorax. ADDITIONAL FINDINGS: No significant additional findings. Signer Name: Erasmo Muhammad MD Signed: 08/06/2020 12:47 AM Workstation Name: [id number]
[2020-08-06] MEDS ORDERED: POTASSIUM CHLORIDE ER 20 MEQ TAB PO ONE ×2 (00:59→19:59)
[2020-08-06] MEDS ORDERED: cefTRIAXone/NS 1 GM/50 ML 1 GM/50 ML BAG IV ONE (01:02)
[2020-08-06] MEDS ORDERED: MORPHINE 2 MG/1 ML INJ ONE (01:34)
[2020-08-06] MEDS ORDERED: MORPHINE 4 MG/1 ML INJ ONE ×2 (01:34→01:47)
[2020-08-06] MEDS ORDERED: ONDANSETRON 4 MG/2 ML INJ ONE ×2 (01:34→01:37)
[2020-08-06] MEDS ORDERED: AZITHROMYCIN 500 MG in SODIUM CHLORIDE 0.9% 250ML 250 ML IV ONE (01:42)
[2020-08-06] MEDS: POTASSIUM CHLORIDE 10 MEQ 10 MEQ/100 ML BAG IV SCH ×4 (01:50→04:07)
[2020-08-06 02:49] LABS: C-Reactive Protein 4.6 mg/dL (0.00-1.30)
[2020-08-06] MEDS ORDERED: ACETAMINOPHEN 325 MG TAB PO PRN ×2 (02:49)
[2020-08-06] MEDS ORDERED: MAGNESIUM HYDROXIDE (MOM) ORAL LIQD UDC PO PRN (02:49)
--- NOTE | 2020-08-06 03:14 | History and Physical Report ---
History of Present Illness Date of examination: 08/06/20 Date of admission: 08/06/20 01:23 Chief complaint: Chest Pain Cough Fever History of present illness: 54-year-old female with known history of coronary artery disease, hypertension, GERD and asthma presenting to the emergency room today complaining of chest pain. Chest pain was central started this morning and has been intermittent. Pain is substernal and sharp in nature. There has been no radiation. She has had associated shortness of breath, no nausea or vomiting, no headache or dizziness, no diaphoresis. Patient also indicates that she has had occasional productive cough for the past 2 to 3 days. She has had a low-grade fever which has since subsided. She admits that she has been in contact with some family members who were diagnosed with COVID-19 about a week ago. She had no recent travel. Work-up in the emergency room today was significant for leukocytosis of 15, hypokalemia of 2.6. Chest x-ray: Density in the left lung base is unchanged. Troponin has been negative. Patient is being admitted for chest pain and we also commenced treatment for possible underlying pneumonia. Past History Past Medical History: CAD, diabetes, GERD, hypertension, hyperlipidemia, other (Asthma, schizophrenia, history of kidney stones) Past Surgical History: hysterectomy, PTCA, Other (Hypertension surgery, right knee surgery) Social history: no significant social history Family history: no significant family history Medications and Allergies Allergies Allergy/AdvReac Type Severity Reaction Status Date / Time coconut Allergy Hives Verified 08/23/19 16:35 haloperidol [From Haldol] Allergy Hives Verified 08/23/19 16:35 meperidine HCl [From Demerol] Allergy Rash Verified 08/23/19 16:35 nitroglycerin Allergy Hives Verified 08/23/19 16:35 NSAIDS (Non-Steroidal Allergy Unknown Verified 08/23/19 16:35 Anti-Inflamma tramadol Allergy Hives Verified 08/23/19 16:35 Home Medications Medication Instructions Recorded Confirmed Last Taken Type Albuterol Mdi (or & Nicu Only) 2 puff IH QID PRN #1 inhalation 12/30/16 06/27/20 06/26/20 19:00 Rx [ProAir HFA Inhaler] Rosuvastatin (Nf) [Crestor] 20 mg PO QHS 01/21/17 06/27/20 2 Days Ago History ~04/20/20 Furosemide 20 mg PO DAILY 09/17/19 06/27/20 06/26/20 10:00 History Insulin Detemir [Levemir VIAL] 10 unit SQ QHS 09/17/19 06/27/20 2 Days Ago History ~04/20/20 Pantoprazole 40 mg PO DAILY 09/17/19 06/27/20 06/26/20 10:00 History Acetaminophen [Acetaminophen TAB] 650 mg PO Q4H PRN tablet 05/10/20 06/27/20 06/26/20 10:00 Rx Aspirin EC [Halfprin EC] 81 mg PO DAILY #30 tablet 05/10/20 06/27/20 06/26/20 10:00 Rx Gabapentin 300 mg PO TID #90 tab 05/10/20 06/27/20 06/26/20 19:00 Rx ISOSORBIDE MONOnitrate [Imdur ER] 30 mg PO DAILY #30 tablet 05/10/20 06/27/20 06/26/20 10:00 Rx Potassium Chloride 20 meq PO BID #14 packet 05/10/20 06/27/20 06/26/20 19:00 Rx carvediloL [Coreg] 3.125 mg PO BID #60 tablet 05/10/20 06/27/20 Unknown Rx levETIRAcetam [Keppra TAB] 500 mg PO BID #60 tab 05/10/20 06/27/20 Unknown Rx traZODone [Desyrel] 50 mg PO QHS #30 tab 05/10/20 06/27/20 06/26/20 17:00 Rx Apixaban [Eliquis] 5 mg PO Q12HR #60 tablet 06/27/20 Unknown Rx Active Meds: Active Medications Potassium Chloride (Kcl 10meq/100ml) 10 meq in 100 mls @ 100 mls/hr IV Q1H MARTHA Stop: 08/06/20 04:59 Last Admin: 08/06/20 01:50 Dose: Not Given Documented by: Review of Systems Constitutional: fever, no chills Ears, nose, mouth and throat: no nasal congestion, no sore throat Cardiovascular: chest pain, no palpitations Respiratory: cough, shortness of breath Gastrointestinal: no abdominal pain, no nausea, no vomiting, no diarrhea Genitourinary Female: no flank pain, no dysuria, no hematuria Musculoskeletal: no neck pain, no low back pain Integumentary: no rash, no pruritis Neurological: no headaches, no confusion Exam - Constitutional Vitals: Temp Pulse Resp BP Pulse Ox 98.2 F 78 18 152/60 97 08/05/20 23:34 08/06/20 02:15 08/06/20 02:15 08/06/20 02:15 08/06/20 02:15 General appearance: Present: no acute distress, well-nourished - EENT Eyes: Present: PERRL, EOM intact. Absent: scleral icterus ENT: hearing intact, clear oral mucosa, dentition normal - Neck Neck: Present: supple, normal ROM - Respiratory Respiratory effort: normal Respiratory: bilateral: CTA - Cardiovascular Rhythm: regular Heart Sounds: Present: S1 & S2. Absent: gallop, systolic murmur, diastolic murmur, rub - Extremities Extremities: no ischemia, pulses intact, pulses symmetrical, No edema, normal temperature, normal color, Full ROM Peripheral Pulses: within normal limits - Abdominal General gastrointestinal: Present: soft, non-tender, non-distended, normal bowel sounds. Absent: mass - Integumentary Integumentary: Present: clear, warm, dry. Absent: rash - Musculoskeletal Musculoskeletal: strength equal bilaterally - Psychiatric Psychiatric: appropriate mood/affect, intact judgment & insight, memory intact, cooperative - Neurologic Neurologic: CNII-XII intact, no focal deficits, moves all extremities HEART Score - HEART Score Troponin: Troponin T 0.026 ng/mL (0.00-0.029) 08/06/20 00:00 Results - Labs CBC & Chem 7: 08/06/20 04:40 08/06/20 04:40 Labs: Abnormal lab results 08/06/20 08/06/20 08/06/20 Range/Units 00:00 00:00 00:00 WBC 15.4 H (4.5-11.0) K/mm3 MCHC 35 H (30-34) % Lymph % (Auto) 13.2 L (13.4-35.0) % Seg Neutrophils % 82.4 H (40.0-70.0) % Seg Neutrophils # 12.7 H (1.8-7.7) K/mm3 PT 16.0 H (12.2-14.9) Sec. INR 1.28 H (0.87-1.13) D-Dimer (0-234) ng/mlDDU Potassium 2.6 L* (3.6-5.0) mmol/L BUN 18 H (7-17) mg/dL Creatinine 0.5 L (0.6-1.2) mg/dL Glucose 143 H (65-100) mg/dL Lactic Acid (0.7-2.0) mmol/L Calcium 10.6 H (8.4-10.2) mg/dL Lactate Dehydrogenase (91-180) units/L CK-MB (CK-2) Rel Index 9.3 H (0-4) C-Reactive Protein (0.00-1.30) mg/dL NT-Pro-B Natriuret Pep 1517 H (0-900) pg/mL 08/06/20 08/06/20 08/06/20 Range/Units 00:00 01:24 01:29 WBC (4.5-11.0) K/mm3 MCHC (30-34) % Lymph % (Auto) (13.4-35.0) % Seg Neutrophils % (40.0-70.0) % Seg Neutrophils # (1.8-7.7) K/mm3 PT (12.2-14.9) Sec. INR (0.87-1.13) D-Dimer 356.34 H (0-234) ng/mlDDU Potassium (3.6-5.0) mmol/L BUN (7-17) mg/dL Creatinine (0.6-1.2) mg/dL Glucose (65-100) mg/dL Lactic Acid 3.00 H* 2.50 H* (0.7-2.0) mmol/L Calcium (8.4-10.2) mg/dL Lactate Dehydrogenase (91-180) units/L CK-MB (CK-2) Rel Index (0-4) C-Reactive Protein (0.00-1.30) mg/dL NT-Pro-B Natriuret Pep (0-900) pg/mL 08/06/20 Range/Units 01:29 WBC (4.5-11.0) K/mm3 MCHC (30-34) % Lymph % (Auto) (13.4-35.0) % Seg Neutrophils % (40.0-70.0) % Seg Neutrophils # (1.8-7.7) K/mm3 PT (12.2-14.9) Sec. INR (0.87-1.13) D-Dimer (0-234) ng/mlDDU Potassium (3.6-5.0) mmol/L BUN (7-17) mg/dL Creatinine (0.6-1.2) mg/dL Glucose (65-100) mg/dL Lactic Acid (0.7-2.0) mmol/L Calcium (8.4-10.2) mg/dL Lactate Dehydrogenase 183 H (91-180) units/L CK-MB (CK-2) Rel Index (0-4) C-Reactive Protein 4.60 H (0.00-1.30) mg/dL NT-Pro-B Natriuret Pep (0-900) pg/mL Assessment and Plan - Patient Problems (1) Chest pain Current Visit: Yes Status: Acute Plan to address problem: Patient admitted to telemetry. Will check serial cardiac enzymes. Consult will be placed to cardiology for evaluation. (2) Hypokalemia Current Visit: Yes Status: Acute Plan to address problem: Potassium will be repleted. Will monitor chemistry. (3) Diabetes Current Visit: No Status: Chronic (4) HLD (hyperlipidemia) Current Visit: No Status: Chronic Qualifiers: Hyperlipidemia type: mixed hyperlipidemia Qualified Code(s): E78.2 - Mixed hyperlipidemia (5) Hypertension Current Visit: No Status: Chronic Qualifiers: Hypertension type: essential hypertension Qualified Code(s): I10 - Essential (primary) hypertension (6) DVT (deep venous thrombosis) Current Visit: No Status: Acute Qualifiers: DVT location: lower extremity Affected thrombotic vein of extremity: femora l Chronicity: acute Laterality: right Qualified Code(s): I82.411 - Acute embolism and thrombosis of right femoral vein (7) Full code status Current Visit: No Status: Acute
[2020-08-06] MEDS ORDERED: SODIUM CHLORIDE 0.9% 1000 ML 1,000 ML IV SCH (03:15)
[2020-08-06 05:11] LABS: Basophils % (Auto) 0.4 % (0.0-1.8); Eosinophils # (Auto) 0.1 K/mm3 (0.0-0.4); Eosinophils % (Auto) 0.9 % (0.0-4.3); Hematocrit 33.3 % (30.3-42.9); Lymphocytes # (Auto) 2.6 K/mm3 (1.2-5.4); Lymphocytes % (Auto) 23.3 % (13.4-35.0); Mean Corpuscular HGB Conc 33 % (30-34); Mean Corpuscular Volume 82 fl (79-97); Monocytes # (Auto) 0.6 K/mm3 (0.0-0.8); Monocytes % (Auto) 5.6 % (0.0-7.3); Platelet Count 298 K/mm3 (140-440); Red Blood Count 4.07 M/mm3 (3.65-5.03); Red Cell Distribution Width 15.4 % (13.2-15.2)
[2020-08-06 05:29] LABS: BUN/Creatinine Ratio 38; Blood Urea Nitrogen 19 mg/dL (7-17); Calcium 10.6 mg/dL (8.4-10.2); Chol/HDL Ratio 4.31 %; HDL Cholesterol 35 mg/dL (40-59); Hemolysis Index 2; LDL Cholesterol,Direct 90 mg/dL (50-130)
[2020-08-06] MEDS ORDERED: POTASSIUM CHLORIDE 10 MEQ 10 MEQ/100 ML BAG IV ONE (06:34)
[2020-08-06] MEDS: MORPHINE 2 MG/1 ML INJ IV PRN ×3 (07:03→22:19)
[2020-08-06] MEDS: ONDANSETRON 4 MG/2 ML INJ IV PRN ×2 (07:03→22:21)
[2020-08-06 07:32] LABS: C-Reactive Protein 4.4 mg/dL (0.00-1.30)
[2020-08-06] MEDS ORDERED: cefTRIAXone/NS 2 GM/100 ML 2 GM/100 ML BAG IV SCH (10:00)
--- NOTE | 2020-08-06 10:53 | Consultation ---
History of Present Illness Consult date: 08/06/20 Requesting physician: RANJITH REYNOLDS Consult reason: chest pain History of present illness: The pt is a 53-year-old female with a past medical history of CAD, prior NSTEMI s/p mid LAD stent 02/2016, PE and DVT (discharged on Eliquis per [facility] discharge summary 10/2019), HFpEF, hypokalemia, HTN, HLP, DM, COPD, chronic respiratory failure requiring home O2, chronic steroid use, ANURAG, former smoker, obesity, seizure disorder (last seizure many years ago per pt report), paranoid schizophrenia. She has been seen by our practice on multiple prior hospitalizations and was last seen in our office by Dr. Lowery in October 2018. She presented with c/o intermittent chest pain, SOB, fever and occasional cough for 2-3 days prior to arrival. She describes her chest pain as a substernal sharp pain. She admits that she has been in contact with some family members who were diagnosed with COVID-19 about a week ago. Pt is currently COVID-19 PUI. LHC done 08/30/2019 showed L main patent, LAD mid patent, circumflex patent, RCA patent, normal LV function. Lexiscan MPI stress test done 04/23/2020 was TDS due to pt's inability to lie still, no significant ischemia noted, normal LVEF. tte done 08/11/2019 showed EF 65-70%; mod concentric LVH; impaired relaxation. Past History Past Medical History: CAD, diabetes, GERD, hypertension, hyperlipidemia, other (Asthma, schizophrenia, history of kidney stones) Past Surgical History: hysterectomy, PTCA, Other (Hypertension surgery, right knee surgery) Social history: no significant social history Family history: no significant family history Medications and Allergies Allergies Allergy/AdvReac Type Severity Reaction Status Date / Time coconut Allergy Hives Verified 08/23/19 16:35 haloperidol [From Haldol] Allergy Hives Verified 08/23/19 16:35 meperidine HCl [From Demerol] Allergy Rash Verified 08/23/19 16:35 nitroglycerin Allergy Hives Verified 08/23/19 16:35 NSAIDS (Non-Steroidal Allergy Unknown Verified 08/23/19 16:35 Anti-Inflamma tramadol Allergy Hives Verified 08/23/19 16:35 Home Medications Medication Instructions Recorded Confirmed Last Taken Type Albuterol Mdi (or & Nicu Only) 2 puff IH QID PRN #1 inhalation 12/30/16 06/27/20 06/26/20 19:00 Rx [ProAir HFA Inhaler] Rosuvastatin (Nf) [Crestor] 20 mg PO QHS 01/21/17 06/27/20 2 Days Ago History ~04/20/20 Furosemide 20 mg PO DAILY 09/17/19 06/27/20 06/26/20 10:00 History Insulin Detemir [Levemir VIAL] 10 unit SQ QHS 09/17/19 06/27/20 2 Days Ago History ~04/20/20 Pantoprazole 40 mg PO DAILY 09/17/19 06/27/20 06/26/20 10:00 History Acetaminophen [Acetaminophen TAB] 650 mg PO Q4H PRN tablet 05/10/20 06/27/20 06/26/20 10:00 Rx Aspirin EC [Halfprin EC] 81 mg PO DAILY #30 tablet 05/10/20 06/27/20 06/26/20 10:00 Rx Gabapentin 300 mg PO TID #90 tab 05/10/20 06/27/20 06/26/20 19:00 Rx ISOSORBIDE MONOnitrate [Imdur ER] 30 mg PO DAILY #30 tablet 05/10/20 06/27/20 06/26/20 10:00 Rx Potassium Chloride 20 meq PO BID #14 packet 05/10/20 06/27/20 06/26/20 19:00 Rx carvediloL [Coreg] 3.125 mg PO BID #60 tablet 05/10/20 06/27/20 Unknown Rx levETIRAcetam [Keppra TAB] 500 mg PO BID #60 tab 05/10/20 06/27/20 Unknown Rx traZODone [Desyrel] 50 mg PO QHS #30 tab 05/10/20 06/27/20 06/26/20 17:00 Rx Apixaban [Eliquis] 5 mg PO Q12HR #60 tablet 06/27/20 Unknown Rx Active Meds: Active Medications Acetaminophen (Acetaminophen 325 Mg Tab) 650 mg PO Q4H PRN PRN Reason: Pain MILD(1-3)/Fever >100.5/[place] Aspirin (Aspirin Ec 325 Mg Tab) 325 mg PO QDAY MARTHA Sodium Chloride (Nacl 0.9% 1000 Ml) 1,000 mls @ 75 mls/hr IV DIRECT MARTHA Last Admin: 08/06/20 10:38 Dose: 75 mls/hr Documented by: Ceftriaxone Sodium (Rocephin/Ns 2 Gm/100 Ml) 2 gm in 100 mls @ 200 mls/hr IV Q24HR MARTHA; Protocol Last Admin: 08/06/20 10:37 Dose: 200 mls/hr Documented by: Azithromycin 500 mg/ Sodium (Chloride) 250 mls @ 250 mls/hr IV Q24HR MARTHA; P rotocol Magnesium Hydroxide (Magnesium Hydroxide (Mom) Oral Liqd Udc) 30 ml PO Q4H PRN PRN Reason: Constipation Morphine Sulfate (Morphine 2 Mg/1 Ml Inj) 2 mg IV Q5MIN PRN PRN Reason: Chest Pain unrelieved by NTG Last Admin: 08/06/20 07:03 Dose: 2 mg Documented by: Ondansetron HCl (Ondansetron 4 Mg/2 Ml Inj) 4 mg IV Q8H PRN PRN Reason: Nausea And Vomiting Last Admin: 08/06/20 07:03 Dose: 4 mg Documented by: Sodium Chloride (Sodium Chloride 0.9% 10 Ml Flush Syringe) 10 ml IV BID MARTHA Last Admin: 08/06/20 10:38 Dose: 10 ml Documented by: Sodium Chloride (Sodium Chloride 0.9% 10 Ml Flush Syringe) 10 ml IV PRN PRN PRN Reason: LINE FLUSH Sodium Chloride (Sodium Chloride 0.9% 10 Ml Flush Syringe) 10 ml IV PRN PRN PRN Reason: LINE FLUSH Review of Systems All systems: negative (as per H&P) Physical Examination Vital Signs Pulse Ox 97 08/05/20 23:08 Narrative exam: agree with physical examination per primary team Results 08/06/20 04:40 08/06/20 06:51 Cardiac Enzymes 08/06/20 08/06/20 08/06/20 Range/Units 00:00 01:29 06:51 Lactate Dehydrogenase 183 H 183 H (91-180) units/L CK-MB (CK-2) 3.1 (0.0-4.0) ng/mL Coagulation 08/06/20 Range/Units 00:00 PT 16.0 H (12.2-14.9) Sec. INR 1.28 H (0.87-1.13) Lipids 08/06/20 Range/Units 04:40 Triglycerides 224 H (2-149) mg/dL Cholesterol 151 (50-199) mg/dL HDL Cholesterol 35 L (40-59) mg/dL Cholesterol/HDL Ratio 4.31 % CBC 08/06/20 08/06/20 Range/Units 00:00 04:40 WBC 15.4 H 11.2 H (4.5-11.0) K/mm3 RBC 4.02 4.07 (3.65-5.03) M/mm3 Hgb 11.3 11.0 (10.1-14.3) gm/dl Hct 32.3 33.3 (30.3-42.9) % Plt Count 314 298 (140-440) K/mm3 Lymph # (Auto) 2.0 2.6 (1.2-5.4) K/mm3 [place] # (Auto) 0.6 0.6 (0.0-0.8) K/mm3 Eos # (Auto) 0.0 0.1 (0.0-0.4) K/mm3 Baso # (Auto) 0.1 0.0 (0.0-0.1) K/mm3 Comprehensive Metabolic Panel 08/06/20 08/06/20 08/06/20 Range/Units 00:00 04:40 06:51 Sodium 139 138 (137-145) mmol/L Potassium 2.6 L* 3.0 L (3.6-5.0) mmol/L Chloride 100.4 99.7 (98-107) mmol/L Carbon Dioxide 23 29 (22-30) mmol/L BUN 18 H 19 H (7-17) mg/dL Creatinine 0.5 L 0.5 L (0.6-1.2) mg/dL Glucose 143 H 125 H 116 H (65-100) mg/dL Calcium 10.6 H 10.6 H (8.4-10.2) mg/dL - Imaging and Cardiology Cardiac cath: report reviewed (08/30/2019 showed L main patent, LAD mid patent, circumflex patent, RCA patent, normal LV function.) EKG: report reviewed, image reviewed EKG interpretations - Telemetry EKG Rhythm: Sinus Rhythm - EKG Sinus rhythms and dysrhythmias: sinus rhythm Assessment and Plan LHC done 08/30/2019 showed L main patent, LAD mid patent, circumflex patent, RCA patent, normal LV function. Lexiscan MPI stress test done 04/23/2020 was TDS due to pt's inability to lie still, no significant ischemia noted, normal LVEF. tte done 08/11/2019 showed EF 65-70%; mod concentric LVH; impaired relaxation. Currently stable cardiac status. ECG with NSR, NAF. Chest pain appears atypical. Minimal CE elevation appears chronic and currently nonspecific. Resume home cardiac regimen - consider addition of BB if BPs permit, pt has h/o hypotension requiring midodrine. Replete potassium. No plans for additional ischemic evaluation at this time. Obtain tte pending COVID-19 test results. Recommend resumption of home Eliquis per primary team. The patient has been seen in conjunction with Dr. Abrams who agrees with the assessment and plan of care. - Patient Problems (1) Suspected COVID-19 virus infection Current Visit: Yes Status: Acute (2) Chest pain Current Visit: Yes Status: Acute (3) Elevated troponin Current Visit: Yes Status: Chronic (4) CAD (coronary artery disease) Current Visit: Yes Status: Chronic Qualifiers: Coronary Disease-Associated Artery/Lesion type: [place] artery [place] vs. transplanted heart: [place] heart (5) Stented coronary artery Current Visit: Yes Status: Chronic (6) Hypokalemia Current Visit: Yes Status: Acute (7) COPD (chronic obstructive pulmonary disease) Current Visit: Yes Status: Chronic Qualifiers: (8) Chronic respiratory failure Current Visit: Yes Status: Chronic Qualifiers: (9) History of pulmonary embolism Current Visit: Yes Status: Chronic (10) Hypertension Current Visit: Yes Status: Chronic Qualifiers: Hypertension type: essential hypertension Qualified Code(s): I10 - Essential (primary) hypertension (11) Diabetes Current Visit: Yes Status: Chronic (12) Paranoid schizophrenia Current Visit: Yes Status: Chronic
[2020-08-06] MEDS: AZITHROMYCIN 500 MG in SODIUM CHLORIDE 0.9% 250ML 250 ML IV SCH (11:09)
--- NOTE | 2020-08-06 16:00 | Consultation ---
History of Present Illness - Reason for Consult Consult date: 08/06/20 COVID-19 PUI Requesting physician: RANJITH REYNOLDS - History of Present Illness The patient is a 54-year-old female with coronary artery disease, hypertension, asthma was admitted to the hospital with cough and shortness of breath along with chest pain. Chest x-ray showed chronic changes, BNP 1517, procalcitonin 0.05. Infectious diseases was consulted for additional evaluation. Review of Systems: reviewed in the chart, unable to obtain, minimize risk of transmission Past History Past Medical History: CAD, diabetes, GERD, hypertension, hyperlipidemia, other (Asthma, schizophrenia, history of kidney stones) Past Surgical History: hysterectomy, PTCA, Other (Hypertension surgery, right knee surgery) Social history: no significant social history Family history: no significant family history Medications and Allergies Allergies Allergy/AdvReac Type Severity Reaction Status Date / Time coconut Allergy Hives Verified 08/23/19 16:35 haloperidol [From Haldol] Allergy Hives Verified 08/23/19 16:35 meperidine HCl [From Demerol] Allergy Rash Verified 08/23/19 16:35 nitroglycerin Allergy Hives Verified 08/23/19 16:35 NSAIDS (Non-Steroidal Allergy Unknown Verified 08/23/19 16:35 Anti-Inflamma tramadol Allergy Hives Verified 08/23/19 16:35 Home Medications Medication Instructions Recorded Confirmed Last Taken Type Albuterol Mdi (or & Nicu Only) 2 puff IH QID PRN #1 inhalation 12/30/16 06/27/20 06/26/20 19:00 Rx [ProAir HFA Inhaler] Rosuvastatin (Nf) [Crestor] 20 mg PO QHS 01/21/17 06/27/20 2 Days Ago History ~04/20/20 Furosemide 20 mg PO DAILY 09/17/19 06/27/20 06/26/20 10:00 History Insulin Detemir [Levemir VIAL] 10 unit SQ QHS 09/17/19 06/27/20 2 Days Ago History ~04/20/20 Pantoprazole 40 mg PO DAILY 09/17/19 06/27/20 06/26/20 10:00 History Acetaminophen [Acetaminophen TAB] 650 mg PO Q4H PRN tablet 05/10/20 06/27/20 06/26/20 10:00 Rx Aspirin EC [Halfprin EC] 81 mg PO DAILY #30 tablet 05/10/20 06/27/20 06/26/20 10:00 Rx Gabapentin 300 mg PO TID #90 tab 05/10/20 06/27/20 06/26/20 19:00 Rx ISOSORBIDE MONOnitrate [Imdur ER] 30 mg PO DAILY #30 tablet 05/10/20 06/27/20 06/26/20 10:00 Rx Potassium Chloride 20 meq PO BID #14 packet 05/10/20 06/27/20 06/26/20 19:00 Rx carvediloL [Coreg] 3.125 mg PO BID #60 tablet 05/10/20 06/27/20 Unknown Rx levETIRAcetam [Keppra TAB] 500 mg PO BID #60 tab 05/10/20 06/27/20 Unknown Rx traZODone [Desyrel] 50 mg PO QHS #30 tab 05/10/20 06/27/20 06/26/20 17:00 Rx Apixaban [Eliquis] 5 mg PO Q12HR #60 tablet 06/27/20 Unknown Rx Active Meds: Active Medications Acetaminophen (Acetaminophen 325 Mg Tab) 650 mg PO Q4H PRN PRN Reason: Pain MILD(1-3)/Fever >100.5/[place] Aspirin (Aspirin Ec 81 Mg Tab) 81 mg PO DAILY MARTHA Atorvastatin Calcium (Atorvastatin 40 Mg Tab) 40 mg PO QHS MARTHA Sodium Chloride (Nacl 0.9% 1000 Ml) 1,000 mls @ 75 mls/hr IV DIRECT MARTHA Last Admin: 08/06/20 10:38 Dose: 75 mls/hr Documented by: Ceftriaxone Sodium (Rocephin/Ns 2 Gm/100 Ml) 2 gm in 100 mls @ 200 mls/hr IV Q24HR MARTHA; Protocol Last Admin: 08/06/20 10:37 Dose: 200 mls/hr Documented by: Azithromycin 500 mg/ Sodium (Chloride) 250 mls @ 250 mls/hr IV Q24HR MARTHA; Protocol Last Admin: 08/06/20 11:09 Dose: Not Given Documented by: Isosorbide Mononitrate (Isosorbide Mononitrate Er 30 Mg Tab) 30 mg PO DAILY AMRTHA Magnesium Hydroxide (Magnesium Hydroxide (Mom) Oral Liqd Udc) 30 ml PO Q4H PRN PRN Reason: Constipation Morphine Sulfate (Morphine 2 Mg/1 Ml Inj) 2 mg IV Q5MIN PRN PRN Reason: Chest Pain unrelieved by NTG Last Admin: 08/06/20 14:57 Dose: 2 mg Documented by: Ondansetron HCl (Ondansetron 4 Mg/2 Ml Inj) 4 mg IV Q8H PRN PRN Reason: Nausea And Vomiting Last Admin: 08/06/20 07:03 Dose: 4 mg Documented by: Sodium Chloride (Sodium Chloride 0.9% 10 Ml Flush Syringe) 10 ml IV BID MARTHA Last Admin: 08/06/20 10:38 Dose: 10 ml Documented by: Sodium Chloride (Sodium Chloride 0.9% 10 Ml Flush Syringe) 10 ml IV PRN PRN PRN Reason: LINE FLUSH Sodium Chloride (Sodium Chloride 0.9% 10 Ml Flush Syringe) 10 ml IV PRN PRN PRN Reason: LINE FLUSH Physical Examination - Physical Exam Narrative exam: Physical Exam (reviewed in chart to minimize risk of transmission) Constitutional: deferred Head, Ears, Nose: deferred Eyes: deferred Neck: deferred Oral: deferred Cardiovascular: deferred Respiratory: deferred GI: deferred Musculoskeletal: deferred Skin: deferred Hem/Lymphatic: deferred Psych: deferred Neurological: deferred - Constitutional Vitals: Vital Signs Temp Pulse Resp BP Pulse Ox 98.2 F 81 26 H 124/72 98 08/05/20 23:34 08/06/20 15:00 08/06/20 15:00 08/06/20 15:00 08/06/20 15:00 Temperature -Last 24 Hours Temperature 98.2 F Results - Labs CBC & Chem 7: 08/06/20 04:40 08/06/20 06:51 Labs: Abnormal lab results 08/06/20 08/06/20 08/06/20 Range/Units 00:00 00:00 00:00 WBC 15.4 H (4.5-11.0) K/mm3 MCH (28-32) pg MCHC 35 H (30-34) % RDW (13.2-15.2) % Lymph % (Auto) 13.2 L (13.4-35.0) % Seg Neutrophils % 82.4 H (40.0-70.0) % Seg Neutrophils # 12.7 H (1.8-7.7) K/mm3 PT 16.0 H (12.2-14.9) Sec. INR 1.28 H (0.87-1.13) D-Dimer (0-234) ng/mlDDU Potassium 2.6 L* (3.6-5.0) mmol/L BUN 18 H (7-17) mg/dL Creatinine 0.5 L (0.6-1.2) mg/dL Glucose 143 H (65-100) mg/dL Lactic Acid (0.7-2.0) mmol/L Calcium 10.6 H (8.4-10.2) mg/dL Lactate Dehydrogenase (91-180) units/L CK-MB (CK-2) Rel Index 9.3 H (0-4) Troponin T (0.00-0.029) ng/mL C-Reactive Protein (0.00-1.30) mg/dL NT-Pro-B Natriuret Pep 1517 H (0-900) pg/mL Triglycerides (2-149) mg/dL HDL Cholesterol (40-59) mg/dL 08/06/20 08/06/20 08/06/20 Range/Units 00:00 01:24 01:29 WBC (4.5-11.0) K/mm3 MCH (28-32) pg MCHC (30-34) % RDW (13.2-15.2) % Lymph % (Auto) (13.4-35.0) % Seg Neutrophils % (40.0-70.0) % Seg Neutrophils # (1.8-7.7) K/mm3 PT (12.2-14.9) Sec. INR (0.87-1.13) D-Dimer 356.34 H (0-234) ng/mlDDU Potassium (3.6-5.0) mmol/L BUN (7-17) mg/dL Creatinine (0.6-1.2) mg/dL Glucose (65-100) mg/dL Lactic Acid 3.00 H* 2.50 H* (0.7-2.0) mmol/L Calcium (8.4-10.2) mg/dL Lactate Dehydrogenase (91-180) units/L CK-MB (CK-2) Rel Index (0-4) Troponin T (0.00-0.029) ng/mL C-Reactive Protein (0.00-1.30) mg/dL NT-Pro-B Natriuret Pep (0-900) pg/mL Triglycerides (2-149) mg/dL HDL Cholesterol (40-59) mg/dL 08/06/20 08/06/20 08/06/20 Range/Units 01:29 04:40 04:40 WBC 11.2 H (4.5-11.0) K/mm3 MCH 27 L (28-32) pg MCHC (30-34) % RDW 15.4 H (13.2-15.2) % Lymph % (Auto) (13.4-35.0) % Seg Neutrophils % (40.0-70.0) % Seg Neutrophils # 7.8 H (1.8-7.7) K/mm3 PT (12.2-14.9) Sec. INR (0.87-1.13) D-Dimer (0-234) ng/mlDDU Potassium 3.0 L (3.6-5.0) mmol/L BUN 19 H (7-17) mg/dL Creatinine 0.5 L (0.6-1.2) mg/dL Glucose 125 H (65-100) mg/dL Lactic Acid (0.7-2.0) mmol/L Calcium 10.6 H (8.4-10.2) mg/dL Lactate Dehydrogenase 183 H (91-180) units/L CK-MB (CK-2) Rel Index (0-4) Troponin T (0.00-0.029) ng/mL C-Reactive Protein 4.60 H (0.00-1.30) mg/dL NT-Pro-B Natriuret Pep (0-900) pg/mL Triglycerides 224 H (2-149) mg/dL HDL Cholesterol 35 L (40-59) mg/dL 08/06/20 08/06/20 08/06/20 Range/Units 06:51 06:51 09:38 WBC (4.5-11.0) K/mm3 MCH (28-32) pg MCHC (30-34) % RDW (13.2-15.2) % Lymph % (Auto) (13.4-35.0) % Seg Neutrophils % (40.0-70.0) % Seg Neutrophils # (1.8-7.7) K/mm3 PT (12.2-14.9) Sec. INR (0.87-1.13) D-Dimer 443.18 H (0-234) ng/mlDDU Potassium (3.6-5.0) mmol/L BUN (7-17) mg/dL Creatinine (0.6-1.2) mg/dL Glucose 116 H (65-100) mg/dL Lactic Acid (0.7-2.0) mmol/L Calcium (8.4-10.2) mg/dL Lactate Dehydrogenase 183 H (91-180) units/L CK-MB (CK-2) Rel Index (0-4) Troponin T 0.032 H D (0.00-0.029) ng/mL C-Reactive Protein 4.40 H (0.00-1.30) mg/dL NT-Pro-B Natriuret Pep (0-900) pg/mL Triglycerides (2-149) mg/dL HDL Cholesterol (40-59) mg/dL - Imaging and Cardiology Chest x-ray: report reviewed, image reviewed (chronic changes) Assessment and Plan Cultures: SARS CoV2 PCR: pending. A/P: 54-year-old female with coronary artery disease, hypertension, asthma: #Leukocytosis: No obvious pneumonia seen, chest x-ray findings appear quite chronic. #Chest pain: Cardiology following. Recs: Ceftriaxone discontinued Complete 3 days of azithromycin f/u COVID-19 PCR Radha Hsieh MD, FACP [facility] ([facility] O: [phone] F: [phone]
--- NOTE | 2020-08-06 19:38 | Event Note ---
Date: 08/06/20 I have seen the patient in ER awaiting room assignment patient was admitted this morning, work-up is in progress Consults and recommendations noted, tests and reports reviewed Agree with the current management. We will monitor the patient and adjust management as needed
[2020-08-06] MEDS ORDERED: NON-FORMULARY EACH (Cyclobenzaprine Hcl [Flexeril 5 Mg Tab] 5 MG Tablet) PO PRN (19:49)
[2020-08-06] MEDS ORDERED: CYCLOBENZAPRINE 10 MG TAB PO PRN (19:56)
[2020-08-06] MEDS ORDERED: CLONAZEPAM 1 MG PO SCH (22:00)
[2020-08-06] MEDS ORDERED: traZODone 50 MG TAB PO SCH (22:00)
[2020-08-06] MEDS ORDERED: NON-FORMULARY EACH (Quetiapine Fumarate [Seroquel] 50 MG Tablet) PO SCH (22:00)
[2020-08-06] MEDS ORDERED: QUEtiapine 25 MG TAB PO SCH (22:00)
[2020-08-06] MEDS: APIXABAN 5 MG TAB PO SCH (22:04)
[2020-08-06] MEDS: levETIRAcetam 500 MG TAB PO SCH (22:04)
[2020-08-06] MEDS: clonazePAM 0.5 MG TAB PO SCH (22:05)
[2020-08-07] MEDS: FUROSEMIDE 20 MG/2 ML INJ IV SCH ×2 (06:40→21:23)
[2020-08-07] MEDS: MORPHINE 2 MG/1 ML INJ IV PRN (09:02)
[2020-08-07] MEDS ORDERED: ASPIRIN EC 81 MG TAB PO SCH (10:00)
[2020-08-07] MEDS ORDERED: ASPIRIN EC 325 MG TAB PO SCH (10:00)
--- NOTE | 2020-08-07 10:36 | Progress Note ---
Assessment and Plan LHC done 08/30/2019 showed L main patent, LAD mid patent, circumflex patent, RCA patent, normal LV function. Lexiscan MPI stress test done 04/23/2020 was TDS due to pt's inability to lie still, no significant ischemia noted, normal LVEF. tte done 08/11/2019 showed EF 65-70%; mod concentric LVH; impaired relaxation. Currently stable cardiac status. ECG with NSR, NAF. Chest pain appears atypical, currently resolved. Minimal CE elevation appears chronic and currently nonspecific. Resume home cardiac regimen - consider addition of BB if BPs p ermit, pt has h/o hypotension requiring midodrine. Replete potassium. No plans for additional ischemic evaluation at this time. F/u BMP and Mg. COVID-19 testing is negative. Obtain tte today. The patient has been seen in conjunction with Dr. Abrams who agrees with the assessment and plan of care. - Patient Problems (1) Suspected COVID-19 virus infection Current Visit: Yes Status: Acute (2) Chest pain Current Visit: Yes Status: Acute (3) Elevated troponin Current Visit: Yes Status: Chronic (4) CAD (coronary artery disease) Current Visit: Yes Status: Chronic Qualifiers: Coronary Disease-Associated Artery/Lesion type: [place] artery [place] vs. transplanted heart: [place] heart (5) Stented coronary artery Current Visit: Yes Status: Chronic (6) Hypokalemia Current Visit: Yes Status: Acute (7) COPD (chronic obstructive pulmonary disease) Current Visit: Yes Status: Chronic Qualifiers: (8) Chronic respiratory failure Current Visit: Yes Status: Chronic Qualifiers: (9) History of pulmonary embolism Current Visit: Yes Status: Chronic (10) Hypertension Current Visit: Yes Status: Chronic Qualifiers: Hypertension type: essential hypertension Qualified Code(s): I10 - Essential (primary) hypertension (11) Diabetes Current Visit: Yes Status: Chronic (12) Paranoid schizophrenia Current Visit: Yes Status: Chronic Subjective Date of service: 08/07/20 Principal diagnosis: SOB; cp Interval history: pt resting in bed, no current chest pain. in SR on tele. Objective Last Vital Signs Temp 97.9 F 08/07/20 08:01 Pulse 85 08/07/20 08:01 Resp 20 08/07/20 08:01 BP 129/60 08/07/20 08:01 Pulse Ox 98 08/07/20 08:01 - Physical Examination General: No Apparent Distress HEENT: Positive: PERRL, Normocephaly, Mucus Membranes Moist Neck: Positive: neck supple, trachea midline Cardiac: Positive: Reg Rate and Rhythm, S1/S2 Lungs: Positive: Decreased Breath Sounds Neuro: Positive: Grossly Intact Abdomen: Negative: Tender Skin: Negative: Rash Musculoskeletal: No Pain Extremities: Absent: edema - Imaging and Cardiology EKG: report reviewed, image reviewed Cardiac cath: report reviewed (08/30/2019 showed L main patent, LAD mid patent, circumflex patent, RCA patent, normal LV function.) - Telemetry EKG Rhythm: Sinus Rhythm - EKG Sinus rhythms and dysrhythmias: sinus rhythm
[2020-08-07] MEDS: AZITHROMYCIN 500 MG in SODIUM CHLORIDE 0.9% 250ML 250 ML IV SCH (11:25)
[2020-08-07] MEDS: APIXABAN 5 MG TAB PO SCH (11:38)
[2020-08-07] MEDS: clonazePAM 0.5 MG TAB PO SCH (12:37)
[2020-08-07] MEDS: MIDODRINE 5 MG TAB PO SCH ×2 (12:38→19:22)
[2020-08-07] MEDS: levETIRAcetam 500 MG TAB PO SCH (12:39)
--- NOTE | 2020-08-07 15:42 | Discharge Summary ---
<WHITNEY COUCH - Last Filed: 08/07/20 23:38> Providers - Providers Date of Admission: 08/06/20 01:23 Attending physician: JOYCE WEBER 08/06/20 Consult to Cardiac Rehabilitation [CONS] Routine Reason For Exam: Phase I 08/06/20 02:49 Consult to Cardiology [CONS] Routine Consulting Provider: WOODY RANGEL Reason For Exam: chest pain 08/06/20 03:01 Consult to Physician [CONS] Routine Comment: Consulting Provider: SOLEDAD FAUSTIN Physician Instructions: Reason For Exam: GENERALIZED BODY ACHES/PAIN, COUGH R/O COVID 19 Primary care physician: LORE GUERRERO MD Hospitalization Condition: Fair Disposition: DC-01 TO HOME OR SELFCARE Exam - Constitutional Vitals: Temp Pulse Resp BP Pulse Ox 97.9 F 75 18 107/49 99 08/07/20 08:01 08/07/20 21:00 08/07/20 21:00 08/07/20 21:00 08/07/20 21:00 Plan Follow up with: LORE GUERRERO MD [Primary Care Provider] - 3-5 Days TORREY BUENROSTRO MD [Staff Physician] - 7 Days Prescriptions: Benzonatate [Tessalon Perles] 100 mg PO Q8HR PRN #20 capsule PRN Reason: Cough Azithromycin [Zithromax Z-TIKA] 0 mg PO DAILY #1 pack Cetirizine HCl [ZyrTEC 10mg rapdis] 10 mg PO DAILY PRN #10 tab.rapdis PRN Reason: Congestion <JOYCE WEBER - Last Filed: 08/08/20 08:21> Providers - Providers Date of Admission: 08/06/20 01:23 Date of discharge: 08/07/20 Attending physician: JOYCE WEBER 08/06/20 Consult to Cardiac Rehabilitation [CONS] Routine Reason For Exam: Phase I 08/06/20 02:49 Consult to Cardiology [CONS] Routine Consulting Provider: WOODY RANGEL Reason For Exam: chest pain 08/06/20 03:01 Consult to Physician [CONS] Routine Comment: Consulting Provider: SOLEDAD FAUSTIN Physician Instructions: Reason For Exam: GENERALIZED BODY ACHES/PAIN, COUGH R/O COVID 19 Primary care physician: [employer]ER Hospitalization Time spent for discharge: 32 min Core Measure Documentation - Palliative Care Palliative Care/ Comfort Measures: Not Applicable - Core Measures Any of the following diagnoses?: none Exam - Constitutional Vitals: Temp Pulse Resp BP Pulse Ox 97.9 F 68 14 101/47 99 08/07/20 08:01 08/07/20 14:00 08/07/20 14:00 08/07/20 14:00 08/07/20 14:00 General appearance: Present: no acute distress, well-nourished - EENT Eyes: Present: PERRL, EOM intact - Neck Neck: Present: supple, normal ROM - Respiratory Respiratory effort: normal Respiratory: bilateral: diminished, negative: rales, rhonchi, wheezing - Cardiovascular Rhythm: regular Heart Sounds: Present: S1 & S2 - Extremities Extremities: no ischemia, No edema - Abdominal General gastrointestinal: Present: soft, non-tender, non-distended, normal bowel sounds - Integumentary Integumentary: Present: clear, warm - Musculoskeletal Musculoskeletal: generalized weakness - Psychiatric Psychiatric: appropriate mood/affect, cooperative Plan Activity: advance as tolerated, fall precautions Diet: low salt, other (cardiac diet) Additional Instructions: If you have worsening symptoms contact MD or go to emergency room
--- NOTE | 2020-08-07 19:53 | Progress Note ---
Hospitalist Physical - Constitutional Vitals: Temp Pulse Resp BP Pulse Ox 97.9 F 76 17 101/53 99 08/07/20 08:01 08/07/20 16:00 08/07/20 16:00 08/07/20 16:00 08/07/20 16:00 General appearance: Present: no acute distress, well-nourished HEART Score - HEART Score Troponin: Troponin T 0.032 ng/mL (0.00-0.029) H D 08/06/20 09:38 Results - Labs CBC & Chem 7: 08/06/20 04:40 08/06/20 06:51 Labs: Laboratory Last Values WBC 11.2 K/mm3 (4.5-11.0) H 08/06/20 04:40 RBC 4.07 M/mm3 (3.65-5.03) 08/06/20 04:40 Hgb 11.0 gm/dl (10.1-14.3) 08/06/20 04:40 Hct 33.3 % (30.3-42.9) 08/06/20 04:40 MCV 82 fl (79-97) 08/06/20 04:40 MCH 27 pg (28-32) L 08/06/20 04:40 MCHC 33 % (30-34) 08/06/20 04:40 RDW 15.4 % (13.2-15.2) H 08/06/20 04:40 Plt Count 298 K/mm3 (140-440) 08/06/20 04:40 Lymph % (Auto) 23.3 % (13.4-35.0) 08/06/20 04:40 [place] % (Auto) 5.6 % (0.0-7.3) 08/06/20 04:40 Eos % (Auto) 0.9 % (0.0-4.3) 08/06/20 04:40 Baso % (Auto) 0.4 % (0.0-1.8) 08/06/20 04:40 Lymph # (Auto) 2.6 K/mm3 (1.2-5.4) 08/06/20 04:40 [place] # (Auto) 0.6 K/mm3 (0.0-0.8) 08/06/20 04:40 Eos # (Auto) 0.1 K/mm3 (0.0-0.4) 08/06/20 04:40 Baso # (Auto) 0.0 K/mm3 (0.0-0.1) 08/06/20 04:40 Seg Neutrophils % 69.8 % (40.0-70.0) 08/06/20 04:40 Seg Neutrophils # 7.8 K/mm3 (1.8-7.7) H 08/06/20 04:40 PT 16.0 Sec. (12.2-14.9) H 08/06/20 00:00 INR 1.28 (0.87-1.13) H 08/06/20 00:00 D-Dimer 443.18 ng/mlDDU (0-234) H 08/06/20 06:51 Sodium 138 mmol/L (137-145) 08/06/20 04:40 Potassium 3.0 mmol/L (3.6-5.0) L 08/06/20 04:40 Chloride 99.7 mmol/L (98-107) 08/06/20 04:40 Carbon Dioxide 29 mmol/L (22-30) 08/06/20 04:40 Anion Gap 12 mmol/L 08/06/20 04:40 BUN 19 mg/dL (7-17) H 08/06/20 04:40 Creatinine 0.5 mg/dL (0.6-1.2) L 08/06/20 04:40 Estimated GFR > 60 ml/min 08/06/20 04:40 BUN/Creatinine Ratio 38 % 08/06/20 04:40 Glucose 116 mg/dL (65-100) H 08/06/20 06:51 Lactic Acid 1.50 mmol/L (0.7-2.0) 08/06/20 04:40 Calcium 10.6 mg/dL (8.4-10.2) H 08/06/20 04:40 Ferritin 138.2 ng/mL (10.0-200.0) 08/06/20 06:51 Lactate Dehydrogenase 183 units/L (91-180) H 08/06/20 06:51 Total Creatine Kinase 33 units/L (30-135) 08/06/20 00:00 CK-MB (CK-2) 3.1 ng/mL (0.0-4.0) 08/06/20 00:00 CK-MB (CK-2) Rel Index 9.3 (0-4) H 08/06/20 00:00 Troponin T 0.032 ng/mL (0.00-0.029) H D 08/06/20 09:38 C-Reactive Protein 4.40 mg/dL (0.00-1.30) H 08/06/20 06:51 NT-Pro-B Natriuret Pep 1517 pg/mL (0-900) H 08/06/20 00:00 Triglycerides 224 mg/dL (2-149) H 08/06/20 04:40 Cholesterol 151 mg/dL (50-199) 08/06/20 04:40 LDL Cholesterol Direct 90 mg/dL (50-130) 08/06/20 04:40 HDL Cholesterol 35 mg/dL (40-59) L 08/06/20 04:40 Cholesterol/HDL Ratio 4.31 % 08/06/20 04:40 Procalcitonin 0.05 ng/mL (<0.15) 08/06/20 06:51 Coronavirus (PCR) Negative (Negative) 08/06/20 08:50 Microbiology: Microbiology 08/06/20 00:00 Peripheral/Venous Blood Culture - Preliminary NO GROWTH AFTER 24 HOURS 08/05/20 23:34 Peripheral/Venous Blood Culture - Preliminary NO GROWTH AFTER 24 HOURS [place]ner/IV: IV Catheter Type [Left Wrist] INT / Saline Lock Active Medications - Current Medications Current Medications: Generic Name Dose Route Start Last Admin Trade Name Freq PRN Reason Stop Dose Admin Acetaminophen 650 mg 08/06/20 02:49 08/07/20 09:02 Acetaminophen 325 Mg Tab PO 650 mg Q4H PRN Administration Pain MILD(1-3)/Fever >100.5/DENSON Apixaban 5 mg 08/06/20 22:00 08/07/20 11:38 Apixaban 5 Mg Tab PO 5 mg BID MARTHA Administration Protocol Aspirin 81 mg 08/07/20 10:00 08/07/20 11:43 Aspirin Ec 81 Mg Tab PO 81 mg DAILY MARTHA Administration Atorvastatin Calcium 10 mg 08/06/20 22:00 08/06/20 22:56 Atorvastatin 10 Mg Tab PO 10 mg QHS MARTHA Administration Clonazepam 1 mg 08/06/20 22:00 08/07/20 12:37 Clonazepam 0.5 Mg Tab PO 1 mg BID MARTHA Administration Cyclobenzaprine HCl 5 mg 08/06/20 19:56 Cyclobenzaprine 10 Mg Tab PO TID PRN Muscle Spasm Furosemide 20 mg 08/07/20 06:00 08/07/20 06:40 Furosemide 20 Mg/2 Ml Inj IV Not Given 0600,1800 [facility] Azithromycin 500 mg/ Sodium 250 mls @ 250 mls/hr 08/06/20 10:00 08/07/20 11:25 Chloride IV 08/08/20 10:59 250 mls/hr Q24HR MARTHA Administration Protocol Isosorbide Mononitrate 30 mg 08/07/20 10:00 08/07/20 12:37 Isosorbide Mononitrate Er 30 Mg Tab PO 30 mg DAILY MARTHA Administration Levetiracetam 500 mg 08/06/20 22:00 08/07/20 12:39 Levetiracetam 500 Mg Tab PO 500 mg BID MARTHA Administration Magnesium Hydroxide 30 ml 08/06/20 02:49 Magnesium Hydroxide (Mom) Oral Liqd Udc PO Q4H PRN Constipation Midodrine 10 mg 08/07/20 08:00 08/07/20 19:22 Midodrine 5 Mg Tab PO Not Given TID@0800,1200,1600 [facility] Morphine Sulfate 2 mg 08/06/20 02:56 08/07/20 09:02 Morphine 2 Mg/1 Ml Inj IV 2 mg Q5MIN PRN Administration Chest Pain unrelieved by NTG Ondansetron HCl 4 mg 08/06/20 02:49 08/06/20 22:21 Ondansetron 4 Mg/2 Ml Inj IV 4 mg Q8H PRN Administration Nausea And Vomiting Quetiapine Fumarate 50 mg 08/06/20 22:00 08/06/20 22:06 Quetiapine 25 Mg Tab PO 50 mg QHS MARTHA Administration Sodium Chloride 10 ml 08/06/20 10:00 08/07/20 11:26 Sodium Chloride 0.9% 10 Ml Flush Syringe IV 10 ml BID MARTHA Administration Sodium Chloride 10 ml 08/06/20 02:49 Sodium Chloride 0.9% 10 Ml Flush Syringe IV PRN PRN LINE FLUSH Sodium Chloride 10 ml 08/06/20 02:49 Sodium Chloride 0.9% 10 Ml Flush Syringe IV PRN PRN LINE FLUSH Trazodone HCl 50 mg 08/06/20 22:00 08/06/20 22:03 Trazodone 50 Mg Tab PO 50 mg QHS MARTHA Administration
[2020-08-08 01:43] VITALS: BP 100/56
== END 2020-08-08 01:43 | disposition home or self-care (01) ==
LOC: ED 16:37 → 3A 08-06 01:23
PROVIDERS: ADMIT Internal Medicine Geriatric Medicine; ATTEND Internal Medicine
DX: R07.89 Other chest pain (principal); Z20.828 Contact with and (suspected) exposure to other viral communicable diseases; I11.0 Hypertensive heart disease with heart failure; I50.9 Heart failure, unspecified; I82.411 Acute embolism and thrombosis of right femoral vein; I25.10 Atherosclerotic heart disease of native coronary artery without angina pectoris; E11.9 Type 2 diabetes mellitus without complications; E87.6 Hypokalemia; E78.5 Hyperlipidemia, unspecified; K21.9 Gastro-esophageal reflux disease without esophagitis; J96.10 Chronic respiratory failure, unspecified whether with hypoxia or hypercapnia; J44.9 Chronic obstructive pulmonary disease, unspecified; F20.0 Paranoid schizophrenia; D72.829 Elevated white blood cell count, unspecified; M19.90 Unspecified osteoarthritis, unspecified site; R74.8 Abnormal levels of other serum enzymes; R56.9 Unspecified convulsions; Z87.442 Personal history of urinary calculi; Z90.710 Acquired absence of both cervix and uterus; Z98.890 Other specified postprocedural states; Z79.4 Long term (current) use of insulin; Z79.82 Long term (current) use of aspirin; Z87.891 Personal history of nicotine dependence; Z95.1 Presence of aortocoronary bypass graft; Z86.711 Personal history of pulmonary embolism
CPT/HCPCS: 36415; 71045; 80048; 80061; 82140; 82550; 82553; 82728; 82947; 83615; 83880; 84145; 84484; 85025; 85379; 85610; 86140; 87040; 93005; 93306; 96365; 96366; 96367; 96375; 96376; 99285; A9270; G0378; J0456; J0696; J2270; J2405; J7030; J7050; U0003; J3480

== ENCOUNTER 2021-10-16 10:36 | Observation (INO) | payer MEDICARE ==
--- NOTE | 2021-10-16 11:17 | Emergency Department Report ---
ED Altered Mental Status HPI - General Chief Complaint: Altered Mental Status Stated Complaint: AMS Time Seen by Provider: 10/16/21 11:15 Source: EMS Mode of arrival: Stretcher Limitations: No Limitations - History of Present Illness Initial Comments: Patient was brought in by ambulance for altered mental status. They report the family called them for altered mental status. Patient had been home from the hospital for about a week. She has had intermittently periods where she is "out of it" mixed with periods where she is at baseline. She was having 1 of those episodes today when the family called. She had recently been diagnosed with seizures. The family does not know if these are seizures. There was no fall. She has had swelling in her arms and face. The family state that that is new. There is no cough. There has been no fever. There has been no vomiting or diarrhea. EMS reports that the patient's skin feels hot but she does not have a temperature here. The patient is asking to go home. She states that she does not want to be here and does not want to stay here. She just wants to go home. She states that her family will come and pick her up. - Related Data Home Medications Medication Instructions Recorded Confirmed Last Taken Midodrine HCl 10 mg PO TID 08/06/20 09/27/21 Unknown Quetiapine Fumarate [SEROquel] 50 mg PO QHS 08/06/20 09/27/21 Unknown Previous Rx's Medication Instructions Recorded Last Taken Type Cetirizine HCl [ZyrTEC 10mg rapdis] 10 mg PO DAILY PRN #10 tab.rapdis 08/07/20 Unknown Rx AtorvaSTATin [Lipitor] 40 mg PO QHS 30 Days #30 tablet 10/01/21 Unknown Rx Midodrine [Proamatine] 15 mg PO TID 30 Days #90 tablet 10/01/21 Unknown Rx Pantoprazole [Protonix] 40 mg PO QDAY 30 Days #30 tablet 10/01/21 Unknown Rx Potassium Chloride [K-Dur] 20 meq PO QDAY 5 Days #5 tab 10/01/21 Unknown Rx Sulfamethoxazole/Trimethoprim 1 each PO Q12HR 10 Days #20 tablet 10/01/21 Unknown Rx [Bactrim DS TAB] levETIRAcetam [Keppra TAB] 500 mg PO BID 30 Days #60 tablet 10/01/21 Unknown Rx metroNIDAZOLE [Flagyl TAB] 500 mg PO Q8HR 10 Days #30 tablet 10/01/21 Unknown Rx Allergies Allergy/AdvReac Type Severity Reaction Status Date / Time coconut Allergy Hives Verified 09/26/21 10:04 haloperidol [From Haldol] Allergy Hives Verified 09/26/21 10:04 meperidine HCl [From Demerol] Allergy Rash Verified 09/26/21 10:04 nitroglycerin Allergy Hives Verified 09/26/21 10:04 NSAIDS (Non-Steroidal Allergy Unknown Verified 09/26/21 10:04 Anti-Inflamma tramadol Allergy Hives Verified 09/26/21 10:04 ED Review of Systems ROS: Stated complaint: AMS Other details as noted in HPI Comment: All other systems reviewed and negative Constitutional: denies: fever Eyes: denies: eye pain ENT: denies: throat pain Respiratory: denies: cough Cardiovascular: denies: chest pain Endocrine: denies: unexplained weight loss Gastrointestinal: denies: abdominal pain Genitourinary: denies: hematuria Musculoskeletal: denies: back pain Skin: denies: rash Neurological: denies: headache Hematological/Lymphatic: easy bruising ED Past Medical Hx - Past Medical History Hx Hypertension: Yes Hx Heart Attack/AMI: Yes Hx Congestive Heart Failure: Yes Hx Diabetes: Yes Hx GERD: Yes Hx Arthritis: Yes Hx Seizures: Yes Hx Kidney Stones: Yes Hx Psychiatric Treatment: Yes (paranoid schizophrenia /ANXIETY) Hx Asthma: Yes Hx COPD: Yes (2 L nasal cannula home O2) Additional medical history: CAD. AFib - Surgical History Hx Coronary Stent: Yes (1) Hx Cholecystectomy: Yes Additional Surgical History: right knee surgery, left carpal tunnel surg, hysterectomy - Family History Family history: hypertension - Social History Smoking Status: Former Smoker - Medications Home Medications: Home Medications Medication Instructions Recorded Confirmed Last Taken Type Midodrine HCl 10 mg PO TID 08/06/20 09/27/21 Unknown History Quetiapine Fumarate [SEROquel] 50 mg PO QHS 08/06/20 09/27/21 Unknown History Cetirizine HCl [ZyrTEC 10mg rapdis] 10 mg PO DAILY PRN #10 tab.rapdis 08/07/20 09/27/21 Unknown Rx AtorvaSTATin [Lipitor] 40 mg PO QHS 30 Days #30 tablet 10/01/21 Unknown Rx Midodrine [Proamatine] 15 mg PO TID 30 Days #90 tablet 10/01/21 Unknown Rx Pantoprazole [Protonix] 40 mg PO QDAY 30 Days #30 tablet 10/01/21 Unknown Rx Potassium Chloride [K-Dur] 20 meq PO QDAY 5 Days #5 tab 10/01/21 Unknown Rx Sulfamethoxazole/Trimethoprim 1 each PO Q12HR 10 Days #20 tablet 10/01/21 Unknown Rx [Bactrim DS TAB] levETIRAcetam [Keppra TAB] 500 mg PO BID 30 Days #60 tablet 10/01/21 Unknown Rx metroNIDAZOLE [Flagyl TAB] 500 mg PO Q8HR 10 Days #30 tablet 10/01/21 Unknown Rx ED Physical Exam - General Limitations: Altered Mental Status (Confusion and poor historian), Physical Limitation (Debilitated), Other (Pulse ox noted and normal) General appearance: alert, in no apparent distress, other (Frail) - Head Head exam: Present: atraumatic, other (Diffuse facial edema consistent with a cushingoid appearance) - Eye Eye exam: Present: normal appearance, PERRL, EOMI. Absent: scleral icterus - ENT ENT exam: Present: mucous membranes dry, normal external ear exam - Neck Neck exam: Present: normal inspection. Absent: meningismus - Respiratory Respiratory exam: Present: normal lung sounds bilaterally. Absent: respiratory distress - Cardiovascular Cardiovascular Exam: Present: regular rate, normal rhythm - GI/Abdominal GI/Abdominal exam: Present: soft. Absent: tenderness - Extremities Exam Extremities exam: Present: normal capillary refill, other (Diffuse edema of both upper extremities right worse than left. Bruising to both arms.) - Back Exam Back exam: Absent: CVA tenderness (R), CVA tenderness (L) - Neurological Exam Neurological exam: Present: alert, altered, other (Gait not assessed due to frailty) - Psychiatric Psychiatric exam: Present: normal affect, normal mood - Skin Skin exam: Present: warm, dry, other (Decubitus wounds noted by the nursing staff) ED Course Vital Signs 10/16/21 10/16/21 10/16/21 10:37 12:16 12:30 Temperature 98.1 F Pulse Rate 94 H Respiratory 20 Rate Blood Pressure Blood Pressure 160/90 [Left] O2 Sat by Pulse 95 86 97 Oximetry 10/16/21 10/16/21 10/16/21 12:40 12:46 13:00 Temperature Pulse Rate Respiratory Rate Blood Pressure 78/35 82/40 Blood Pressure [Left] O2 Sat by Pulse 87 97 97 Oximetry 10/16/21 10/16/21 10/16/21 13:16 13:30 13:46 Temperature Pulse Rate Respiratory Rate Blood Pressure 82/45 60/26 64/34 Blood Pressure [Left] O2 Sat by Pulse 97 98 97 Oximetry - Reevaluation(s) Reevaluation #1: 10/16/21 11:16 EMS was met. Labs were ordered. Old records reviewed. Patient is asking to go home. She is informed that she would need her family to come pick her up. She believes that they will come pick her up. Reevaluation #2: 10/16/21 13:38 Labs are noted. Patient is now hypotensive. Further labs have been ordered. IV hydration has been ordered. She will require admission given the hypotension and hypokalemia. Reevaluation #3: 10/16/21 15:47 Patient remains hypotensive. Troponin was noted. She will require admission. Case was discussed with Dr. Hebert at this time. We have looked for central IV access and been unsuccessful. 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 This would create too much of an angle for a femoral line. She has contractures involving the right neck so right IJ and left IJ would be difficult even with ultrasound due to the angles. I did attempt a left subclavian but was unsuccessful. I could not get any blood return or aspiration. There were no complications. We will hydrate the patient and look at some other point for better IV access. - Lab Data Result diagrams: 10/16/21 12:05 10/16/21 12:05 Lab Results 10/16/21 10/16/21 10/16/21 Range/Units 12:05 12:05 12:05 WBC 9.9 (4.5-11.0) K/mm3 RBC 3.00 L (3.65-5.03) M/mm3 Hgb 9.8 L (10.1-14.3) gm/dl Hct 30.6 (30.3-42.9) % MCV 102 H (79-97) fl MCH 33 H (28-32) pg MCHC 32 (30-34) % RDW 18.6 H (13.2-15.2) % Plt Count 317 (140-440) K/mm3 Sodium 135 L (137-145) mmol/L Potassium 2.4 L* (3.6-5.0) mmol/L Chloride 98.9 (98-107) mmol/L Carbon Dioxide 21 L (22-30) mmol/L Anion Gap 18 mmol/L BUN 9 (7-17) mg/dL Creatinine 0.7 (0.6-1.2) mg/dL Estimated GFR > 60 ml/min BUN/Creatinine Ratio 13 % Glucose 91 (65-100) mg/dL Calcium 8.0 L (8.4-10.2) mg/dL Troponin T (0.00-0.029) ng/mL TSH (0.270-4.200) mlU/mL Free T4 1.15 (0.76-1.46) ng/dL 10/16/21/05/01 Range/Units 12:05 14:39 WBC (4.5-11.0) K/mm3 RBC (3.65-5.03) M/mm3 Hgb (10.1-14.3) gm/dl Hct (30.3-42.9) % MCV (79-97) fl MCH (28-32) pg MCHC (30-34) % RDW (13.2-15.2) % Plt Count (140-440) K/mm3 Sodium (137-145) mmol/L Potassium (3.6-5.0) mmol/L Chloride (98-107) mmol/L Carbon Dioxide (22-30) mmol/L Anion Gap mmol/L BUN (7-17) mg/dL Creatinine (0.6-1.2) mg/dL Estimated GFR ml/min BUN/Creatinine Ratio % Glucose (65-100) mg/dL Calcium (8.4-10.2) mg/dL Troponin T 0.144 H* (0.00-0.029) ng/mL TSH 7.890 H (0.270-4.200) mlU/mL Free T4 (0.76-1.46) ng/dL - Radiology Data Radiology results: report reviewed - Medical Decision Making Patient presents with reports of altered mental status. She was found to be very frail and debilitated. She has anasarca involving face and arms and rest of her body. She likely is third spacing which is contributing to hypotension. She does have sacral decubiti which could also be contributing. She does not have a white count. We have a blood cultures pending. Antibiotics will be ordered based on her current presentation. The hypotension is being treated as is the hypokalemia. Critical Care Time: Yes (55 minutes exclusive of all procedures) Critical care attestation.: If time is entered above; I have spent that time in minutes in the direct care of this critically ill patient, excluding procedure time. ED Disposition Clinical Impression: Transient alteration of awareness, Anasarca, Hypokalemia, Elevated troponin Hypotension Qualifiers: Hypotension type: unspecified hypotension type Qualified Code(s): I95.9 - Hypot ension, unspecified Disposition: 09 ADMITTED INPATIENT Is pt being admited?: Yes Condition: Stable Referrals: PRIMARY CARE, [Primary Care Provider] - 3-5 Days
--- NOTE | 2021-10-16 12:20 | Cat Scan Report ---
CT HEAD WITHOUT CONTRAST INDICATION / CLINICAL INFORMATION: Altered mental status on blood thinners.. TECHNIQUE: Axial imaging performed from the skull apex through the skull base without the use of cont rast. Sagittal and coronal reformatted images. All CT scans at this location are performed using CT dose reduction for ALARA by means of automated exposure control. COMPARISON: None available. FINDINGS: CEREBRAL PARENCHYMA: No significant abnormality. No acute territorial infarct. HEMORRHAGE: None. EXTRA-AXIAL SPACES: Normal in size and morphology for the patient's age. VENTRICULAR SYSTEM: Normal in size and morphology for the patient's age. MIDLINE SHIFT OR HERNIATION: None. CEREBELLUM / BRAINSTEM: No significant abnormality. CALVARIUM: No significant abnormality. ORBITS: Normal as visualized. PARANASAL SINUSES / MASTOID AIR CELLS: Normal as visualized. SOFT TISSUES of HEAD: No significant abnormality. ADDITIONAL FINDINGS: None. IMPRESSION: No acute intracranial abnormality. Signer Name: Elvis Morton Jr, MD Signed: 10/16/2021 12:16 PM Workstation Name: [id number]
[2021-10-16 12:53] LABS: Hematocrit 30.6 % (30.3-42.9); Hemoglobin 9.8 gm/dl (10.1-14.3); Mean Corpuscular HGB Conc 32 % (30-34); Mean Corpuscular Volume 102 fl (79-97); Platelet Count 317 K/mm3 (140-440); Red Cell Distribution Width 18.6 % (13.2-15.2)
[2021-10-16 13:05] LABS: Blood Urea Nitrogen 9 mg/dL (7-17); Hemolysis Index 4
[2021-10-16 13:09] LABS: BUN/Creatinine Ratio 13
[2021-10-16] MEDS ORDERED: POTASSIUM CHLORIDE ER 20 MEQ TAB PO ONE (13:31)
[2021-10-16] MEDS ORDERED: POTASSIUM CHLORIDE 10 MEQ 10 MEQ/100 ML BAG IV ONE (13:31)
[2021-10-16] MEDS ORDERED: SODIUM CHLORIDE 0.45% 1000 ML 1,000 ML IV ONE ×2 (13:34→13:35)
[2021-10-16] MEDS ORDERED: SODIUM CHLORIDE 0.9% 1000 ML IV SOLN IV ONE (13:36)
--- NOTE | 2021-10-16 13:58 | XRay Report ---
CHEST 1 VIEW 10/16/2021 1:38 PM INDICATION / CLINICAL INFORMATION: Hypotension. COMPARISON: 09/26/2021 and 08/06/2020. FINDINGS: SUPPORT DEVICES: None. HEART / MEDIASTINUM: There is mediastinal shift to the left, similar to the prior exam. The heart siz e is difficult to evaluate. LUNGS / PLEURA: Moderately severe pleuroparenchymal opacity in the left hemithorax is again identifie d. Disease in the upper hemithorax has increased. Disease in the left mid to lower hemithorax is stab le. The right lung is hyperinflated but clear. No pneumothorax. ADDITIONAL FINDINGS: No significant additional findings. IMPRESSION: Increasing pleuroparenchymal disease in the left hemithorax. Associated volume loss is pr obably unchanged. Signer Name: Phi Lerma MD Signed: 10/16/2021 1:53 PM Workstation Name: [id number]
[2021-10-16] MEDS ORDERED: CEFEPIME/NS 2 GM/100 ML 2 GM/100 ML BAG IV ONE (15:49)
[2021-10-16 16:29] LABS: Chol/HDL Ratio 5.5 %
[2021-10-16] MEDS ORDERED: SODIUM CHLORIDE 0.9% 1000 ML 2,000 ML ONE (16:56)
[2021-10-16 17:35] LABS: Amorphous Crystals,Urine 3+; Bacteria,Urine 1+ /HPF (Negative); Calcium Oxalate Crystals,Urine 1+; Hyaline Casts,Urine 32 /LPF; Mucus,Urine FEW /HPF
[2021-10-16 18:47] LABS: Color,Urine Yellow (Yellow)
[2021-10-16 18:48] LABS: Bilirubin,Urine Negative (Negative); Blood,Urine Negative (Negative); Protein,Urine <15 mg/dL mg/dL (Negative); Urobilinogen,Urine < 2.0 mg/dL (<2.0)
[2021-10-16] MEDS ORDERED: CETIRIZINE HCL 10 MG PO PRN (19:21)
--- NOTE | 2021-10-16 19:21 | History and Physical Report ---
History of Present Illness Date of examination: 10/16/21 Date of admission: 10/16/2021 Chief complaint: Altered sensorium since morning History of present illness: 55-year-old female with multiple medical problems including low blood pressure, seizure disorder, GERD, hyperlipidemia presents with altered mental status. Family called EMS for altered mental status. Patient had multiple admissions recently. Patient is intermittently confused. During her examination patient was alert and oriented. Answering questions appropriately. Patient has swelling of both her upper and lower extremities. Patient's albumin is very low at 1.3. No vomiting or diarrhea. No fever or chills. Patient has colostomy bag and is contracted. Apparently her sister takes care of her. Her main complaint is altered sensorium. Patient also has a stage IV decubitus ulcer - Past Medical History --Hypertension: Yes --Heart Attack/AMI: Yes --Congestive Heart Failure: Yes --Diabetes: Yes --GERD: Yes --Arthritis: Yes --Seizures: Yes --Kidney Stones: Yes --Psychiatric Treatment: Yes (paranoid schizophrenia /ANXIETY) --Asthma: Yes --COPD: Yes (2 L nasal cannula home O2) --Additional medical history: CAD. AFib - Surgical History --Coronary Stent: Yes (1) --Cholecystectomy: Yes --Additional Surgical History: right knee surgery, left carpal tunnel surg, hysterectomy - Family History --Family history: hypertension - Social History --Smoking Status: Former Smoker Review of Systems ROS: Stated complaint: AMS Other details as noted in HPI Comment: All other systems reviewed and negative Constitutional: denies: fever Eyes: denies: eye pain ENT: denies: throat pain Respiratory: denies: cough Cardiovascular: denies: chest pain Endocrine: denies: unexplained weight loss Gastrointestinal: denies: abdominal pain Genitourinary: denies: hematuria Musculoskeletal: denies: back pain Skin: denies: rash Neurological: denies: headache Hematological/Lymphatic: easy bruising Medications and Allergies Allergies Allergy/AdvReac Type Severity Reaction Status Date / Time coconut Allergy Hives Verified 09/26/21 10:04 haloperidol [From Haldol] Allergy Hives Verified 09/26/21 10:04 meperidine HCl [From Demerol] Allergy Rash Verified 09/26/21 10:04 nitroglycerin Allergy Hives Verified 09/26/21 10:04 NSAIDS (Non-Steroidal Allergy Unknown Verified 09/26/21 10:04 Anti-Inflamma tramadol Allergy Hives Verified 09/26/21 10:04 Home Medications Medication Instructions Recorded Confirmed Last Taken Type Midodrine HCl 10 mg PO TID 08/06/20 09/27/21 Unknown History Quetiapine Fumarate [SEROquel] 50 mg PO QHS 08/06/20 09/27/21 Unknown History Cetirizine HCl [ZyrTEC 10mg rapdis] 10 mg PO DAILY PRN #10 tab.rapdis 08/07/20 09/27/21 Unknown Rx AtorvaSTATin [Lipitor] 40 mg PO QHS 30 Days #30 tablet 10/01/21 Unknown Rx Midodrine [Proamatine] 15 mg PO TID 30 Days #90 tablet 10/01/21 Unknown Rx Pantoprazole [Protonix] 40 mg PO QDAY 30 Days #30 tablet 10/01/21 Unknown Rx Potassium Chloride [K-Dur] 20 meq PO QDAY 5 Days #5 tab 10/01/21 Unknown Rx Sulfamethoxazole/Trimethoprim 1 each PO Q12HR 10 Days #20 tablet 10/01/21 Unknown Rx [Bactrim DS TAB] levETIRAcetam [Keppra TAB] 500 mg PO BID 30 Days #60 tablet 10/01/21 Unknown Rx metroNIDAZOLE [Flagyl TAB] 500 mg PO Q8HR 10 Days #30 tablet 10/01/21 Unknown Rx Exam - Constitutional Vitals: Temp Pulse Resp BP Pulse Ox 98.1 F 94 H 20 64/34 97 10/16/21 10:37 10/16/21 10:37 10/16/21 10:37 10/16/21 13:46 10/16/21 13:46 General appearance: Present: no acute distress, well-nourished - EENT Eyes: Present: PERRL ENT: hearing intact, clear oral mucosa - Neck Neck: Present: supple, normal ROM - Respiratory Respiratory effort: normal Respiratory: bilateral: CTA - Cardiovascular Heart rate: 78 Rhythm: regular Heart Sounds: Present: S1 & S2. Absent: rub, click - Extremities Extremities: pulses symmetrical, No edema, abnormal (Stage IV sacral decubitus ulcer 6 cm at 6 cm X 1 cm depth hyperpigmented edges. No purulent discharge) Peripheral Pulses: within normal limits - Abdominal General gastrointestinal: Present: soft, non-tender, non-distended, normal bowel sounds Female genitourinary: Present: normal - Integumentary Integumentary: Present: clear, warm, dry - Musculoskeletal Musculoskeletal: gait normal, strength equal bilaterally - Psychiatric Psychiatric: appropriate mood/affect, intact judgment & insight - Neurologic Neurologic: CNII-XII intact, moves all extremities HEART Score - HEART Score Troponin: Troponin T 0.144 ng/mL (0.00-0.029) H* 10/16/21 14:39 Results - Labs CBC & Chem 7: 10/17/21 05:21 10/17/21 05:21 Labs: Laboratory Last Values WBC 9.9 K/mm3 (4.5-11.0) 10/16/21 12:05 RBC 3.00 M/mm3 (3.65-5.03) L 10/16/21 12:05 Hgb 9.8 gm/dl (10.1-14.3) L 10/16/21 12:05 Hct 30.6 % (30.3-42.9) 10/16/21 12:05 MCV 102 fl (79-97) H 10/16/21 12:05 MCH 33 pg (28-32) H 10/16/21 12:05 MCHC 32 % (30-34) 10/16/21 12:05 RDW 18.6 % (13.2-15.2) H 10/16/21 12:05 Plt Count 317 K/mm3 (140-440) 10/16/21 12:05 Sodium 135 mmol/L (137-145) L 10/16/21 12:05 Potassium 2.4 mmol/L (3.6-5.0) L* 10/16/21 12:05 Chloride 98.9 mmol/L (98-107) 10/16/21 12:05 Carbon Dioxide 21 mmol/L (22-30) L 10/16/21 12:05 Anion Gap 18 mmol/L 10/16/21 12:05 BUN 9 mg/dL (7-17) 10/16/21 12:05 Creatinine 0.7 mg/dL (0.6-1.2) 10/16/21 12:05 Estimated GFR > 60 ml/min 10/16/21 12:05 BUN/Creatinine Ratio 13 % 10/16/21 12:05 Glucose 91 mg/dL (65-100) 10/16/21 12:05 Lactic Acid 2.70 mmol/L (0.7-2.0) H* 10/16/21 14:39 Calcium 8.0 mg/dL (8.4-10.2) L 10/16/21 12:05 Troponin T 0.144 ng/mL (0.00-0.029) H* 10/16/21 14:39 Triglycerides 172 mg/dL (2-149) H 10/16/21 14:39 Cholesterol 110 mg/dL (50-199) 10/16/21 14:39 LDL Cholesterol Direct 57 mg/dL (50-130) 10/16/21 14:39 HDL Cholesterol 20 mg/dL (40-59) L 10/16/21 14:39 Cholesterol/HDL Ratio 5.50 % 10/16/21 14:39 TSH 7.890 mlU/mL (0.270-4.200) H 10/16/21 12:05 Free T4 1.15 ng/dL (0.76-1.46) 10/16/21 12:05 Urine Color Yellow (Yellow) 10/16/21 Unknown Urine Turbidity Hazy (Clear) 10/16/21 Unknown Urine pH 5.0 (5.0-7.0) 10/16/21 Unknown Ur Specific [place] 1.015 (1.003-1.030) 10/16/21 Unknown Urine Protein <15 mg/dl mg/dL (Negative) 10/16/21 Unknown Urine Glucose (UA) Negative mg/dL (Negative) 10/16/21 Unknown Urine Ketones Negative mg/dL (Negative) 10/16/21 Unknown Urine Blood Negative (Negative) 10/16/21 Unknown Urine Nitrite Negative (Negative) 10/16/21 Unknown Ur Reducing Substances Not Reportable 10/16/21 Unknown Urine Bilirubin Negative (Negative) 10/16/21 Unknown Urine Ictotest Not Reportable 10/16/21 Unknown Urine Urobilinogen < 2.0 mg/dL (<2.0) 10/16/21 Unknown Ur Leukocyte Esterase Negative (Negative) 10/16/21 Unknown Urine WBC (Auto) 6.0 /HPF (0.0-6.0) 10/16/21 Unknown Urine RBC (Auto) 4.0 /HPF (0.0-6.0) 10/16/21 Unknown U Epithel Cells (Auto) < 1.0 /HPF (0-13.0) 10/16/21 Unknown Urine Bacteria (Auto) 1+ /HPF (Negative) 10/16/21 Unknown Calcium Oxalate Crystal 1+ 10/16/21 Unknown Amorphous Crystals 3+ 10/16/21 Unknown Hyaline Casts 32 /LPF 10/16/21 Unknown Urine Mucus Few /HPF 10/16/21 Unknown Short CBC 10/16/21 10/16/21 10/17/21 Range/Units 12:05 22:46 05:21 WBC 9.9 7.3 8.6 (4.5-11.0) K/mm3 Hgb 9.8 L 9.7 L 7.7 L (10.1-14.3) gm/dl Hct 30.6 31.6 23.1 L D (30.3-42.9) % Plt Count 317 185 248 (140-440) K/mm3 BMP 10/16/21 10/17/21 12:05 05:21 Sodium 135 L 135 L Potassium 2.4 L* 4.1 D Chloride 98.9 105.9 Carbon Dioxide 21 L 19 L BUN 9 12 Creatinine 0.7 0.6 Glucose 91 79 Calcium 8.0 L 7.4 L Cardiac Enzymes 10/16/21 Range/Units 14:39 Troponin T 0.144 H* (0.00-0.029) ng/mL Liver Function 10/17/21 Range/Units 05:21 Total Bilirubin 0.30 (0.1-1.2) mg/dL AST 45 H (5-40) units/L ALT 15 (7-56) units/L Alkaline Phosphatase 136 H (35-129) units/L Albumin 1.3 L (3.9-5) g/dL Urine 10/16/21 Range/Units Unknown Urine Color Yellow (Yellow) Urine pH 5.0 (5.0-7.0) Ur Specific [place] 1.015 (1.003-1.030) Urine Protein <15 mg/dl (Negative) mg/dL Urine Glucose (UA) Negative (Negative) mg/dL Microbiology: Microbiology 10/16/21 14:39 Peripheral/Venous Blood Culture - Preliminary Culture in Progress 10/16/21 14:39 Peripheral/Venous Blood Culture - Preliminary Culture in Progress - Imaging and Cardiology Chest x-ray: report reviewed CT Scan - head: report reviewed Imaging and Cardiology: Head CT No acute intracranial abnormality Chest x-ray Increasing pleural parenchymal disease in the left hemithorax associated volume loss is probably Assessment and Plan Advance Directives: Yes (Full code) VTE prophylaxis?: Chemical Plan of care discussed with patient/family: Yes - Patient Problems (1) Sepsis after obstetrical procedure Current Visit: Yes Status: Acute (2) Sepsis Current Visit: Yes Status: Acute Plan to address problem: Secondary to sacral decubitus ulcer Elevated lactic acid Patient started on Unasyn and vancomycin Surgical consult requested for possible debridement and wound care (3) Sepsis Current Visit: No Status: Acute Qualifiers: Sepsis type: sepsis due to unspecified organism Sepsis acute organ dysfunction status: with acute organ dysfunction Severe sepsis shock status: without septic shock (4) Hypokalemia Current Visit: Yes Status: Acute Plan to address problem: Supplemented (5) Anasarca Current Visit: Yes Status: Acute Plan to address problem: Secondary to severe malnutrition Albumin of 1.3 Dietitian consult requested (6) Hyponatremia Current Visit: Yes Status: Acute Plan to address problem: Normal saline for now (7) Hypotension Current Visit: Yes Status: Chronic Qualifiers: Hypotension type: unspecified hypotension type Qualified Code(s): I95.9 - Hypotension, unspecified Plan to address problem: Patient is on midodrine Also IV normal saline for now (8) Seizure disorder Current Visit: Yes Status: Chronic Plan to address problem: Continue Keppra (9) GERD (gastroesophageal reflux disease) Current Visit: Yes Status: Chronic Qualifiers: Esophagitis presence: without esophagitis Qualified Code(s): K21.9 - Gastro-esophageal reflux disease without esophagitis Plan to address problem: Continue PPIs (10) Physical debility Current Visit: Yes Status: Chronic Plan to address problem: Physical therapy and Occupational Therapy requested (11) DVT prophylaxis Current Visit: Yes Status: Acute Plan to address problem: On anticoagulation GI prophylaxis (12) Advance care planning Current Visit: Yes Status: Acute Plan to address problem: Disease education conducted, care plan discussed, diagnosis discussed, prognosis discussed. Patient is full code. Patient acknowledges understanding and agreement with care plan. +30 minutes.
[2021-10-16] MEDS ORDERED: ONDANSETRON 4 MG/2 ML INJ IV PRN (19:26)
[2021-10-16] MEDS ORDERED: ACETAMINOPHEN 325 MG TAB PO PRN (19:26)
[2021-10-16] MEDS ORDERED: HYDROmorphone 1 MG/1 ML INJ IV PRN (19:26)
[2021-10-16] MEDS ORDERED: SODIUM CHLORIDE 0.9% 500 ML 500 ML IV ONE (19:58)
[2021-10-16] MEDS ORDERED: VANCOMYCIN PHARMACY TO DOSE IV SCH (20:00)
[2021-10-16] MEDS ORDERED: NON-FORMULARY EACH (Midodrine Hcl [Midodrine Hcl] 10 MG Tablet) PO SCH (20:00)
[2021-10-16] MEDS ORDERED: POTASSIUM CHLORIDE ER 20 MEQ TAB PO SCH (20:00)
[2021-10-16] MEDS: POTASSIUM CHLORIDE 10 MEQ 10 MEQ/100 ML BAG IV SCH ×3 (20:15→23:19)
[2021-10-16] MEDS: PANTOPRAZOLE 40 MG TAB PO SCH (20:39)
[2021-10-16] MEDS ORDERED: VANCOMYCIN 1,250 MG in SODIUM CHLORIDE 0.9% 250ML 250 ML IV ONE (22:00)
[2021-10-16] MEDS ORDERED: NON-FORMULARY EACH (Quetiapine Fumarate [Seroquel] 50 MG Tablet) PO SCH (22:00)
[2021-10-16] MEDS ORDERED: FAMOTIDINE 20 MG/2 ML INJ IV SCH (22:00)
[2021-10-16] MEDS: AMPICILLIN/SULBACTA 3GM/100ML 3 GM/100 ML BAG IV SCH ×2 (22:14→22:43)
[2021-10-16] MEDS: levETIRAcetam 500 MG TAB PO SCH (22:20)
[2021-10-16] MEDS: CETIRIZINE 10 MG TAB PO SCH (22:20)
[2021-10-16] MEDS: MIDODRINE 5 MG TAB PO SCH (22:20)
[2021-10-16] MEDS: HEPARIN 5,000 UNIT/1 ML VIAL SUB-Q SCH (22:20)
[2021-10-16] MEDS: QUEtiapine 25 MG TAB PO SCH (22:22)
[2021-10-16 23:43] LABS: Hematocrit 31.6 % (30.3-42.9); Hemoglobin 9.7 gm/dl (10.1-14.3); Mean Corpuscular HGB Conc 31 % (30-34); Mean Corpuscular Volume 107 fl (79-97); Platelet Count 185 K/mm3 (140-440); Red Blood Count 2.94 M/mm3 (3.65-5.03); Red Cell Distribution Width 19.5 % (13.2-15.2)
[2021-10-17] MEDS: POTASSIUM CHLORIDE 10 MEQ 10 MEQ/100 ML BAG IV SCH (00:14)
[2021-10-17] MEDS: AMPICILLIN/SULBACTA 3GM/100ML 3 GM/100 ML BAG IV SCH ×4 (00:50→18:33)
[2021-10-17 05:44] LABS: Basophils # (Auto) 0.1 K/mm3 (0.0-0.1); Basophils % (Auto) 1.4 % (0.0-1.8); Eosinophils % (Auto) 0.3 % (0.0-4.3); Hematocrit 23.1 % (30.3-42.9); Hemoglobin 7.7 gm/dl (10.1-14.3); Lymphocytes # (Auto) 1.6 K/mm3 (1.2-5.4); Lymphocytes % (Auto) 18.1 % (13.4-35.0); Mean Corpuscular HGB Conc 33 % (30-34); Mean Corpuscular Volume 102 fl (79-97); Monocytes # (Auto) 0.5 K/mm3 (0.0-0.8); Monocytes % (Auto) 5.7 % (0.0-7.3); Platelet Count 248 K/mm3 (140-440); Red Blood Count 2.27 M/mm3 (3.65-5.03); Red Cell Distribution Width 18.7 % (13.2-15.2)
[2021-10-17 05:56] LABS: Alanine Aminotransferase 15 units/L (7-56); Albumin 1.3 g/dL (3.9-5); Blood Urea Nitrogen 12 mg/dL (7-17); Calcium 7.4 mg/dL (8.4-10.2); Hemolysis Index 186
[2021-10-17 05:57] LABS: BUN/Creatinine Ratio 20
[2021-10-17] MEDS: MIDODRINE 5 MG TAB PO SCH ×4 (10:00→22:55)
[2021-10-17] MEDS: POTASSIUM CHLORIDE ER 20 MEQ TAB PO SCH (10:52)
[2021-10-17] MEDS: PANTOPRAZOLE 40 MG TAB PO SCH (10:54)
[2021-10-17] MEDS: levETIRAcetam 500 MG TAB PO SCH ×2 (10:54→22:54)
[2021-10-17] MEDS: VANCOMYCIN/NS 1 GM/250 ML 1 GM/250 ML BAG IV SCH ×2 (10:57→23:00)
[2021-10-17] MEDS: CETIRIZINE 10 MG TAB PO SCH (10:59)
--- NOTE | 2021-10-17 12:43 | Consultation ---
History of Present Illness Consult date: 10/17/21 Reason for consult: wound care - History of present illness History of present illness: 55 year old female who is being consulted on by general surgery for evaluation of sacral wound. She is a bed bound with dementia who presented with altered mental status. She was noticed to have a progressing sacral wound compared to her admission last month. Past History Past Medical History: hypertension, seizures, other (CHF, asthma, schizophrenia) Past Surgical History: Other (colostomy, hysterecomy, L carpal tunnel. r knee surgery) Medications and Allergies Allergies Allergy/AdvReac Type Severity Reaction Status Date / Time coconut Allergy Hives Verified 09/26/21 10:04 haloperidol [From Haldol] Allergy Hives Verified 09/26/21 10:04 meperidine HCl [From Demerol] Allergy Rash Verified 09/26/21 10:04 nitroglycerin Allergy Hives Verified 09/26/21 10:04 NSAIDS (Non-Steroidal Allergy Unknown Verified 09/26/21 10:04 Anti-Inflamma tramadol Allergy Hives Verified 09/26/21 10:04 Home Medications Medication Instructions Recorded Confirmed Last Taken Type Midodrine HCl 10 mg PO TID 08/06/20 09/27/21 Unknown History Quetiapine Fumarate [SEROquel] 50 mg PO QHS 08/06/20 09/27/21 Unknown History Cetirizine HCl [ZyrTEC 10mg rapdis] 10 mg PO DAILY PRN #10 tab.rapdis 08/07/20 09/27/21 Unknown Rx AtorvaSTATin [Lipitor] 40 mg PO QHS 30 Days #30 tablet 10/01/21 Unknown Rx Midodrine [Proamatine] 15 mg PO TID 30 Days #90 tablet 10/01/21 Unknown Rx Pantoprazole [Protonix] 40 mg PO QDAY 30 Days #30 tablet 10/01/21 Unknown Rx Potassium Chloride [K-Dur] 20 meq PO QDAY 5 Days #5 tab 10/01/21 Unknown Rx Sulfamethoxazole/Trimethoprim 1 each PO Q12HR 10 Days #20 tablet 10/01/21 Unknown Rx [Bactrim DS TAB] levETIRAcetam [Keppra TAB] 500 mg PO BID 30 Days #60 tablet 10/01/21 Unknown Rx metroNIDAZOLE [Flagyl TAB] 500 mg PO Q8HR 10 Days #30 tablet 10/01/21 Unknown Rx Active Meds: Active Medications Acetaminophen (Acetaminophen 325 Mg Tab) 650 mg PO Q4H PRN PRN Reason: Pain MILD(1-3)/Fever >100.5/[place] Atorvastatin Calcium (Atorvastatin 40 Mg Tab) 40 mg PO QHS [facility] Last Admin: 10/16/21 22:21 Dose: 40 mg Cetirizine HCl (Cetirizine 10 Mg Tab) 10 mg PO DAILY [facility] Last Admin: 10/16/21 22:20 Dose: 10 mg Heparin Sodium (Porcine) (Heparin 5,000 Unit/1 Ml Vial) 5,000 unit SUB-Q Q12HR [facility] Last Admin: 10/16/21 22:20 Dose: 5,000 unit Hydromorphone HCl (Hydromorphone 1 Mg/1 Ml Inj) 0.5 mg IV Q3H PRN PRN Reason: Pain , Severe (7-10) Potassium Chloride/Dextrose/Sod Cl (D5w/0.45% Nacl/Kcl 20 Meq) 20 meq in 1,000 mls @ 100 mls/hr IV DIRECT [facility] Ampicillin Sodium/Sulbactam Sodium (Unasyn/Ns 3 Gm/100 Ml) 3 gm in 100 mls @ 100 mls/hr IV Q6HR [facility]; Protocol Last Admin: 10/17/21 05:01 Dose: 100 mls/hr Vancomycin HCl (Vancomycin/Ns 1 Gm/250 Ml) 1 gm in 250 mls @ 166.667 mls/hr IV Q12H [facility] Levetiracetam (Levetiracetam 500 Mg Tab) 500 mg PO BID [facility] Last Admin: 10/16/21 22:20 Dose: 500 mg Midodrine (Midodrine 5 Mg Tab) 10 mg PO TID [facility] Last Admin: 10/16/21 22:20 Dose: 10 mg Morphine Sulfate (Morphine 2 Mg/1 Ml Inj) 2 mg IV Q4H PRN PRN Reason: Pain, Moderate (4-6) Ondansetron HCl (Ondansetron 4 Mg/2 Ml Inj) 4 mg IV Q8H PRN PRN Reason: Nausea And Vomiting Pantoprazole Sodium (Pantoprazole 40 Mg Tab) 40 mg PO QDAY [facility] Last Admin: 10/16/21 20:39 Dose: 40 mg Potassium Chloride (Potassium Chloride Er 20 Meq Tab) 20 meq PO QDAY [facility] Quetiapine Fumarate (Quetiapine 25 Mg Tab) 50 mg PO QHS [facility] Last Admin: 10/16/21 22:22 Dose: 50 mg Sodium Chloride (Sodium Chloride 0.9% 10 Ml Flush Syringe) 10 ml IV BID [facility] Last Admin: 10/16/21 22:22 Dose: 10 ml Sodium Chloride (Sodium Chloride 0.9% 10 Ml Flush Syringe) 10 ml IV PRN PRN PRN Reason: LINE FLUSH Review of Systems ROS unobtainable: due to mental status Exam Vital Signs Temp Pulse Resp BP Pulse Ox 98.1 F 94 H 20 160/90 95 10/16/21 10:37 10/16/21 10:37 10/16/21 10:37 10/16/21 10:37 10/16/21 10:37 - General physical appearance Positive: no distress, no pain, chronically ill - Respiratory Positive: normal expansion, normal respiratory effort - Cardiovascular Heart Sounds: Present: S1 & S2 - Extremities Extremities: abnormal (contracted) - Abdomen Abdomen: Present: soft, other (colostomy). Absent: tender - Integumentary other (2x2cm skin defect on left posterior hip. about 1cm deep clean base with granuation tissue and no drainage.) - Neurologic Neurologic: no alert and oriented to time, place and person - Additional Findings sacral wound with some skin desquamation and some hyperemia. no breakdown past epithelium. no drainage or areas of fluctuance. non tender to palpation. measures about 6x6cm Results - Labs 10/17/21 05:21 10/17/21 05:21 Abnormal lab results 10/16/21 10/16/21 10/16/21 Range/Units 12:05 12:05 12:05 RBC 3.00 L (3.65-5.03) M/mm3 Hgb 9.8 L (10.1-14.3) gm/dl Hct (30.3-42.9) % MCV 102 H (79-97) fl MCH 33 H (28-32) pg RDW 18.6 H (13.2-15.2) % Seg Neutrophils % (40.0-70.0) % Sodium 135 L (137-145) mmol/L Potassium 2.4 L* (3.6-5.0) mmol/L Carbon Dioxide 21 L (22-30) mmol/L Lactic Acid (0.7-2.0) mmol/L Calcium 8.0 L (8.4-10.2) mg/dL AST (5-40) units/L Alkaline Phosphatase (35-129) units/L Troponin T (0.00-0.029) ng/mL Total Protein (6.3-8.2) g/dL Albumin (3.9-5) g/dL Triglycerides (2-149) mg/dL HDL Cholesterol (40-59) mg/dL TSH 7.890 H (0.270-4.200) mlU/mL 10/16/21 10/16/21 10/16/21 Range/Units 14:39 14:39 22:46 RBC 2.94 L (3.65-5.03) M/mm3 Hgb 9.7 L (10.1-14.3) gm/dl Hct (30.3-42.9) % MCV 107 H (79-97) fl MCH 33 H (28-32) pg RDW 19.5 H (13.2-15.2) % Seg Neutrophils % (40.0-70.0) % Sodium (137-145) mmol/L Potassium (3.6-5.0) mmol/L Carbon Dioxide (22-30) mmol/L Lactic Acid 2.70 H* (0.7-2.0) mmol/L Calcium (8.4-10.2) mg/dL AST (5-40) units/L Alkaline Phosphatase (35-129) units/L Troponin T 0.144 H* (0.00-0.029) ng/mL Total Protein (6.3-8.2) g/dL Albumin (3.9-5) g/dL Triglycerides 172 H (2-149) mg/dL HDL Cholesterol 20 L (40-59) mg/dL TSH (0.270-4.200) mlU/mL 10/16/21 10/17/21 10/17/21 Range/Units 22:46 05:21 05:21 RBC 2.27 L (3.65-5.03) M/mm3 Hgb 7.7 L (10.1-14.3) gm/dl Hct 23.1 L D (30.3-42.9) % MCV 102 H (79-97) fl MCH 34 H (28-32) pg RDW 18.7 H (13.2-15.2) % Seg Neutrophils % 74.5 H (40.0-70.0) % Sodium 135 L (137-145) mmol/L Potassium (3.6-5.0) mmol/L Carbon Dioxide 19 L (22-30) mmol/L Lactic Acid 2.40 H* (0.7-2.0) mmol/L Calcium 7.4 L (8.4-10.2) mg/dL AST 45 H (5-40) units/L Alkaline Phosphatase 136 H (35-129) units/L Troponin T (0.00-0.029) ng/mL Total Protein 4.8 L (6.3-8.2) g/dL Albumin 1.3 L (3.9-5) g/dL Triglycerides (2-149) mg/dL HDL Cholesterol (40-59) mg/dL TSH (0.270-4.200) mlU/mL Diabetes panel 10/16/21 10/16/21 10/17/21 Range/Units 12:05 14:39 05:21 Sodium 135 L 135 L (137-145) mmol/L Potassium 2.4 L* 4.1 D (3.6-5.0) mmol/L Chloride 98.9 105.9 (98-107) mmol/L Carbon Dioxide 21 L 19 L (22-30) mmol/L BUN 9 12 (7-17) mg/dL Creatinine 0.7 0.6 (0.6-1.2) mg/dL Glucose 91 79 (65-100) mg/dL Calcium 8.0 L 7.4 L (8.4-10.2) mg/dL AST 45 H (5-40) units/L ALT 15 (7-56) units/L Alkaline Phosphatase 136 H (35-129) units/L Total Protein 4.8 L (6.3-8.2) g/dL Albumin 1.3 L (3.9-5) g/dL Triglycerides 172 H (2-149) mg/dL HDL Cholesterol 20 L (40-59) mg/dL Thyroid panel 10/16/21 Range/Units 12:05 TSH 7.890 H (0.270-4.200) mlU/mL Calcium panel 10/16/21 10/17/21 Range/Units 12:05 05:21 Calcium 8.0 L 7.4 L (8.4-10.2) mg/dL Albumin 1.3 L (3.9-5) g/dL Pituitary panel 10/16/21 10/16/21 10/17/21 Range/Units 12:05 12:05 05:21 Sodium 135 L 135 L (137-145) mmol/L Potassium 2.4 L* 4.1 D (3.6-5.0) mmol/L Chloride 98.9 105.9 (98-107) mmol/L Carbon Dioxide 21 L 19 L (22-30) mmol/L BUN 9 12 (7-17) mg/dL Creatinine 0.7 0.6 (0.6-1.2) mg/dL Glucose 91 79 (65-100) mg/dL Calcium 8.0 L 7.4 L (8.4-10.2) mg/dL TSH 7.890 H (0.270-4.200) mlU/mL Adrenal panel 10/16/21 10/17/21 Range/Units 12:05 05:21 Sodium 135 L 135 L (137-145) mmol/L Potassium 2.4 L* 4.1 D (3.6-5.0) mmol/L Chloride 98.9 105.9 (98-107) mmol/L Carbon Dioxide 21 L 19 L (22-30) mmol/L BUN 9 12 (7-17) mg/dL Creatinine 0.7 0.6 (0.6-1.2) mg/dL Glucose 91 79 (65-100) mg/dL Calcium 8.0 L 7.4 L (8.4-10.2) mg/dL Total Bilirubin 0.30 (0.1-1.2) mg/dL AST 45 H (5-40) units/L ALT 15 (7-56) units/L Alkaline Phosphatase 136 H (35-129) units/L Total Protein 4.8 L (6.3-8.2) g/dL Albumin 1.3 L (3.9-5) g/dL Assessment and Plan 55 year old female with stage 2 pressure ulcer and smaller stage 4 hip ulcer. No signs of active infection. Afebrile and stable. No indication for surgical intervention at this time. recommend: 1. pressure dressing to sacrum and hip 2. wet to dry dressings of left hip wound 3. regular rotation to off load pressure
[2021-10-17] MEDS: HEPARIN 5,000 UNIT/1 ML VIAL SUB-Q SCH ×2 (16:53→23:26)
[2021-10-17] MEDS: QUEtiapine 25 MG TAB PO SCH (22:00)
--- NOTE | 2021-10-18 05:29 | Progress Note ---
Assessment and Plan - Patient Problems (1) Sepsis Current Visit: Yes Status: Acute Plan to address problem: Secondary to sacral decubitus ulcer Elevated lactic acid Patient started on Unasyn and vancomycin Surgical consult requested for possible debridement and wound care (2) Sacral decubitus ulcer, stage IV Current Visit: Yes Status: Acute Plan to address problem: 55 year old female with stage 2 pressure ulcer and smaller stage 4 hip ulcer. No signs of active infection. Afebrile and stable. No indication for surgical intervention at this time. recommend: 1. pressure dressing to sacrum and hip 2. wet to dry dressings of left hip wound 3. regular rotation to off load pressure (3) Hypokalemia Current Visit: Yes Status: Acute Plan to address problem: Supplemented (4) Anasarca Current Visit: Yes Status: Acute Plan to address problem: Secondary to severe malnutrition Albumin of 1.3 Dietitian consult requested (5) Hyponatremia Current Visit: Yes Status: Acute Plan to address problem: Normal saline for now (6) Hypotension Current Visit: Yes Status: Chronic Qualifiers: Hypotension type: unspecified hypotension type Qualified Code(s): I95.9 - Hypotension, unspecified Plan to address problem: Patient is on midodrine Also IV normal saline for now (7) Seizure disorder Current Visit: Yes Status: Chronic Plan to address problem: Continue Keppra (8) GERD (gastroesophageal reflux disease) Current Visit: Yes Status: Chronic Qualifiers: Esophagitis presence: without esophagitis Qualified Code(s): K21.9 - Gastro-esophageal reflux disease without esophagitis Plan to address problem: Continue PPIs (9) Physical debility Current Visit: Yes Status: Chronic Plan to address problem: Physical therapy and Occupational Therapy requested (10) DVT prophylaxis Current Visit: Yes Status: Acute Plan to address problem: On anticoagulation GI prophylaxis (11) Advance care planning Current Visit: Yes Status: Acute Plan to address problem: Disease education conducted, care plan discussed, diagnosis discussed, prognosis discussed. Patient is full code. Patient acknowledges understanding and agreement with care plan. +30 minutes. Subjective Date of service: 10/17/21 Principal diagnosis: Sepsis,Sacral decubitus ulcers Interval history: 55-year-old female with multiple medical problems including low blood pressure, seizure disorder, GERD, hyperlipidemia presents with altered mental status. Family called EMS for altered mental status. Patient had multiple admissions recently. Patient is intermittently confused. During her examination patient was alert and oriented. Answering questions appropriately. Patient has swelling of both her upper and lower extremities. Patient's albumin is very low at 1.3. No vomiting or diarrhea. No fever or chills. Patient has colostomy bag and is contracted. Apparently her sister takes care of her. Her main complaint is altered sensorium. Patient also has a stage IV decubitus ulcer 10/17/21 On IV abx Surgery consult appreciated Objective - Constitutional Vitals: Vital Signs - 12hr 10/17/21 10/17/21 10/17/21 17:47 19:59 23:10 Temperature 98.7 F 99.4 F Pulse Rate 86 85 Respiratory 16 19 Rate Blood Pressure 89/38 92/44 90/39 O2 Sat by Pulse 98 98 Oximetry 10/18/21 05:23 Temperature 101.1 F H Pulse Rate 85 Respiratory 19 Rate Blood Pressure 95/44 O2 Sat by Pulse 98 Oximetry General appearance: Present: no acute distress, well-nourished - EENT Eyes: PERRL, EOM intact ENT: hearing intact, clear oral mucosa Ears: bilateral: normal - Neck Neck: supple, normal ROM - Respiratory Respiratory effort: normal Respiratory: bilateral: CTA - Breasts Breasts: normal - Cardiovascular Rhythm: regular Heart Sounds: Present: S1 & S2. Absent: gallop, rub Extremities: pulses intact, No edema, normal color, Full ROM, abnormal (Stg 4 deep sacral ulcer with eschar) Extremity abnormal: other (Same as above) - Gastrointestinal General gastrointestinal: Present: soft, non-tender, non-distended, normal bowel sounds - Genitourinary Female genitourinary: normal - Integumentary Integumentary: clear, warm, dry - Musculoskeletal Musculoskeletal: 1, strength equal bilaterally - Neurologic Neurologic: moves all extremities - Psychiatric Psychiatric: memory intact, appropriate mood/affect, intact judgment & insight - Labs CBC & Chem 7: 10/17/21 05:21 10/20/21 20:46 Labs: Abnormal lab results 10/17/21 10/17/21 Range/Units 05:21 05:21 RBC 2.27 L (3.65-5.03) M/mm3 Hgb 7.7 L (10.1-14.3) gm/dl Hct 23.1 L D (30.3-42.9) % MCV 102 H (79-97) fl MCH 34 H (28-32) pg RDW 18.7 H (13.2-15.2) % Seg Neutrophils % 74.5 H (40.0-70.0) % Sodium 135 L (137-145) mmol/L Carbon Dioxide 19 L (22-30) mmol/L Calcium 7.4 L (8.4-10.2) mg/dL AST 45 H (5-40) units/L Alkaline Phosphatase 136 H (35-129) units/L Total Protein 4.8 L (6.3-8.2) g/dL Albumin 1.3 L (3.9-5) g/dL HEART Score - HEART Score Troponin: Troponin T 0.144 ng/mL (0.00-0.029) H* 10/16/21 14:39
[2021-10-18] MEDS: AMPICILLIN/SULBACTA 3GM/100ML 3 GM/100 ML BAG IV SCH ×4 (06:00→17:44)
[2021-10-18] MEDS: MIDODRINE 5 MG TAB PO SCH ×3 (08:44→20:00)
[2021-10-18] MEDS: CETIRIZINE 10 MG TAB PO SCH (10:00)
[2021-10-18] MEDS: POTASSIUM CHLORIDE ER 20 MEQ TAB PO SCH (10:00)
[2021-10-18] MEDS: PANTOPRAZOLE 40 MG TAB PO SCH (10:00)
[2021-10-18] MEDS: levETIRAcetam 500 MG TAB PO SCH ×2 (10:00→22:18)
[2021-10-18] MEDS: HEPARIN 5,000 UNIT/1 ML VIAL SUB-Q SCH ×2 (10:30→22:17)
[2021-10-18] MEDS: VANCOMYCIN/NS 1 GM/250 ML 1 GM/250 ML BAG IV SCH (12:45)
--- NOTE | 2021-10-18 19:03 | Progress Note ---
Assessment and Plan - Patient Problems (1) Sepsis Current Visit: Yes Status: Acute Plan to address problem: Secondary to sacral decubitus ulcer Elevated lactic acid Patient started on Unasyn and vancomycin Surgical consult appreciated (2) Hypokalemia Current Visit: Yes Status: Acute Plan to address problem: Supplemented (3) Anasarca Current Visit: Yes Status: Acute Plan to address problem: Secondary to severe malnutrition Albumin of 1.3 Dietitian consult requested (4) Hyponatremia Current Visit: Yes Status: Acute Plan to address problem: Normal saline for now (5) Hypotension Current Visit: Yes Status: Chronic Qualifiers: Hypotension type: unspecified hypotension type Qualified Code(s): I95.9 - Hypotension, unspecified Plan to address problem: Patient is on midodrine Also IV normal saline for now (6) Seizure disorder Current Visit: Yes Status: Chronic Plan to address problem: Continue Keppra (7) GERD (gastroesophageal reflux disease) Current Visit: Yes Status: Chronic Qualifiers: Esophagitis presence: without esophagitis Qualified Code(s): K21.9 - Gastro-esophageal reflux disease without esophagitis Plan to address problem: Continue PPIs (8) Physical debility Current Visit: Yes Status: Chronic Plan to address problem: Physical therapy and Occupational Therapy requested (9) DVT prophylaxis Current Visit: Yes Status: Acute Plan to address problem: On anticoagulation GI prophylaxis (10) Advance care planning Current Visit: Yes Status: Acute Plan to address problem: Disease education conducted, care plan discussed, diagnosis discussed, prognosis discussed. Patient is full code. Patient acknowledges understanding and agreement with care plan. +30 minutes. Subjective Date of service: 10/18/21 Principal diagnosis: Sepsis,Sacral decubitus ulcer Interval history: 55-year-old female with multiple medical problems including low blood pressure, seizure disorder, GERD, hyperlipidemia presents with altered mental status. Family called EMS for altered mental status. Patient had multiple admissions recently. Patient is intermittently confused. During her examination patient was alert and oriented. Answering questions appropriately. Patient has swe lling of both her upper and lower extremities. Patient's albumin is very low at 1.3. No vomiting or diarrhea. No fever or chills. Patient has colostomy bag and is contracted. Apparently her sister takes care of her. Her main complaint is altered sensorium. Patient also has a stage IV decubitus ulcer 10/17/21 On IV abx Surgery consult appreciated 10/18/21 Lying in bed On IV abx for sepsis and Sacral decubitus ulcer ried reaching family--no response Objective - Constitutional Vitals: Vital Signs - 12hr 10/18/21 10/18/21 10/18/21 07:21 08:00 12:35 Temperature 97.4 F L 98.5 F Pulse Rate Respiratory 17 16 Rate Blood Pressure 79/46 102/51 O2 Sat by Pulse 96 Oximetry 10/18/21 10/18/21 14:00 16:21 Temperature 97.9 F Pulse Rate 87 Respiratory 18 Rate Blood Pressure 91/44 O2 Sat by Pulse Oximetry General appearance: Present: no acute distress, well-nourished - EENT Eyes: PERRL, EOM intact ENT: hearing intact, clear oral mucosa Ears: bilateral: normal - Neck Neck: supple, normal ROM - Respiratory Respiratory effort: normal Respiratory: bilateral: CTA - Breasts Breasts: normal - Cardiovascular Heart rate: 78 Rhythm: regular Heart Sounds: Present: S1 & S2. Absent: gallop, rub Extremities: pulses intact, No edema, normal color, Full ROM, abnormal (Stg 4 decub ulcer--foul smelling) Extremity abnormal: other (Stg 4 decub ulcer--foul smelling) - Gastrointestinal General gastrointestinal: Present: soft, non-tender, non-distended, normal bowel sounds - Genitourinary Female genitourinary: normal - Integumentary Integumentary: clear, warm, dry - Musculoskeletal Musculoskeletal: generalized weakness - Neurologic Neurologic: moves all extremities, gait normal (Cannot walk) - Psychiatric Psychiatric: appropriate mood/affect, intact judgment & insight, memory intact, depressed - Labs CBC & Chem 7: 10/17/21 05:21 10/20/21 20:46 HEART Score - HEART Score Troponin: Troponin T 0.144 ng/mL (0.00-0.029) H* 10/16/21 14:39
[2021-10-18] MEDS: QUEtiapine 25 MG TAB PO SCH (22:16)
[2021-10-19] MEDS: AMPICILLIN/SULBACTA 3GM/100ML 3 GM/100 ML BAG IV SCH ×4 (00:56→17:16)
[2021-10-19] MEDS: VANCOMYCIN/NS 1 GM/250 ML 1 GM/250 ML BAG IV SCH ×5 (03:24→10:27)
[2021-10-19] MEDS: CETIRIZINE 10 MG TAB PO SCH (10:23)
[2021-10-19] MEDS: MIDODRINE 5 MG TAB PO SCH ×3 (10:23→22:00)
[2021-10-19] MEDS: POTASSIUM CHLORIDE ER 20 MEQ TAB PO SCH (10:23)
[2021-10-19] MEDS: PANTOPRAZOLE 40 MG TAB PO SCH (10:23)
[2021-10-19] MEDS: levETIRAcetam 500 MG TAB PO SCH ×2 (10:23→22:06)
[2021-10-19] MEDS: HEPARIN 5,000 UNIT/1 ML VIAL SUB-Q SCH ×2 (10:24→22:00)
[2021-10-19] MEDS: MORPHINE 2 MG/1 ML INJ IV PRN (11:50)
[2021-10-19] MEDS: QUEtiapine 25 MG TAB PO SCH (22:00)
[2021-10-20] MEDS: AMPICILLIN/SULBACTA 3GM/100ML 3 GM/100 ML BAG IV SCH ×4 (00:13→17:38)
[2021-10-20] MEDS: VANCOMYCIN/NS 1 GM/250 ML 1 GM/250 ML BAG IV SCH (00:54)
[2021-10-20] MEDS: D5W/0.45% NACL/KCL 20 MEQ 20 MEQ/1,000 ML BAG IV SCH ×2 (08:02→21:29)
[2021-10-20] MEDS: MIDODRINE 5 MG TAB PO SCH ×3 (08:20→21:30)
--- NOTE | 2021-10-20 09:36 | Progress Note ---
Assessment and Plan - Patient Problems (1) Sepsis Current Visit: Yes Status: Acute Plan to address problem: Secondary to sacral decubitus ulcer Elevated lactic acid Patient started on Unasyn and vancomycin Surgical consult appreciated (2) Hypokalemia Current Visit: Yes Status: Acute Plan to address problem: Supplemented (3) Anasarca Current Visit: Yes Status: Acute Plan to address problem: Secondary to severe malnutrition Albumin of 1.3 Dietitian consult requested (4) Hyponatremia Current Visit: Yes Status: Acute Plan to address problem: Normal saline for now (5) Hypotension Current Visit: Yes Status: Chronic Qualifiers: Hypotension type: unspecified hypotension type Qualified Code(s): I95.9 - Hypotension, unspecified Plan to address problem: Patient is on midodrine Also IV normal saline for now (6) Seizure disorder Current Visit: Yes Status: Chronic Plan to address problem: Continue Keppra (7) GERD (gastroesophageal reflux disease) Current Visit: Yes Status: Chronic Qualifiers: Esophagitis presence: without esophagitis Qualified Code(s): K21.9 - Gastro-esophageal reflux disease without esophagitis Plan to address problem: Continue PPIs (8) Physical debility Current Visit: Yes Status: Chronic Plan to address problem: Physical therapy and Occupational Therapy requested (9) DVT prophylaxis Current Visit: Yes Status: Acute Plan to address problem: On anticoagulation GI prophylaxis (10) Advance care planning Current Visit: Yes Status: Acute Plan to address problem: Disease education conducted, care plan discussed, diagnosis discussed, prognosis discussed. Patient is full code. Patient acknowledges understanding and agreement with care plan. +30 minutes. Subjective Date of service: 10/19/21 Principal diagnosis: Sepsis,Sacral decub ulcer Interval history: 55-year-old female with multiple medical problems including low blood pressure, seizure disorder, GERD, hyperlipidemia presents with altered mental status. Family called EMS for altered mental status. Patient had multiple admissions recently. Patient is intermittently confused. During her examination patient was alert and oriented. Answering questions appropriately. Patient has swellin g of both her upper and lower extremities. Patient's albumin is very low at 1.3. No vomiting or diarrhea. No fever or chills. Patient has colostomy bag and is contracted. Apparently her sister takes care of her. Her main complaint is altered sensorium. Patient also has a stage IV decubitus ulcer 10/17/21 On IV abx Surgery consult appreciated 10/18/21 Lying in bed On IV abx for sepsis and Sacral decubitus ulcer Tried reaching family--no response 10/19/21 Lying in bed On IV abx for sepsis and Sacral decubitus ulcer Tried reaching family--no response Objective - Constitutional Vitals: Vital Signs - 12hr 10/19/21 10/20/21 10/20/21 23:01 04:46 07:53 Temperature 98.6 F 98.2 F 98.0 F Pulse Rate 90 89 86 Respiratory 18 18 20 Rate Blood Pressure 95/55 88/36 Blood Pressure 100/56 [Left] O2 Sat by Pulse 99 98 100 Oximetry General appearance: Present: no acute distress, well-nourished - EENT Eyes: PERRL, EOM intact ENT: hearing intact, clear oral mucosa Ears: bilateral: normal - Neck Neck: supple, normal ROM - Respiratory Respiratory effort: normal Respiratory: bilateral: CTA - Breasts Breasts: normal - Cardiovascular Heart rate: 78 Rhythm: regular Heart Sounds: Present: S1 & S2. Absent: gallop, rub Extremities: pulses intact, No edema, normal color, Full ROM, abnormal (Stg 4 decub ulcer,Foul smelling) Extremity abnormal: other (Stg 4 decub ulcer,Foul smelling) - Gastrointestinal General gastrointestinal: Present: soft, non-tender, non-distended, normal bowel sounds - Genitourinary Female genitourinary: normal - Integumentary Integumentary: clear, warm, dry - Musculoskeletal Musculoskeletal: generalized weakness - Neurologic Neurologic: moves all extremities, other (Cannot walk,bed ridden) - Psychiatric Psychiatric: appropriate mood/affect, depressed - Labs CBC & Chem 7: 10/17/21 05:21 10/20/21 20:46 Labs: Abnormal lab results 10/19/21 Range/Units 21:41 Vancomycin Trough 36.0 H (5.0-20.0) ug/mL HEART Score - HEART Score Troponin: Troponin T 0.144 ng/mL (0.00-0.029) H* 10/16/21 14:39
--- NOTE | 2021-10-20 09:38 | Discharge Summary ---
Providers - Providers Date of Admission: 10/16/21 19:26 Date of discharge: 10/20/21 Attending physician: LALO MACARIO 10/17/21 10:08 Consult to Wound/ET Nurse [CONS] Routine Reason For Exam: wound eval to saccrum and colostomy 10/17/21 10:10 Speech Therapy Evaluation and Treat [CONS] Routine Reason For Exam: aphasia 10/17/21 11:35 Consult to Dietitian/Nutrition [CONS] Routine Physician Instructions: Patient albumin is very low Reason For Exam: Severe malnutrition Reason for Consult: Pt needs oral supplement 10/17/21 11:36 Consult to Physician [CONS] Routine Comment: Consulting Provider: MACKENZIE BROWN Physician Instructions: Reason For Exam: Sacral decubitus ulcer 10/17/21 12:16 Midline [Consult to PICC Line RN] [CONS] Urgent Reason For Exam: Mutilpe antibiotics and pt. is a very hard stick. Type Line:: Midline Primary care physician: ELECTRIC ENGINE MECHANIC Hospitalization Condition: Stable Disposition: 01 HOME / SELF CARE / HOMELESS - Discharge Diagnoses (1) Sepsis after obstetrical procedure Status: Acute (2) Sepsis Status: Acute (3) Hypokalemia Status: Acute (4) Anasarca Status: Acute (5) Hyponatremia Status: Acute (6) Hypotension Status: Chronic Qualifiers: Hypotension type: unspecified hypotension type Qualified Code(s): I95.9 - Hypotension, unspecified (7) Seizure disorder Status: Chronic (8) GERD (gastroesophageal reflux disease) Status: Chronic Qualifiers: Esophagitis presence: without esophagitis Qualified Code(s): K21.9 - Afshan ro-esophageal reflux disease without esophagitis (9) Physical debility Status: Chronic (10) DVT prophylaxis Status: Acute (11) Advance care planning Status: Acute Core Measure Documentation - Palliative Care Palliative Care/ Comfort Measures: Not Applicable - Core Measures Any of the following diagnoses?: none Exam - Constitutional Vitals: Temp Pulse Resp BP Pulse Ox 98.0 F 86 20 88/36 100 10/20/21 07:53 10/20/21 07:53 10/20/21 07:53 10/20/21 07:53 10/20/21 07:53 Plan Follow up with: PRIMARY MD CESAR [Primary Care Provider] - 3-5 Days
[2021-10-20] MEDS: levETIRAcetam 500 MG TAB PO SCH ×2 (10:17→21:30)
[2021-10-20] MEDS: HEPARIN 5,000 UNIT/1 ML VIAL SUB-Q SCH ×2 (10:17→21:29)
[2021-10-20] MEDS: CETIRIZINE 10 MG TAB PO SCH (10:17)
[2021-10-20] MEDS: POTASSIUM CHLORIDE ER 20 MEQ TAB PO SCH (10:17)
[2021-10-20] MEDS: PANTOPRAZOLE 40 MG TAB PO SCH (10:17)
[2021-10-20] MEDS: MORPHINE 2 MG/1 ML INJ IV PRN (17:42)
[2021-10-20] MEDS: QUEtiapine 25 MG TAB PO SCH (21:30)
[2021-10-21] MEDS: AMPICILLIN/SULBACTA 3GM/100ML 3 GM/100 ML BAG IV SCH ×5 (00:08→23:04)
[2021-10-21] MEDS: MIDODRINE 5 MG TAB PO SCH ×3 (08:39→21:04)
--- NOTE | 2021-10-21 09:22 | Progress Note ---
Assessment and Plan - Patient Problems (1) Sepsis Current Visit: Yes Status: Acute Plan to address problem: Secondary to sacral decubitus ulcer Elevated lactic acid Patient started on Unasyn and vancomycin Surgical consult appreciated (2) Hypokalemia Current Visit: Yes Status: Acute Plan to address problem: Supplemented (3) Anasarca Current Visit: Yes Status: Acute Plan to address problem: Secondary to severe malnutrition Albumin of 1.3 Dietitian consult requested (4) Hyponatremia Current Visit: Yes Status: Acute Plan to address problem: Normal saline for now (5) Hypotension Current Visit: Yes Status: Chronic Qualifiers: Hypotension type: unspecified hypotension type Qualified Code(s): I95.9 - Hypotension, unspecified Plan to address problem: Patient is on midodrine Also IV normal saline for now (6) Seizure disorder Current Visit: Yes Status: Chronic Plan to address problem: Continue Keppra (7) GERD (gastroesophageal reflux disease) Current Visit: Yes Status: Chronic Qualifiers: Esophagitis presence: without esophagitis Qualified Code(s): K21.9 - Gastro-esophageal reflux disease without esophagitis Plan to address problem: Continue PPIs (8) Physical debility Current Visit: Yes Status: Chronic Plan to address problem: Physical therapy and Occupational Therapy requested (9) DVT prophylaxis Current Visit: Yes Status: Acute Plan to address problem: On anticoagulation GI prophylaxis (10) Advance care planning Current Visit: Yes Status: Acute Plan to address problem: Disease education conducted, care plan discussed, diagnosis discussed, prognosis discussed. Patient is full code. Patient acknowledges understanding and agreement with care plan. +30 minutes. (11) Discharge planning issues Current Visit: Yes Status: Acute Plan to address problem: patient is ready for discharge Hospice versus SNF No Home member can be reached Subjective Date of service: 10/20/21 Principal diagnosis: Sepsis,Sacral decub ulcer Interval history: 55-year-old female with multiple medical problems including low blood pressure, seizure disorder, GERD, hyperlipidemia presents with altered mental status. Family called EMS for altered mental status. Patient had multiple admissions recently. Patient is intermittently confused. During her examination patient was alert and oriented. Answering questions appropriately. Patient has swelling of both her upper and lower extremities. Patient's albumin is very low at 1.3. No vomiting or diarrhea. No fever or chills. Patient has colostomy bag and is contracted. Apparently her sister takes care of her. Her main complaint is altered sensorium. Patient also has a stage IV decubitus ulcer 10/17/21 On IV abx Surgery consult appreciated 10/18/21 Lying in bed On IV abx for sepsis and Sacral decubitus ulcer Tried reaching family--no response 10/19/21 Lying in bed On IV abx for sepsis and Sacral decubitus ulcer Tried reaching family--no response 10/20/21 Lying in bed On IV abx for sepsis and Sacral decubitus ulcer Tried reaching family--no response Needs SNF needs Adult protective services Negligence on part of family no one can be reached Abandoned Objective - Constitutional Vitals: Vital Signs - 12hr 10/20/21 10/20/21 10/21/21 23:05 23:21 05:14 Temperature 98.9 F 98.5 F Pulse Rate 87 88 Respiratory 20 20 Rate Blood Pressure 102/60 Blood Pressure 100/62 [Left] O2 Sat by Pulse 98 95 97 Oximetry 10/21/21 08:00 Temperature Pulse Rate 88 Respiratory Rate Blood Pressure Blood Pressure [Left] O2 Sat by Pulse Oximetry General appearance: Present: no acute distress, well-nourished - EENT Eyes: PERRL, EOM intact ENT: hearing intact, clear oral mucosa Ears: bilateral: normal - Neck Neck: supple, normal ROM - Respiratory Respiratory effort: normal Respiratory: bilateral: CTA - Breasts Breasts: normal - Cardiovascular Heart rate: 78 Rhythm: regular Heart Sounds: Present: S1 & S2. Absent: gallop, rub Extremities: pulses intact, No edema, normal color, Full ROM, abnormal (Stg 4 decubitus ulcer) Extremity abnormal: other (Stg 4 decubitus ulcer) - Gastrointestinal General gastrointestinal: Present: soft, non-tender, non-distended, normal bowel sounds Rectal Exam: deferred - Genitourinary Female genitourinary: normal - Integumentary Integumentary: clear, warm, dry - Musculoskeletal Musculoskeletal: generalized weakness - Neurologic Neurologic: moves all extremities - Psychiatric Psychiatric: appropriate mood/affect, depressed - Allied health notes Allied health notes reviewed: nursing, social work, case management - Labs CBC & Chem 7: 10/17/21 05:21 10/20/21 20:46 Labs: Abnormal lab results 10/20/21 Range/Units 20:46 Creatinine 0.5 L (0.6-1.2) mg/dL HEART Score - HEART Score Troponin: Troponin T 0.144 ng/mL (0.00-0.029) H* 10/16/21 14:39
[2021-10-21] MEDS: MORPHINE 2 MG/1 ML INJ IV PRN (11:06)
--- NOTE | 2021-10-21 11:06 | Electrocardiograph Report ---
[facility] Test Date: 2021-10-20 Test Time: 12:00:25 Pat Name: LICHA MARAVILLA Department: Room: A459 1 Gender: F Seating Captain: HUNTER : 1965 Requested By: LALO MACARIO Order Number: [id number] Reading MD: Vickey Abrams Measurements Intervals Cucumber Rate: 80 P: 83 MN: 154 QRS: 60 QRSD: 120 T: 253 QT: 441 QTc: 507 Interpretive Statements Sinus rhythm Nonspecific intraventricular conduction delay Borderline T abnormalities, diffuse leads Compared to ECG 09/27/2021 08:27:20 Intraventricular conduction delay now present Overall,no significant change noted. Electronically Signed On 10-21-2021 11:06:15 EDT by Vickey Abrams
[2021-10-21] MEDS: HEPARIN 5,000 UNIT/1 ML VIAL SUB-Q SCH ×2 (11:11→21:04)
[2021-10-21] MEDS: POTASSIUM CHLORIDE ER 20 MEQ TAB PO SCH (11:11)
[2021-10-21] MEDS: CETIRIZINE 10 MG TAB PO SCH (12:10)
--- NOTE | 2021-10-21 12:32 | Progress Note ---
Assessment and Plan - Patient Problems (1) Sepsis Current Visit: Yes Status: Acute Plan to address problem: Supportive care. Symptoms currently resolved. Patient family elects to initiate hospice benefit and have patient discharged home under hospice care. (2) GERD (gastroesophageal reflux disease) Current Visit: Yes Status: Chronic Qualifiers: Esophagitis presence: without esophagitis Qualified Code(s): K21.9 - Gastro-esophageal reflux disease without esophagitis Plan to address problem: PPI therapy, supportive care. (3) Acute on chronic respiratory failure Current Visit: No Status: Acute Plan to address problem: Supplemental oxygen, nebulizer therapy., Pain control, supportive care. (4) Paroxysmal atrial fibrillation Current Visit: Yes Status: Acute Plan to address problem: Risks and benefits discussed regarding therapeutic anticoagulation. Patient family elects to initiate comfort care measures and have patient discharged home with hospice care. (5) Debility Current Visit: Yes Status: Acute Plan to address problem: Supportive care, fall precautions, (6) Chronic pain Current Visit: Yes Status: Acute (7) Sacral decubitus ulcer Current Visit: Yes Status: Acute Plan to address problem: Wound care, daily tenderness. Pain control. (8) DVT prophylaxis Current Visit: Yes Status: Acute Plan to address problem: SCD to bilateral lower extremities while in bed (9) Advance care planning Current Visit: Yes Status: Acute Plan to address problem: Disease education conducted, care plan discussed, diagnoses discussed, prognosis discussed. Patient family elects to initiate hospice benefit and have patient discharged home with home hospice care. Because hospice notified as per family request. Patient pending discharge home in a.m. Joann Jean-Baptiste [phone] is a medical decision maker and requests home hospice care. +35 minutes. History Interval history: 55 YO Female HD #5 Sepsis, Sacral Decubitus Ulcer, Diastolic CHF, MS, ANURAG, Chronic Respiratory Failure, COPD on 3L Home Oxygen via [place], CAD, GERD, DM, Seizure Disorder, Nephrolithiasis, Paroxysmal Atrial Fibrillation, Paranoid Fozia izophrenia, RADHA, MS, Chronic Pain Syndrome, DVT/PE not currently prescribed therapeutic anticoagulation, Medication Noncompliance, OA, Paraplegia, Debility, currently bedbound and nonambulatory with PPS of 30%, and requires 6/6 assistance with activities of daily living. Conducted family care my planning meeting today. Goals of care discussed. Patient family elects to have patient discharged home with hospice care. Hospice care team notified as per family request. Hospitalist Physical - Constitutional Vitals: Temp Pulse Resp BP Pulse Ox 99.6 F 88 18 96/52 91 10/21/21 07:12 10/21/21 08:00 10/21/21 07:12 10/21/21 07:12 10/21/21 07:12 General appearance: Present: no acute distress, well-nourished - EENT Eyes: Present: PERRL ENT: hearing decreased - Neck Neck: Present: supple - Respiratory Respiratory effort: labored Respiratory: bilateral: diminished - Cardiovascular Rhythm: regular Heart Sounds: Present: S1 & S2 - Extremities Extremities: no ischemia Peripheral Pulses: within normal limits - Abdominal General gastrointestinal: soft, non-tender, non-distended - Integumentary Integumentary: Present: clear, dry - Psychiatric Psychiatric: no appropriate mood/affect, no intact judgment & insight, no memory intact - Neurologic Neurologic: focal deficits, no moves all extremities, no gait normal HEART Score - HEART Score Troponin: Troponin T 0.144 ng/mL (0.00-0.029) H* 10/16/21 14:39 Results - Labs CBC & Chem 7: 10/17/21 05:21 10/20/21 20:46 Labs: Laboratory Last Values WBC 8.6 K/mm3 (4.5-11.0) 10/17/21 05:21 RBC 2.27 M/mm3 (3.65-5.03) L 10/17/21 05:21 Hgb 7.7 gm/dl (10.1-14.3) L 10/17/21 05:21 Hct 23.1 % (30.3-42.9) L D 10/17/21 05:21 MCV 102 fl (79-97) H 10/17/21 05:21 MCH 34 pg (28-32) H 10/17/21 05:21 MCHC 33 % (30-34) 10/17/21 05:21 RDW 18.7 % (13.2-15.2) H 10/17/21 05:21 Plt Count 248 K/mm3 (140-440) 10/17/21 05:21 Lymph % (Auto) 18.1 % (13.4-35.0) 10/17/21 05:21 [place] % (Auto) 5.7 % (0.0-7.3) 10/17/21 05:21 Eos % (Auto) 0.3 % (0.0-4.3) 10/17/21 05:21 Baso % (Auto) 1.4 % (0.0-1.8) 10/17/21 05:21 Lymph # (Auto) 1.6 K/mm3 (1.2-5.4) 10/17/21 05:21 [place] # (Auto) 0.5 K/mm3 (0.0-0.8) 10/17/21 05:21 Eos # (Auto) 0.0 K/mm3 (0.0-0.4) 10/17/21 05:21 Baso # (Auto) 0.1 K/mm3 (0.0-0.1) 10/17/21 05:21 Seg Neutrophils % 74.5 % (40.0-70.0) H 10/17/21 05:21 Seg Neutrophils # 6.4 K/mm3 (1.8-7.7) 10/17/21 05:21 Sodium 135 mmol/L (137-145) L 10/17/21 05:21 Potassium 4.1 mmol/L (3.6-5.0) D 10/17/21 05:21 Chloride 105.9 mmol/L (98-107) 10/17/21 05:21 Carbon Dioxide 19 mmol/L (22-30) L 10/17/21 05:21 Anion Gap 14 mmol/L 10/17/21 05:21 BUN 12 mg/dL (7-17) 10/17/21 05:21 Creatinine 0.5 mg/dL (0.6-1.2) L 10/20/21 20:46 Estimated GFR > 60 ml/min 10/20/21 20:46 BUN/Creatinine Ratio 20 % 10/17/21 05:21 Glucose 79 mg/dL (65-100) 10/17/21 05:21 POC Glucose 95 mg/dL (70-105) 10/21/21 07:10 Lactic Acid 0.80 mmol/L (0.7-2.0) 10/17/21 05:21 Calcium 7.4 mg/dL (8.4-10.2) L 10/17/21 05:21 Total Bilirubin 0.30 mg/dL (0.1-1.2) 10/17/21 05:21 AST 45 units/L (5-40) H 10/17/21 05:21 ALT 15 units/L (7-56) 10/17/21 05:21 Alkaline Phosphatase 136 units/L (35-129) H 10/17/21 05:21 Troponin T 0.144 ng/mL (0.00-0.029) H* 10/16/21 14:39 Total Protein 4.8 g/dL (6.3-8.2) L 10/17/21 05:21 Albumin 1.3 g/dL (3.9-5) L 10/17/21 05:21 Albumin/Globulin Ratio 0.4 % 10/17/21 05:21 Triglycerides 172 mg/dL (2-149) H 10/16/21 14:39 Cholesterol 110 mg/dL (50-199) 10/16/21 14:39 LDL Cholesterol Direct 57 mg/dL (50-130) 10/16/21 14:39 HDL Cholesterol 20 mg/dL (40-59) L 10/16/21 14:39 Cholesterol/HDL Ratio 5.50 % 10/16/21 14:39 TSH 7.890 mlU/mL (0.270-4.200) H 10/16/21 12:05 Free T4 1.15 ng/dL (0.76-1.46) 10/16/21 12:05 Urine Color Yellow (Yellow) 10/16/21 Unknown Urine Turbidity Hazy (Clear) 10/16/21 Unknown Urine pH 5.0 (5.0-7.0) 10/16/21 Unknown Ur Specific [place] 1.015 (1.003-1.030) 10/16/21 Unknown Urine Protein <15 mg/dl mg/dL (Negative) 10/16/21 Unknown Urine Glucose (UA) Negative mg/dL (Negative) 10/16/21 Unknown Urine Ketones Negative mg/dL (Negative) 10/16/21 Unknown Urine Blood Negative (Negative) 10/16/21 Unknown Urine Nitrite Negative (Negative) 10/16/21 Unknown Ur Reducing Substances Not Reportable 10/16/21 Unknown Urine Bilirubin Negative (Negative) 10/16/21 Unknown Urine Ictotest Not Reportable 10/16/21 Unknown Urine Urobilinogen < 2.0 mg/dL (<2.0) 10/16/21 Unknown Ur Leukocyte Esterase Negative (Negative) 10/16/21 Unknown Urine WBC (Auto) 6.0 /HPF (0.0-6.0) 10/16/21 Unknown Urine RBC (Auto) 4.0 /HPF (0.0-6.0) 10/16/21 Unknown U Epithel Cells (Auto) < 1.0 /HPF (0-13.0) 10/16/21 Unknown Urine Bacteria (Auto) 1+ /HPF (Negative) 10/16/21 Unknown Calcium Oxalate Crystal 1+ 10/16/21 Unknown Amorphous Crystals 3+ 10/16/21 Unknown Hyaline Casts 32 /LPF 10/16/21 Unknown Urine Mucus Few /HPF 10/16/21 Unknown Vancomycin Trough 36.0 ug/mL (5.0-20.0) H 10/19/21 21:41 Random Vancomycin 27.6 ug/mL (0-40.0) 10/21/21 05:35 Microbiology: Microbiology 10/16/21 14:39 Peripheral/Venous Blood Culture - Preliminary NO GROWTH AFTER 4 DAYS 10/16/21 14:39 Peripheral/Venous Blood Culture - Preliminary NO GROWTH AFTER 4 DAYS Conner/IV: Voiding Method Diaper Active Medications - Current Medications Current Medications: Generic Name Dose Route Start Last Admin Trade Name Freq PRN Reason Stop Dose Admin Acetaminophen 650 mg 10/16/21 19:26 10/18/21 06:32 Acetaminophen 325 Mg Tab PO 650 mg Q4H PRN Administration Pain MILD(1-3)/Fever >100.5/DENSON Atorvastatin Calcium 40 mg 10/16/21 22:00 10/20/21 21:30 Atorvastatin 40 Mg Tab PO Not Given QHS FOZIA Cetirizine HCl 10 mg 10/16/21 21:00 10/20/21 10:17 Cetirizine 10 Mg Tab PO Not Given DAILY FOZIA Heparin Sodium (Porcine) 5,000 unit 10/16/21 22:00 10/21/21 11:11 Heparin 5,000 Unit/1 Ml Vial SUB-Q 5,000 unit Q12HR FOZIA Administration Hydromorphone HCl 0.5 mg 10/16/21 19:26 Hydromorphone 1 Mg/1 Ml Inj IV Q3H PRN Pain , Severe (7-10) Potassium Chloride/Dextrose/Sod Cl 20 meq in 1,000 mls @ 100 mls/hr 10/16/21 20:00 10/20/21 21:29 D5w/0.45% Nacl/Kcl 20 Meq IV 100 mls/hr DIRECT FOZIA Administration Ampicillin Sodium/Sulbactam Sodium 3 gm in 100 mls @ 100 mls/hr 10/16/21 20:00 10/21/21 05:29 Unasyn/Ns 3 Gm/100 Ml IV 10/23/21 12:59 100 mls/hr Q6HR FOZIA Administration Protocol Levetiracetam 500 mg 10/16/21 22:00 10/20/21 21:30 Levetiracetam 500 Mg Tab PO Not Given BID FOZIA Midodrine 10 mg 10/16/21 20:00 10/21/21 08:39 Midodrine 5 Mg Tab PO Not Given TID [facility] Morphine Sulfate 2 mg 10/16/21 19:26 10/21/21 11:06 Morphine 2 Mg/1 Ml Inj IV 2 mg Q4H PRN Administration Pain, Moderate (4-6) Ondansetron HCl 4 mg 10/16/21 19:26 Ondansetron 4 Mg/2 Ml Inj IV Q8H PRN Nausea And Vomiting Pantoprazole Sodium 40 mg 10/16/21 20:00 10/20/21 10:17 Pantoprazole 40 Mg Tab PO Not Given QDAY [facility] Potassium Chloride 20 meq 10/17/21 10:00 10/20/21 10:17 Potassium Chloride Er 20 Meq Tab PO Not Given QDAY [facility] Quetiapine Fumarate 50 mg 10/16/21 22:00 10/20/21 21:30 Quetiapine 25 Mg Tab PO Not Given QHS [facility] Sodium Chloride 10 ml 10/16/21 22:00 10/20/21 21:30 Sodium Chloride 0.9% 10 Ml Flush Syringe IV Not Given BID FOZIA Sodium Chloride 10 ml 10/16/21 19:26 Sodium Chloride 0.9% 10 Ml Flush Syringe IV PRN PRN LINE FLUSH Nutrition/Malnutrition Assess - Dietary Evaluation Nutrition/Malnutrition Findings: Nutrition Notes Start: 10/17/21 16:42 Freq: Status: Active Protocol: Document 10/17/21 16:42 KATH (Rec: 10/17/21 17:28 KATH [id number]) Nutrition Notes Need for Assessment generated from: Order,motion graphics artist,MST Initial or Follow up Assessment Current Diagnosis Decubitus(Pressure Ulcer), Sepsis,Hypertension, Malnutrition,Hyperlipidemia Other Pertinent Diagnosis Severe sepsis, AMS, Anasarca/ Malnutrition, GERD, several comorbidities. Current Diet NPO. TF-Promote @ 68 ml/hr ( when pertinent). Labs/Tests 10/17: Na 135, CO2 19, Ca 7.4. Pertinent Medications 10/17: Mutritionally unremarkable. 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 Subjective/Other Information RD consult for skin risk, risk of malnutrition, and dietary supplementation assessments. Dietary supplementation should be discontinued, due to high risk of aspiration, according to DIP TUBE ASSEMBLER MACHINE notes. Dietary Supplementation Discontinued. DIP TUBE ASSEMBLER MACHINE note 10/17: Swallowing function was addressed. Patient demonstrated poor labial seal with contents spilling from the oral cavity. She demonstrated no A-P movement of the bolus with an absent swallow reflex. Patient is at significant risk for aspiration. Recommend an alternative method of nutrition.Will continue to follow. I recommend start TF. TF prescribed and ready to be ordered. 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 Pt presents infected stage IV Sacral pressure ulcers, according to admission documents. Pt lives at home with family. Percent of energy/protein needs met: Pt currently on NPO. Prescribed (not ordered) TF- Promote @ 68 ml/hr provides for energy/protein needs (1, 630 Kcal/102 g) during LOS, 96 % Kcal; 100% AA. Burn Absent Trauma Absent GI Symptoms None Difficulty In Swallowing Food Allergy Yes Skin Integrity/Comment Stage IV Sacral pressure ulcers. Current % PO Other #1 Nutrition Diagnosis Inadequate oral intake Etiology Pt is swallow impaired and at high risk for aspiration. As Evidenced by Signs and Symptoms DIP TUBE ASSEMBLER MACHINE note 10/17: Swallowing function was addressed. Patient demonstrated poor labial seal with contents spilling from the oral cavity. She demonstrated no A-P movement of the bolus with an absent swallow reflex. Patient is at significant risk for aspiration. Recommend an alternative method of nutrition. Is patient on ventilator? No Is Patient Ambulatory and/or Out of Bed No REE-([facility]-confined to bed) 1549.128 Kcal/Kg value to use for calculation 25 Approximate Energy Requirements Using 1701 kcal/Kg Calculation Used for Recommendations Kcal/kg Additional Notes Protein: 1.25-1.5 g/Kg ABW; 85 -102 g/day. Fluids: 1 ml/Kcal, or as per MD. Nutrition Intervention Nutrition Support: When pertinent, start Promote @ 68 ml/hr. Flush: 60 ml water Q 4 hr, or as per MD. Kcal 1,630 Protein (gm) 102 Carbohydrates (gm) 212 Fat (gm) 42 Fluid (mL) 1,368 Fiber (gm) 0 % RDI: 96% Kcal; 100% AA. Add Supplement/Snack (indicate name/kcal D/c. /protein ) Goal #1 Provide at least 75% of energy /protein needs through Enteral Feeding during LOS. Goal #2 Maintain body weight within +/ -3% of admission body weight during LOS. Follow-Up By: 10/21/21 Additional Comments When pertinent, start monitoring TF tolerance and BM .
--- NOTE | 2021-10-21 14:33 | Discharge Summary ---
Providers - Providers Date of Admission: 10/16/21 19:26 Attending physician: PHILIPPE SMITH 10/17/21 10:08 Consult to Wound/ET Nurse [CONS] Routine Reason For Exam: wound eval to saccrum and colostomy 10/17/21 10:10 Speech Therapy Evaluation and Treat [CONS] Routine Reason For Exam: aphasia 10/17/21 11:35 Consult to Dietitian/Nutrition [CONS] Routine Physician Instructions: Patient albumin is very low Reason For Exam: Severe malnutrition Reason for Consult: Pt needs oral supplement 10/17/21 11:36 Consult to Physician [CONS] Routine Comment: Consulting Provider: MACKENZIE BROWN Physician Instructions: Reason For Exam: Sacral decubitus ulcer 10/17/21 12:16 Midline [Consult to PICC Line RN] [CONS] Urgent Reason For Exam: Mutilpe antibiotics and pt. is a very hard stick. Type Line:: Midline Primary care physician: LORE GUERRERO MD Hospitalization Condition: Stable Hospital course: 55 YO Female with Diastolic CHF, AR, ANURAG, COPD on 3L Home Oxygen via [place], CAD, GERD, DM, Seizure Disorder, Nephrolithiasis, Paroxysmal Atrial Fibrillation, Paranoid Schizophrenia, RADHA, AR, Chronic Pain Syndrome, DVT/PE not currently prescribed therapeutic anticoagulation, Medication Noncompliance, OA, Paraplegia, Debility, currently bedbound and nonambulatory presents to ED for evaluation. Disposition: 01 HOME / SELF CARE / HOMELESS - Discharge Diagnoses (1) Sepsis Status: Acute (2) GERD (gastroesophageal reflux disease) Status: Chronic Qualifiers: Esophagitis presence: without esophagitis Qualified Code(s): K21.9 - Gastro-esophageal reflux disease without esophagitis (3) Acute on chronic respiratory failure Status: Acute (4) Paroxysmal atrial fibrillation Status: Acute (5) Debility Status: Acute (6) Chronic pain Status: Acute (7) Sacral decubitus ulcer Status: Acute (8) DVT prophylaxis Status: Acute (9) Advance care planning Status: Acute Exam - Constitutional Vitals: Temp Pulse Resp BP Pulse Ox 99.6 F 88 18 96/52 91 10/21/21 07:12 10/21/21 08:00 10/21/21 07:12 10/21/21 07:12 10/21/21 07:12 Plan Follow up with: PRIMARY CAREMD [Primary Care Provider] - 3-5 Days Prescriptions: LORazepam [Ativan] 0.5 mg PO QHS #15 tab Morphine [Morphine ORAL SOLN 10 MG/5 ML] 10 mg PO Q8HR #30 ml
[2021-10-21] MEDS: D5W/0.45% NACL/KCL 20 MEQ 20 MEQ/1,000 ML BAG IV SCH (21:03)
[2021-10-21] MEDS: QUEtiapine 25 MG TAB PO SCH (21:04)
[2021-10-21] MEDS ORDERED: levETIRAcetam 500 MG in DEXTROSE 5% IN WATER 100 ML IV SCH (22:00)
[2021-10-22] MEDS: AMPICILLIN/SULBACTA 3GM/100ML 3 GM/100 ML BAG IV SCH (05:16)
[2021-10-22 08:57] VITALS: BP 118/53
[2021-10-22] MEDS ORDERED: PANTOPRAZOLE 40 MG INJ IV SCH (10:00)
--- NOTE | 2021-10-22 10:28 | Discharge Summary ---
Providers - Providers Date of Admission: 10/16/21 19:26 Date of discharge: 10/22/21 Attending physician: LUCY SAENZ 10/17/21 10:08 Consult to Wound/ET Nurse [CONS] Routine Reason For Exam: wound eval to saccrum and colostomy 10/17/21 10:10 Speech Therapy Evaluation and Treat [CONS] Routine Reason For Exam: aphasia 10/17/21 11:35 Consult to Dietitian/Nutrition [CONS] Routine Physician Instructions: Patient albumin is very low Reason For Exam: Severe malnutrition Reason for Consult: Pt needs oral supplement 10/17/21 11:36 Consult to Physician [CONS] Routine Comment: Consulting Provider: MACKENZIE BROWN Physician Instructions: Reason For Exam: Sacral decubitus ulcer 10/17/21 12:16 Midline [Consult to PICC Line RN] [CONS] Urgent Reason For Exam: Mutilpe antibiotics and pt. is a very hard stick. 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 The patient was initially admitted with sepsis believed to be secondary to an infected sacral wound. She is a bed bound with dementia who presented with altered mental status. She was noticed to have a progressing sacral wound compared to her admission last month. Pt was seen by general surgery who reported there were no signs of active infection. No indication for surgical intervention. Surgery recommended pressure dressing to the sacrum. Wet-to-dry dressings of the left hip wound. Regular rotation to offload pressure. The patient did receive initially IV antibiotics. Dr. Hill performed Disease education, care plan discussed, diagnoses discussed, prognosis discussed. Patient family elected to initiate hospice benefit and have patient discharged home with home hospice care. Hospice notified as per family request. Patient pending discharge home today. Dr. Hill spoke with Joann Jean-Baptiste [phone] is a medical decision maker and requests home hospice care. 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 therapeutic anticoagulation, Medication Noncompliance, OA, Paraplegia, Debility, currently bedbound and nonambulatory with PPS of 30%, and requires 6/6 assistance with activities of daily living Core Measure Documentation - Palliative Care Palliative Care/ Comfort Measures: Hospice Care - Core Measures Any of the following diagnoses?: none Exam - Constitutional Vitals: Temp Pulse Resp BP Pulse Ox 97.9 F 80 18 118/53 100 10/22/21 08:19 10/22/21 08:19 10/22/21 08:19 10/22/21 08:19 10/22/21 08:19 General appearance: Present: no acute distress, well-nourished - EENT Eyes: Present: PERRL ENT: hearing intact, clear oral mucosa - Neck Neck: Present: supple, normal ROM - Respiratory Respiratory effort: normal Respiratory: bilateral: CTA - Cardiovascular Heart Sounds: Present: S1 & S2. Absent: rub, click - Extremities Extremities: pulses symmetrical, No edema Peripheral Pulses: within normal limits - Abdominal General gastrointestinal: Present: soft, non-tender, non-distended, normal bowel sounds Female genitourinary: Present: normal - Integumentary Integumentary: Present: clear, warm, dry - Musculoskeletal Musculoskeletal: gait normal, strength equal bilaterally - Psychiatric Psychiatric: appropriate mood/affect, intact judgment & insight - Neurologic Neurologic: CNII-XII intact, moves all extremities Plan Activity: advance as tolerated Weight Bearing Status: Weight Bear as Tolerated Diet: per dietitian instruction Wound: per your surgeon's advice Follow up with: PRIMARY CARE,MD [Primary Care Provider] - 3-5 Days Prescriptions: LORazepam [Ativan] 0.5 mg PO QHS #15 tab Morphine [Morphine ORAL SOLN 10 MG/5 ML] 10 mg PO Q8HR #30 ml
== END 2021-10-22 18:51 | disposition hospice, home (50) ==
LOC: ED 10:36 → INTOOBSV 19:26 → 4A 19:26
PROVIDERS: ADMIT Internal Medicine; ATTEND Hospitalist
DX: A41.9 Sepsis, unspecified organism (principal); E87.6 Hypokalemia; E87.1 Hypo-osmolality and hyponatremia; L89.204 Pressure ulcer of unspecified hip, stage 4; J96.20 Acute and chronic respiratory failure, unspecified whether with hypoxia or hypercapnia; F20.0 Paranoid schizophrenia; I11.0 Hypertensive heart disease with heart failure; I50.32 Chronic diastolic (congestive) heart failure; G82.20 Paraplegia, unspecified; L89.152 Pressure ulcer of sacral region, stage 2; L89.154 Pressure ulcer of sacral region, stage 4; R53.81 Other malaise; K21.9 Gastro-esophageal reflux disease without esophagitis; M19.90 Unspecified osteoarthritis, unspecified site; J44.9 Chronic obstructive pulmonary disease, unspecified; E11.9 Type 2 diabetes mellitus without complications; I95.9 Hypotension, unspecified; R60.1 Generalized edema; I25.10 Atherosclerotic heart disease of native coronary artery without angina pectoris; G40.909 Epilepsy, unspecified, not intractable, without status epilepticus; I48.0 Paroxysmal atrial fibrillation; F41.9 Anxiety disorder, unspecified; Z79.01 Long term (current) use of anticoagulants; Z99.81 Dependence on supplemental oxygen; Z87.891 Personal history of nicotine dependence; Z90.49 Acquired absence of other specified parts of digestive tract; Z90.710 Acquired absence of both cervix and uterus; Z87.442 Personal history of urinary calculi; Z79.899 Other long term (current) drug therapy; Z98.890 Other specified postprocedural states; Z95.1 Presence of aortocoronary bypass graft
CPT/HCPCS: 36415; 70450; 71045; 80048; 80053; 80061; 80202; 81001; 82140; 82565; 82962; 84439; 84443; 84484; 85025; 85027; 87040; 92526; 92610; 93005; 96365; 96366; 96367; 96368; 96372; 96375; 96376; 99291; G0378; J0295; J0692; J1644; J1953; J2270; J3370; J3480; J3490; J7030; J7040; J7050; J7060; Q0162